=== PATIENT | female | born 1960 | race Hispanic/Latino ===

== ENCOUNTER 2016-08-27 10:33 | Emergency (ER) | payer MEDICAID ==
[2016-08-27 10:38] VITALS: TEMP 97.8
--- NOTE | 2016-08-27 10:49 | ED PDOC ---
HPI: Psych/Substance Abuse Time Seen by Provider: 08/27/16 10:40 History Per: EMS (Brought by EMS after found to be lethargic while playing Bingo this AM. Pt admits to taking diabetic meds together with sleeping meds this AM. Denies SI/HI. No intentional ingestion.) Onset/Duration Of Symptoms: Hrs (1) Current Symptoms Are (Timing): Still Present Suicide/Self Injury Attempted (Context): None Modifying Factor(s): None Severity: Mild Pain Scale Rating Of: 0 Past Medical History Vital Signs: Last Vital Signs Temp 97.8 F 08/27/16 10:37 Pulse 108 H 08/27/16 10:37 Resp BP 83/50 L 08/27/16 10:37 Pulse Ox 98 08/27/16 10:37 - Medical History PMH: Asthma, Bronchitis, COPD, Diabetes, HTN, Hypercholesterolemia Denies: Alzheimer's Disease, Chronic Kidney Disease - Surgical History Surgical History: Hernia Repair - Family History Family History: States: Unknown Family Hx - Immunization History Hx Tetanus Toxoid Vaccination: Yes Hx Influenza Vaccination: Yes Hx Pneumococcal Vaccination: No - Home Medications Home Medications: Ambulatory Orders Medication Instructions Recorded Aspirin [Aspirin EC] 81 mg PO DAILY 12/13/15 Atorvastatin Calcium 10 mg PO DAILY 12/13/15 Montelukast Sodium 10 mg PO DAILY 12/13/15 Albuterol HFA [Ventolin HFA 90 2 puff IH Q4 PRN 12/18/15 mcg/actuation (8 g)] metFORMIN [glucOPHAGE] 500 mg PO BID 12/18/15 Nitroglycerin 0.4 mg SL Q5M PRN 01/10/16 Quetiapine Fumarate 100 mg PO DAILY 01/10/16 Zolpidem [Ambien] 10 mg PO HS 01/10/16 Methylprednisolone [Medrol Dose 4 mg PO DAILY #21 mg 04/16/16 Pack (21 tabs)] Ergocalciferol (Vitamin D2) 5,000 unit PO QWK 05/10/16 [Vitamin D] Fenofibrate,Micronized 134 mg PO DAILY 05/10/16 [Fenofibrate] Prednisone [Deltasone] 20 mg PO DAILY #5 tablet 05/10/16 Quetiapine Fumarate [Seroquel] 100 mg PO DAILY 05/10/16 Methylprednisolone [Medrol Dosepak] 4 mg PO ASDIR #1 pkg 06/15/16 Naproxen [Naprosyn] 500 mg PO Q12 PRN #20 tablet 07/17/16 - Allergies Allergies/Adverse Reactions: Allergies Allergy/AdvReac Type Severity Reaction Status Date / Time Penicillins Allergy URTICARIA Verified 08/27/16 11:10 Review of Systems ROS Statement: Except As Marked, All Systems Reviewed And Found Negative Physical Exam - Reviewed Nursing Documentation Reviewed: Yes Vital Signs Reviewed: Yes - Physical Exam Appears: Positive for: Non-toxic, No Acute Distress Head Exam: Positive for: ATRAUMATIC, NORMAL INSPECTION, NORMOCEPHALIC Skin: Positive for: Normal Color, Warm, DRY Eye Exam: Positive for: EOMI, Normal appearance, PERRL ENT: Positive for: Normal ENT Inspection Neck: Positive for: Normal, Painless ROM Cardiovascular/Chest: Positive for: Regular Rate, Rhythm Respiratory: Positive for: CNT, Normal Breath Sounds Gastrointestinal/Abdominal: Positive for: Normal Exam, Bowel Sounds, Soft Back: Positive for: Normal Inspection Extremity: Positive for: Normal ROM Neurologic/Psych: Negative for: Alert (Sleepy lethargic, arousable), Motor/ Sensory Deficits - ECG O2 Sat by Pulse Oximetry: 98 - Progress Re-evaluation Time: 11:41 Condition: Improved (Awake alert oreinted x 3 No focal neuro deficits.) Disposition - Clinical Impression Clinical Impression: Drug ingestion - Patient ED Disposition Is Patient to be Admitted: No Counseled Patient/Family Regarding: Diagnosis, Need For Followup - Disposition Disposition: Routine/Home Disposition Time: 11:42 Condition: FAIR Instructions: Zolpidem (By mouth)
[2016-08-27 11:40] LABS: BASO % 0.4 % (0.0-2.0); EOS # 0.1 K/uL (0.0-0.7); EOS % 1.2 % (0.0-4.0); HEMATOCRIT 43.1 % (34.0-47.0); LYMPH # 2.2 K/uL (1.0-4.3); LYMPH % 26.4 % (20.0-40.0); MEAN CELL VOLUME 85.9 fl (81.0-99.0); MEAN CORPUSCULAR HGB CONC 33.8 g/dL (33.0-37.0); MEAN PLATELET VOLUME 7.5 fl (7.2-11.7); MONO # 0.4 K/uL (0.0-0.8); MONO % 4.8 % (0.0-10.0); NEUT # 5.7 K/uL (1.8-7.0); NEUT % 67.2 % (50.0-75.0); NRBC % 0.1 % (0.0-0.0); RED CELL DISTRIBUTION WIDTH 13.3 % (11.5-14.5); WHITE BLOOD COUNT 8.5 K/uL (4.8-10.8)
[2016-08-27 11:57] LABS: ALB/GLOB RATIO 1.1 (1.0-2.1); ALCOHOL SERUM < 10 mg/dl (0-10); ALKALINE PHOSPHATASE 68 U/L (38-126); ALT/SGPT 54 U/L (9-52); AST/SGOT 44 U/L (14-36); BILIRUBIN,TOTAL 0.8 mg/dl (0.2-1.3); BLOOD UREA NITROGEN 16 mg/dl (7-17); CALCIUM 9.7 mg/dL (8.4-10.2); CARBON DIOXIDE 21 mmol/L (22-30); CHLORIDE 105 mmol/L (98-107); GFR AFRICAN-AMERICAN > 60; GLUCOSE,RANDOM 141 mg/dL (65-105); SODIUM 142 mmol/l (132-148); TOTAL PROTEIN 8.2 G/DL (6.3-8.2)
[2016-08-27 12:07] LABS: POTASSIUM 4.9 MMOL/L (3.6-5.0)
[2016-08-27 12:18] VITALS: BP 100/60; PULSE 90; RESP 18; O2SAT 99
--- NOTE | 2016-08-27 14:06 | CARD ---
APPROVED REPORT EKG Measurement Heart [id number] <Conclusion> Normal sinus rhythm Possible Left atrial enlargement Borderline ECG
== END 2016-08-27 11:50 | disposition home or self-care (01) ==
LOC: H.ER 10:33
DX: T50.905A Adverse effect of unspecified drugs, medicaments and biological substances, initial encounter (principal); Y92.9 Unspecified place or not applicable; E11.9 Type 2 diabetes mellitus without complications; I10 Essential (primary) hypertension; J45.909 Unspecified asthma, uncomplicated; Z88.0 Allergy status to penicillin

== ENCOUNTER 2016-10-10 21:17 | Inpatient (IN) | payer MEDICAID ==
[2016-10-10 22:42] LABS: BASO # 0.1 K/uL (0.0-0.2); BASO % 0.7 % (0.0-2.0); EOS # 0.3 K/uL (0.0-0.7); EOS % 1.9 % (0.0-4.0); HEMATOCRIT 41.5 % (34.0-47.0); LYMPH # 4.4 K/uL (1.0-4.3); LYMPH % 33.7 % (20.0-40.0); MEAN CELL VOLUME 85.5 fl (81.0-99.0); MEAN CORPUSCULAR HEMOGLOBIN 28.8 pg (27.0-31.0); MEAN CORPUSCULAR HGB CONC 33.7 g/dL (33.0-37.0); MEAN PLATELET VOLUME 7.3 fl (7.2-11.7); MONO % 7.3 % (0.0-10.0); NEUT # 7.4 K/uL (1.8-7.0); NEUT % 56.4 % (50.0-75.0); RED CELL DISTRIBUTION WIDTH 13.5 % (11.5-14.5); WHITE BLOOD COUNT 13.1 K/uL (4.8-10.8)
[2016-10-10 22:47] LABS: VENOUS BLOOD GAS BASE EXCESS 2.6 mmol/L (0.0-2.0); VENOUS BLOOD GAS PCO2 41 mmHg (40-60); VENOUS BLOOD PH 7.43 (7.32-7.43)
[2016-10-10 22:53] LABS: ALB/GLOB RATIO 1.3 (1.0-2.1); ALKALINE PHOSPHATASE 103 U/L (38-126); ALT/SGPT 57 U/L (9-52); AST/SGOT 31 U/L (14-36); BILIRUBIN,TOTAL 0.5 mg/dl (0.2-1.3); BLOOD UREA NITROGEN 15 mg/dl (7-17); CALCIUM 9.1 mg/dL (8.4-10.2); CARBON DIOXIDE 24 mmol/L (22-30); CHLORIDE 105 mmol/L (98-107); GFR AFRICAN-AMERICAN > 60; GLUCOSE,RANDOM 109 mg/dL (65-105); MAGNESIUM 2.2 MG/DL (1.6-2.3); PHOSPHOROUS 4.5 mg/dl (2.5-4.5); POTASSIUM 4.1 MMOL/L (3.6-5.0); SODIUM 139 mmol/l (132-148); TOTAL PROTEIN 7.8 G/DL (6.3-8.2)
[2016-10-10] MEDS ORDERED: Albuterol-Ipratrop 3 mg / 0.5 (3 ml) UD ONE (23:08)
[2016-10-10] MEDS ORDERED: Albuterol-Ipratrop 3 mg / 0.5 (3 ml) UD INH STA (23:09)
[2016-10-10 23:39] LABS: PARTIAL THROMBOPLASTIN TIME 26.3 SECONDS (23.3-32.5)
--- NOTE | 2016-10-11 | ED PDOC ---
HPI: SOB/CHF/COPD Time Seen by Provider: 10/10/16 21:25 Chief Complaint (Nursing): Chest Pain Chief Complaint (Provider): chest tightness History Per: Patient History/Exam Limitations: no limitations Onset/Duration Of Symptoms: Days (2), Persistent Current Symptoms Are (Timing): Still Present Quality: Tightness Exacerbating Factor(s): Coughing Associated Symptoms: Fever, Chills, Chest Pain, Heart Racing, Light-headedness. denies: Productive Cough, Leg/Calf Pain Past Medical History Reviewed: Historical Data, Nursing Documentation, Vital Signs Vital Signs: Last Vital Signs Temp 99.3 F 10/10/16 21:24 Pulse 96 H 10/10/16 21:24 Resp 16 10/10/16 21:24 BP 135/89 10/10/16 21:24 Pulse Ox 98 10/10/16 21:24 - Medical History PMH: Asthma, Bronchitis, COPD, Diabetes, HTN, Hypercholesterolemia Denies: Alzheimer's Disease, Chronic Kidney Disease - Surgical History Surgical History: Hernia Repair - Family History Family History: States: CAD, Diabetes - Social History Current smoker - smoking cessation education provided: No Ex-Smoker (has not smoked in the last 12 months): Yes Drugs: Denies - Immunization History Hx Tetanus Toxoid Vaccination: Yes Hx Influenza Vaccination: Yes Hx Pneumococcal Vaccination: No - Home Medications Home Medications: Ambulatory Orders Medication Instructions Recorded Aspirin [Aspirin EC] 81 mg PO DAILY 12/13/15 Atorvastatin Calcium 10 mg PO DAILY 12/13/15 Montelukast Sodium 10 mg PO DAILY 12/13/15 Albuterol HFA [Ventolin HFA 90 2 puff IH Q4 PRN 12/18/15 mcg/actuation (8 g)] metFORMIN [glucOPHAGE] 500 mg PO BID 12/18/15 Nitroglycerin 0.4 mg SL Q5M PRN 01/10/16 Quetiapine Fumarate 100 mg PO DAILY 01/10/16 Zolpidem [Ambien] 10 mg PO HS 01/10/16 Methylprednisolone [Medrol Dose 4 mg PO DAILY #21 mg 04/16/16 Pack (21 tabs)] Ergocalciferol (Vitamin D2) 5,000 unit PO QWK 05/10/16 [Vitamin D] Fenofibrate,Micronized 134 mg PO DAILY 05/10/16 [Fenofibrate] Prednisone [Deltasone] 20 mg PO DAILY #5 tablet 05/10/16 Quetiapine Fumarate [Seroquel] 100 mg PO DAILY 05/10/16 Methylprednisolone [Medrol Dosepak] 4 mg PO ASDIR #1 pkg 06/15/16 Naproxen [Naprosyn] 500 mg PO Q12 PRN #20 tablet 07/17/16 - Allergies Allergies/Adverse Reactions: Allergies Allergy/AdvReac Type Severity Reaction Status Date / Time Penicillins Allergy URTICARIA Verified 10/10/16 21:24 Review of Systems ROS Statement: Except As Marked, All Systems Reviewed And Found Negative Constitutional: Positive for: Fever, Weakness, Malaise Cardiovascular: Positive for: Chest Pain, Light Headedness. Negative for: Edema Respiratory: Positive for: Cough, Shortness of Breath, SOB with Exertion, Pleuritic Pain, Wheezing Physical Exam - Reviewed Nursing Documentation Reviewed: Yes Vital Signs Reviewed: Yes - Physical Exam Appears: Positive for: Non-toxic, Uncomfortable (painful), In Acute Distress ( mild resp) Head Exam: Positive for: ATRAUMATIC, NORMOCEPHALIC Skin: Positive for: Warm, Dry Eye Exam: Positive for: EOMI, PERRL ENT: Positive for: Other (dry muc memb). Negative for: Pharyngeal Erythema, Tonsillar Exudate Neck: Positive for: Painless ROM, Supple Cardiovascular/Chest: Positive for: Regular Rate, Rhythm, Chest Non Tender. Negative for: Edema, Murmur Respiratory: Positive for: Wheezing (scattered). Negative for: Rales, Rhonchi, Stridor Gastrointestinal/Abdominal: Positive for: Soft. Negative for: Tenderness Back: Positive for: Normal Inspection. Negative for: Vertebral Tenderness Extremity: Positive for: Normal ROM. Negative for: Pedal Edema Lymphatic: Negative for: Adenopathy Neurologic/Psych: Positive for: Alert, Mood/Affect (mildly anxious). Negative for: Motor/Sensory Deficits - Laboratory Results Result Diagrams: 10/10/16 22:30 10/10/16 22:30 - ECG ECG: Positive for: Interpreted By Me ECG Rhythm: Positive for: Normal QRS, Normal ST Segment, Sinus Rhythm O2 Sat by Pulse Oximetry: 98 Pulse Ox Interpretation: Normal - Radiology X-Ray: Interpreted by Me X-Ray Interpretation: Other (Increased interstitial markings) - Progress ED Course And Treament: Pt given IV steroid and nebulizers while getting ER workup. Re-evaluation Time: 23:45 Condition: Unchanged - Critical Care Total Time (In Min): 30 Documented Critical Care: Time excludes all time spent performint seperately billable procedures Disposition - Clinical Impression Clinical Impression: COPD exacerbation Discussed With DrMadison: Ross Cao Doctor Will See Patient In The: Hospital Counseled Patient/Family Regarding: Studies Performed, Diagnosis - Disposition Disposition Time: 23:45 Condition: SERIOUS - Pt Status Changed To: Hospital Disposition Of: Observation - POA Present On Arrival: None
--- NOTE | 2016-10-11 09:07 | RAD ---
HISTORY: Chest pain. COMPARISON: 06/15/2016. TECHNIQUE: Chest PA and lateral FINDINGS: LUNGS: No discrete infiltrates. Stable interstitial lung disease. PLEURA: No significant pleural effusion identified. No pneumothorax apparent. CARDIOVASCULAR: No radiographic findings to suggest acute or significant cardiovascular disease. OSSEOUS STRUCTURES: No significant abnormalities. VISUALIZED UPPER ABDOMEN: Normal. OTHER FINDINGS: None. IMPRESSION: No active disease. No significant interval change compared to the prior examination(s).
[2016-10-11] MEDS ORDERED: MethylPREDNISolone 40 mg Vial ONE (09:27)
[2016-10-11] MEDS ORDERED: Dextrose 5%/0.45% NS 1,000 ML IV SCH (09:30)
[2016-10-11] MEDS: methylPREDNISolone 80 MG in Sodium Chloride 0.9% 50 ML IV SCH ×2 (09:52→16:54)
--- NOTE | 2016-10-11 12:23 | CARD ---
APPROVED REPORT EKG Measurement Heart [id number] <Conclusion> Normal sinus rhythm Possible Left atrial enlargement Borderline ECG
[2016-10-11] MEDS ORDERED: Naproxen 500 MG TAB PO PRN (12:26)
--- NOTE | 2016-10-11 12:40 | HP ---
HISTORY OF PRESENT ILLNESS: The patient is a 56-year-old female who was admitted via the Emergency R oom because of progressively worsening shortness of breath, exercise intolerance and chest tightness associated with cough productive of thick tenacious sputum for the past several days prior to present ation. She was seen in the Emergency Room and admitted for acute exacerbation of chronic persistent asthma. PAST MEDICAL HISTORY: Asthma, diabetes mellitus, hypertension, hyperlipidemia. FAMILY HISTORY: Nonrevealing. SOCIAL HISTORY: She does not drink or smoke. REVIEW OF SYSTEMS: Essentially remarkable for occasional asthma symptoms. MEDICATIONS: As per med rec. PHYSICAL EXAMINATION: GENERAL: The patient is alert, oriented. Appears to be in moderate distress because of shortness of breath and exercise intolerance. Her O2 sat 92% on nasal cannula oxygen. VITAL SIGNS: Blood pressure 125/78, pulse of 96, respiratory rate 20. She is afebrile. O2 sat 92% on nasal cannula oxygen. SKIN: Shows fair turgor. HEENT: Pupils equal and react to light and accommodation. Mouth shows fair hygiene with mucus engor gement of pharynx. NECK: JVP flat. LUNGS: Poor aeration with wheezing and rales diffusely. HEART: S1, S2. BREASTS: Normal. ABDOMEN: Soft, nontender, no organomegaly. EXTREMITIES: Shows no edema or cyanosis. CENTRAL NERVOUS SYSTEM: Grossly intact. LABORATORY DATA: WBC 13.1, hemoglobin 14.0, platelet count of 298,000. Sodium 139, potassium 4.1, B UN of 15, creatinine 0.7. Serum glucose 109. VBGs: A pH of 7.43, pCO2 of 41, pO2 of 49. Chest x-r ay: No acute cardiopulmonary pathology. EKG: Normal sinus rhythm, possible left atrial enlargement . IMPRESSION: Acute exacerbation of chronic persistent asthma, upper respiratory tract infection, diab etes mellitus type 2 with hyperglycemia, hypertension, stable. PLAN: Intravenous steroids, aerosolized bronchodilators, oxygen therapy. Would give empiric IV anti biotic therapy and IV steroids. Will continue therapy as ordered. Will discharge home once clinical ly stable. Ross Cao MD cc: [id number] TT: 10/11/2016 12:40:07 sn
[2016-10-11] MEDS ORDERED: Albuterol-Ipratrop 3 mg / 0.5 (3 ml) UD ONE (13:00)
[2016-10-11] MEDS: Albuterol-Ipratrop 3 mg / 0.5 (3 ml) UD INH SCH (13:10)
[2016-10-12] MEDS: methylPREDNISolone 80 MG in Sodium Chloride 0.9% 50 ML IV SCH ×2 (00:27→09:45)
[2016-10-12] MEDS: Albuterol-Ipratrop 3 mg / 0.5 (3 ml) UD INH SCH ×2 (00:59→08:39)
[2016-10-12] MEDS ORDERED: guaiFENesin DM 100 mg-10 mg/5 ml UD PO ONE (01:32)
[2016-10-12 07:41] LABS: BASO % 0.1 % (0.0-2.0); HEMATOCRIT 39.1 % (34.0-47.0); LYMPH # 2.3 K/uL (1.0-4.3); LYMPH % 10.4 % (20.0-40.0); MEAN CELL VOLUME 85.6 fl (81.0-99.0); MEAN CORPUSCULAR HEMOGLOBIN 28.6 pg (27.0-31.0); MEAN CORPUSCULAR HGB CONC 33.4 g/dL (33.0-37.0); MEAN PLATELET VOLUME 7.5 fl (7.2-11.7); MONO # 0.7 K/uL (0.0-0.8); MONO % 2.9 % (0.0-10.0); NEUT # 19.6 K/uL (1.8-7.0); NEUT % 86.6 % (50.0-75.0); RED CELL DISTRIBUTION WIDTH 14.2 % (11.5-14.5); WHITE BLOOD COUNT 22.6 K/uL (4.8-10.8)
[2016-10-12] MEDS: Enoxaparin 40 mg Syringe SC SCH (09:51)
--- NOTE | 2016-10-12 11:09 | CP.PCM.PN ---
Subjective - Date & Time of Evaluation Date of Evaluation: 10/12/16 Time of Evaluation: 11:09 - Subjective Subjective: STILL DYSPNEIC ON MILD EXERTION TACHYCARDIC NO CHEST PAINS COUGH PERSISTS Objective - Vital Signs/Intake and Output Vital Signs (last 24 hours): Temp Pulse Resp BP Pulse Ox 97.8 F 101 H 18 134/87 93 L 10/12/16 07:51 10/12/16 07:51 10/12/16 07:51 10/12/16 07:51 10/12/16 07:51 - Medications Medications: Current Medications Albuterol/Ipratropium (Duoneb 3 Mg/0.5 Mg (3 Ml) Ud) 3 ml INH RQ6 [facility] Last Admin: 10/12/16 08:39 Dose: 3 ml Aspirin (Ecotrin) 81 mg PO DAILY [facility] Last Admin: 10/12/16 09:46 Dose: 81 mg Atorvastatin Calcium (Lipitor) 10 mg PO DAILY [facility] Last Admin: 10/12/16 09:46 Dose: 10 mg Enoxaparin Sodium (Lovenox) 40 mg SC DAILY [facility] PRN Reason: Protocol Last Admin: 10/12/16 09:51 Dose: 40 mg Fenofibrate (Tricor) 145 mg PO DAILY [facility] Last Admin: 10/12/16 09:46 Dose: 145 mg Methylprednisolone 80 mg/ (Sodium Chloride) 50 mls @ 100 mls/hr IV Q8 [facility] Last Admin: 10/12/16 09:45 Dose: 100 mls/hr Metformin HCl (Glucophage) 500 mg PO BID [facility] Last Admin: 10/12/16 09:46 Dose: 500 mg Montelukast Sodium (Singulair) 10 mg PO DAILY [facility] Last Admin: 10/12/16 09:51 Dose: 10 mg Naproxen (Naproxen) 500 mg PO Q12 PRN PRN Reason: Pain, moderate (4-7) - Labs Labs: 10/12/16 06:00 PT 10.1 SECONDS (9.6-11.2) 10/10/16 22:30 INR 0.97 (0.92-1.08) 10/10/16 22:30 APTT 26.3 SECONDS (23.3-32.5) 10/10/16 22:30 - Constitutional Appears: No Acute Distress - Head Exam Head Exam: ATRAUMATIC, NORMAL INSPECTION, NORMOCEPHALIC - Eye Exam Eye Exam: EOMI, Normal appearance, PERRL Pupil Exam: NORMAL ACCOMODATION, PERRL - ENT Exam ENT Exam: Mucous Membranes Moist, Normal Exam - Neck Exam Neck Exam: Full ROM, Normal Inspection. absent: Lymphadenopathy - Respiratory Exam Respiratory Exam: Decreased Breath Sounds, Prolonged Expiratory Phase, Wheezes, NORMAL BREATHING PATTERN - Cardiovascular Exam Cardiovascular Exam: Tachycardia, REGULAR RHYTHM, +S1, +S2. absent: Murmur - GI/Abdominal Exam GI & Abdominal Exam: Soft, Normal Bowel Sounds. absent: Tenderness - Rectal Exam Rectal Exam: NORMAL INSPECTION - Extremities Exam Extremities Exam: Full ROM, Normal Capillary Refill, Normal Inspection. absent : Joint Swelling, Pedal Edema - Back Exam Back Exam: NORMAL INSPECTION - Neurological Exam Neurological Exam: Alert, Awake, CN II-XII Intact, Normal Gait, Oriented x3 - Psychiatric Exam Psychiatric exam: Normal Affect, Normal Mood - Skin Skin Exam: Dry, Intact, Normal Color, Warm Assessment and Plan - Assessment and Plan (Free Text) Assessment: ACUTE EXAC OF CHRONIC PERSISTENT ASTHMA URI LEUKOCYTOSIS TACHYCARDIA DUE TO MEDS Plan: TAPER STEROIDS D/C ALBUTEROL BEGIN XOPONEX
[2016-10-12] MEDS: Levalbuterol 1.25 MG/3 ML Inhal Soln UD INH SCH (16:06)
[2016-10-12] MEDS: methylPREDNISolone 40 MG in Sodium Chloride 0.9% 50 ML IV SCH (20:51)
[2016-10-13] MEDS: Levalbuterol 1.25 MG/3 ML Inhal Soln UD INH SCH ×3 (00:15→15:49)
[2016-10-13 08:30] LABS: BASO % 0.1 % (0.0-2.0); HEMATOCRIT 39.5 % (34.0-47.0); LYMPH # 2.6 K/uL (1.0-4.3); LYMPH % 12.1 % (20.0-40.0); MEAN CELL VOLUME 86.1 fl (81.0-99.0); MEAN CORPUSCULAR HEMOGLOBIN 28.8 pg (27.0-31.0); MEAN CORPUSCULAR HGB CONC 33.5 g/dL (33.0-37.0); MEAN PLATELET VOLUME 7.5 fl (7.2-11.7); MONO # 1.2 K/uL (0.0-0.8); MONO % 5.6 % (0.0-10.0); NEUT # 17.7 K/uL (1.8-7.0); NEUT % 82.2 % (50.0-75.0); RED CELL DISTRIBUTION WIDTH 13.9 % (11.5-14.5); WHITE BLOOD COUNT 21.5 K/uL (4.8-10.8)
[2016-10-13 08:44] LABS: BLOOD UREA NITROGEN 14 mg/dl (7-17); CALCIUM 9.8 mg/dL (8.4-10.2); CARBON DIOXIDE 28 mmol/L (22-30); CHLORIDE 103 mmol/L (98-107); GFR AFRICAN-AMERICAN > 60; GLUCOSE,RANDOM 168 mg/dL (65-105); POTASSIUM 4.8 MMOL/L (3.6-5.0); SODIUM 141 mmol/l (132-148)
[2016-10-13] MEDS: Enoxaparin 40 mg Syringe SC SCH (09:22)
[2016-10-13] MEDS: methylPREDNISolone 40 MG in Sodium Chloride 0.9% 50 ML IV SCH ×2 (09:23→21:22)
[2016-10-13] MEDS ORDERED: Sodium Chloride 3% for Inhalation 4 ML VIAL.NEB IH PRN (09:41)
--- NOTE | 2016-10-13 09:55 | CP.PCM.PN ---
Subjective - Date & Time of Evaluation Date of Evaluation: 10/13/16 Time of Evaluation: 09:58 - Subjective Subjective: C/O NOSE BLEEDS WITH GREEN MUCUS SECRETIONS RESTLESS AND CONTINUES TO WANDER ABOUT CORRIDORS WITH RESULTANT TACHYCARDIA ON MONITOR CRIES WHEN ADVISED TO REMAIN IN BED Objective - Vital Signs/Intake and Output Vital Signs (last 24 hours): Temp Pulse Resp BP Pulse Ox 97.3 F L 61 20 122/69 97 10/13/16 09:00 10/13/16 09:00 10/13/16 09:00 10/13/16 09:00 10/13/16 09:00 - Medications Medications: Current Medications Aspirin (Ecotrin) 81 mg PO DAILY [facility] Last Admin: 10/13/16 09:21 Dose: 81 mg Atorvastatin Calcium (Lipitor) 10 mg PO DAILY [facility] Last Admin: 10/13/16 09:22 Dose: 10 mg Enoxaparin Sodium (Lovenox) 40 mg SC DAILY [facility] PRN Reason: Protocol Last Admin: 10/13/16 09:22 Dose: 40 mg Fenofibrate (Tricor) 145 mg PO DAILY [facility] Last Admin: 10/13/16 09:24 Dose: 145 mg Methylprednisolone 40 mg/ (Sodium Chloride) 50 mls @ 100 mls/hr IV Q12 [facility] Last Admin: 10/13/16 09:23 Dose: 100 mls/hr Levalbuterol HCl (Xopenex) 1.25 mg INH RQ8 [facility] Last Admin: 10/13/16 08:00 Dose: 1.25 mg Levofloxacin/Dextrose (Levaquin 500mg) 500 mg IVPB DAILY [facility] Metformin HCl (Glucophage) 500 mg PO BID [facility] Last Admin: 10/13/16 09:22 Dose: 500 mg Montelukast Sodium (Singulair) 10 mg PO DAILY [facility] Last Admin: 10/13/16 09:23 Dose: 10 mg Naproxen (Naproxen) 500 mg PO Q12 PRN PRN Reason: Pain, moderate (4-7) - Labs Labs: 10/13/16 06:00 10/13/16 06:00 PT 10.1 SECONDS (9.6-11.2) 10/10/16 22:30 INR 0.97 (0.92-1.08) 10/10/16 22:30 APTT 26.3 SECONDS (23.3-32.5) 10/10/16 22:30 - Constitutional Appears: No Acute Distress - Head Exam Head Exam: ATRAUMATIC, NORMAL INSPECTION, NORMOCEPHALIC - Eye Exam Eye Exam: EOMI, Normal appearance, PERRL Pupil Exam: NORMAL ACCOMODATION, PERRL - ENT Exam ENT Exam: Mucous Membranes Moist, Normal Exam Additional comments: NASAL MUCUS - Neck Exam Neck Exam: Full ROM, Normal Inspection. absent: Lymphadenopathy - Respiratory Exam Respiratory Exam: Rales, Wheezes, NORMAL BREATHING PATTERN - Cardiovascular Exam Cardiovascular Exam: REGULAR RHYTHM, +S1, +S2. absent: Murmur - GI/Abdominal Exam GI & Abdominal Exam: Soft, Normal Bowel Sounds. absent: Tenderness - Rectal Exam Rectal Exam: NORMAL INSPECTION - Extremities Exam Extremities Exam: Full ROM, Normal Capillary Refill, Normal Inspection. absent : Joint Swelling, Pedal Edema - Back Exam Back Exam: NORMAL INSPECTION - Neurological Exam Neurological Exam: Alert, Awake, CN II-XII Intact, Normal Gait, Oriented x3 - Psychiatric Exam Psychiatric exam: Normal Affect, Normal Mood - Skin Skin Exam: Dry, Intact, Normal Color, Warm Assessment and Plan - Assessment and Plan (Free Text) Assessment: ACUTE EXAC OF ASTHMA URI INTERSTITIAL LUNG DZ ON CXR LEUKOCYTOSIS PROBABLY DUE TO URI SINUS TACHYCARDIA DUE TO ASTHMA AND URI/ANXIETY Plan: TRANSFER TO REGULAR FLOOR HUMIDIFY O2 TO PREVENT NOSEBLEEDS ADD IV ANTIBIOTICS TO RX ADVISED BEDREST
[2016-10-13] MEDS: levoFLOXacin 500 mg in D5W 500 MG/100 ML BAG IVPB SCH (13:08)
[2016-10-13] MEDS: Promethazine DM 12.5 mg-30 mg/10 ml Syrup PO PRN (21:21)
[2016-10-14] MEDS: Levalbuterol 1.25 MG/3 ML Inhal Soln UD INH SCH ×4 (00:11→23:31)
[2016-10-14 06:21] LABS: BASO % 0.2 % (0.0-2.0); HEMATOCRIT 41.3 % (34.0-47.0); LYMPH # 2.9 K/uL (1.0-4.3); LYMPH % 16.3 % (20.0-40.0); MEAN CELL VOLUME 86.2 fl (81.0-99.0); MEAN CORPUSCULAR HEMOGLOBIN 28.4 pg (27.0-31.0); MEAN CORPUSCULAR HGB CONC 32.9 g/dL (33.0-37.0); MEAN PLATELET VOLUME 7.2 fl (7.2-11.7); MONO # 0.8 K/uL (0.0-0.8); MONO % 4.3 % (0.0-10.0); NEUT # 14.4 K/uL (1.8-7.0); NEUT % 79.2 % (50.0-75.0); WHITE BLOOD COUNT 18.1 K/uL (4.8-10.8)
[2016-10-14 06:29] LABS: CHLORIDE 99 mmol/L (98-107); POTASSIUM 4.3 MMOL/L (3.6-5.0); SODIUM 139 mmol/l (132-148)
[2016-10-14 06:31] LABS: GFR AFRICAN-AMERICAN > 60
[2016-10-14 06:32] LABS: BLOOD UREA NITROGEN 18 mg/dl (7-17); CALCIUM 9.5 mg/dL (8.4-10.2); CARBON DIOXIDE 28 mmol/L (22-30); GLUCOSE,RANDOM 171 mg/dL (65-105)
--- NOTE | 2016-10-14 08:34 | CP.PCM.PN ---
Subjective - Date & Time of Evaluation Date of Evaluation: 10/14/16 Time of Evaluation: 08:34 - Subjective Subjective: FEELS BETTER SOB IMPROVED Objective - Vital Signs/Intake and Output Vital Signs (last 24 hours): Temp Pulse Resp BP Pulse Ox 97.5 F L 71 20 137/79 94 L 10/14/16 08:05 10/14/16 08:05 10/14/16 08:05 10/14/16 08:05 10/14/16 08:05 - Medications Medications: Current Medications Aspirin (Ecotrin) 81 mg PO DAILY [facility] Last Admin: 10/13/16 09:21 Dose: 81 mg Atorvastatin Calcium (Lipitor) 10 mg PO DAILY [facility] Last Admin: 10/13/16 09:22 Dose: 10 mg Enoxaparin Sodium (Lovenox) 40 mg SC DAILY [facility] PRN Reason: Protocol Last Admin: 10/13/16 09:22 Dose: 40 mg Fenofibrate (Tricor) 145 mg PO DAILY [facility] Last Admin: 10/13/16 09:24 Dose: 145 mg Methylprednisolone 40 mg/ (Sodium Chloride) 50 mls @ 100 mls/hr IV Q12 [facility] Last Admin: 10/13/16 21:22 Dose: 100 mls/hr Levofloxacin/Dextrose (Levaquin 500mg) 500 mg in 100 mls @ 100 mls/hr IVPB DAILY [facility] Last Admin: 10/13/16 13:08 Dose: 100 mls/hr Levalbuterol HCl (Xopenex) 1.25 mg INH RQ8 [facility] Last Admin: 10/14/16 08:14 Dose: 1.25 mg Metformin HCl (Glucophage) 500 mg PO BID [facility] Last Admin: 10/13/16 16:44 Dose: 500 mg Montelukast Sodium (Singulair) 10 mg PO DAILY [facility] Last Admin: 10/13/16 09:23 Dose: 10 mg Naproxen (Naproxen) 500 mg PO Q12 PRN PRN Reason: Pain, moderate (4-7) Promethazine HCl/Dextromethorphan (Phenergan Dm Syrup) 10 ml PO Q6 PRN PRN Reason: Cough Last Admin: 10/13/16 21:21 Dose: 10 ml - Labs Labs: 10/14/16 05:25 10/14/16 05:25 PT 10.1 SECONDS (9.6-11.2) 10/10/16 22:30 INR 0.97 (0.92-1.08) 10/10/16 22:30 APTT 26.3 SECONDS (23.3-32.5) 10/10/16 22:30 - Constitutional Appears: No Acute Distress - Head Exam Head Exam: ATRAUMATIC, NORMAL INSPECTION, NORMOCEPHALIC - Eye Exam Eye Exam: EOMI, Normal appearance, PERRL Pupil Exam: NORMAL ACCOMODATION, PERRL - ENT Exam ENT Exam: Mucous Membranes Moist, Normal Exam - Neck Exam Neck Exam: Full ROM, Normal Inspection. absent: Lymphadenopathy - Respiratory Exam Respiratory Exam: Prolonged Expiratory Phase, Wheezes, NORMAL BREATHING PATTERN - Cardiovascular Exam Cardiovascular Exam: REGULAR RHYTHM, +S1, +S2. absent: Murmur - GI/Abdominal Exam GI & Abdominal Exam: Soft, Normal Bowel Sounds. absent: Tenderness - Rectal Exam Rectal Exam: NORMAL INSPECTION - Extremities Exam Extremities Exam: Full ROM, Normal Capillary Refill, Normal Inspection. absent : Joint Swelling, Pedal Edema - Back Exam Back Exam: NORMAL INSPECTION - Neurological Exam Neurological Exam: Alert, Awake, CN II-XII Intact, Normal Gait, Oriented x3 - Psychiatric Exam Psychiatric exam: Normal Affect, Normal Mood - Skin Skin Exam: Dry, Intact, Normal Color, Warm Assessment and Plan - Assessment and Plan (Free Text) Assessment: ACUTE EXAC OF ASTHMA-IMPROVING URI LEUKOCYTOSIS IMPROVING DM HTN Plan: TAPER STEROIDS CONTINUE PRESENT RX D/C IN AM IF STABLE
[2016-10-14] MEDS: methylPREDNISolone 40 MG in Sodium Chloride 0.9% 50 ML IV SCH (09:00)
[2016-10-14] MEDS: Enoxaparin 40 mg Syringe SC SCH (10:07)
[2016-10-14] MEDS: levoFLOXacin 500 mg in D5W 500 MG/100 ML BAG IVPB SCH (10:08)
--- NOTE | 2016-10-14 12:57 | PQF GENQUE ---
This form is a permanent part of the medical record 10/14/16 Dr. Cao, Please further clarify the type of persistent asthma if known. Admitted with an exacerbation of chronic persistent asthma. Treated with Solumedrol, nebulizer treatments, singulair, levaquin. Clarification of your documentation is requested to better reflect the severity of illness and intensity of treatment of your patient. PHYSICIAN'S RESPONSE [ ] Mild persistent asthma [ x] Moderate persistent asthma [ ] Severe persistent asthma [ ] Unable to determine [ ] Unknown Based on your medical judgment of the clinical indicators outlined above please clarify the following: [] Practitioner response [] If unable to determine, please check the box, sign and date. Present On Admission (POA) Indicator: [x] Present at the time of admission [] Not present at the time of admission [] Clinically Undetermined In responding to this query, please exercise your independent professional judgment. The fact that a question is asked does not imply that any particular answer is desired or expected. Thank you for your clarification on this documentation. If you have any questions please call:[phone] Medical Records Dept. * Thank you, Ivis Espinosa RN CD MTDD
[2016-10-14] MEDS: Promethazine DM 12.5 mg-30 mg/10 ml Syrup PO PRN (23:10)
--- NOTE | 2016-10-15 02:13 | CARD ---
APPROVED REPORT EKG Measurement Heart [id number] [id number] <Conclusion> Normal sinus rhythm Normal ECG
[2016-10-15 07:09] LABS: BASO % 0.2 % (0.0-2.0); HEMATOCRIT 41.6 % (34.0-47.0); LYMPH # 4.7 K/uL (1.0-4.3); LYMPH % 25.2 % (20.0-40.0); MEAN CELL VOLUME 86.6 fl (81.0-99.0); MEAN CORPUSCULAR HEMOGLOBIN 28.6 pg (27.0-31.0); MEAN PLATELET VOLUME 7.1 fl (7.2-11.7); MONO # 1.2 K/uL (0.0-0.8); MONO % 6.7 % (0.0-10.0); NEUT # 12.6 K/uL (1.8-7.0); NEUT % 67.9 % (50.0-75.0); NRBC % 0.1 % (0.0-0.0); RED CELL DISTRIBUTION WIDTH 13.8 % (11.5-14.5); WHITE BLOOD COUNT 18.6 K/uL (4.8-10.8)
[2016-10-15] MEDS: Levalbuterol 1.25 MG/3 ML Inhal Soln UD INH SCH ×3 (07:12→23:02)
[2016-10-15] MEDS: Enoxaparin 40 mg Syringe SC SCH (08:58)
[2016-10-15] MEDS: levoFLOXacin 500 mg in D5W 500 MG/100 ML BAG IVPB SCH (09:00)
[2016-10-15] MEDS: methylPREDNISolone 40 MG in Sodium Chloride 0.9% 50 ML IV SCH (09:00)
--- NOTE | 2016-10-15 09:24 | CP.PCM.PN ---
Subjective - Date & Time of Evaluation Date of Evaluation: 10/15/16 Time of Evaluation: 09:24 - Subjective Subjective: SOB IMPROVED NO CHEST PAIN MILD COUGH PERSISTS Objective - Vital Signs/Intake and Output Vital Signs (last 24 hours): Temp Pulse Resp BP Pulse Ox 97.9 F 87 19 119/77 98 10/15/16 08:36 10/15/16 08:36 10/15/16 08:36 10/15/16 08:36 10/15/16 08:36 - Medications Medications: Current Medications Aspirin (Ecotrin) 81 mg PO DAILY [facility] Last Admin: 10/15/16 08:59 Dose: 81 mg Atorvastatin Calcium (Lipitor) 10 mg PO DAILY [facility] Last Admin: 10/15/16 08:59 Dose: 10 mg Enoxaparin Sodium (Lovenox) 40 mg SC DAILY [facility] PRN Reason: Protocol Last Admin: 10/15/16 08:58 Dose: 40 mg Fenofibrate (Tricor) 145 mg PO DAILY [facility] Last Admin: 10/15/16 09:01 Dose: 145 mg Levofloxacin/Dextrose (Levaquin 500mg) 500 mg in 100 mls @ 100 mls/hr IVPB DAILY [facility] Last Admin: 10/15/16 09:00 Dose: 100 mls/hr Methylprednisolone 40 mg/ (Sodium Chloride) 50 mls @ 100 mls/hr IV DAILY [facility] Last Admin: 10/15/16 09:00 Dose: 100 mls/hr Levalbuterol HCl (Xopenex) 1.25 mg INH RQ8 [facility] Last Admin: 10/15/16 07:12 Dose: 1.25 mg Metformin HCl (Glucophage) 500 mg PO BIDWM [facility] Last Admin: 10/15/16 08:59 Dose: 500 mg Montelukast Sodium (Singulair) 10 mg PO DAILY [facility] Last Admin: 10/15/16 09:00 Dose: 10 mg Naproxen (Naproxen) 500 mg PO Q12 PRN PRN Reason: Pain, moderate (4-7) Promethazine HCl/Dextromethorphan (Phenergan Dm Syrup) 10 ml PO Q6 PRN PRN Reason: Cough Last Admin: 10/14/16 23:10 Dose: 10 ml - Labs Labs: 10/15/16 05:25 10/14/16 05:25 PT 10.1 SECONDS (9.6-11.2) 10/10/16 22:30 INR 0.97 (0.92-1.08) 10/10/16 22:30 APTT 26.3 SECONDS (23.3-32.5) 10/10/16 22:30 - Constitutional Appears: No Acute Distress - Head Exam Head Exam: ATRAUMATIC, NORMAL INSPECTION, NORMOCEPHALIC - Eye Exam Eye Exam: EOMI, Normal appearance, PERRL Pupil Exam: NORMAL ACCOMODATION, PERRL - ENT Exam ENT Exam: Mucous Membranes Moist, Normal Exam - Neck Exam Neck Exam: Full ROM, Normal Inspection. absent: Lymphadenopathy - Respiratory Exam Respiratory Exam: Prolonged Expiratory Phase, Wheezes, NORMAL BREATHING PATTERN - Cardiovascular Exam Cardiovascular Exam: REGULAR RHYTHM, +S1, +S2. absent: Murmur - GI/Abdominal Exam GI & Abdominal Exam: Soft, Normal Bowel Sounds. absent: Tenderness - Rectal Exam Rectal Exam: NORMAL INSPECTION - Extremities Exam Extremities Exam: Full ROM, Normal Capillary Refill, Normal Inspection. absent : Joint Swelling, Pedal Edema - Back Exam Back Exam: NORMAL INSPECTION - Neurological Exam Neurological Exam: Alert, Awake, CN II-XII Intact, Normal Gait, Oriented x3 - Psychiatric Exam Psychiatric exam: Normal Affect, Normal Mood - Skin Skin Exam: Dry, Intact, Normal Color, Warm Assessment and Plan - Assessment and Plan (Free Text) Assessment: ACUTE ASTHMA--IMPROVED INTERSTITIAL LUNG DZ HTN DM LEUKOCYTOSIS--?STEROID INDUCED Plan: D/C IV STEROIDS REPEAT CBC IN AM IF WBC IMPROVES,WILL D/C HOME
[2016-10-15] MEDS: Promethazine DM 12.5 mg-30 mg/10 ml Syrup PO PRN (22:51)
[2016-10-16 07:15] LABS: BASO % 0.2 % (0.0-2.0); EOS % 0.2 % (0.0-4.0); LYMPH # 5.7 K/uL (1.0-4.3); LYMPH % 28.3 % (20.0-40.0); MEAN CELL VOLUME 86.3 fl (81.0-99.0); MEAN CORPUSCULAR HEMOGLOBIN 28.4 pg (27.0-31.0); MEAN PLATELET VOLUME 6.9 fl (7.2-11.7); MONO # 1.2 K/uL (0.0-0.8); MONO % 5.8 % (0.0-10.0); NEUT # 13.2 K/uL (1.8-7.0); NEUT % 65.5 % (50.0-75.0); RED CELL DISTRIBUTION WIDTH 13.7 % (11.5-14.5); WHITE BLOOD COUNT 20.2 K/uL (4.8-10.8)
[2016-10-16] MEDS: Levalbuterol 1.25 MG/3 ML Inhal Soln UD INH SCH ×3 (07:51→23:43)
[2016-10-16] MEDS: Enoxaparin 40 mg Syringe SC SCH (08:23)
[2016-10-16] MEDS: levoFLOXacin 500 mg in D5W 500 MG/100 ML BAG IVPB SCH ×2 (08:26→13:01)
--- NOTE | 2016-10-16 09:02 | CP.PCM.PN ---
Subjective - Date & Time of Evaluation Date of Evaluation: 10/16/16 Time of Evaluation: 09:05 - Subjective Subjective: SOB IMPROVED COUGH LESS NO CHEST PAINS IMPROVED EXERCISE TOLERANCE Objective - Vital Signs/Intake and Output Vital Signs (last 24 hours): Temp Pulse Resp BP Pulse Ox 98.1 F 63 16 112/68 98 10/16/16 07:45 10/16/16 07:45 10/16/16 07:45 10/16/16 07:45 10/16/16 07:45 - Medications Medications: Current Medications Aspirin (Ecotrin) 81 mg PO DAILY [facility] Last Admin: 10/16/16 08:24 Dose: 81 mg Atorvastatin Calcium (Lipitor) 10 mg PO DAILY [facility] Last Admin: 10/16/16 08:24 Dose: 10 mg Enoxaparin Sodium (Lovenox) 40 mg SC DAILY [facility] PRN Reason: Protocol Last Admin: 10/16/16 08:23 Dose: 40 mg Fenofibrate (Tricor) 145 mg PO DAILY [facility] Last Admin: 10/16/16 08:25 Dose: 145 mg Levofloxacin/Dextrose (Levaquin 500mg) 500 mg in 100 mls @ 100 mls/hr IVPB DAILY [facility] Last Admin: 10/16/16 08:26 Dose: Not Given Levalbuterol HCl (Xopenex) 1.25 mg INH RQ8 [facility] Last Admin: 10/16/16 07:51 Dose: 1.25 mg Metformin HCl (Glucophage) 500 mg PO BIDWM [facility] Last Admin: 10/16/16 08:24 Dose: 500 mg Montelukast Sodium (Singulair) 10 mg PO DAILY [facility] Last Admin: 10/16/16 08:25 Dose: 10 mg Naproxen (Naproxen) 500 mg PO Q12 PRN PRN Reason: Pain, moderate (4-7) Promethazine HCl/Dextromethorphan (Phenergan Dm Syrup) 10 ml PO Q6 PRN PRN Reason: Cough Last Admin: 10/15/16 22:51 Dose: 10 ml - Labs Labs: 10/16/16 05:30 10/14/16 05:25 PT 10.1 SECONDS (9.6-11.2) 10/10/16 22:30 INR 0.97 (0.92-1.08) 10/10/16 22:30 APTT 26.3 SECONDS (23.3-32.5) 10/10/16 22:30 - Constitutional Appears: No Acute Distress - Head Exam Head Exam: ATRAUMATIC, NORMAL INSPECTION, NORMOCEPHALIC - Eye Exam Eye Exam: EOMI, Normal appearance, PERRL Pupil Exam: NORMAL ACCOMODATION, PERRL - ENT Exam ENT Exam: Mucous Membranes Moist, Normal Exam - Neck Exam Neck Exam: Full ROM, Normal Inspection. absent: Lymphadenopathy - Respiratory Exam Respiratory Exam: Decreased Breath Sounds, Prolonged Expiratory Phase, Wheezes, NORMAL BREATHING PATTERN - Cardiovascular Exam Cardiovascular Exam: REGULAR RHYTHM, +S1, +S2. absent: Murmur - GI/Abdominal Exam GI & Abdominal Exam: Soft, Normal Bowel Sounds. absent: Tenderness - Rectal Exam Rectal Exam: NORMAL INSPECTION - Extremities Exam Extremities Exam: Full ROM, Normal Capillary Refill, Normal Inspection. 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
--- NOTE | 2016-10-16 12:22 | RAD ---
HISTORY: PNEUMONIA COMPARISON: 10/10/2016 TECHNIQUE: Chest PA and lateral FINDINGS: LUNGS: Progressive consolidative changes at the lung bases PLEURA: No significant interval change compared to the prior examination(s). CARDIOVASCULAR: Normal. OSSEOUS STRUCTURES: No significant abnormalities. VISUALIZED UPPER ABDOMEN: Normal. OTHER FINDINGS: None. IMPRESSION: Worsening bilateral lower lobe infiltrates.
--- NOTE | 2016-10-16 14:16 | CP.PCM.CON ---
History of Present Illness - History of Present Illness History of Present Illness: 56 yo female admitted to [facility] with worsning infiltrates on cxr admitted here last week for pneumonia requiring IV antibiotics CXR shows worsening infiltrates and CT chest pending allergy to PCN + Hives cultures neg thus far all serologies neg last adm- HIV neg admitted with Fever, Chills, Chest Pain, Heart Racing, Light-headedness. denies: Productive Cough, Leg/Calf Pain - Medical History PMH: Asthma, Bronchitis, COPD, Diabetes, HTN, Hypercholesterolemia Review of Systems - Constitutional Constitutional: As Per HPI, Fever, Malaise - EENT Eyes: absent: As Per HPI, Blind Spots, Blurred Vision, Change in Vision, Decreased Night Vision, Diplopia, Discharge, Dry Eye, Exophthalmos, Floaters, Irritation, Itchy Eyes, Loss of Peripheral Vision, Pain, Photophobia, Requires Corrective Lenses, Sees Flashes, Spots in Vision, Tunnel Vision, Other Visual Disturbances, Loss of Vision, Other Ears: absent: As Per HPI, Decreased Hearing, Ear Discharge, Ear Pain, Tinnitus, Abnormal Hearing, Disequilibrium, Dizziness, Other Nose/Mouth/Throat: absent: As Per HPI, Epistaxis, Nasal Congestion, Nasal Discharge, Nasal Obstruction, Nasal Trauma, Nose Pain, Post Nasal Drip, Sinus Pain, Sinus Pressure, Bleeding Gums, Change in Voice, Dental Pain, Dry Mouth, Dysphagia, Halitosis, Hoarsness, Lip Swelling, Mouth Lesions, Mouth Pain, Odynophagia, Sore Throat, Throat Swelling, Tongue Swelling, Facial Pain, Neck Pain, Neck Mass, Other - Breasts Breasts: absent: As Per HPI, Change in Shape, Mass, Pain, Nipple Discharge, Nipple Inversion, Skin Changes, Swelling, Other - Cardiovascular Cardiovascular: As Per HPI - Respiratory Respiratory: As Per HPI, Cough, Dyspnea. absent: Hemoptysis - Gastrointestinal Gastrointestinal: absent: As Per HPI, Abdominal Pain, Belching, Bloating, Change in Bowel Habits, Change in Stool Character, Coffee Ground Emesis, Constipation, Cramping, Diarrhea, Dyspepsia, Dysphagia, Early Satiety, Excessive Flatus, Fecal Incontinence, Heartburn, Hematemesis, Hematochezia, Loose Stools, Melena, Nausea, Odynophagia, Temesmus, Vomiting, Other - Genitourinary Genitourinary: absent: As Per HPI, Change in Urinary Stream, Difficulty Urinating, Dysuria, Flank Pain, Hematuria, Pyuria, Nocturia, Urinary Incontinence, Urinary Frequency, Urinary Hesitance, Urinary Urgency, Voiding Freq/Small Amts, Freq UTI, Hx Renal/Bladder Calculi, Hx /Renal Surgery, Bladder Distension, Other - Reproductive: Female Reproductive:Female: absent: As Per HPI, Amenorrhea, Amenorrhea/ Control, Currently Menstual, Cycle <21 Days, Cycle >35 Days, Cycle Variable, Menses 1-7 Days, Menses >/= 8 Days, Menses Variable, Cycle > 4 Weeks Between, No Menses for 6 Months, Heavy Menses, Light Menses, Normal Menses, Spotting Between Cycles , S/P Hysterectomy, Menopausal, Post Menopausal, Premenarche, Abnormal Vaginal Bleeding, Dysmenorrhea, Dyspareunia, Genital Lesions, Genital Pruritis, Pelvic Pain, Prolapse Symptoms, Sexual Dysfunction, Vaginal Discharge, Vaginal Dryness , Vaginal Odor, Vaginal Pruritis, Other - Menstruation Menstruation: absent: As Per HPI, Amenorrhea, Amenorrhea/ Control, Currently Menstual, Cycle <21 Days, Cycle >35 Days, Cycle Variable, Menses 1-7 Days, Menses >/= 8 Days, Menses Variable, Cycle > 4 Weeks Between, No Menses for 6 Months, Heavy Menses, Light Menses, Normal Menses, Spotting Between Cycles , S/P Hysterectomy, Menopausal, Post Menopausal, Premenarche, Abnormal Vaginal Bleeding, Dysmenorrhea, Other - Musculoskeletal Musculoskeletal: absent: As Per HPI, Abnormal Gait, Arthralgias, Atrophy, Back Pain, Deformity, Joint Swelling, Limited Range of Motion, Loss of Height, Muscle Cramps, Muscle Weakness, Myalgias, Neck Pain, Numbness, Radiating Pain into Limb, Stiffness, Tingling, Other - Integumentary Integumentary: absent: As Per HPI, Acne, Alopecia, Bleeding Lesions, Change in Hair, Change in Nails, Change in Pigmentation, Changing Lesions, Dry Skin, Erythema, Furuncle, Hirsutism, Lesions, New Lesions, Non-Healing Lesions, Photosensitivity, Pruritus, Rash, Skin Pain, Skin Ulcer, Sores, Striae, Swelling , Unusual Bruising, Wounds, Jaundice, Other - Neurological Neurological: absent: As Per HPI, Abnormal Gait, Abnormal Hearing, Abnormal Movements, Abnormal Speech, Behavioral Changes, Burning Sensations, Confusion, Convulsions, Disequilibrium, Dizziness, Numbness, Focal Weakness, Frequent Falls , Headaches, Lack of Coordination, Loss of Vision, Memory Loss, Paresthesias, Radicular Pain, Restless Legs, Sensory Deficit, Syncope, Tingling, Tremor, Vertigo, Weakness, Other Visual Disturbances, Other - Psychiatric Psychiatric: absent: As Per HPI, Abnormal Sleep Pattern, Anhedonia, Anxiety, Auditory Hallucinations, Behavioral Changes, Change in Appetite, Change in Libido, Confusion, Depression, Difficulty Concentrating, Hallucinations, Homicidal Ideation, Hopelessness, Irritability, Memory Loss, Mood Swings, Panic Attacks, Paranoia, Suicidal Ideation, Visual Hallucinations, Tactile Hallucinations, Other - Endocrine Endocrine: absent: As Per HPI, Change in Body Appearance, Change in Libido, Cold Intolorance, Deepening of Voice, Excessive Sweating, Fatigue, Flushing, Heat Intolorance, Increase in Ring/Shoe/Hat Size, Palpitations, Polydipsia, Polyphagia, Polyuria, Other - Hematologic/Lymphatic Hematologic: absent: As Per HPI, Easy Bleeding, Easy Bruising, Lymphadenopathy, Other Past Patient History - Infectious Disease Hx of Infectious Diseases: None - Tetanus Immunizations Tetanus Immunization: Unknown - Past Medical History & Family History Past Medical History?: Yes - Past Social History Smoking Status: Never Smoked - CARDIAC Hx Hypercholesterolemia: Yes Hx Hypertension: Yes - PULMONARY Hx Asthma: Yes Hx Bronchitis: Yes Hx Chronic Obstructive Pulmonary Disease (COPD): Yes - NEUROLOGICAL Hx Alzheimer's Disease: No - HEENT Hx HEENT Problems: Yes Other/Comment: RT EYE DEVIATION CORRECTION. PT WEARS GLASSES - RENAL Hx Chronic Kidney Disease: No - ENDOCRINE/METABOLIC Hx Endocrine Disorders: Yes Hx Diabetes Mellitus Type 2: Yes - HEMATOLOGICAL/ONCOLOGICAL Hx Blood Disorders: No Hx AIDS: No Hx Blood Transfusions: No Hx Human Immunodeficiency Virus (HIV): No - INTEGUMENTARY Hx Dermatological Problems: No - MUSCULOSKELETAL/RHEUMATOLOGICAL Hx Musculoskeletal Disorders: Yes Hx Falls: No (DENIES) Other/Comment: HAMMER TOES - GASTROINTESTINAL Hx Gastrointestinal Disorders: Yes Hx Hemorrhoids: Yes Other/Comment: Colonoscopy - GENITOURINARY/GYNECOLOGICAL Hx Genitourinary Disorders: No - PSYCHIATRIC Hx Psychophysiologic Disorder: No Hx Substance Use: No - SURGICAL HISTORY Hx Surgeries: Yes Hx Herniorrhaphy: Yes (right) Other/Comment: R inguinal hernia,R ovarian cyst removed,Surgery thru belly button for adhesions - ANESTHESIA Hx Anesthesia: Yes Hx Anesthesia Reactions: No Hx Malignant Hyperthermia: No Meds Allergies/Adverse Reactions: Allergies Allergy/AdvReac Type Severity Reaction Status Date / Time Penicillins Allergy URTICARIA Verified 10/10/16 21:24 - Medications Medications: Current Medications Aspirin (Ecotrin) 81 mg PO DAILY [facility] Last Admin: 10/16/16 08:24 Dose: 81 mg Atorvastatin Calcium (Lipitor) 10 mg PO DAILY [facility] Last Admin: 10/16/16 08:24 Dose: 10 mg Enoxaparin Sodium (Lovenox) 40 mg SC DAILY [facility] PRN Reason: Protocol Last Admin: 10/16/16 08:23 Dose: 40 mg Fenofibrate (Tricor) 145 mg PO DAILY [facility] Last Admin: 10/16/16 08:25 Dose: 145 mg Levofloxacin/Dextrose (Levaquin 500mg) 500 mg in 100 mls @ 100 mls/hr IVPB DAILY [facility] Last Admin: 10/16/16 13:01 Dose: 100 mls/hr Levalbuterol HCl (Xopenex) 1.25 mg INH RQ8 [facility] Last Admin: 10/16/16 07:51 Dose: 1.25 mg Metformin HCl (Glucophage) 500 mg PO BIDWM [facility] Last Admin: 10/16/16 08:24 Dose: 500 mg Montelukast Sodium (Singulair) 10 mg PO DAILY [facility] Last Admin: 10/16/16 08:25 Dose: 10 mg Naproxen (Naproxen) 500 mg PO Q12 PRN PRN Reason: Pain, moderate (4-7) Promethazine HCl/Dextromethorphan (Phenergan Dm Syrup) 10 ml PO Q6 PRN PRN Reason: Cough Last Admin: 10/15/16 22:51 Dose: 10 ml Physical Exam - Constitutional Appears: Non-toxic, Chronically Ill - Head Exam Head Exam: ATRAUMATIC, NORMAL INSPECTION, NORMOCEPHALIC - Eye Exam Eye Exam: PERRL. absent: Scleral icterus - ENT Exam ENT Exam: Mucous Membranes Dry, Normal External Ear Exam, Normal Oropharynx - Neck Exam Neck exam: Negative for: Lymphadenopathy, Thyromegaly - Respiratory Exam Respiratory Exam: Decreased Breath Sounds, Rhonchi - Cardiovascular Exam Cardiovascular Exam: REGULAR RHYTHM, +S1, +S2 - GI/Abdominal Exam GI & Abdominal Exam: Diminished Bowel Sounds, Soft. absent: Tenderness - Rectal Exam Rectal Exam: Deferred - Exam Exam: NORMAL INSPECTION - Extremities Exam Extremities exam: Positive for: pedal pulses present. Negative for: calf tenderness, pedal edema, tenderness - Back Exam Back exam: absent: CVA tenderness (L), CVA tenderness (R), paraspinal tenderness - Neurological Exam Neurological exam: Alert, CN II-XII Intact, Oriented x3, Reflexes Normal - Psychiatric Exam Psychiatric exam: Normal Mood - Skin Skin Exam: Dry, Intact Results - Vital Signs Recent Vital Signs: Last Vital Signs Temp 98.1 F 10/16/16 07:45 Pulse 63 10/16/16 07:45 Resp 16 10/16/16 07:45 BP 112/68 10/16/16 07:45 Pulse Ox 98 10/16/16 07:45 - Labs Result Diagrams: 10/16/16 05:30 10/14/16 05:25 Labs: Laboratory Results - last 24 hr 10/15/16 10/15/16 10/15/16 10:51 15:57 21:25 WBC RBC Hgb Hct MCV MCH MCHC RDW Plt Count MPV Neut % (Auto) Lymph % (Auto) Frederick % (Auto) Eos % (Auto) Baso % (Auto) Neut # Lymph # Frederick # Eos # Baso # POC Glucose (mg/dL) 124 H 186 H 188 H 10/16/16 10/16/16 10/16/16 05:30 05:41 10:41 WBC 20.2 H RBC 4.86 Hgb 13.8 Hct 42.0 MCV 86.3 MCH 28.4 MCHC 33.0 RDW 13.7 Plt Count 360 MPV 6.9 L Neut % (Auto) 65.5 Lymph % (Auto) 28.3 Frederick % (Auto) 5.8 Eos % (Auto) 0.2 Baso % (Auto) 0.2 Neut # 13.2 H Lymph # 5.7 H Frederick # 1.2 H Eos # 0.0 Baso # 0.0 POC Glucose (mg/dL) 118 H 96 Assessment & Plan (1) COPD exacerbation Status: Acute (2) Anxiety Status: Acute (3) Asthma Status: Acute (4) Asthma exacerbation Status: Acute (5) COPD (chronic obstructive pulmonary disease) Status: Acute (6) Diabetes mellitus Status: Acute (7) HTN (hypertension) Status: Acute (8) Hyperlipidemia Status: Acute - Assessment and Plan (Free Text) Assessment: acute exac of COPD with pneumonia and worsening infiltrates on CXR cultures to date have been negative CT chest pending steroids on hold likely responsible for leukocytosis? cont iv antibiotics for min 7 days
--- NOTE | 2016-10-16 14:45 | CT ---
PROCEDURE: CT Chest without contrast HISTORY: PNEUMONIA COMPARISON: October 16, 2016. Two-view chest. TECHNIQUE: Contiguous axial images were obtained through the chest without intravenous contrast enhancement. Sagittal and coronal reconstructions were performed. Radiation dose (DLP): 684.56 mGy-cm. This CT exam was performed using one or more of the following dose reduction techniques: Automated exposure control, adjustment of the mA and/or kV according to patient size, and/or use of iterative reconstruction technique. FINDINGS: LUNGS: Lower lobe infiltrates/atelectasis. Additional all consolidative changes with air bronchograms noted in the right middle lobe. No additional suspicious findings. No suspicious pulmonary nodules or masses. MEDIASTINUM: Unremarkable thoracic aorta. No aneurysm. Normal sized heart. Main pulmonary artery unremarkable. No vascular congestion. No lymphadenopathy. PLEURA: No pleural fluid. No pneumothorax. BONES: No fracture. No destructive lesion. UPPER ABDOMEN: Hepatic steatosis. No focal masses. No intrahepatic bile duct dilatation or perihepatic ascites. Status post cholecystectomy. No abnormality is seen in the gallbladder fossa. OTHER FINDINGS: None. IMPRESSION: Dependent infiltrates/atelectasis basilar distribution, approximately symmetrical. Similar findings in the lateral segment of the right middle lobe.
[2016-10-16 16:26] VITALS: BP 115/76; PULSE 109; RESP 20; TEMP 98.3; O2SAT 90
[2016-10-17] MEDS: Promethazine DM 12.5 mg-30 mg/10 ml Syrup PO PRN (00:21)
--- NOTE | 2016-10-17 09:53 | PN ---
DATE: 10/17/2016 The patient is a 56-year-old female admitted with acute exacerbation of asthma and interstitial lung disease who has had a persistent leukocytosis. She indicates that shortness of breath has dramatical ly improved. Cough is less. No chest pains. VITAL SIGNS: Stable. LUNGS: Show fair aeration with mild wheezing. HEART: S1, S2. ABDOMEN: Soft, nontender. No organomegaly. EXTREMITIES: Show no edema or cyanosis. CENTRAL NERVOUS SYSTEM: Grossly intact. LABORATORY DATA: Continues to show persistent leukocytosis with WBC of 20,000. CAT scan of the chest done, results pending. IMPRESSION: Acute exacerbation of chronic persistent asthma, leukocytosis probably secondary to infe ction. One has to rule out pneumonia. Interstitial lung disease on chest x-ray, rule out superimpos ed pneumonia, hypertension, diabetes. PLAN: Is to admit the patient to transitional care for IV antibiotic therapy for 5-7 more days. Inf ectious disease evaluation already requested. We will continue therapy as ordered. Ross Cao MD cc: [id number] TT: 10/17/2016 09:52:47 Confirmation # [id number] Dictation # [id number]
[2016-10-17 19:48] LABS: BASO % 0.1 % (0.0-2.0); EOS # 0.3 K/uL (0.0-0.7); EOS % 1.9 % (0.0-4.0); LYMPH # 6.2 K/uL (1.0-4.3); MEAN CELL VOLUME 86.4 fl (81.0-99.0); MEAN CORPUSCULAR HEMOGLOBIN 28.2 pg (27.0-31.0); MEAN CORPUSCULAR HGB CONC 32.7 g/dL (33.0-37.0); MEAN PLATELET VOLUME 6.7 fl (7.2-11.7); MONO % 6.5 % (0.0-10.0); NEUT % 51.5 % (50.0-75.0); RED CELL DISTRIBUTION WIDTH 13.7 % (11.5-14.5); WHITE BLOOD COUNT 15.6 K/uL (4.8-10.8)
--- NOTE | 2016-10-18 12:45 | CP.PCM.DIS ---
Provider - Provider Date of Admission: 10/11/16 12:25 Attending physician: Ross Cao MD Primary care physician: Abdirahman Tan Time Spent in preparation of Discharge (in minutes): 35 Diagnosis - Discharge Diagnosis (1) Anxiety Status: Acute (2) Asthma Status: Acute (3) Asthma exacerbation Status: Acute (4) Diabetes mellitus Status: Acute (5) HTN (hypertension) Status: Acute (6) Hyperlipidemia Status: Acute (7) Leukocytosis Status: Acute (8) Pulmonary infiltrate Status: Acute Hospital Course - Lab Results Lab Results: Most Recent Lab Values WBC 15.6 K/uL (4.8-10.8) H 10/17/16 04:00 RBC 4.86 Mil/uL (3.80-5.20) 10/17/16 04:00 Hgb 13.7 g/dL (12.0-16.0) 10/17/16 04:00 Hct 42.0 % (34.0-47.0) 10/17/16 04:00 MCV 86.4 fl (81.0-99.0) 10/17/16 04:00 MCH 28.2 pg (27.0-31.0) 10/17/16 04:00 MCHC 32.7 g/dL (33.0-37.0) L 10/17/16 04:00 RDW 13.7 % (11.5-14.5) 10/17/16 04:00 Plt Count 295 K/uL (130-400) 10/17/16 04:00 MPV 6.7 fl (7.2-11.7) L 10/17/16 04:00 Neut % (Auto) 51.5 % (50.0-75.0) 10/17/16 04:00 Lymph % (Auto) 40.0 % (20.0-40.0) 10/17/16 04:00 [place] % (Auto) 6.5 % (0.0-10.0) 10/17/16 04:00 Eos % (Auto) 1.9 % (0.0-4.0) 10/17/16 04:00 Baso % (Auto) 0.1 % (0.0-2.0) 10/17/16 04:00 Neut # 8.0 K/uL (1.8-7.0) H 10/17/16 04:00 Lymph # 6.2 K/uL (1.0-4.3) H 10/17/16 04:00 [place] # 1.0 K/uL (0.0-0.8) H 10/17/16 04:00 Eos # 0.3 K/uL (0.0-0.7) 10/17/16 04:00 Baso # 0.0 K/uL (0.0-0.2) 10/17/16 04:00 PT 10.1 SECONDS (9.6-11.2) 10/10/16 22:30 INR 0.97 (0.92-1.08) 10/10/16 22:30 APTT 26.3 SECONDS (23.3-32.5) 10/10/16 22:30 D-Dimer, Quantitative 0.39 mg/L FEU (0-0.50) 10/10/16 22:30 pO2 49 mm/Hg (30-55) 10/10/16 22:40 VBG pH 7.43 (7.32-7.43) 10/10/16 22:40 VBG pCO2 41 mmHg (40-60) 10/10/16 22:40 VBG HCO3 26.6 mmol/L 10/10/16 22:40 VBG Total CO2 28.5 mmol/L (22-28) H 10/10/16 22:40 VBG O2 Sat (Calc) 88.6 % (40-65) H 10/10/16 22:40 VBG Base Excess 2.6 mmol/L (0.0-2.0) H 10/10/16 22:40 VBG Potassium 4.0 mmol/L (3.6-5.2) 10/10/16 22:40 A-a O2 Difference 49.0 mm/Hg 10/10/16 22:40 Sodium 141.0 mmol/L (132-148) 10/10/16 22:40 Chloride 108.0 mmol/L (98-107) H 10/10/16 22:40 Glucose 112 mg/dL (65-105) H 10/10/16 22:40 Lactate 1.6 mmol/L (0.7-2.1) 10/10/16 22:40 FiO2 21.0 % 10/10/16 22:40 Sodium 139 mmol/l (132-148) 10/14/16 05:25 Potassium 4.3 MMOL/L (3.6-5.0) 10/14/16 05:25 Chloride 99 mmol/L (98-107) 10/14/16 05:25 Carbon Dioxide 28 mmol/L (22-30) 10/14/16 05:25 Anion Gap 16 (10-20) 10/14/16 05:25 BUN 18 mg/dl (7-17) H 10/14/16 05:25 Creatinine 0.7 mg/dL (0.7-1.2) 10/14/16 05:25 Est GFR ( Amer) > 60 10/14/16 05:25 Est GFR (Non-Af Amer) > 60 10/14/16 05:25 POC Glucose (mg/dL) 115 mg/dL (65-110) H 10/17/16 15:41 Random Glucose 171 mg/dL (65-105) H 10/14/16 05:25 Calcium 9.5 mg/dL (8.4-10.2) 10/14/16 05:25 Phosphorus 4.5 mg/dl (2.5-4.5) 10/10/16 22:30 Magnesium 2.2 MG/DL (1.6-2.3) 10/10/16 22:30 Total Bilirubin 0.5 mg/dl (0.2-1.3) 10/10/16 22:30 AST 31 U/L (14-36) 10/10/16 22:30 ALT 57 U/L (9-52) H 10/10/16 22:30 Alkaline Phosphatase 103 U/L (38-126) 10/10/16 22:30 Troponin I < 0.0120 ng/mL (0.00-0.120) 10/10/16 22:30 NT-Pro-B Natriuret Pep 63.3 pg/ml (0-900) 10/10/16 22:30 Total Protein 7.8 G/DL (6.3-8.2) 10/10/16 22:30 Albumin 4.4 g/dL (3.5-5.0) 10/10/16 22:30 Globulin 3.4 gm/dL (2.2-3.9) 10/10/16 22:30 Albumin/Globulin Ratio 1.3 (1.0-2.1) 10/10/16 22:30 Venous Blood Potassium 4.0 mmol/L (3.6-5.2) 10/10/16 22:40 Influenza Typ A,B (EIA) Negative for flu a/b (NEGATIVE) 10/10/16 22:30 - Hospital Course Hospital Course: sob and cough improved Discharge Exam - Head Exam Head Exam: ATRAUMATIC, NORMAL INSPECTION, NORMOCEPHALIC - Eye Exam Eye Exam: EOMI, Normal appearance, PERRL Pupil Exam: NORMAL ACCOMODATION, PERRL - GI/Abdominal Exam GI & Abdominal Exam: Normal Bowel Sounds - Rectal Exam Rectal Exam: NORMAL INSPECTION - Neurological Exam Neurological exam: Alert, CN II-XII Intact, Normal Gait, Oriented x3, Reflexes Normal - Psychiatric Exam Psychiatric exam: Normal Affect, Normal Mood - Skin Skin Exam: Dry, Intact, Normal Color, Warm Discharge Plan - Follow Up Plan Condition: SERIOUS Disposition: TRANSITIONAL CARE UNIT Patient education suggested?: Yes Additional Instructions: transfer to subacute care for iv antibiotic therapy Referrals: Abdirahman Tan MD [Primary Care Provider] -
--- NOTE | 2016-10-20 07:12 | PQF GENQUE ---
Dr. Cao progress note dated 10/17 documented "leukocytosis probably secondary to infection." After study if known was pt admitted and treated for an infection? This form is a permanent part of the medical record Clarification of your documentation is requested to better reflect the severity of illness and intensity of treatment of your patient. Indicators present [] Specify: [] [] Specify: [] [] Specify: [] [] Specify: [] Location in the medical record that reflects the above clinical findings: [] Treatment Provided: [] PHYSICIAN'S RESPONSE Based on your medical judgment of the clinical indicators outlined above please clarify the following: [x] Practitioner response ---upper respiratory tract infection [] If unable to determine, please check the box, sign and date. Present On Admission (POA) Indicator: [x] Present at the time of admission [] Not present at the time of admission [] Clinically Undetermined In responding to this query, please exercise your independent professional judgment. The fact that a question is asked does not imply that any particular answer is desired or expected. Thank you for your clarification on this documentation. If you have any questions please call:[ ] * Thank you, [ ]Rashida Fu assistant unit forester LAURA
== END 2016-10-17 19:36 | DRG 96 ==
LOC: H.ER 21:17 → H.ERHOLD 23:57 → OBSVTOIN 10-11 12:25 → H.TEL 10-11 18:54 → H.MEDSURG1 10-13 22:02
PROVIDERS: ADMIT Internal Medicine Pulmonary Disease; ATTEND Internal Medicine Pulmonary Disease
DX: J45.41 Moderate persistent asthma with (acute) exacerbation (principal); J84.9 Interstitial pulmonary disease, unspecified; E11.65 Type 2 diabetes mellitus with hyperglycemia; I10 Essential (primary) hypertension; E78.5 Hyperlipidemia, unspecified; E78.00 Pure hypercholesterolemia, unspecified; F41.9 Anxiety disorder, unspecified; R04.0 Epistaxis; Z88.0 Allergy status to penicillin; T38.0X5A Adverse effect of glucocorticoids and synthetic analogues, initial encounter; D72.829 Elevated white blood cell count, unspecified; J06.9 Acute upper respiratory infection, unspecified

== ENCOUNTER 2016-10-17 18:15 | Inpatient (IN) | payer MEDICAID ==
[2016-10-17 20:42] VITALS: RESP 20
[2016-10-17] MEDS ORDERED: Naproxen 500 MG TAB PO PRN (21:14)
[2016-10-18] MEDS: Levalbuterol 1.25 MG/3 ML Inhal Soln UD INH SCH ×4 (00:02→23:39)
[2016-10-18] MEDS: Promethazine DM 12.5 mg-30 mg/10 ml Syrup PO PRN ×2 (00:23→22:40)
[2016-10-18 07:48] LABS: HEMATOCRIT 40.5 % (34.0-47.0); MEAN CELL VOLUME 86.2 fl (81.0-99.0); MEAN CORPUSCULAR HEMOGLOBIN 28.5 pg (27.0-31.0); RED CELL DISTRIBUTION WIDTH 13.9 % (11.5-14.5); WHITE BLOOD COUNT 13.2 K/uL (4.8-10.8)
[2016-10-18 08:03] LABS: BLOOD UREA NITROGEN 27 mg/dl (7-17); CALCIUM 8.8 mg/dL (8.4-10.2); CARBON DIOXIDE 25 mmol/L (22-30); CHLORIDE 103 mmol/L (98-107); GFR AFRICAN-AMERICAN > 60; GLUCOSE,RANDOM 115 mg/dL (65-105); POTASSIUM 4.3 MMOL/L (3.6-5.0); SODIUM 137 mmol/l (132-148)
[2016-10-18] MEDS: Enoxaparin 40 mg Syringe SC SCH (10:06)
--- NOTE | 2016-10-18 13:03 | HP ---
The patient is a 56-year-old female who was discharged from the medical floor and admitted to the [facility] [place] unit because of a need for IV antibiotic therapy for bilateral pulmonary infiltrates a nd acute exacerbation of asthma. PAST MEDICAL HISTORY: Bronchial asthma, diabetes mellitus, occasional chest pains and hyperlipidemia . FAMILY HISTORY: Nonrevealing. SOCIAL HISTORY: She denies smoking or alcohol use. REVIEW OF SYSTEMS: Essentially remarkable for occasional asthma episodes. PHYSICAL EXAMINATION: GENERAL: The patient is alert, oriented, appears much more comfortable today. VITAL SIGNS: Blood pressure of 125/70, pulse of 99, respirations 20. She is afebrile. O2 sat 98% o n room air. SKIN: Shows fair turgor. HEENT: Pupils equal, reactive to light and accommodation. Mouth shows fair hygiene. NECK: JVP flat. LUNGS: Fair aeration with mild wheezing. HEART: Regular. No murmurs or gallop. BREASTS: Normal. ABDOMEN: Soft, nontender, no organomegaly. EXTREMITIES: Shows no edema or cyanosis. CENTRAL NERVOUS SYSTEM: Grossly intact. LABORATORY DATA: WBC down to 13.2 from 20,000, hemoglobin 13.4, platelet count of 314,000. Sodium 1 37, potassium 4.3, BUN of 27, creatinine 0.9, serum glucose 115. IMPRESSION: Acute exacerbation of chronic persistent asthma, bilateral pulmonary infiltrates, probab ly secondary to pulmonary infection, diabetes mellitus with hyperglycemia, better controlled, hyperli pidemia. PLAN: Continue intravenous antibiotics, aerosolized bronchodilators and oxygen. Further therapy shadi l depend on findings. If patient is clinically stable, will discharge home once antibiotic therapy i s completed. Ross Cao MD cc: [id number] TT: 10/18/2016 13:02:46 en
--- NOTE | 2016-10-18 13:03 | CP.PCM.CON ---
History of Present Illness - History of Present Illness History of Present Illness: 56 YO FEMALE WITH HX OF DM HTN OBESITY AND ASTHMA ADMITTTED TO TCU FOR CONT OF ANTIBIOTIC RX DX WITH PNEUMONIA - FAILED OUT PT RX ALLERGIC TO PCN Review of Systems - Constitutional Constitutional: As Per HPI - EENT Eyes: absent: As Per HPI, Blind Spots, Blurred Vision, Change in Vision, Decreased Night Vision, Diplopia, Discharge, Dry Eye, Exophthalmos, Floaters, Irritation, Itchy Eyes, Loss of Peripheral Vision, Pain, Photophobia, Requires Corrective Lenses, Sees Flashes, Spots in Vision, Tunnel Vision, Other Visual Disturbances, Loss of Vision, Other Ears: absent: As Per HPI, Decreased Hearing, Ear Discharge, Ear Pain, Tinnitus, Abnormal Hearing, Disequilibrium, Dizziness, Other Nose/Mouth/Throat: absent: As Per HPI, Epistaxis, Nasal Congestion, Nasal Discharge, Nasal Obstruction, Nasal Trauma, Nose Pain, Post Nasal Drip, Sinus Pain, Sinus Pressure, Bleeding Gums, Change in Voice, Dental Pain, Dry Mouth, Dysphagia, Halitosis, Hoarsness, Lip Swelling, Mouth Lesions, Mouth Pain, Odynophagia, Sore Throat, Throat Swelling, Tongue Swelling, Facial Pain, Neck Pain, Neck Mass, Other - Breasts Breasts: absent: As Per HPI, Change in Shape, Mass, Pain, Nipple Discharge, Nipple Inversion, Skin Changes, Swelling, Other - Cardiovascular Cardiovascular: absent: As Per HPI, Acrocyanosis, Chest Pain, Chest Pain at Rest , Chest Pain with Activity, Claudication, Diaphoresis, Dyspnea, Dyspnea on Exertion, Edema, Irregular Heart Rhythm, Pain Radiating to Arm/Neck/Jaw, Leg Edema, Leg Ulcers, Lightheadedness, Orthopnea, Palpitations, Paroxysmal Nocturnal Dyspnea, Pedal Edema, Radiating Pain, Rapid Heart Rate, Slow Heart Rate, Syncope, Other - Respiratory Respiratory: As Per HPI, Cough, Dyspnea. absent: Hemoptysis - Gastrointestinal Gastrointestinal: absent: As Per HPI, Abdominal Pain, Belching, Bloating, Change in Bowel Habits, Change in Stool Character, Coffee Ground Emesis, Constipation, Cramping, Diarrhea, Dyspepsia, Dysphagia, Early Satiety, Excessive Flatus, Fecal Incontinence, Heartburn, Hematemesis, Hematochezia, Loose Stools, Melena, Nausea, Odynophagia, Temesmus, Vomiting, Other - Genitourinary Genitourinary: absent: As Per HPI, Change in Urinary Stream, Difficulty Urinating, Dysuria, Flank Pain, Hematuria, Pyuria, Nocturia, Urinary Incontinence, Urinary Frequency, Urinary Hesitance, Urinary Urgency, Voiding Freq/Small Amts, Freq UTI, Hx Renal/Bladder Calculi, Hx /Renal Surgery, Bladder Distension, Other - Reproductive: Female Reproductive:Female: absent: As Per HPI, Amenorrhea, Amenorrhea/ Control, Currently Menstual, Cycle <21 Days, Cycle >35 Days, Cycle Variable, Menses 1-7 Days, Menses >/= 8 Days, Menses Variable, Cycle > 4 Weeks Between, No Menses for 6 Months, Heavy Menses, Light Menses, Normal Menses, Spotting Between Cycles , S/P Hysterectomy, Menopausal, Post Menopausal, Premenarche, Abnormal Vaginal Bleeding, Dysmenorrhea, Dyspareunia, Genital Lesions, Genital Pruritis, Pelvic Pain, Prolapse Symptoms, Sexual Dysfunction, Vaginal Discharge, Vaginal Dryness , Vaginal Odor, Vaginal Pruritis, Other - Menstruation Menstruation: absent: As Per HPI, Amenorrhea, Amenorrhea/ Control, Currently Menstual, Cycle <21 Days, Cycle >35 Days, Cycle Variable, Menses 1-7 Days, Menses >/= 8 Days, Menses Variable, Cycle > 4 Weeks Between, No Menses for 6 Months, Heavy Menses, Light Menses, Normal Menses, Spotting Between Cycles , S/P Hysterectomy, Menopausal, Post Menopausal, Premenarche, Abnormal Vaginal Bleeding, Dysmenorrhea, Other - Musculoskeletal Musculoskeletal: absent: As Per HPI, Abnormal Gait, Arthralgias, Atrophy, Back Pain, Deformity, Joint Swelling, Limited Range of Motion, Loss of Height, Muscle Cramps, Muscle Weakness, Myalgias, Neck Pain, Numbness, Radiating Pain into Limb, Stiffness, Tingling, Other - Integumentary Integumentary: absent: As Per HPI, Acne, Alopecia, Bleeding Lesions, Change in Hair, Change in Nails, Change in Pigmentation, Changing Lesions, Dry Skin, Erythema, Furuncle, Hirsutism, Lesions, New Lesions, Non-Healing Lesions, Photosensitivity, Pruritus, Rash, Skin Pain, Skin Ulcer, Sores, Striae, Swelling , Unusual Bruising, Wounds, Jaundice, Other - Neurological Neurological: absent: As Per HPI, Abnormal Gait, Abnormal Hearing, Abnormal Movements, Abnormal Speech, Behavioral Changes, Burning Sensations, Confusion, Convulsions, Disequilibrium, Dizziness, Numbness, Focal Weakness, Frequent Falls , Headaches, Lack of Coordination, Loss of Vision, Memory Loss, Paresthesias, Radicular Pain, Restless Legs, Sensory Deficit, Syncope, Tingling, Tremor, Vertigo, Weakness, Other Visual Disturbances, Other - Psychiatric Psychiatric: absent: As Per HPI, Abnormal Sleep Pattern, Anhedonia, Anxiety, Auditory Hallucinations, Behavioral Changes, Change in Appetite, Change in Libido, Confusion, Depression, Difficulty Concentrating, Hallucinations, Homicidal Ideation, Hopelessness, Irritability, Memory Loss, Mood Swings, Panic Attacks, Paranoia, Suicidal Ideation, Visual Hallucinations, Tactile Hallucinations, Other - Endocrine Endocrine: absent: As Per HPI, Change in Body Appearance, Change in Libido, Cold Intolorance, Deepening of Voice, Excessive Sweating, Fatigue, Flushing, Heat Intolorance, Increase in Ring/Shoe/Hat Size, Palpitations, Polydipsia, Polyphagia, Polyuria, Other - Hematologic/Lymphatic Hematologic: absent: As Per HPI, Easy Bleeding, Easy Bruising, Lymphadenopathy, Other Past Patient History - Infectious Disease Hx of Infectious Diseases: None - Tetanus Immunizations Tetanus Immunization: Unknown - Past Medical History & Family History Past Medical History?: Yes - Past Social History Smoking Status: Never Smoked - CARDIAC Hx Hypertension: Yes - PULMONARY Hx Chronic Obstructive Pulmonary Disease (COPD): Yes - NEUROLOGICAL Hx Neurological Disorder: No - HEENT Hx HEENT Problems: Yes Other/Comment: RT EYE DEVIATION CORRECTION. PT WEARS GLASSES - RENAL Hx Renal Failure: No - ENDOCRINE/METABOLIC Hx Diabetes Mellitus Type 2: Yes - HEMATOLOGICAL/ONCOLOGICAL Hx Blood Disorders: No Hx AIDS: No Hx Blood Transfusions: No Hx Human Immunodeficiency Virus (HIV): No - INTEGUMENTARY Hx Dermatological Problems: No - MUSCULOSKELETAL/RHEUMATOLOGICAL Hx Musculoskeletal Disorders: Yes Hx Falls: No Other/Comment: HAMMER TOES - GASTROINTESTINAL Hx Gastrointestinal Disorders: Yes Hx Hemorrhoids: Yes Other/Comment: Colonoscopy - GENITOURINARY/GYNECOLOGICAL Hx Genitourinary Disorders: No - PSYCHIATRIC Hx Psychophysiologic Disorder: No Hx Substance Use: No - SURGICAL HISTORY Hx Surgeries: Yes Hx Herniorrhaphy: Yes (right) Other/Comment: R inguinal hernia,R ovarian cyst removed,Surgery thru belly button for adhesions - ANESTHESIA Hx Anesthesia: Yes Hx Anesthesia Reactions: No Hx Malignant Hyperthermia: No Meds Allergies/Adverse Reactions: Allergies Allergy/AdvReac Type Severity Reaction Status Date / Time Penicillins Allergy URTICARIA Verified 10/10/16 21:24 - Medications Medications: Current Medications Aspirin (Ecotrin) 81 mg PO DAILY [facility] Last Admin: 10/18/16 10:06 Dose: 81 mg Atorvastatin Calcium (Lipitor) 10 mg PO DAILY@2100 [facility] Enoxaparin Sodium (Lovenox) 40 mg SC DAILY [facility] PRN Reason: Protocol Last Admin: 10/18/16 10:06 Dose: 40 mg Fenofibrate (Tricor) 145 mg PO DAILY [facility] Last Admin: 10/18/16 10:06 Dose: 145 mg Levofloxacin/Dextrose (Levaquin 500mg) 500 mg in 100 mls @ 100 mls/hr IVPB DAILY@1700 [facility] Levalbuterol HCl (Xopenex) 1.25 mg INH RQ8 [facility] Last Admin: 10/18/16 07:37 Dose: 1.25 mg Metformin HCl (Glucophage) 500 mg PO BID@0800,1700 [facility] Last Admin: 10/18/16 10:06 Dose: 500 mg Montelukast Sodium (Singulair) 10 mg PO DAILY@1800 [facility] Naproxen (Naproxen) 500 mg PO Q12 PRN PRN Reason: Pain, moderate (4-7) Promethazine HCl/Dextromethorphan (Phenergan Dm Syrup) 10 ml PO Q6 PRN PRN Reason: Cough Last Admin: 10/18/16 00:23 Dose: 10 ml Physical Exam - Constitutional Appears: Non-toxic, Chronically Ill - Head Exam Head Exam: ATRAUMATIC, NORMAL INSPECTION, NORMOCEPHALIC - Eye Exam Eye Exam: PERRL. absent: Scleral icterus - ENT Exam ENT Exam: Mucous Membranes Dry, Normal External Ear Exam - Neck Exam Neck exam: Negative for: Lymphadenopathy, Thyromegaly - Respiratory Exam Respiratory Exam: Decreased Breath Sounds, Rhonchi - Cardiovascular Exam Cardiovascular Exam: REGULAR RHYTHM, +S1, +S2 - GI/Abdominal Exam GI & Abdominal Exam: Diminished Bowel Sounds, Soft. absent: Tenderness - Rectal Exam Rectal Exam: Deferred - Exam Exam: NORMAL INSPECTION - Extremities Exam Extremities exam: Positive for: pedal pulses present. Negative for: calf tenderness, pedal edema, tenderness - Back Exam Back exam: absent: CVA tenderness (L), CVA tenderness (R) - Neurological Exam Neurological exam: Alert, CN II-XII Intact, Oriented x3, Reflexes Normal - Psychiatric Exam Psychiatric exam: Normal Mood - Skin Skin Exam: Dry, Intact Results - Vital Signs Recent Vital Signs: Last Vital Signs Temp 97.9 F 10/18/16 08:08 Pulse 99 H 10/18/16 09:53 Resp 20 10/18/16 08:08 BP 102/52 L 10/18/16 08:08 Pulse Ox 98 10/18/16 09:53 - Labs Result Diagrams: 10/18/16 07:36 10/18/16 07:36 Labs: Laboratory Results - last 24 hr 10/17/16 10/18/16 10/18/16 23:35 07:36 07:36 WBC 13.2 H RBC 4.70 Hgb 13.4 Hct 40.5 MCV 86.2 MCH 28.5 MCHC 33.0 RDW 13.9 Plt Count 314 Sodium 137 Potassium 4.3 Chloride 103 Carbon Dioxide 25 Anion Gap 14 BUN 27 H Creatinine 0.9 Est GFR ( Amer) > 60 Est GFR (Non-Af Amer) > 60 POC Glucose (mg/dL) 145 H Random Glucose 115 H Calcium 8.8 10/18/16 10:51 WBC RBC Hgb Hct MCV MCH MCHC RDW Plt Count Sodium Potassium Chloride Carbon Dioxide Anion Gap BUN Creatinine Est GFR ( Amer) Est GFR (Non-Af Amer) POC Glucose (mg/dL) 83 Random Glucose Calcium Assessment & Plan (1) Asthma exacerbation Status: Acute (2) COPD (chronic obstructive pulmonary disease) Status: Acute (3) Diabetes mellitus Status: Acute (4) HTN (hypertension) Status: Acute (5) Hyperlipidemia Status: Acute (6) Leukocytosis Status: Acute - Assessment and Plan (Free Text) Assessment: ACUTE EXAC COPD IMPROVING CONT RX
[2016-10-18] MEDS: levoFLOXacin 500 mg in D5W 500 MG/100 ML BAG IVPB SCH (17:20)
[2016-10-19] MEDS: Levalbuterol 1.25 MG/3 ML Inhal Soln UD INH SCH ×3 (07:45→23:21)
[2016-10-19] MEDS: Enoxaparin 40 mg Syringe SC SCH (08:59)
--- NOTE | 2016-10-19 10:25 | CP.PCM.PN ---
Subjective - Date & Time of Evaluation Date of Evaluation: 10/19/16 Time of Evaluation: 10:25 - Subjective Subjective: NO CHEST PAINS/SOB COUGH IMPROVED Objective - Vital Signs/Intake and Output Vital Signs (last 24 hours): Temp Pulse Resp BP Pulse Ox 98.4 F 114 H 20 114/95 H 93 L 10/18/16 20:07 10/18/16 20:07 10/18/16 20:07 10/18/16 20:07 10/18/16 20:07 - Medications Medications: Current Medications Aspirin (Ecotrin) 81 mg PO DAILY [facility] Last Admin: 10/19/16 09:00 Dose: 81 mg Atorvastatin Calcium (Lipitor) 10 mg PO DAILY@2100 [facility] Last Admin: 10/18/16 21:22 Dose: 10 mg Enoxaparin Sodium (Lovenox) 40 mg SC DAILY [facility] PRN Reason: Protocol Last Admin: 10/19/16 08:59 Dose: 40 mg Fenofibrate (Tricor) 145 mg PO DAILY [facility] Last Admin: 10/19/16 09:00 Dose: 145 mg Levofloxacin/Dextrose (Levaquin 500mg) 500 mg in 100 mls @ 100 mls/hr IVPB DAILY@1700 [facility] Last Admin: 10/18/16 17:20 Dose: 100 mls/hr Levalbuterol HCl (Xopenex) 1.25 mg INH RQ8 [facility] Last Admin: 10/19/16 07:45 Dose: Not Given Metformin HCl (Glucophage) 500 mg PO BID@0800,1700 [facility] Last Admin: 10/19/16 08:59 Dose: 500 mg Montelukast Sodium (Singulair) 10 mg PO DAILY@1800 [facility] Last Admin: 10/18/16 17:21 Dose: 10 mg Naproxen (Naproxen) 500 mg PO Q12 PRN PRN Reason: Pain, moderate (4-7) Promethazine HCl/Dextromethorphan (Phenergan Dm Syrup) 10 ml PO Q6 PRN PRN Reason: Cough Last Admin: 10/18/16 22:40 Dose: 10 ml - Labs Labs: 10/18/16 07:36 10/18/16 07:36 - Constitutional Appears: No Acute Distress - Head Exam Head Exam: ATRAUMATIC, NORMAL INSPECTION, NORMOCEPHALIC - Eye Exam Eye Exam: EOMI, Normal appearance, PERRL Pupil Exam: NORMAL ACCOMODATION, PERRL - ENT Exam ENT Exam: Mucous Membranes Moist, Normal Exam - Neck Exam Neck Exam: Full ROM, Normal Inspection. absent: Lymphadenopathy - Respiratory Exam Respiratory Exam: Prolonged Expiratory Phase, Rales, NORMAL BREATHING PATTERN - Cardiovascular Exam Cardiovascular Exam: REGULAR RHYTHM, +S1, +S2. absent: Murmur - GI/Abdominal Exam GI & Abdominal Exam: Soft, Normal Bowel Sounds. absent: Tenderness - Rectal Exam Rectal Exam: NORMAL INSPECTION - Extremities Exam Extremities Exam: Full ROM, Normal Capillary Refill, Normal Inspection. absent : Joint Swelling, Pedal Edema - Back Exam Back Exam: NORMAL INSPECTION - Neurological Exam Neurological Exam: Alert, Awake, CN II-XII Intact, Normal Gait, Oriented x3 - Psychiatric Exam Psychiatric exam: Normal Affect, Normal Mood - Skin Skin Exam: Dry, Intact, Normal Color, Warm Assessment and Plan - Assessment and Plan (Free Text) Assessment: ACUTE EXAC OF ASTHMA PNEUMONIA HTN TACHYCARDIA DM Plan: ADD LOPRESSOR OD TO RX MONITOR WBC IV ANTIBIOTICS
[2016-10-19] MEDS: levoFLOXacin 500 mg in D5W 500 MG/100 ML BAG IVPB SCH (16:40)
[2016-10-19] MEDS: Promethazine DM 12.5 mg-30 mg/10 ml Syrup PO PRN (22:17)
[2016-10-20] MEDS: Levalbuterol 1.25 MG/3 ML Inhal Soln UD INH SCH ×3 (07:18→23:20)
[2016-10-20] MEDS: Enoxaparin 40 mg Syringe SC SCH (09:09)
--- NOTE | 2016-10-20 10:27 | CP.PCM.PN ---
Subjective - Date & Time of Evaluation Date of Evaluation: 10/20/16 Time of Evaluation: 10:27 - Subjective Subjective: sob improved Objective - Vital Signs/Intake and Output Vital Signs (last 24 hours): Temp Pulse Resp BP Pulse Ox 97.7 F 85 20 121/76 99 10/20/16 08:05 10/20/16 09:06 10/20/16 08:05 10/20/16 09:06 10/20/16 08:05 - Medications Medications: Current Medications Aspirin (Ecotrin) 81 mg PO DAILY [facility] Last Admin: 10/20/16 09:05 Dose: 81 mg Atorvastatin Calcium (Lipitor) 10 mg PO DAILY@2100 [facility] Last Admin: 10/19/16 22:14 Dose: 10 mg Enoxaparin Sodium (Lovenox) 40 mg SC DAILY [facility] PRN Reason: Protocol Last Admin: 10/20/16 09:09 Dose: 40 mg Fenofibrate (Tricor) 145 mg PO DAILY [facility] Last Admin: 10/20/16 09:10 Dose: 145 mg Levofloxacin/Dextrose (Levaquin 500mg) 500 mg in 100 mls @ 100 mls/hr IVPB DAILY@1700 [facility] Last Admin: 10/19/16 16:40 Dose: 100 mls/hr Levalbuterol HCl (Xopenex) 1.25 mg INH RQ8 [facility] Last Admin: 10/20/16 07:18 Dose: 1.25 mg Metformin HCl (Glucophage) 500 mg PO BID@0800,1700 [facility] Last Admin: 10/20/16 09:05 Dose: 500 mg Metoprolol Tartrate (Lopressor) 12.5 mg PO DAILY [facility] Last Admin: 10/20/16 09:06 Dose: 12.5 mg Montelukast Sodium (Singulair) 10 mg PO DAILY@1800 [facility] Last Admin: 10/19/16 17:17 Dose: 10 mg Naproxen (Naproxen) 500 mg PO Q12 PRN PRN Reason: Pain, moderate (4-7) Promethazine HCl/Dextromethorphan (Phenergan Dm Syrup) 10 ml PO Q6 PRN PRN Reason: Cough Last Admin: 10/19/16 22:17 Dose: 10 ml - Labs Labs: 10/18/16 07:36 10/18/16 07:36 - Constitutional Appears: No Acute Distress - Head Exam Head Exam: ATRAUMATIC, NORMAL INSPECTION, NORMOCEPHALIC - Eye Exam Eye Exam: EOMI, Normal appearance, PERRL Pupil Exam: NORMAL ACCOMODATION, PERRL - ENT Exam ENT Exam: Mucous Membranes Moist, Normal Exam - Neck Exam Neck Exam: Full ROM, Normal Inspection. absent: Lymphadenopathy - Respiratory Exam Respiratory Exam: Prolonged Expiratory Phase, NORMAL BREATHING PATTERN - Cardiovascular Exam Cardiovascular Exam: REGULAR RHYTHM, +S1, +S2. absent: Murmur - GI/Abdominal Exam GI & Abdominal Exam: Soft, Normal Bowel Sounds. absent: Tenderness - Rectal Exam Rectal Exam: NORMAL INSPECTION - Extremities Exam Extremities Exam: Full ROM, Normal Capillary Refill, Normal Inspection. absent : Joint Swelling, Pedal Edema - Back Exam Back Exam: NORMAL INSPECTION - Neurological Exam Neurological Exam: Alert, Awake, CN II-XII Intact, Normal Gait, Oriented x3 - Psychiatric Exam Psychiatric exam: Normal Affect, Normal Mood - Skin Skin Exam: Dry, Intact, Normal Color, Warm Assessment and Plan - Assessment and Plan (Free Text) Assessment: acute asthma pneumonia leukocytosis Plan: continue antibiotic rx repeat labs and cxr in am
--- NOTE | 2016-10-20 13:09 | CP.PCM.PN ---
Subjective - Date & Time of Evaluation Date of Evaluation: 10/20/16 Time of Evaluation: 06:00 - Subjective Subjective: 56 YO FEMALE WITH HX OF DM HTN OBESITY AND ASTHMA ADMITTTED TO TCU FOR CONT OF ANTIBIOTIC RX DX WITH PNEUMONIA - FAILED OUT PT RX ALLERGIC TO PCN improving no chest pain Objective - Vital Signs/Intake and Output Vital Signs (last 24 hours): Temp Pulse Resp BP Pulse Ox 97.7 F 85 20 121/76 99 10/20/16 08:05 10/20/16 09:06 10/20/16 08:05 10/20/16 09:06 10/20/16 08:05 - Medications Medications: Current Medications Aspirin (Ecotrin) 81 mg PO DAILY [facility] Last Admin: 10/20/16 09:05 Dose: 81 mg Atorvastatin Calcium (Lipitor) 10 mg PO DAILY@2100 [facility] Last Admin: 10/19/16 22:14 Dose: 10 mg Enoxaparin Sodium (Lovenox) 40 mg SC DAILY [facility] PRN Reason: Protocol Last Admin: 10/20/16 09:09 Dose: 40 mg Fenofibrate (Tricor) 145 mg PO DAILY [facility] Last Admin: 10/20/16 09:10 Dose: 145 mg Levofloxacin/Dextrose (Levaquin 500mg) 500 mg in 100 mls @ 100 mls/hr IVPB DAILY@1700 [facility] Last Admin: 10/19/16 16:40 Dose: 100 mls/hr Levalbuterol HCl (Xopenex) 1.25 mg INH RQ8 [facility] Last Admin: 10/20/16 07:18 Dose: 1.25 mg Metformin HCl (Glucophage) 500 mg PO BID@0800,1700 [facility] Last Admin: 10/20/16 09:05 Dose: 500 mg Metoprolol Tartrate (Lopressor) 12.5 mg PO DAILY [facility] Last Admin: 10/20/16 09:06 Dose: 12.5 mg Montelukast Sodium (Singulair) 10 mg PO DAILY@1800 [facility] Last Admin: 10/19/16 17:17 Dose: 10 mg Naproxen (Naproxen) 500 mg PO Q12 PRN PRN Reason: Pain, moderate (4-7) Promethazine HCl/Dextromethorphan (Phenergan Dm Syrup) 10 ml PO Q6 PRN PRN Reason: Cough Last Admin: 10/19/16 22:17 Dose: 10 ml - Labs Labs: 10/18/16 07:36 10/18/16 07:36 - Constitutional Appears: Non-toxic, Chronically Ill - Head Exam Head Exam: NORMOCEPHALIC - Eye Exam Eye Exam: PERRL. absent: Scleral icterus - ENT Exam ENT Exam: Mucous Membranes Dry - Neck Exam Neck Exam: absent: Lymphadenopathy - Respiratory Exam Respiratory Exam: Decreased Breath Sounds - Cardiovascular Exam Cardiovascular Exam: REGULAR RHYTHM, +S1, +S2 - GI/Abdominal Exam GI & Abdominal Exam: Distended, Soft. absent: Tenderness - Rectal Exam Rectal Exam: Deferred - Exam Exam: NORMAL INSPECTION - Extremities Exam Extremities Exam: absent: Pedal Edema - Back Exam Back Exam: absent: CVA tenderness (L), CVA tenderness (R) - Neurological Exam Neurological Exam: Alert, Awake, Oriented x3 - Psychiatric Exam Psychiatric exam: Normal Mood - Skin Skin Exam: Dry, Intact Assessment and Plan (1) Asthma exacerbation Status: Acute (2) COPD (chronic obstructive pulmonary disease) Status: Acute (3) Diabetes mellitus Status: Acute (4) HTN (hypertension) Status: Acute (5) Hyperlipidemia Status: Acute (6) Leukocytosis Status: Acute
[2016-10-20] MEDS: levoFLOXacin 500 mg in D5W 500 MG/100 ML BAG IVPB SCH (16:39)
[2016-10-20] MEDS: Promethazine DM 12.5 mg-30 mg/10 ml Syrup PO PRN (22:22)
[2016-10-21 07:08] LABS: BASO % 0.3 % (0.0-2.0); EOS # 0.3 K/uL (0.0-0.7); EOS % 2.4 % (0.0-4.0); HEMATOCRIT 40.3 % (34.0-47.0); LYMPH # 3.8 K/uL (1.0-4.3); LYMPH % 35.7 % (20.0-40.0); MEAN CELL VOLUME 86.3 fl (81.0-99.0); MEAN CORPUSCULAR HEMOGLOBIN 28.4 pg (27.0-31.0); MEAN CORPUSCULAR HGB CONC 32.9 g/dL (33.0-37.0); MEAN PLATELET VOLUME 6.8 fl (7.2-11.7); MONO # 0.9 K/uL (0.0-0.8); MONO % 8.2 % (0.0-10.0); NEUT # 5.6 K/uL (1.8-7.0); NEUT % 53.4 % (50.0-75.0); NRBC % 0.1 % (0.0-0.0); RED CELL DISTRIBUTION WIDTH 13.8 % (11.5-14.5); WHITE BLOOD COUNT 10.6 K/uL (4.8-10.8)
[2016-10-21 07:16] LABS: BLOOD UREA NITROGEN 21 mg/dl (7-17); CALCIUM 8.9 mg/dL (8.4-10.2); CARBON DIOXIDE 25 mmol/L (22-30); CHLORIDE 104 mmol/L (98-107); GFR AFRICAN-AMERICAN > 60; GLUCOSE,RANDOM 141 mg/dL (65-105); POTASSIUM 3.9 MMOL/L (3.6-5.0); SODIUM 138 mmol/l (132-148)
[2016-10-21] MEDS: Levalbuterol 1.25 MG/3 ML Inhal Soln UD INH SCH ×2 (07:29→14:59)
--- NOTE | 2016-10-21 08:28 | CP.PCM.PN ---
Subjective - Date & Time of Evaluation Date of Evaluation: 10/21/16 Time of Evaluation: 08:28 - Subjective Subjective: CONTINUES TO SHOW CLINICAL IMPROVEMENT COUGH AND SOB LESS Objective - Vital Signs/Intake and Output Vital Signs (last 24 hours): Temp Pulse Resp BP Pulse Ox 97.6 F 84 20 102/52 L 100 10/21/16 08:22 10/21/16 08:22 10/21/16 08:22 10/21/16 08:22 10/21/16 08:22 - Medications Medications: Current Medications Aspirin (Ecotrin) 81 mg PO DAILY [facility] Last Admin: 10/20/16 09:05 Dose: 81 mg Atorvastatin Calcium (Lipitor) 10 mg PO DAILY@2100 [facility] Last Admin: 10/20/16 20:42 Dose: 10 mg Enoxaparin Sodium (Lovenox) 40 mg SC DAILY [facility] PRN Reason: Protocol Last Admin: 10/20/16 09:09 Dose: 40 mg Fenofibrate (Tricor) 145 mg PO DAILY [facility] Last Admin: 10/20/16 09:10 Dose: 145 mg Levofloxacin/Dextrose (Levaquin 500mg) 500 mg in 100 mls @ 100 mls/hr IVPB DAILY@1700 [facility] Last Admin: 10/20/16 16:39 Dose: 100 mls/hr Levalbuterol HCl (Xopenex) 1.25 mg INH RQ8 [facility] Last Admin: 10/21/16 07:29 Dose: 1.25 mg Metformin HCl (Glucophage) 500 mg PO BID@0800,1700 [facility] Last Admin: 10/20/16 16:38 Dose: 500 mg Metoprolol Tartrate (Lopressor) 12.5 mg PO DAILY [facility] Last Admin: 10/20/16 09:06 Dose: 12.5 mg Montelukast Sodium (Singulair) 10 mg PO DAILY@1800 [facility] Last Admin: 10/20/16 18:17 Dose: 10 mg Naproxen (Naproxen) 500 mg PO Q12 PRN PRN Reason: Pain, moderate (4-7) Promethazine HCl/Dextromethorphan (Phenergan Dm Syrup) 10 ml PO Q6 PRN PRN Reason: Cough Last Admin: 10/20/16 22:22 Dose: 10 ml - Labs Labs: 10/21/16 06:53 05/22/17 06:53 - Constitutional Appears: No Acute Distress - Head Exam Head Exam: ATRAUMATIC, NORMAL INSPECTION, NORMOCEPHALIC - Eye Exam Eye Exam: EOMI, Normal appearance, PERRL Pupil Exam: NORMAL ACCOMODATION, PERRL - ENT Exam ENT Exam: Mucous Membranes Moist, Normal Exam - Neck Exam Neck Exam: Full ROM, Normal Inspection. absent: Lymphadenopathy - Respiratory Exam Respiratory Exam: Clear to Ausculation Bilateral, NORMAL BREATHING PATTERN - Cardiovascular Exam Cardiovascular Exam: REGULAR RHYTHM, +S1, +S2. absent: Murmur - GI/Abdominal Exam GI & Abdominal Exam: Soft, Normal Bowel Sounds. absent: Tenderness - Rectal Exam Rectal Exam: NORMAL INSPECTION - Extremities Exam Extremities Exam: Full ROM, Normal Capillary Refill, Normal Inspection. absent : Joint Swelling, Pedal Edema - Back Exam Back Exam: NORMAL INSPECTION - Neurological Exam Neurological Exam: Alert, Awake, CN II-XII Intact, Normal Gait, Oriented x3 - Psychiatric Exam Psychiatric exam: Normal Affect, Normal Mood - Skin Skin Exam: Dry, Intact, Normal Color, Warm Assessment and Plan - Assessment and Plan (Free Text) Assessment: ACUTE ASTHMA-IMPROVED PNEUMONIA-IMPROVED Plan: CONTINUE SDAME RX
[2016-10-21] MEDS: Enoxaparin 40 mg Syringe SC SCH (08:57)
--- NOTE | 2016-10-21 12:27 | RAD ---
HISTORY: PNEUMONIA COMPARISON: Chest x-ray performed 10/16/16 TECHNIQUE: Chest PA and lateral FINDINGS: LUNGS: Bibasilar atelectasis or pneumonia. Please note that chest x-ray has limited sensitivity for the detection of pulmonary masses. PLEURA: No significant pleural effusion identified. No definite pneumothorax . CARDIOVASCULAR: Heart size appears top normal. OSSEOUS STRUCTURES: Degenerative changes. VISUALIZED UPPER ABDOMEN: Right upper quadrant surgical clips. OTHER FINDINGS: None. IMPRESSION: Bibasilar atelectasis or pneumonia.
[2016-10-21] MEDS: levoFLOXacin 500 mg in D5W 500 MG/100 ML BAG IVPB SCH (17:15)
[2016-10-21] MEDS: Promethazine DM 12.5 mg-30 mg/10 ml Syrup PO PRN (22:08)
[2016-10-22] MEDS: Levalbuterol 1.25 MG/3 ML Inhal Soln UD INH SCH ×3 (00:08→16:56)
--- NOTE | 2016-10-22 08:06 | CP.PCM.PN ---
Subjective - Date & Time of Evaluation Date of Evaluation: 10/22/16 Time of Evaluation: 08:06 - Subjective Subjective: DENIES CHEST PAINS/SOB COUGH IMPROVED Objective - Vital Signs/Intake and Output Vital Signs (last 24 hours): Temp Pulse Resp BP Pulse Ox 98.2 F 93 H 20 121/77 97 10/21/16 20:38 10/21/16 20:38 10/21/16 20:38 10/21/16 20:38 10/21/16 20:38 - Medications Medications: Current Medications Aspirin (Ecotrin) 81 mg PO DAILY [facility] Last Admin: 10/21/16 08:57 Dose: 81 mg Atorvastatin Calcium (Lipitor) 10 mg PO DAILY@2100 [facility] Last Admin: 10/21/16 21:07 Dose: 10 mg Fenofibrate (Tricor) 145 mg PO DAILY [facility] Last Admin: 10/21/16 08:58 Dose: 145 mg Levofloxacin/Dextrose (Levaquin 500mg) 500 mg in 100 mls @ 100 mls/hr IVPB DAILY@1700 [facility] Last Admin: 10/21/16 17:15 Dose: 100 mls/hr Levalbuterol HCl (Xopenex) 1.25 mg INH RQ8 [facility] Last Admin: 10/22/16 07:24 Dose: 1.25 mg Metformin HCl (Glucophage) 500 mg PO BID@0800,1700 [facility] Last Admin: 10/21/16 17:15 Dose: 500 mg Metoprolol Tartrate (Lopressor) 12.5 mg PO DAILY [facility] Last Admin: 10/21/16 08:57 Dose: 12.5 mg Montelukast Sodium (Singulair) 10 mg PO DAILY@1800 [facility] Last Admin: 10/21/16 17:15 Dose: 10 mg Naproxen (Naproxen) 500 mg PO Q12 PRN PRN Reason: Pain, moderate (4-7) Promethazine HCl/Dextromethorphan (Phenergan Dm Syrup) 10 ml PO Q6 PRN PRN Reason: Cough Last Admin: 10/21/16 22:08 Dose: 10 ml - Labs Labs: 10/21/16 06:53 10/21/16 06:53 - Constitutional Appears: No Acute Distress - Head Exam Head Exam: ATRAUMATIC, NORMAL INSPECTION, NORMOCEPHALIC - Eye Exam Eye Exam: EOMI, Normal appearance, PERRL Pupil Exam: NORMAL ACCOMODATION, PERRL - ENT Exam ENT Exam: Mucous Membranes Moist, Normal Exam - Neck Exam Neck Exam: Full ROM, Normal Inspection. absent: Lymphadenopathy - Respiratory Exam Respiratory Exam: Clear to Ausculation Bilateral, NORMAL BREATHING PATTERN - Cardiovascular Exam Cardiovascular Exam: REGULAR RHYTHM, +S1, +S2. absent: Murmur - GI/Abdominal Exam GI & Abdominal Exam: Soft, Normal Bowel Sounds. absent: Tenderness - Rectal Exam Rectal Exam: NORMAL INSPECTION - Extremities Exam Extremities Exam: Full ROM, Normal Capillary Refill, Normal Inspection. absent : Joint Swelling, Pedal Edema - Back Exam Back Exam: NORMAL INSPECTION - Neurological Exam Neurological Exam: Alert, Awake, CN II-XII Intact, Normal Gait, Oriented x3 - Psychiatric Exam Psychiatric exam: Normal Affect, Normal Mood - Skin Skin Exam: Dry, Intact, Normal Color, Warm Assessment and Plan - Assessment and Plan (Free Text) Assessment: ASTHMA IMPROVED INTERSTITIAL LUNG DZ/PNEUMONIA-IMPROVED LEUKOCYTOSIS RESOLVED DM-STABLE Plan: CONTINUE IV ANTIBIOTIC RX D/C IN AM IF STABLE
[2016-10-22] MEDS: levoFLOXacin 500 mg in D5W 500 MG/100 ML BAG IVPB SCH (16:24)
[2016-10-22] MEDS: Promethazine DM 12.5 mg-30 mg/10 ml Syrup PO PRN (21:23)
[2016-10-23] MEDS: Levalbuterol 1.25 MG/3 ML Inhal Soln UD INH SCH ×2 (00:13→07:30)
[2016-10-23 07:59] VITALS: BP 120/69; PULSE 91; TEMP 98.6; O2SAT 99
--- NOTE | 2016-10-23 08:50 | CP.PCM.DIS ---
Provider - Provider Date of Admission: 10/17/16 18:15 Attending physician: Ross Cao MD Primary care physician: Abdirahman Tan Time Spent in preparation of Discharge (in minutes): 35 Diagnosis - Discharge Diagnosis (1) Asthma exacerbation Status: Acute (2) Diabetes mellitus Status: Acute (3) HTN (hypertension) Status: Acute (4) Hyperlipidemia Status: Acute (5) Leukocytosis Status: Acute (6) Pulmonary infiltrate Status: Acute Hospital Course - Lab Results Lab Results: Most Recent Lab Values WBC 10.6 K/uL (4.8-10.8) 10/21/16 06:53 RBC 4.68 Mil/uL (3.80-5.20) 10/21/16 06:53 Hgb 13.3 g/dL (12.0-16.0) 10/21/16 06:53 Hct 40.3 % (34.0-47.0) 10/21/16 06:53 MCV 86.3 fl (81.0-99.0) 10/21/16 06:53 MCH 28.4 pg (27.0-31.0) 10/21/16 06:53 MCHC 32.9 g/dL (33.0-37.0) L 10/21/16 06:53 RDW 13.8 % (11.5-14.5) 10/21/16 06:53 Plt Count 280 K/uL (130-400) 10/21/16 06:53 MPV 6.8 fl (7.2-11.7) L 10/21/16 06:53 Neut % (Auto) 53.4 % (50.0-75.0) 10/21/16 06:53 Lymph % (Auto) 35.7 % (20.0-40.0) 10/21/16 06:53 [place] % (Auto) 8.2 % (0.0-10.0) 10/21/16 06:53 Eos % (Auto) 2.4 % (0.0-4.0) 10/21/16 06:53 Baso % (Auto) 0.3 % (0.0-2.0) 10/21/16 06:53 Neut # 5.6 K/uL (1.8-7.0) 10/21/16 06:53 Lymph # 3.8 K/uL (1.0-4.3) 10/21/16 06:53 [place] # 0.9 K/uL (0.0-0.8) H 10/21/16 06:53 Eos # 0.3 K/uL (0.0-0.7) 10/21/16 06:53 Baso # 0.0 K/uL (0.0-0.2) 10/21/16 06:53 Sodium 138 mmol/l (132-148) 10/21/16 06:53 Potassium 3.9 MMOL/L (3.6-5.0) 10/21/16 06:53 Chloride 104 mmol/L (98-107) 10/21/16 06:53 Carbon Dioxide 25 mmol/L (22-30) 10/21/16 06:53 Anion Gap 13 (10-20) 10/21/16 06:53 BUN 21 mg/dl (7-17) H 10/21/16 06:53 Creatinine 1.1 mg/dL (0.7-1.2) 10/21/16 06:53 Est GFR ( Amer) > 60 10/21/16 06:53 Est GFR (Non-Af Amer) 51 10/21/16 06:53 POC Glucose (mg/dL) 149 mg/dL (65-110) H 10/23/16 05:36 Random Glucose 141 mg/dL (65-105) H 10/21/16 06:53 Calcium 8.9 mg/dL (8.4-10.2) 10/21/16 06:53 - Hospital Course Hospital Course: SHORTNESS OF BREATH AND COUGH RESOLVED Discharge Exam - Head Exam Head Exam: ATRAUMATIC, NORMAL INSPECTION, NORMOCEPHALIC - Eye Exam Eye Exam: EOMI, Normal appearance, PERRL Pupil Exam: NORMAL ACCOMODATION, PERRL - GI/Abdominal Exam GI & Abdominal Exam: Normal Bowel Sounds - Rectal Exam Rectal Exam: NORMAL INSPECTION - Neurological Exam Neurological exam: Alert, CN II-XII Intact, Normal Gait, Oriented x3, Reflexes Normal - Psychiatric Exam Psychiatric exam: Normal Affect, Normal Mood - Skin Skin Exam: Dry, Intact, Normal Color, Warm Discharge Plan - Follow Up Plan Condition: GOOD Disposition: HOME/ ROUTINE Patient education suggested?: Yes Additional Instructions: DISCHARGE TODAY Referrals: Abdirahman Tan MD [Primary Care Provider] -
[2016-10-23] MEDS: levoFLOXacin 500 mg in D5W 500 MG/100 ML BAG IVPB SCH (09:32)
== END 2016-10-23 11:15 | disposition home or self-care (01) | DRG 96 ==
LOC: H.TCU 18:15
PROVIDERS: ADMIT Internal Medicine Pulmonary Disease; ATTEND Internal Medicine Pulmonary Disease
PROC: F07 Physical Rehabilitation and Diagnostic Audiology, Rehabilitation, Motor Treatment (ICD-10-PCS; principal; 2016-10-17)
PROC: 5A0955Z Assistance with Respiratory Ventilation, Greater than 96 Consecutive Hours (ICD-10-PCS; 2016-10-17)
DX: J45.901 Unspecified asthma with (acute) exacerbation (principal); J44.9 Chronic obstructive pulmonary disease, unspecified; E11.65 Type 2 diabetes mellitus with hyperglycemia; I10 Essential (primary) hypertension; E78.5 Hyperlipidemia, unspecified; Z88.0 Allergy status to penicillin; R91.8 Other nonspecific abnormal finding of lung field; E66.9 Obesity, unspecified; Z68.36 Body mass index [BMI] 36.0-36.9, adult; R00.0 Tachycardia, unspecified

== ENCOUNTER 2016-12-01 14:09 | Emergency (ER) | payer MEDICAID ==
[2016-12-01] MEDS ORDERED: Albuterol-Ipratrop 3 mg / 0.5 (3 ml) UD INH STA (14:24)
[2016-12-01] MEDS ORDERED: Albuterol-Ipratrop 3 mg / 0.5 (3 ml) UD ONE (14:30)
[2016-12-01] MEDS ORDERED: methylPREDNISolone 125 MG in Sodium Chloride 0.9% 50 ML IV ONE (14:30)
--- NOTE | 2016-12-01 14:32 | ED PDOC ---
HPI: CCC, URI, Sore Throat Time Seen by Provider: 12/01/16 14:10 Chief Complaint (Nursing): Cough, Cold, Congestion Chief Complaint (Provider): Cough and shortness of breath History Per: Patient History/Exam Limitations: no limitations Onset/Duration Of Symptoms: Days (4x) Current Symptoms Are (Timing): Still Present Location Of Pain: Other (lung) Associated Symptoms: Cough, Other (shortness of breath) Severity: Moderate Additional Complaint(s): 56 year old female with a pertinent medical history of COPD, asthma, hypertension, and borderline diabetes (compliant with medications) presents to the ED with complaints of a cough and shortness of breath that started 4x days ago. She reports seeing the nurse at adult day care who diagnosed her with walking pneumonia 4x days ago. She reports that her symptoms feel similar to when she had walking pneumonia in the past. She spoke with her PMD yesterday who told her to go to the ED if her symptoms worsened. She reports that she cannot sleep at night because of the pain. She reports taking 2 liters of O2 at home at night, ventolin, and dulera with no relief. She denies having fevers and chills. PMD: Abdirahman Tan MD Speech Pathology Supervisor: patient does not recall. Past Medical History Reviewed: Historical Data, Nursing Documentation, Vital Signs Vital Signs: Last Vital Signs Temp 98 F 12/01/16 14:13 Pulse 104 H 12/01/16 14:13 Resp 20 12/01/16 14:13 BP 129/75 12/01/16 14:13 Pulse Ox 98 12/01/16 14:58 - Medical History PMH: Asthma, Bronchitis, COPD, Diabetes, HTN, Hypercholesterolemia Denies: Alzheimer's Disease, HIV, Chronic Kidney Disease Other PMH: walking pneumonia - Surgical History Surgical History: Hernia Repair - Family History Family History: States: Unknown Family Hx, CAD, Diabetes - Living Arrangements Living Arrangements: With Family - Social History Current smoker - smoking cessation education provided: No Alcohol: None Drugs: Denies - Immunization History Hx Tetanus Toxoid Vaccination: Yes Hx Influenza Vaccination: Yes Hx Pneumococcal Vaccination: No - Home Medications Home Medications: Ambulatory Orders Medication Instructions Recorded Aspirin [Aspirin EC] 81 mg PO DAILY 12/13/15 Atorvastatin Calcium 10 mg PO DAILY 12/13/15 Montelukast Sodium 10 mg PO DAILY 12/13/15 Albuterol HFA [Ventolin HFA 90 2 puff IH Q4 PRN 12/18/15 mcg/actuation (8 g)] metFORMIN [glucOPHAGE] 500 mg PO BID 12/18/15 Nitroglycerin 0.4 mg SL Q5M PRN 01/10/16 Fenofibrate,Micronized 145 mg PO DAILY 05/10/16 [Fenofibrate] Naproxen [Naprosyn] 500 mg PO Q12 PRN #20 tablet 07/17/16 Mometasone/Formoterol [Dulera 200 2 puff PO BID 10/11/16 Mcg/5 Mcg Inhaler] Mupirocin 2% Ointment [Bactroban 1 applic TOP BID 10/11/16 Ointment] Metoprolol Tartrate [Lopressor] 12.5 mg PO DAILY tab 10/23/16 levoFLOXacin [Levaquin] 500 mg PO DAILY #5 tab 10/23/16 Azithromycin [Zithromax] 1 tab PO DAILY #6 tab 12/01/16 Prednisone [Deltasone] 3 tab PO DAILY #12 tablet 12/01/16 - Allergies Allergies/Adverse Reactions: Allergies Allergy/AdvReac Type Severity Reaction Status Date / Time Penicillins Allergy URTICARIA Verified 10/10/16 21:24 Review of Systems ROS Statement: Except As Marked, All Systems Reviewed And Found Negative Constitutional: Negative for: Fever, Chills Respiratory: Positive for: Cough, Shortness of Breath Physical Exam - Reviewed Nursing Documentation Reviewed: Yes Vital Signs Reviewed: Yes - Physical Exam Appears: Positive for: Well, Non-toxic, No Acute Distress Head Exam: Positive for: ATRAUMATIC, NORMOCEPHALIC Skin: Positive for: Normal Color, Warm, Dry Neck: Positive for: Normal Cardiovascular/Chest: Positive for: Regular Rate, Rhythm Respiratory: Negative for: Normal Breath Sounds (diminished breath sounds) Neurologic/Psych: Positive for: Alert, Oriented (3x) - Laboratory Results Result Diagrams: 12/01/16 14:47 12/01/16 14:47 - ECG O2 Sat by Pulse Oximetry: 97 (RA) Pulse Ox Interpretation: Normal - Progress ED Course And Treament: EKG: NSR 98bpm; no ectopy no acute changes Duoneb x 1 dose Solumedrol 125 mg iv x 1 dose Patient walking in ED/talking comfortably on phone with friend. CXR reviewed with Dr. Guerra. No obvious pneumonia noted. Prior pneumonia on 10/16/2016 cxr not noted. Will d/c with Zithromax for bronchitis and f/u with pulmonary for further evaluation of asthma/copd. Nebulizer Treatments/Peak Flow - Duonebs Number of Bronchodilator Doses given?: 1 - Pre/Post Peak Flow Pre Treatment Peak Flow: 1 Post treatment Peak Flow: 1 - Steroid Treatment Steroid: IV Medical Decision Making Medical Decision Makin:10 Initial impression: 56 year old female with cough and shortness of breath. Initial plan: * XRay chest 2 views * EKG * b-type natriuretic peptide * BMP * troponin I * CBC * albuterol 3ml INH * solumedrol 125mg sodium chloride .9% 50ml IV * peak flow pre post treatment * reevaluation Scribe Attestation: Documented by Monika Aranda, acting as a scribe for Donavan Almeida PA-C. Provider Scribe Attestation: All medical record entries made by the Scribe were at my direction and personally dictated by me. I have reviewed the chart and agree that the record accurately reflects my personal performance of the history, physical exam, medical decision making, and the department course for this patient. I have also personally directed, reviewed, and agree with the discharge instructions and disposition. Disposition - Clinical Impression Clinical Impression: Bronchitis - Patient ED Disposition Is Patient to be Admitted: No - Disposition Referrals: Ross Cao MD [Staff Provider] - Disposition: Routine/Home Disposition Time: 16:05 Condition: FAIR Prescriptions: Azithromycin [Zithromax] 1 tab PO DAILY #6 tab Prednisone [Deltasone] 3 tab PO DAILY #12 tablet Instructions: Acute Bronchitis (ED)
[2016-12-01 15:06] LABS: BASO # 0.1 K/uL (0.0-0.2); BASO % 0.8 % (0.0-2.0); EOS # 0.3 K/uL (0.0-0.7); EOS % 3.8 % (0.0-4.0); HEMOGLOBIN 13.6 g/dL (12.0-16.0); LYMPH # 3.9 K/uL (1.0-4.3); LYMPH % 43.1 % (20.0-40.0); MEAN CELL VOLUME 85.7 fl (81.0-99.0); MEAN CORPUSCULAR HEMOGLOBIN 28.7 pg (27.0-31.0); MEAN CORPUSCULAR HGB CONC 33.5 g/dL (33.0-37.0); MEAN PLATELET VOLUME 7.5 fl (7.2-11.7); MONO # 0.7 K/uL (0.0-0.8); MONO % 7.8 % (0.0-10.0); NEUT % 44.5 % (50.0-75.0); NRBC % 0.1 % (0.0-0.0); RBC 4.75 Mil/uL (3.80-5.20)
[2016-12-01 15:12] LABS: BLOOD UREA NITROGEN 18 mg/dl (7-17); CALCIUM 9.5 mg/dL (8.4-10.2); GFR AFRICAN-AMERICAN > 60; GFR NON-AFRICAN AMERICAN 57
[2016-12-01 15:23] LABS: B-TYPE NATRIURETIC PEPTIDE 50.7 pg/ml (0-900)
--- NOTE | 2016-12-01 16:09 | RAD ---
HISTORY: cough COMPARISON: Comparison chest 10/21/2016 TECHNIQUE: Chest PA and lateral FINDINGS: LUNGS: Poor inspiration with low lung volumes, mild crowded bronchovascular markings and mild bibasilar atelectasis. Developing lower lobe infiltrates could be excluded with followup radiographs PLEURA: No significant pleural effusion identified. No pneumothorax apparent. CARDIOVASCULAR: Normal. OSSEOUS STRUCTURES: No significant abnormalities. VISUALIZED UPPER ABDOMEN: Normal. OTHER FINDINGS: None. IMPRESSION: Poor inspiration with low lung volumes, mild crowded bronchovascular markings and mild bibasilar atelectasis. Developing lower lobe infiltrates could be excluded with followup radiographs.
[2016-12-01 16:14] VITALS: BP 127/69; PULSE 86; RESP 16; TEMP 98.6; O2SAT 98
--- NOTE | 2016-12-02 09:48 | CARD ---
APPROVED REPORT EKG Measurement Heart [id number] <Conclusion> Normal sinus rhythm Normal ECG
== END 2016-12-01 16:15 | disposition home or self-care (01) ==
LOC: H.ER 14:09
DX: J40 Bronchitis, not specified as acute or chronic (principal)

== ENCOUNTER 2017-03-07 21:12 | Inpatient (IN) | payer MEDICAID ==
[2017-03-07 21:59] LABS: BASO # 0.1 K/uL (0.0-0.2); BASO % 0.7 % (0.0-2.0); EOS # 0.2 K/uL (0.0-0.7); HEMATOCRIT 40.4 % (34.0-47.0); LYMPH # 4.4 K/uL (1.0-4.3); LYMPH % 47.8 % (20.0-40.0); MEAN CELL VOLUME 85.6 fl (81.0-99.0); MEAN CORPUSCULAR HEMOGLOBIN 28.7 pg (27.0-31.0); MEAN CORPUSCULAR HGB CONC 33.5 g/dL (33.0-37.0); MEAN PLATELET VOLUME 7.4 fl (7.2-11.7); MONO # 0.7 K/uL (0.0-0.8); MONO % 7.8 % (0.0-10.0); NEUT # 3.8 K/uL (1.8-7.0); NEUT % 41.7 % (50.0-75.0); NRBC % 0.2 % (0.0-0.0); RED CELL DISTRIBUTION WIDTH 13.6 % (11.5-14.5); WHITE BLOOD COUNT 9.2 K/uL (4.8-10.8)
--- NOTE | 2017-03-07 22:04 | ED PDOC ---
HPI: SOB/CHF/COPD Time Seen by Provider: 03/07/17 21:32 Chief Complaint (Nursing): Chest Pain Chief Complaint (Provider): Chest Pain and Shortness of Breath History Per: Patient History/Exam Limitations: no limitations Onset/Duration Of Symptoms: Days Current Symptoms Are (Timing): Still Present Additional Complaint(s): pt arrived w/ cp and sob, using nebs without relief. states she has had similar presentations before, perseverating over "Being admitted for a night". denies long plane/car ride, long immobilization or recent surgery. denies fevers/chills, no cough. states sob is more bothersome than cp. - Risk Factors PE Risk Factors: Neg: Extremity Immobilization/Fx, Recent Major Surgery Past Medical History Vital Signs: Last Vital Signs Temp 97.6 F 03/08/17 05:00 Pulse 81 03/08/17 05:00 Resp 20 03/08/17 05:00 BP 116/62 03/08/17 05:00 Pulse Ox 96 03/08/17 05:00 - Medical History PMH: Asthma, Bronchitis, COPD, Diabetes, HTN, Hypercholesterolemia Denies: Alzheimer's Disease, HIV, Chronic Kidney Disease - Surgical History Surgical History: Hernia Repair - Family History Family History: States: Unknown Family Hx, CAD, Diabetes - Immunization History Hx Tetanus Toxoid Vaccination: Yes Hx Influenza Vaccination: Yes Hx Pneumococcal Vaccination: No - Home Medications Home Medications: Ambulatory Orders Medication Instructions Recorded Aspirin [Aspirin EC] 81 mg PO DAILY 12/13/15 Atorvastatin Calcium 10 mg PO HS 12/13/15 Montelukast Sodium 10 mg PO DAILY 12/13/15 Mometasone/Formoterol [Dulera 200 2 puff PO BID 10/11/16 Mcg/5 Mcg Inhaler] Albuterol HFA [Ventolin HFA 90 1 puff INH BID PRN 03/08/17 mcg/actuation (8 g)] Metoprolol Tartrate [Lopressor] 25 mg PO DAILY 03/08/17 metFORMIN [glucOPHAGE] 500 mg PO BID 03/08/17 - Allergies Allergies/Adverse Reactions: Allergies Allergy/AdvReac Type Severity Reaction Status Date / Time Penicillins Allergy URTICARIA Verified 10/10/16 21:24 Review of Systems ROS Statement: Except As Marked, All Systems Reviewed And Found Negative Cardiovascular: Negative for: Chest Pain (chest tightness) Respiratory: Positive for: Shortness of Breath Physical Exam - Reviewed Nursing Documentation Reviewed: Yes Vital Signs Reviewed: Yes - Physical Exam Appears: Positive for: Non-toxic, No Acute Distress Head Exam: Positive for: ATRAUMATIC, NORMAL INSPECTION, NORMOCEPHALIC Skin: Positive for: Normal Color, Warm, Dry. Negative for: Rash Eye Exam: Positive for: Normal appearance, EOMI, PERRL. Negative for: Nystagmus Neck: Positive for: Normal, Painless ROM, Supple Cardiovascular/Chest: Positive for: Regular Rate, Rhythm, Chest Non Tender. Negative for: Tachycardia Respiratory: Positive for: Normal Breath Sounds. Negative for: Rales, Rhonchi, Wheezing, Respiratory Distress Gastrointestinal/Abdominal: Positive for: Normal Exam, Bowel Sounds, Soft. Negative for: Tenderness, Guarding, Rebound Back: Positive for: Normal Inspection. Negative for: L CVA Tenderness, R CVA Tenderness Extremity: Positive for: Normal ROM. Negative for: Tenderness, Deformity, Swelling Neurologic/Psych: Positive for: Alert, Oriented, Gait - Laboratory Results Result Diagrams: 03/07/17 21:55 03/07/17 21:55 - ECG O2 Sat by Pulse Oximetry: 100 (RA) Pulse Ox Interpretation: Normal Medical Decision Making Medical Decision Makin Initial Impression rule out ACS vs PE Initial Plan: * EKG * BMP * Troponin * CBC * D-dimer * Partial Thromboplastin * Prothrombiin Time * Chest x-ray * Reevaluation Time: 119 --CTA chest FINDINGS: Pulmonary arteries: Unremarkable. No pulmonary embolism. Aorta: No acute findings. No thoracic aortic aneurysm. Lungs: Unremarkable. No mass. No consolidation. Pleural space: Unremarkable. No significant effusion. No pneumothorax. Heart: Unremarkable. No cardiomegaly. No significant pericardial effusion. No evidence of RV dysfunction. Bones/joints: No acute fracture. No dislocation. Soft tissues: Unremarkable. Lymph nodes: Unremarkable. No enlarged lymph nodes. Liver: There is hepatomegaly and fatty infiltration of the liver. Gallbladder and bile ducts: There has been a cholecystectomy. IMPRESSION: No acute findings. 130 Will admit pt. for r/o ACS. Dr. Vizcaino aware. Scribe Attestation Documented by Mandy Rose acting as a scribe for Provider Attestation: All medical record entries made by the Scribe were at my direction and personally dictated by me. I have reviewed the chart and agree that the record accurately reflects my personal performance of the history, physical exam, medical decision making, and the department course for this patient. I have also personally directed, reviewed, and agree with the discharge instructions and disposition. Disposition - Clinical Impression Clinical Impression: Chest pain - Patient ED Disposition Is Patient to be Admitted: Yes - Disposition Disposition Time: 01:30 Condition: STABLE
[2017-03-07 22:10] LABS: BLOOD UREA NITROGEN 12 mg/dl (7-17); CALCIUM 9.2 mg/dL (8.4-10.2); CARBON DIOXIDE 26 mmol/L (22-30); CHLORIDE 108 mmol/L (98-107); GFR AFRICAN-AMERICAN > 60; GLUCOSE,RANDOM 118 mg/dL (65-105); SODIUM 145 mmol/l (132-148)
[2017-03-08] MEDS ORDERED: Sodium Chloride 0.9% 50 ML IV ONE (00:20)
[2017-03-08] MEDS ORDERED: Iodixanol 320 MG/ML 100 ML BOTTLE IV ONE (00:20)
[2017-03-08] MEDS ORDERED: Albuterol HFA 90 mcg/actuation (8 g) INH PRN (03:15)
[2017-03-08 07:44] LABS: HEMATOCRIT 39.7 % (34.0-47.0); MEAN CELL VOLUME 85.4 fl (81.0-99.0); MEAN CORPUSCULAR HEMOGLOBIN 28.7 pg (27.0-31.0); MEAN CORPUSCULAR HGB CONC 33.6 g/dL (33.0-37.0); RED CELL DISTRIBUTION WIDTH 13.5 % (11.5-14.5); WHITE BLOOD COUNT 8.1 K/uL (4.8-10.8)
[2017-03-08 08:07] LABS: ALB/GLOB RATIO 1.3 (1.0-2.1); ALKALINE PHOSPHATASE 105 U/L (38-126); ALT/SGPT 48 U/L (9-52); AST/SGOT 25 U/L (14-36); BILIRUBIN,TOTAL < 0.1 mg/dl (0.2-1.3); BLOOD UREA NITROGEN 9 mg/dl (7-17); CARBON DIOXIDE 24 mmol/L (22-30); CHLORIDE 107 mmol/L (98-107); CHOLESTEROL 198 mg/dL (0-199); GFR AFRICAN-AMERICAN > 60; GLUCOSE,RANDOM 116 mg/dL (65-105); POTASSIUM 3.7 MMOL/L (3.6-5.0); SODIUM 145 mmol/l (132-148); TOTAL PROTEIN 6.9 G/DL (6.3-8.2)
[2017-03-08 08:33] LABS: PARTIAL THROMBOPLASTIN TIME 30.6 Seconds (25.6-37.1)
[2017-03-08 08:36] LABS: T4 5.93 ug/dl (5.5-11.0)
[2017-03-08 08:50] LABS: THYROID STIMULATING HORMONE 6.19 mIU/ML (0.46-4.68)
[2017-03-08] MEDS ORDERED: Patient's Own Med (Mometasone/Formoterol [Dulera 200 Mcg/5 Mcg Inhaler] 2 PUFF) PO SCH (09:00)
[2017-03-08] MEDS ORDERED: Fluticasone-Salmeterol 500-50mcg Diskus IH SCH (09:00)
--- NOTE | 2017-03-08 09:52 | CP.PCM.CON ---
History of Present Illness - History of Present Illness History of Present Illness: 56 y/o w/f admitted with SOB and chest pain The chest pain is described as dull aching located at left upper chest / shoulder region with no radiation tender to touch lasted ~10 minutes EKG: normal Troponin: neg PMH: Asthma, Bronchitis, COPD, Diabetes, HTN, Hypercholesterolemia Past Patient History - Infectious Disease Hx of Infectious Diseases: None - Tetanus Immunizations Tetanus Immunization: Unknown - Past Medical History & Family History Past Medical History?: Yes - Past Social History Smoking Status: Never Smoked - CARDIAC Hx Hypercholesterolemia: Yes Hx Hypertension: Yes - PULMONARY Hx Asthma: Yes Hx Bronchitis: Yes Hx Chronic Obstructive Pulmonary Disease (COPD): Yes - NEUROLOGICAL Hx Alzheimer's Disease: No - HEENT Hx HEENT Problems: Yes Other/Comment: RT EYE DEVIATION CORRECTION. PT WEARS GLASSES - RENAL Hx Chronic Kidney Disease: No - ENDOCRINE/METABOLIC Hx Diabetes Mellitus Type 2: Yes - HEMATOLOGICAL/ONCOLOGICAL Hx Human Immunodeficiency Virus (HIV): No - INTEGUMENTARY Hx Dermatological Problems: No - MUSCULOSKELETAL/RHEUMATOLOGICAL Hx Falls: No (DENIES) - GASTROINTESTINAL Hx Gastrointestinal Disorders: Yes Hx Hemorrhoids: Yes Other/Comment: Colonoscopy - GENITOURINARY/GYNECOLOGICAL Hx Genitourinary Disorders: No - SURGICAL HISTORY Hx Surgeries: Yes Hx Appendectomy: Yes Hx Cholecystectomy: Yes Hx Herniorrhaphy: Yes (right) Other/Comment: R inguinal hernia,R ovarian cyst removed,Surgery thru belly button for adhesions - ANESTHESIA Hx Anesthesia: Yes Hx Anesthesia Reactions: No Hx Malignant Hyperthermia: No Meds Allergies/Adverse Reactions: Allergies Allergy/AdvReac Type Severity Reaction Status Date / Time Penicillins Allergy URTICARIA Verified 10/10/16 21:24 - Medications Medications: Current Medications Albuterol (Ventolin Hfa 90 Mcg/Actuation (8 G)) 1 puff INH BID PRN PRN Reason: Shortness of Breath Last Admin: 03/08/17 04:37 Dose: 1 puff Aspirin (Ecotrin) 81 mg PO DAILY [facility] Atorvastatin Calcium (Lipitor) 10 mg PO HS [facility] Enoxaparin Sodium (Lovenox) 40 mg SC DAILY SARAH PRN Reason: Protocol Metformin HCl (Glucophage) 500 mg PO BID [facility] Metoprolol Tartrate (Lopressor) 25 mg PO DAILY [facility] Montelukast Sodium (Singulair) 10 mg PO DAILY [facility] Fluticasone/Salmeterol (Advair Diskus 500/50) 1 puff IH Q12 SARAH Physical Exam - Constitutional Appears: Well - Head Exam Head Exam: NORMAL INSPECTION - Eye Exam Eye Exam: Normal appearance - ENT Exam ENT Exam: Normal Exam - Neck Exam Neck exam: Positive for: Normal Inspection - Respiratory Exam Respiratory Exam: NORMAL BREATHING PATTERN - Cardiovascular Exam Cardiovascular Exam: REGULAR RHYTHM Additional comments: Chest wall is tender to touch reproduces the pt's pain Results - Vital Signs Recent Vital Signs: Last Vital Signs Temp 97.6 F 03/08/17 08:00 Pulse 75 03/08/17 08:00 Resp 18 03/08/17 08:00 BP 115/76 03/08/17 08:00 Pulse Ox 97 03/08/17 08:00 - Labs Result Diagrams: 03/08/17 07:00 03/08/17 05:30 Labs: Laboratory Results - last 24 hr 03/07/17 03/07/17 03/07/17 21:55 21:55 21:55 WBC 9.2 RBC 4.72 Hgb 13.6 Hct 40.4 MCV 85.6 MCH 28.7 MCHC 33.5 RDW 13.6 Plt Count 271 MPV 7.4 Neut % (Auto) 41.7 L Lymph % (Auto) 47.8 H [place] % (Auto) 7.8 Eos % (Auto) 2.0 Baso % (Auto) 0.7 Neut # 3.8 Lymph # 4.4 H [place] # 0.7 Eos # 0.2 Baso # 0.1 PT Cancelled INR Cancelled APTT Cancelled D-Dimer, Quantitative Cancelled Sodium 145 Potassium 4.0 Chloride 108 H Carbon Dioxide 26 Anion Gap 15 BUN 12 Creatinine 0.7 Est GFR ( Amer) > 60 Est GFR (Non-Af Amer) > 60 POC Glucose (mg/dL) Random Glucose 118 H Calcium 9.2 Total Bilirubin AST ALT Alkaline Phosphatase Troponin I < 0.0120 Total Protein Albumin Globulin Albumin/Globulin Ratio Triglycerides Cholesterol LDL Cholesterol Direct HDL Cholesterol Thyroxine (T4) TSH 3rd Generation 03/08/17 03/08/17 03/08/17 05:30 05:42 07:00 WBC 8.1 RBC 4.65 Hgb 13.3 Hct 39.7 MCV 85.4 MCH 28.7 MCHC 33.6 RDW 13.5 Plt Count 271 MPV Neut % (Auto) Lymph % (Auto) [place] % (Auto) Eos % (Auto) Baso % (Auto) Neut # Lymph # [place] # Eos # Baso # PT INR APTT D-Dimer, Quantitative Sodium 145 Potassium 3.7 Chloride 107 Carbon Dioxide 24 Anion Gap 18 BUN 9 Creatinine 0.7 Est GFR ( Amer) > 60 Est GFR (Non-Af Amer) > 60 POC Glucose (mg/dL) 119 H Random Glucose 116 H Calcium 9.0 Total Bilirubin < 0.1 L AST 25 ALT 48 Alkaline Phosphatase 105 Troponin I < 0.0120 Total Protein 6.9 Albumin 4.0 Globulin 2.9 Albumin/Globulin Ratio 1.3 Triglycerides 551 H Cholesterol 198 LDL Cholesterol Direct 80 HDL Cholesterol 31 Thyroxine (T4) 5.93 TSH 3rd Generation 6.19 H 03/08/17 07:45 WBC RBC Hgb Hct MCV MCH MCHC RDW Plt Count MPV Neut % (Auto) Lymph % (Auto) [place] % (Auto) Eos % (Auto) Baso % (Auto) Neut # Lymph # [place] # Eos # Baso # PT 10.6 INR 0.9 APTT 30.6 D-Dimer, Quantitative Sodium Potassium Chloride Carbon Dioxide Anion Gap BUN Creatinine Est GFR ( Amer) Est GFR (Non-Af Amer) POC Glucose (mg/dL) Random Glucose Calcium Total Bilirubin AST ALT Alkaline Phosphatase Troponin I Total Protein Albumin Globulin Albumin/Globulin Ratio Triglycerides Cholesterol LDL Cholesterol Direct HDL Cholesterol Thyroxine (T4) TSH 3rd Generation Assessment & Plan (1) Chest pain Assessment and Plan: The pain the pt has appears to be musculoskeletal Cardiac barnes the pt is stable for discharge Status: Acute (2) Anxiety Status: Acute (3) Asthma Status: Acute (4) Asthma exacerbation Status: Acute (5) Diabetes mellitus Status: Acute (6) HTN (hypertension) Status: Acute
--- NOTE | 2017-03-08 10:15 | CT ---
CTA chest PE protocol Indication: Rule out PE Technique: Contiguous axial images were obtained through the chest with intravenous contrast enhancement. Sagittal and coronal reconstructions were generated and reviewed. This CT exam was performed using 1 or more of the falling dose reduction techniques: Automated exposure control, adjustment of the MAA and/or kV according to patient size, and/or use of iterative reconstruction technique. IV Contrast: 90 cc Visipaque Radiation dose (DLP): 376.62 MGy-cm. Comparison: Chest x-ray performed 03/07/17 Findings: Visualized portions of the inferior thyroid gland appear unremarkable. The mediastinal and hilar vascular structures appear within normal limits. The heart appears within normal limits of size. No large central or segmental pulmonary embolus evident. No focal consolidation. No pleural effusion. No pneumothorax. No suspicious pulmonary nodules measuring greater than 5 mm. Limited visualized portions of the upper abdomen demonstrates cholecystectomy. Hepatomegaly. Echogenic liver may be seen in setting of hepatic parenchymal disease or fatty infiltration. No acute osseous abnormality is detected. Impression: No large central or segmental pulmonary embolus identified.
--- NOTE | 2017-03-08 10:46 | RAD ---
HISTORY: hx of asthma/copd/htn p/w cp and sob COMPARISON: 12/01/2016 single-view chest March 08, 2017. CT pulmonary angiogram TECHNIQUE: Chest PA and lateral FINDINGS: LUNGS: No active pulmonary disease. PLEURA: No significant pleural effusion identified. No pneumothorax apparent. CARDIOVASCULAR: No radiographic findings to suggest acute or significant cardiovascular disease. OSSEOUS STRUCTURES: No significant abnormalities. VISUALIZED UPPER ABDOMEN: Normal. OTHER FINDINGS: None. IMPRESSION: No active disease. No significant interval change compared to the prior examination(s).
[2017-03-08] MEDS: Enoxaparin 40 mg Syringe SC SCH (11:42)
--- NOTE | 2017-03-08 12:05 | US ---
Carotid ultrasound Indication: Chest pain Technique: Grayscale, color, and duplex Doppler imaging of the bilateral carotid and vertebral arteries. Findings: Peak systolic velocities are as follows (cm/sec) Right: CCA - proximal 60.3 CCA - mid 69.1 CCA- distal 55.9 ECA 86.5 ICA - proximal 60.3 ICA - mid 92.5 ICA - distal 55.6 Vertebral- antegrade 51.6 ICA/CCA- 1.7 Left: CCA - proximal 80.2 CCA - mid 65.8 CCA- distal 61.4 ECA 79.5 ICA - proximal 79.8 ICA - mid 58.1 ICA - distal 60.2 Vertebral- antegrade 51.5 ICA/CCA- 1.3 Impression: No evidence of hemodynamically significant stenosis. Measurement of carotid stenosis is based on velocity parameters that correlate measurement of carotid stenosis is based on velocity parameters that correlate the residual internal carotid diameter with that of the more distal vessel in accordance with the [place] symptomatic carotid endarterectomy Trial (NASCET).
[2017-03-08 13:28] LABS: URINE BILIRUBIN NEGATIVE (NEGATIVE); URINE BLOOD NEGATIVE (NEGATIVE); URINE COLOR STRAW (YELLOW); URINE GLUCOSE (UA) NEG (Normal); URINE KETONE NEGATIVE (NEGATIVE); URINE LEUKOCYTE ESTERASE NEG Leu/uL (Negative); URINE PROTEIN NEGATIVE (NEGATIVE); URINE UROBILINOGEN 0.2-1.0 mg/dL (0.2-1.0); WBC URINE < 1 /hpf (0-5)
[2017-03-08] MEDS ORDERED: Albuterol-Ipratrop 3 mg / 0.5 (3 ml) UD INH STA (13:47)
[2017-03-08] MEDS ORDERED: methylPREDNISolone 75 MG in Sodium Chloride 0.9% 50 ML IV ONE (14:15)
--- NOTE | 2017-03-08 14:41 | CP.PCM.HP ---
History of Present Illness - History of Present Illness History of Present Illness: CC: Chest Pain. 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 Pt appear c/o of L upper chest pain, described as moderate to severe intensity 8 :10, continue, tightness, dull and aching type radiated to shoulder, associated to moderate SOB, no cough, Pt using Nebulizer at home, Dulera with no relief , Patient was seen in ER [facility] and AD Worsening symptoms: Asthma since childhood and COPD with multiple admissions for exacerbations, denied any intubation, Hx of PNA 3 month ago, Hx Bronchitis , HTN. Aggravated factor: Increased chest pain with exercise. Pt denied: Syncope, dizziness, numbness, fever, chills, n/v/d, abdominal pain, urinary symptoms, cough, palpitations, sick contact, recent travel. Present on Admission - Present on Admission Any Indicators Present on Admission: No Review of Systems - Constitutional Constitutional: Other (negative) - EENT Eyes: Requires Corrective Lenses Ears: Other (negative) Nose/Mouth/Throat: Other (negative) - Cardiovascular Cardiovascular: Chest Pain, Chest Pain with Activity - Respiratory Respiratory: Dyspnea - Gastrointestinal Gastrointestinal: Other (negative) - Genitourinary Genitourinary: Other (negative) - Musculoskeletal Musculoskeletal: Other (pain L shoulder) - Integumentary Integumentary: Other (egative) - Neurological Neurological: Other (negative) - Psychiatric Psychiatric: Other (negative) - Endocrine Endocrine: Other (negative) - Hematologic/Lymphatic Hematologic: Other (negative) Past Patient History - Infectious Disease Hx of Infectious Diseases: None - Tetanus Immunizations Tetanus Immunization: Unknown - Past Medical History & Family History Past Medical History?: Yes Pertinent Family History: Hx of DM, CAD - Past Social History Smoking Status: Never Smoked Alcohol: None Drugs: Denies Home Situation {Lives}: Other - CARDIAC Hx Cardiac Disorders: Yes Hx Hypercholesterolemia: Yes Hx Hypertension: Yes - PULMONARY Hx Respiratory Disorders: Yes Hx Asthma: Yes Hx Bronchitis: Yes Hx Chronic Obstructive Pulmonary Disease (COPD): Yes - NEUROLOGICAL Hx Neurological Disorder: No Hx Alzheimer's Disease: No - HEENT Hx HEENT Problems: Yes Other/Comment: RT EYE DEVIATION CORRECTION. PT WEARS GLASSES - RENAL Hx Chronic Kidney Disease: No - ENDOCRINE/METABOLIC Hx Endocrine Disorders: Yes Hx Diabetes Mellitus Type 2: Yes - HEMATOLOGICAL/ONCOLOGICAL Hx Blood Disorders: No Hx Human Immunodeficiency Virus (HIV): No - INTEGUMENTARY Hx Dermatological Problems: No - MUSCULOSKELETAL/RHEUMATOLOGICAL Hx Musculoskeletal Disorders: No Hx Falls: No (DENIES) - GASTROINTESTINAL Hx Gastrointestinal Disorders: Yes Hx Hemorrhoids: Yes Other/Comment: Colonoscopy - GENITOURINARY/GYNECOLOGICAL Hx Genitourinary Disorders: No - PSYCHIATRIC Hx Psychophysiologic Disorder: No - SURGICAL HISTORY Hx Surgeries: Yes Hx Appendectomy: Yes Hx Cholecystectomy: Yes Hx Herniorrhaphy: Yes (right) Other/Comment: R inguinal hernia,R ovarian cyst removed,Surgery thru belly button for adhesions - ANESTHESIA Hx Anesthesia: Yes Hx Anesthesia Reactions: No Hx Malignant Hyperthermia: No Meds Allergies/Adverse Reactions: Allergies Allergy/AdvReac Type Severity Reaction Status Date / Time Penicillins Allergy URTICARIA Verified 10/10/16 21:24 Physical Exam - Constitutional Appears: No Acute Distress - Head Exam Head Exam: NORMAL INSPECTION - Eye Exam Eye Exam: PERRL - ENT Exam ENT Exam: Normal Oropharynx - Neck Exam Neck exam: Positive for: Normal Inspection - Respiratory Exam Respiratory Exam: Decreased Breath Sounds (at bases), Wheezes - Cardiovascular Exam Cardiovascular Exam: REGULAR RHYTHM. absent: Tachycardia, Gallop Additional comments: Tenderness L upper chest and shouulder on palpation. - GI/Abdominal Exam GI & Abdominal Exam: Normal Bowel Sounds, Soft - Extremities Exam Additional comments: Tenderness L shoulder on palpation. - Back Exam Back exam: NORMAL INSPECTION - Neurological Exam Neurological exam: Alert, Oriented x3 Additional comments: No motor sensory deficit - Psychiatric Exam Psychiatric exam: Normal Mood - Skin Skin Exam: Normal Color, Warm Results - Vital Signs Recent Vital Signs: Last Vital Signs Temp 97.8 F 03/08/17 12:15 Pulse 71 03/08/17 12:15 Resp 18 03/08/17 12:15 BP 118/78 03/08/17 12:15 Pulse Ox 98 03/08/17 12:15 reviewed Brien - Labs Result Diagrams: 03/08/17 07:00 03/08/17 05:30 Labs: Laboratory Results - last 24 hr 03/07/17 03/07/17 03/07/17 21:55 21:55 21:55 WBC 9.2 RBC 4.72 Hgb 13.6 Hct 40.4 MCV 85.6 MCH 28.7 MCHC 33.5 RDW 13.6 Plt Count 271 MPV 7.4 Neut % (Auto) 41.7 L Lymph % (Auto) 47.8 H [place] % (Auto) 7.8 Eos % (Auto) 2.0 Baso % (Auto) 0.7 Neut # 3.8 Lymph # 4.4 H [place] # 0.7 Eos # 0.2 Baso # 0.1 PT Cancelled INR Cancelled APTT Cancelled D-Dimer, Quantitative Cancelled Sodium 145 Potassium 4.0 Chloride 108 H Carbon Dioxide 26 Anion Gap 15 BUN 12 Creatinine 0.7 Est GFR ( Amer) > 60 Est GFR (Non-Af Amer) > 60 POC Glucose (mg/dL) Random Glucose 118 H Calcium 9.2 Total Bilirubin AST ALT Alkaline Phosphatase Troponin I < 0.0120 Total Protein Albumin Globulin Albumin/Globulin Ratio Triglycerides Cholesterol LDL Cholesterol Direct HDL Cholesterol Thyroxine (T4) TSH 3rd Generation Urine Color Urine Clarity Urine pH Ur Specific [place] Urine Protein Urine Glucose (UA) Urine Ketones Urine Blood Urine Nitrate Urine Bilirubin Urine Urobilinogen Ur Leukocyte Esterase Urine Microscopic WBC 03/08/17 03/08/17 03/08/17 05:30 05:42 07:00 WBC 8.1 RBC 4.65 Hgb 13.3 Hct 39.7 MCV 85.4 MCH 28.7 MCHC 33.6 RDW 13.5 Plt Count 271 MPV Neut % (Auto) Lymph % (Auto) [place] % (Auto) Eos % (Auto) Baso % (Auto) Neut # Lymph # [place] # Eos # Baso # PT INR APTT D-Dimer, Quantitative Sodium 145 Potassium 3.7 Chloride 107 Carbon Dioxide 24 Anion Gap 18 BUN 9 Creatinine 0.7 Est GFR ( Amer) > 60 Est GFR (Non-Af Amer) > 60 POC Glucose (mg/dL) 119 H Random Glucose 116 H Calcium 9.0 Total Bilirubin < 0.1 L AST 25 ALT 48 Alkaline Phosphatase 105 Troponin I < 0.0120 Total Protein 6.9 Albumin 4.0 Globulin 2.9 Albumin/Globulin Ratio 1.3 Triglycerides 551 H Cholesterol 198 LDL Cholesterol Direct 80 HDL Cholesterol 31 Thyroxine (T4) 5.93 TSH 3rd Generation 6.19 H Urine Color Urine Clarity Urine pH Ur Specific [place] Urine Protein Urine Glucose (UA) Urine Ketones Urine Blood Urine Nitrate Urine Bilirubin Urine Urobilinogen Ur Leukocyte Esterase Urine Microscopic WBC 03/08/17 03/08/17 03/08/17 07:45 11:20 12:30 WBC RBC Hgb Hct MCV MCH MCHC RDW Plt Count MPV Neut % (Auto) Lymph % (Auto) [place] % (Auto) Eos % (Auto) Baso % (Auto) Neut # Lymph # [place] # Eos # Baso # PT 10.6 INR 0.9 APTT 30.6 D-Dimer, Quantitative Sodium Potassium Chloride Carbon Dioxide Anion Gap BUN Creatinine Est GFR ( Amer) Est GFR (Non-Af Amer) POC Glucose (mg/dL) 115 H Random Glucose Calcium Total Bilirubin AST ALT Alkaline Phosphatase Troponin I Total Protein Albumin Globulin Albumin/Globulin Ratio Triglycerides Cholesterol LDL Cholesterol Direct HDL Cholesterol Thyroxine (T4) TSH 3rd Generation Urine Color Straw Urine Clarity Clear Urine pH 6.0 Ur Specific [place] 1.017 Urine Protein Negative Urine Glucose (UA) Neg Urine Ketones Negative Urine Blood Negative Urine Nitrate Negative Urine Bilirubin Negative Urine Urobilinogen 0.2-1.0 Ur Leukocyte Esterase Neg Urine Microscopic WBC < 1 reviewed J.P. - Imaging and Cardiology CT scan - chest Status: Report reviewed by me (Brien) Chest x-ray Status: Report reviewed by me (Brien) Assessment & Plan (1) Chest pain, musculoskeletal Status: Acute Priority: High (2) Asthmatic bronchitis with exacerbation Status: Acute (3) Diabetes mellitus Status: Acute (4) Hyperlipidemia Status: Acute (5) HTN (hypertension) Status: Acute - Assessment and Plan (Free Text) Plan: Continue NC 2 L/M, Pt cleared by retirement consultant with impression of CP non cardiac, Begins Solumedrol, Duoneb, Proventyl and rest of Tx. - Date & Time Date: 03/08/17 Time: 13:00
[2017-03-08] MEDS: Albuterol-Ipratrop 3 mg / 0.5 (3 ml) UD INH SCH ×3 (15:10→23:46)
[2017-03-08] MEDS: Patient's Own Med (Fluticasone/Salmeterol [Fluticasone-Salmeterol 113-14] 1 EACH) IH SCH (17:59)
--- NOTE | 2017-03-08 22:31 | CARD ---
APPROVED REPORT EXAM: Two-dimensional and M-mode echocardiogram with Doppler and color Doppler. Other Information Quality : GoodRhythm : NSR INDICATION Chest Pain 2D DIMENSIONS Left Atrium (2D)3.12 (1.6-4.0cm)IVSd1.17 (0.7-1.1cm) LVDd3.95 (3.9-5.9cm)LVOT Diameter1.96 (1.8-2.4cm) PWd1.05 (0.7-1.1cm)IVSs1.32 (0.8-1.2cm) LVDs3.61 (2.5-4.0cm)FS (%) 8.6 % PWs0.72 (0.8-1.2cm)LVEF (%)55.0 (>50%) M-Mode DIMENSIONS Left Atrium (MM)3.12 (2.5-4.0cm)IVSd0.93 (0.7-1.1cm) Aortic Root3.29 (2.2-3.7cm)LVDd4.79 (4.0-5.6cm) Aortic Cusp Exc.1.91 (1.5-2.0cm)PWd0.93 (0.7-1.1cm) IVSs1.38 cmFS (%) 35 % LVDs3.13 (2.0-3.8cm)PWs1.35 cm Mitral Valve MV E Wzxtsudv32.0cm/sMV DECEL [id number] A Flwsjadg07.0cm/s MV QMD97clM/A ratio1.0MVA (PHT)3.77cm2 TDI Lateral E' Peak V10.84cm/sMedial E' Peak V11.49cm/sE/Lateral E'7.0 E/Medial E'6.6 Pulmonary Valve PV Peak Yferspjx439.2cm/s LEFT VENTRICLE The left ventricle is normal size. There is normal left ventricular wall thickness. The left ventricular function is normal. The left ventricular ejection fraction is within the normal range. There is normal LV segmental wall motion. Transmitral Doppler flow pattern is Grade I-abnormal relaxation pattern. RIGHT VENTRICLE The right ventricle is normal size. There is normal right ventricular wall thickness. The right ventricular systolic function is normal. ATRIA The left atrium size is normal. The right atrium size is normal. AORTIC VALVE The aortic valve is thickened but opens well. No aortic regurgitation is present. There is no aortic valvular stenosis. MITRAL VALVE The mitral valve is normal in structure and function. There is no evidence of mitral valve prolapse. There is no mitral valve stenosis. There is no mitral valve regurgitation noted. TRICUSPID VALVE The tricuspid valve is normal in structure and function. There is no tricuspid valve regurgitation noted. PULMONIC VALVE The pulmonary valve is normal in structure and function. There is no pulmonic valvular regurgitation. GREAT VESSELS The aortic root is normal in size. The IVC is normal in size and collapses >50% with inspiration. PERICARDIAL EFFUSION There is a trace loculated anterior pericardial effusion. <Conclusion> The left ventricle is normal size. There is normal left ventricular wall thickness. The left ventricular function is normal. The left ventricular ejection fraction is within the normal range. There is normal LV segmental wall motion. Transmitral Doppler flow pattern is Grade I-abnormal relaxation pattern.
--- NOTE | 2017-03-08 23:05 | CARD ---
APPROVED REPORT EKG Measurement Heart [id number] <Conclusion> Sinus tachycardia Possible Left atrial enlargement Borderline ECG
[2017-03-09] MEDS: Albuterol-Ipratrop 3 mg / 0.5 (3 ml) UD INH SCH ×6 (04:04→23:23)
[2017-03-09] MEDS: Insulin Regular 100 units/ml SC SCH ×4 (08:27→22:02)
[2017-03-09] MEDS: Enoxaparin 40 mg Syringe SC SCH (08:33)
[2017-03-09] MEDS: Patient's Own Med (Fluticasone/Salmeterol [Fluticasone-Salmeterol 113-14] 1 EACH) IH SCH ×2 (08:33→16:02)
[2017-03-09] MEDS: Pantoprazole 40 mg EC Tab PO SCH (08:34)
[2017-03-09] MEDS ORDERED: methylPREDNISolone 40 MG in Sodium Chloride 0.9% 50 ML IV SCH (09:00)
--- NOTE | 2017-03-09 12:55 | CP.PCM.PN ---
Subjective - Date & Time of Evaluation Date of Evaluation: 03/09/17 Time of Evaluation: 12:30 - Subjective Subjective: F/U CP Cough with green thick sputum, chest congestion improved, at times with CP when coughing. Objective - Vital Signs/Intake and Output Vital Signs (last 24 hours): Temp Pulse Resp BP Pulse Ox 98.6 F 98 H 20 127/71 97 03/09/17 09:00 03/09/17 09:00 03/09/17 09:00 03/09/17 09:00 03/09/17 09:00 - Medications Medications: Current Medications Acetaminophen (Tylenol 325mg Tab) 650 mg PO Q4 PRN PRN Reason: Pain, Mild (1-3) Albuterol (Ventolin Hfa 90 Mcg/Actuation (8 G)) 1 puff INH BID PRN PRN Reason: Shortness of Breath Last Admin: 03/08/17 04:37 Dose: 1 puff Albuterol/Ipratropium (Duoneb 3 Mg/0.5 Mg (3 Ml) Ud) 3 ml INH RQ4 [facility] Last Admin: 03/09/17 11:29 Dose: 3 ml Aspirin (Ecotrin) 81 mg PO DAILY [facility] Last Admin: 03/09/17 08:32 Dose: 81 mg Atorvastatin Calcium (Lipitor) 10 mg PO HS [facility] Last Admin: 03/08/17 21:54 Dose: 10 mg Enoxaparin Sodium (Lovenox) 40 mg SC DAILY SARAH PRN Reason: Protocol Last Admin: 03/09/17 08:33 Dose: 40 mg Home Med (Fluticasone/Salmeterol [Fluticasone-Salmeterol 113-14]) 1 each IH BID [facility] Last Admin: 03/09/17 08:33 Dose: 1 each Methylprednisolone 30 mg/ (Sodium Chloride) 50 mls @ 100 mls/hr IVPB Q8 [facility] Insulin Human Regular (Humulin R) 0 units SC ACCU-CHECK SARAH PRN Reason: Protocol Last Admin: 03/09/17 12:41 Dose: 2 units Metformin HCl (Glucophage) 500 mg PO BID [facility] Last Admin: 03/09/17 08:33 Dose: 500 mg Metoprolol Tartrate (Lopressor) 25 mg PO DAILY [facility] Last Admin: 03/09/17 08:33 Dose: 25 mg Montelukast Sodium (Singulair) 10 mg PO DAILY [facility] Last Admin: 03/09/17 08:34 Dose: 10 mg Pantoprazole Sodium (Protonix Ec Tab) 40 mg PO DAILY [facility] Last Admin: 03/09/17 08:34 Dose: 40 mg - Labs Labs: 03/08/17 07:00 03/08/17 05:30 PT 10.6 Seconds (9.8-13.1) 03/08/17 07:45 INR 0.9 (0.9-1.2) 03/08/17 07:45 APTT 30.6 Seconds (25.6-37.1) 03/08/17 07:45 - Constitutional Appears: No Acute Distress - Head Exam Head Exam: NORMAL INSPECTION - Eye Exam Eye Exam: PERRL - ENT Exam ENT Exam: Normal Exam - Neck Exam Neck Exam: Normal Inspection - Respiratory Exam Respiratory Exam: Decreased Breath Sounds (at bases), Wheezes - Cardiovascular Exam Cardiovascular Exam: REGULAR RHYTHM Additional comments: Tenderness L external border and L costal margin on palpation - GI/Abdominal Exam GI & Abdominal Exam: Soft, Normal Bowel Sounds - Extremities Exam Extremities Exam: Tenderness (L shoulder on palpation) - Back Exam Back Exam: NORMAL INSPECTION - Neurological Exam Neurological Exam: Alert, Oriented x3. absent: Motor Sensory Deficit - Psychiatric Exam Psychiatric exam: Normal Mood - Skin Skin Exam: Normal Color, Warm Assessment and Plan (1) Chest pain, musculoskeletal Status: Acute (2) Asthmatic bronchitis with exacerbation Status: Acute (3) Diabetes mellitus Status: Acute (4) Hyperlipidemia Status: Acute (5) HTN (hypertension) Status: Acute - Assessment and Plan (Free Text) Plan: Continue Solumedrol, Duoneb, f/u Sputum C-S.
[2017-03-09] MEDS: methylPREDNISolone 30 MG in Sodium Chloride 0.9% 50 ML IVPB SCH (16:01)
[2017-03-10] MEDS: methylPREDNISolone 30 MG in Sodium Chloride 0.9% 50 ML IVPB SCH ×3 (00:02→16:25)
[2017-03-10] MEDS: Albuterol-Ipratrop 3 mg / 0.5 (3 ml) UD INH SCH ×5 (04:05→21:06)
[2017-03-10] MEDS ORDERED: Sodium Chloride 3% for Inhalation 4 ML VIAL.NEB IH PRN (06:28)
[2017-03-10] MEDS: Insulin Regular 100 units/ml SC SCH ×4 (06:41→22:04)
[2017-03-10 07:10] LABS: HEMATOCRIT 40.2 % (34.0-47.0); MEAN CELL VOLUME 86.8 fl (81.0-99.0); MEAN CORPUSCULAR HEMOGLOBIN 28.1 pg (27.0-31.0); MEAN CORPUSCULAR HGB CONC 32.3 g/dL (33.0-37.0); RED CELL DISTRIBUTION WIDTH 14.1 % (11.5-14.5)
[2017-03-10 07:15] LABS: WHITE BLOOD COUNT 28.3 K/uL (4.8-10.8)
[2017-03-10 07:25] LABS: ALB/GLOB RATIO 1.4 (1.0-2.1); ALKALINE PHOSPHATASE 89 U/L (38-126); ALT/SGPT 52 U/L (9-52); AST/SGOT 32 U/L (14-36); BILIRUBIN,TOTAL 0.2 mg/dl (0.2-1.3); BLOOD UREA NITROGEN 15 mg/dl (7-17); CALCIUM 10.1 mg/dL (8.4-10.2); CARBON DIOXIDE 18 mmol/L (22-30); CHLORIDE 109 mmol/L (98-107); GFR AFRICAN-AMERICAN > 60; GLUCOSE,RANDOM 204 mg/dL (65-105); POTASSIUM 4.4 MMOL/L (3.6-5.0); SODIUM 144 mmol/l (132-148); TOTAL PROTEIN 7.4 G/DL (6.3-8.2)
[2017-03-10] MEDS: Enoxaparin 40 mg Syringe SC SCH (08:36)
[2017-03-10] MEDS: Pantoprazole 40 mg EC Tab PO SCH (08:37)
[2017-03-10] MEDS: Patient's Own Med (Fluticasone/Salmeterol [Fluticasone-Salmeterol 113-14] 1 EACH) IH SCH ×2 (08:37→16:25)
--- NOTE | 2017-03-10 12:09 | CP.PCM.PN ---
Subjective - Date & Time of Evaluation Date of Evaluation: 03/10/17 Time of Evaluation: 09:30 - Subjective Subjective: Pt c/o of dry cough, at times with pain in center of chest with cough, Pt stated that at 3 AM she had cough with blood in small amount with no phlegms Objective - Vital Signs/Intake and Output Vital Signs (last 24 hours): Temp Pulse Resp BP Pulse Ox 97.9 F 81 20 175/84 H 97 03/10/17 08:15 03/10/17 08:36 03/10/17 08:15 03/10/17 08:15 03/10/17 08:15 - Medications Medications: Current Medications Acetaminophen (Tylenol 325mg Tab) 650 mg PO Q4 PRN PRN Reason: Pain, Mild (1-3) Last Admin: 03/10/17 08:55 Dose: 650 mg Albuterol (Ventolin Hfa 90 Mcg/Actuation (8 G)) 1 puff INH BID PRN PRN Reason: Shortness of Breath Last Admin: 03/08/17 04:37 Dose: 1 puff Albuterol/Ipratropium (Duoneb 3 Mg/0.5 Mg (3 Ml) Ud) 3 ml INH RQ4 [facility] Last Admin: 03/10/17 10:59 Dose: 3 ml Aspirin (Ecotrin) 81 mg PO DAILY [facility] Last Admin: 03/10/17 08:37 Dose: 81 mg Atorvastatin Calcium (Lipitor) 10 mg PO HS [facility] Last Admin: 03/09/17 22:03 Dose: 10 mg Enoxaparin Sodium (Lovenox) 40 mg SC DAILY [facility] PRN Reason: Protocol Last Admin: 03/10/17 08:36 Dose: 40 mg Home Med (Fluticasone/Salmeterol [Fluticasone-Salmeterol 113-14]) 1 each IH BID [facility] Last Admin: 03/10/17 08:37 Dose: 1 each Methylprednisolone 30 mg/ (Sodium Chloride) 50 mls @ 100 mls/hr IVPB Q8 [facility] Last Admin: 03/10/17 11:58 Dose: 100 mls/hr Insulin Human Regular (Humulin R) 0 units SC ACCU-CHECK SARAH PRN Reason: Protocol Last Admin: 03/10/17 11:37 Dose: Not Given Metformin HCl (Glucophage) 500 mg PO BID [facility] Last Admin: 03/10/17 08:36 Dose: 500 mg Metoprolol Tartrate (Lopressor) 25 mg PO DAILY [facility] Last Admin: 03/10/17 08:36 Dose: 25 mg Montelukast Sodium (Singulair) 10 mg PO DAILY [facility] Last Admin: 03/10/17 08:37 Dose: 10 mg Pantoprazole Sodium (Protonix Ec Tab) 40 mg PO DAILY [facility] Last Admin: 03/10/17 08:37 Dose: 40 mg - Labs Labs: 03/10/17 06:40 03/10/17 06:40 PT 10.3 Seconds (9.8-13.1) 03/10/17 07:00 INR 0.9 (0.9-1.2) 03/10/17 07:00 APTT 27.0 Seconds (25.6-37.1) 03/10/17 07:00 - Constitutional Appears: No Acute Distress - Head Exam Head Exam: NORMAL INSPECTION - Eye Exam Eye Exam: PERRL - ENT Exam ENT Exam: Normal Exam - Respiratory Exam Respiratory Exam: Decreased Breath Sounds (at bases), Rhonchi (scattered at bases) - Cardiovascular Exam Cardiovascular Exam: REGULAR RHYTHM Additional comments: Tenderness L external border and L costal margin on palpation. - Extremities Exam Extremities Exam: Tenderness (L shoulder on palpation.) - Back Exam Back Exam: NORMAL INSPECTION - Neurological Exam Neurological Exam: Alert, Oriented x3. absent: Motor Sensory Deficit - Psychiatric Exam Psychiatric exam: Normal Mood - Skin Skin Exam: Warm Assessment and Plan (1) Chest pain, musculoskeletal Status: Acute (2) Asthmatic bronchitis with exacerbation Status: Acute (3) Diabetes mellitus Status: Acute (4) Hyperlipidemia Status: Acute (5) HTN (hypertension) Status: Acute - Assessment and Plan (Free Text) Plan: CT of the chest, Sputum C-S, continue Levaquin, Duoneb, Solumedrol, Singulair.
--- NOTE | 2017-03-10 13:04 | CT ---
PROCEDURE: CT Chest without contrast HISTORY: spit up blood with green sputum COMPARISON: 03/08/2017 CT angiogram TECHNIQUE: Contiguous axial images were obtained through the chest without intravenous contrast enhancement. Sagittal and coronal reconstructions were performed. Radiation dose (DLP): 696.20 mGy-cm. This CT exam was performed using one or more of the following dose reduction techniques: Automated exposure control, adjustment of the mA and/or kV according to patient size, and/or use of iterative reconstruction technique. FINDINGS: LUNGS: Right middle lobe atelectasis/ infiltrate unchanged compared to the prior study. Similar less pronounced changes right lower lobe. Basilar atelectasis/ infiltrate left lower lobe, findings more pronounced compared to the prior study. MEDIASTINUM: Unremarkable thoracic aorta. No aneurysm. Normal sized heart. Main pulmonary artery unremarkable. No vascular congestion. No lymphadenopathy. PLEURA: No pleural fluid. No pneumothorax. BONES: No fracture. No destructive lesion. UPPER ABDOMEN: Hepatic steatosis. No focal masses. No intrahepatic bile duct dilatation or perihepatic ascites. OTHER FINDINGS: None. IMPRESSION: Basilar atelectasis, infiltrates and right middle lobe atelectatic change. Findings the right lung are approximately stable common the findings in the left lower lobe are new/ acute.
--- NOTE | 2017-03-10 13:43 | PQF GENQUE ---
Dr. Vizcaino, Please clarify type of asthma: if known Childhood Cough variant Exercise induced Late onset Mild intermittent Mild persistent Moderate persistent Severe persistent With bronchitis(please clarify acuity of bronchitis) With chronic lung disease (please document specific chronic lung disease) Other (please specify) OR:Clinically unable to determine OR: Unknown H and P: history of COPD: and current diagnoses include: Asthmatic Bronchitis This form is a permanent part of the medical record Clarification of your documentation is requested to better reflect the severity of illness and intensity of treatment of your patient. Indicators present [] Specify: [] [] Specify: [] [] Specify: [] [] Specify: [] Location in the medical record that reflects the above clinical findings: [] Treatment Provided: [] PHYSICIAN'S RESPONSE Based on your medical judgment of the clinical indicators outlined above please clarify the following: [] Practitioner response [] If unable to determine, please check the box, sign and date. Present On Admission (POA) Indicator: [] Present at the time of admission [] Not present at the time of admission [] Clinically Undetermined In responding to this query, please exercise your independent professional judgment. The fact that a question is asked does not imply that any particular answer is desired or expected. Thank you for your clarification on this documentation. If you have any questions please call. * Thank you, Rosalina Bowman RN ext. #[phone]: Ivis Espinosa RN MTDD
[2017-03-10] MEDS: levoFLOXacin 500 mg in D5W 500 MG/100 ML BAG IVPB SCH (16:37)
[2017-03-11] MEDS: Albuterol-Ipratrop 3 mg / 0.5 (3 ml) UD INH SCH ×7 (00:03→23:57)
[2017-03-11] MEDS: methylPREDNISolone 30 MG in Sodium Chloride 0.9% 50 ML IVPB SCH ×3 (00:55→16:17)
[2017-03-11 06:32] LABS: HEMATOCRIT 40.6 % (34.0-47.0); MEAN CORPUSCULAR HEMOGLOBIN 28.3 pg (27.0-31.0); RED CELL DISTRIBUTION WIDTH 14.1 % (11.5-14.5); WHITE BLOOD COUNT 23.2 K/uL (4.8-10.8)
[2017-03-11 06:39] LABS: BLOOD UREA NITROGEN 20 mg/dl (7-17); CALCIUM 9.6 mg/dL (8.4-10.2); CARBON DIOXIDE 24 mmol/L (22-30); CHLORIDE 105 mmol/L (98-107); GFR AFRICAN-AMERICAN > 60; GLUCOSE,RANDOM 188 mg/dL (65-105); POTASSIUM 4.3 MMOL/L (3.6-5.0); SODIUM 141 mmol/l (132-148)
[2017-03-11] MEDS: Enoxaparin 40 mg Syringe SC SCH (08:36)
[2017-03-11] MEDS: Pantoprazole 40 mg EC Tab PO SCH (08:36)
[2017-03-11] MEDS: Insulin Regular 100 units/ml SC SCH ×4 (08:37→23:24)
[2017-03-11] MEDS: Patient's Own Med (Fluticasone/Salmeterol [Fluticasone-Salmeterol 113-14] 1 EACH) IH SCH ×2 (08:37→16:17)
[2017-03-11] MEDS: levoFLOXacin 500 mg in D5W 500 MG/100 ML BAG IVPB SCH (08:38)
--- NOTE | 2017-03-11 09:17 | CP.PCM.PCO ---
Physician Communication Note - Physician Communication Note Physician Communication Note: Discussed w/, pt needs 5 days of IV antibiotics to treat pneumonia.
--- NOTE | 2017-03-11 12:58 | CP.PCM.PN ---
Subjective - Date & Time of Evaluation Date of Evaluation: 03/11/17 Time of Evaluation: 11:00 - Subjective Subjective: F/U Bronchial Asthma exacerbation. Dry cough , no hemoptysis , L lower lateral ribs pain with breathing Objective - Vital Signs/Intake and Output Vital Signs (last 24 hours): Temp Pulse Resp BP Pulse Ox 98.2 F 114 H 18 135/80 95 03/11/17 07:30 03/11/17 07:30 03/11/17 07:30 03/11/17 07:30 03/11/17 07:30 - Medications Medications: Current Medications Acetaminophen (Tylenol 325mg Tab) 650 mg PO Q4 PRN PRN Reason: Pain, Mild (1-3) Last Admin: 03/10/17 20:28 Dose: 650 mg Albuterol (Ventolin Hfa 90 Mcg/Actuation (8 G)) 1 puff INH BID PRN PRN Reason: Shortness of Breath Last Admin: 03/08/17 04:37 Dose: 1 puff Albuterol/Ipratropium (Duoneb 3 Mg/0.5 Mg (3 Ml) Ud) 3 ml INH RQ4 [facility] Last Admin: 03/11/17 11:01 Dose: Not Given Aspirin (Ecotrin) 81 mg PO DAILY [facility] Last Admin: 03/11/17 08:37 Dose: 81 mg Atorvastatin Calcium (Lipitor) 10 mg PO HS [facility] Last Admin: 03/10/17 22:00 Dose: 10 mg Home Med (Fluticasone/Salmeterol [Fluticasone-Salmeterol 113-14]) 1 each IH BID [facility] Last Admin: 03/11/17 08:37 Dose: 1 each Methylprednisolone 30 mg/ (Sodium Chloride) 50 mls @ 100 mls/hr IVPB Q8 [facility] Last Admin: 03/11/17 08:38 Dose: 100 mls/hr Levofloxacin/Dextrose (Levaquin 500mg) 500 mg in 100 mls @ 100 mls/hr IVPB DAILY [facility] Last Admin: 03/11/17 08:38 Dose: 100 mls/hr Insulin Human Regular (Humulin R) 0 units SC ACCU-CHECK SAR[facility] PRN Reason: Protocol Last Admin: 03/11/17 11:47 Dose: 4 units Metformin HCl (Glucophage) 500 mg PO BID [facility] Last Admin: 03/11/17 08:37 Dose: 500 mg Metoprolol Tartrate (Lopressor) 25 mg PO DAILY [facility] Last Admin: 03/11/17 08:36 Dose: 25 mg Montelukast Sodium (Singulair) 10 mg PO DAILY [facility] Last Admin: 03/11/17 08:36 Dose: 10 mg Pantoprazole Sodium (Protonix Ec Tab) 40 mg PO DAILY [facility] Last Admin: 03/11/17 08:36 Dose: 40 mg - Labs Labs: 03/11/17 06:00 03/11/17 06:00 PT 10.3 Seconds (9.8-13.1) 03/10/17 07:00 INR 0.9 (0.9-1.2) 03/10/17 07:00 APTT 27.0 Seconds (25.6-37.1) 03/10/17 07:00 - Constitutional Appears: No Acute Distress - Head Exam Head Exam: NORMAL INSPECTION - Eye Exam Eye Exam: PERRL - ENT Exam ENT Exam: Normal Exam - Neck Exam Neck Exam: Normal Inspection - Respiratory Exam Respiratory Exam: Chest Wall Tenderness (lower lateral left lateral ribs with palpation and breathing), Decreased Breath Sounds (at bases), Rhonchi ( scattered at bases) - Cardiovascular Exam Cardiovascular Exam: REGULAR RHYTHM Additional comments: Tenderness L external border and L costal margin on palpation. - GI/Abdominal Exam GI & Abdominal Exam: Soft, Normal Bowel Sounds - Extremities Exam Extremities Exam: Tenderness (L shoulder on palpation) - Back Exam Back Exam: NORMAL INSPECTION - Neurological Exam Neurological Exam: Alert, Oriented x3. absent: Motor Sensory Deficit - Psychiatric Exam Psychiatric exam: Normal Mood - Skin Skin Exam: Warm Assessment and Plan (1) Chest pain, musculoskeletal Status: Acute (2) Asthmatic bronchitis with exacerbation Assessment & Plan: L pleuritic Status: Acute (3) Diabetes mellitus Status: Acute (4) Hyperlipidemia Status: Acute (5) HTN (hypertension) Status: Acute - Assessment and Plan (Free Text) Plan: Continue Levaquin , Solu Medrol , Duo Neb and rest of treatment
[2017-03-12] MEDS: methylPREDNISolone 30 MG in Sodium Chloride 0.9% 50 ML IVPB SCH ×2 (00:59→08:36)
[2017-03-12] MEDS: Albuterol-Ipratrop 3 mg / 0.5 (3 ml) UD INH SCH ×6 (04:32→23:24)
[2017-03-12] MEDS: Insulin Regular 100 units/ml SC SCH ×4 (08:27→22:51)
[2017-03-12] MEDS: Patient's Own Med (Fluticasone/Salmeterol [Fluticasone-Salmeterol 113-14] 1 EACH) IH SCH ×2 (08:28→16:58)
[2017-03-12] MEDS: Pantoprazole 40 mg EC Tab PO SCH (08:29)
[2017-03-12] MEDS: levoFLOXacin 500 mg in D5W 500 MG/100 ML BAG IVPB SCH (09:15)
--- NOTE | 2017-03-12 11:57 | CP.PCM.PN ---
Subjective - Date & Time of Evaluation Date of Evaluation: 03/12/17 Time of Evaluation: 10:00 - Subjective Subjective: F/U CP/BA. no AD , NC , no SOB , no cough Objective - Vital Signs/Intake and Output Vital Signs (last 24 hours): Temp Pulse Resp BP Pulse Ox 98.0 F 92 H 18 116/75 97 03/12/17 09:00 03/12/17 09:00 03/12/17 09:00 03/12/17 09:00 03/12/17 09:00 - Medications Medications: Current Medications Acetaminophen (Tylenol 325mg Tab) 650 mg PO Q4 PRN PRN Reason: Pain, Mild (1-3) Last Admin: 03/10/17 20:28 Dose: 650 mg Albuterol (Ventolin Hfa 90 Mcg/Actuation (8 G)) 1 puff INH BID PRN PRN Reason: Shortness of Breath Last Admin: 03/08/17 04:37 Dose: 1 puff Albuterol/Ipratropium (Duoneb 3 Mg/0.5 Mg (3 Ml) Ud) 3 ml INH RQ4 [facility] Last Admin: 03/12/17 11:32 Dose: Not Given Aspirin (Ecotrin) 81 mg PO DAILY [facility] Last Admin: 03/12/17 08:28 Dose: 81 mg Atorvastatin Calcium (Lipitor) 10 mg PO HS [facility] Last Admin: 03/11/17 21:22 Dose: 10 mg Home Med (Fluticasone/Salmeterol [Fluticasone-Salmeterol 113-14]) 1 each IH BID [facility] Last Admin: 03/12/17 08:28 Dose: 1 each Methylprednisolone 30 mg/ (Sodium Chloride) 50 mls @ 100 mls/hr IVPB Q8 [facility] Last Admin: 03/12/17 08:36 Dose: 100 mls/hr Levofloxacin/Dextrose (Levaquin 500mg) 500 mg in 100 mls @ 100 mls/hr IVPB DAILY [facility] Last Admin: 03/12/17 09:15 Dose: 100 mls/hr Insulin Human Regular (Humulin R) 0 units SC ACCU-CHECK SARAH PRN Reason: Protocol Last Admin: 03/12/17 08:27 Dose: 2 units Metformin HCl (Glucophage) 500 mg PO BID [facility] Last Admin: 03/12/17 08:28 Dose: 500 mg Metoprolol Tartrate (Lopressor) 25 mg PO DAILY [facility] Last Admin: 03/12/17 08:28 Dose: 25 mg Montelukast Sodium (Singulair) 10 mg PO DAILY [facility] Last Admin: 03/12/17 08:29 Dose: 10 mg Pantoprazole Sodium (Protonix Ec Tab) 40 mg PO DAILY [facility] Last Admin: 03/12/17 08:29 Dose: 40 mg - Labs Labs: 03/11/17 06:00 03/11/17 06:00 PT 10.3 Seconds (9.8-13.1) 03/10/17 07:00 INR 0.9 (0.9-1.2) 03/10/17 07:00 APTT 27.0 Seconds (25.6-37.1) 03/10/17 07:00 - Constitutional Appears: No Acute Distress - Head Exam Head Exam: NORMAL INSPECTION - Eye Exam Eye Exam: PERRL - ENT Exam ENT Exam: Normal Exam - Neck Exam Neck Exam: Normal Inspection - Respiratory Exam Respiratory Exam: Chest Wall Tenderness (minimal LSB tenderness , L lower chest wall no tenderness), Clear to Ausculation Bilateral - Cardiovascular Exam Cardiovascular Exam: REGULAR RHYTHM - GI/Abdominal Exam GI & Abdominal Exam: Soft, Normal Bowel Sounds - Extremities Exam Extremities Exam: Normal Inspection - Back Exam Back Exam: NORMAL INSPECTION - Neurological Exam Neurological Exam: Alert, Oriented x3. absent: Motor Sensory Deficit - Psychiatric Exam Psychiatric exam: Normal Mood - Skin Skin Exam: Warm Assessment and Plan (1) Chest pain, musculoskeletal Status: Resolved (2) Asthmatic bronchitis with exacerbation Status: Resolved (3) Diabetes mellitus Status: Acute (4) Hyperlipidemia Status: Acute (5) HTN (hypertension) Status: Acute - Assessment and Plan (Free Text) Plan: CXR resolved PNA , no active disease, Patient is improved and stable to be discharged , see inst/med sheet , f/u appt next week.
[2017-03-13] MEDS: Albuterol-Ipratrop 3 mg / 0.5 (3 ml) UD INH SCH ×3 (04:44→11:34)
[2017-03-13] MEDS: Insulin Regular 100 units/ml SC SCH ×2 (06:39→11:20)
[2017-03-13 07:23] VITALS: BP 118/78; PULSE 74; RESP 18; TEMP 97.7; O2SAT 95
[2017-03-13] MEDS: Pantoprazole 40 mg EC Tab PO SCH (08:14)
[2017-03-13] MEDS: levoFLOXacin 500 mg in D5W 500 MG/100 ML BAG IVPB SCH (08:15)
[2017-03-13] MEDS: Patient's Own Med (Fluticasone/Salmeterol [Fluticasone-Salmeterol 113-14] 1 EACH) IH SCH (08:15)
[2017-03-13] MEDS ORDERED: methylPREDNISolone 30 MG in Sodium Chloride 0.9% 50 ML IVPB SCH (09:00)
--- NOTE | 2017-03-13 11:38 | RAD ---
HISTORY: F/u pneumonia COMPARISON: 03/07/2017 TECHNIQUE: Chest PA and lateral FINDINGS: LUNGS: No active pulmonary disease. PLEURA: No significant pleural effusion identified. No pneumothorax apparent. CARDIOVASCULAR: Normal. OSSEOUS STRUCTURES: No significant abnormalities. VISUALIZED UPPER ABDOMEN: Normal. OTHER FINDINGS: None. IMPRESSION: No active disease.
--- NOTE | 2017-03-13 19:43 | CP.PCM.PN ---
Subjective - Date & Time of Evaluation Date of Evaluation: 03/13/17 Time of Evaluation: 10:30 - Subjective Subjective: F/U CP Musculoskeletal. Objective - Vital Signs/Intake and Output Vital Signs (last 24 hours): Temp Pulse Resp BP Pulse Ox 97.7 F 74 18 118/78 95 03/13/17 07:22 03/13/17 07:22 03/13/17 07:22 03/13/17 07:22 03/13/17 07:22 - Labs Labs: 03/11/17 06:00 03/11/17 06:00 PT 10.3 Seconds (9.8-13.1) 03/10/17 07:00 INR 0.9 (0.9-1.2) 03/10/17 07:00 APTT 27.0 Seconds (25.6-37.1) 03/10/17 07:00 - Constitutional Appears: No Acute Distress - Head Exam Head Exam: NORMAL INSPECTION - Eye Exam Eye Exam: PERRL - ENT Exam ENT Exam: Normal Exam - Neck Exam Neck Exam: Normal Inspection - Respiratory Exam Respiratory Exam: Chest Wall Tenderness (minimal ), Clear to Ausculation Bilateral - Cardiovascular Exam Cardiovascular Exam: REGULAR RHYTHM Additional comments: Minimal tenderness L external border and L costal marginal on palpation. - GI/Abdominal Exam GI & Abdominal Exam: Soft, Normal Bowel Sounds - Extremities Exam Extremities Exam: Normal Inspection - Back Exam Back Exam: NORMAL INSPECTION - Neurological Exam Neurological Exam: Alert, Oriented x3. absent: Motor Sensory Deficit - Psychiatric Exam Psychiatric exam: Normal Mood - Skin Skin Exam: Warm Assessment and Plan (1) Chest pain, musculoskeletal Status: Acute (2) Asthmatic bronchitis with exacerbation Status: Acute (3) Diabetes mellitus Status: Acute (4) Hyperlipidemia Status: Acute (5) HTN (hypertension) Status: Acute
== END 2017-03-13 13:57 | disposition home or self-care (01) | DRG 588 ==
LOC: H.ER 21:12 → OBSVTOIN 03-08 01:34 → INTOOBSV 03-08 01:34 → UNDOADMOB 03-08 01:34 → H.ERHOLD 03-08 01:34 → H.TEL 03-08 02:42 → H.ERHOLD 03-08 02:42 → OBSVTOIN 03-08 14:49 → H.TEL 03-08 14:49 → H.MEDSURG1 03-08 14:49 → H.TEL 03-08 16:11 → H.MEDSURG1 03-08 18:31
PROVIDERS: ADMIT Internal Medicine Pulmonary Disease; ATTEND Internal Medicine Pulmonary Disease
DX: J45.901 Unspecified asthma with (acute) exacerbation (principal); J18.9 Pneumonia, unspecified organism; E11.9 Type 2 diabetes mellitus without complications; J44.0 Chronic obstructive pulmonary disease with (acute) lower respiratory infection; I10 Essential (primary) hypertension; E78.00 Pure hypercholesterolemia, unspecified; E78.5 Hyperlipidemia, unspecified; F41.9 Anxiety disorder, unspecified; Z88.0 Allergy status to penicillin

== ENCOUNTER 2017-03-23 11:49 | Emergency (ER) | payer MEDICAID ==
[2017-03-23 11:54] VITALS: BMI 33.7
--- NOTE | 2017-03-23 12:42 | ED PDOC ---
HPI: SOB/CHF/COPD Time Seen by Provider: 03/23/17 12:15 Chief Complaint (Nursing): Shortness Of Breath History Per: Patient Additional Complaint(s): Pt. states last night she developed cough and chest tightness unrelieved with her albuterol. Symptoms continued today prompting ED visit. States she was admitted earlier this month for similar symptoms and had CTA of chest done which was negative. Pt. feels as if this is her asthma exacerbating. Denies fever, palpitations, leg pain, hemoptysis, hx of DVT or PE, malignancy, recent prolonged limb immobilization. Past Medical History Vital Signs: Last Vital Signs Temp 98.3 F 03/23/17 15:49 Pulse 98 H 03/23/17 15:49 Resp 18 03/23/17 15:49 BP 120/72 03/23/17 15:49 Pulse Ox 100 03/23/17 15:49 - Medical History PMH: Anxiety, Asthma, Bronchitis, COPD, Diabetes, HTN, Hypercholesterolemia Denies: Alzheimer's Disease, HIV, Chronic Kidney Disease - Surgical History Surgical History: Appendectomy, Cholecystectomy, Hernia Repair - Family History Family History: States: CAD, Diabetes - Immunization History Hx Tetanus Toxoid Vaccination: Yes Hx Influenza Vaccination: Yes Hx Pneumococcal Vaccination: No - Home Medications Home Medications: Ambulatory Orders Medication Instructions Recorded Aspirin [Aspirin EC] 81 mg PO DAILY 12/13/15 Atorvastatin Calcium 10 mg PO HS 12/13/15 Montelukast Sodium 10 mg PO DAILY 12/13/15 Mometasone/Formoterol [Dulera 200 2 puff PO BID 10/11/16 Mcg/5 Mcg Inhaler] Albuterol HFA [Ventolin HFA 90 1 puff INH BID PRN 03/08/17 mcg/actuation (8 g)] Fluticasone/Salmeterol 1 each IH BID 03/08/17 [Fluticasone-Salmeterol 113-14] Metoprolol Tartrate [Lopressor] 25 mg PO DAILY 03/08/17 metFORMIN [glucOPHAGE] 500 mg PO BID 03/08/17 Levofloxacin [Levaquin] 500 mg PO DAILY #4 tablet 03/13/17 Azithromycin [Zithromax] 250 mg PO DAILY #6 tab 03/23/17 Methylprednisolone [Medrol Dose 4 mg PO DAILY #21 mg 03/23/17 Pack (21 tabs)] - Allergies Allergies/Adverse Reactions: Allergies Allergy/AdvReac Type Severity Reaction Status Date / Time Penicillins Allergy URTICARIA Verified 10/10/16 21:24 Wells Criteria for PE - Wells Criteria for Pulmonary Embolism Clinical Signs and Symptoms of DVT: No P.E is #1 Diagnosis, or Equally Likely: No Heart Rate >100: Yes Immobilization at least 3 days;Surgery previous 4 weeks: No Previous, objectively diagnosed PE or DVT: No Hemoptysis: No Malignancy w/treatment within 6 months, or palliative: No Total Score: 1.5 Review of Systems ROS Statement: Except As Marked, All Systems Reviewed And Found Negative Cardiovascular: Positive for: Chest Pain Respiratory: Positive for: Cough, Wheezing Physical Exam - Reviewed Nursing Documentation Reviewed: Yes Vital Signs Reviewed: Yes - Physical Exam Appears: Positive for: Well, Non-toxic, No Acute Distress Head Exam: Positive for: ATRAUMATIC, NORMAL INSPECTION, NORMOCEPHALIC Skin: Positive for: Normal Color, Warm. Negative for: Rash Eye Exam: Positive for: EOMI, Normal appearance, PERRL ENT: Positive for: Normal ENT Inspection Neck: Positive for: Normal, Painless ROM Cardiovascular/Chest: Positive for: Regular Rate, Rhythm Respiratory: Positive for: CNT, Normal Breath Sounds Gastrointestinal/Abdominal: Positive for: Normal Exam, Bowel Sounds, Soft. Negative for: Tenderness Back: Positive for: Normal Inspection Extremity: Positive for: Normal ROM Neurologic/Psych: Positive for: Alert, Oriented. Negative for: Aphasia, Facial Droop - Laboratory Results Result Diagrams: 03/23/17 13:40 03/23/17 14:20 - ECG ECG: Positive for: Interpreted By Me ECG Rhythm: Positive for: Sinus Rhythm. Negative for: ST/T Changes O2 Sat by Pulse Oximetry: 96 - Radiology X-Ray: Interpreted by Me (CXR) X-Ray Interpretation: No Acute Disease - Progress ED Course And Treament: Labs ordered. DuoNeb x 2, solu-medrol 60mg IV ordered. On re-evaluation, pt. reports feeling much better. Initial peak flow: 200 Post Peak flow: 300 Case d/w Dr. Vizcaino and states pt. can be dc'd and can f/u in his office tomorrow. Pt. informed of plan and agrees. Disposition - Clinical Impression Clinical Impression: Bronchospasm, acute - Patient ED Disposition Is Patient to be Admitted: No - Disposition Referrals: Deon Vizcaino MD [Family Provider] - Disposition: Routine/Home Disposition Time: 15:34 Condition: IMPROVED Prescriptions: Azithromycin [Zithromax] 250 mg PO DAILY #6 tab Methylprednisolone [Medrol Dose Pack (21 tabs)] 4 mg PO DAILY #21 mg Instructions: Bronchospasm (ED) Forms: [employer] ([place]) Print Language: UZBEK
[2017-03-23] MEDS ORDERED: MethylPREDNISolone 40 mg Vial IVP ONE (12:54)
[2017-03-23] MEDS ORDERED: Albuterol-Ipratrop 3 mg / 0.5 (3 ml) UD INH STA (12:54)
[2017-03-23] MEDS ORDERED: Albuterol-Ipratrop 3 mg / 0.5 (3 ml) UD ONE (13:02)
[2017-03-23] MEDS ORDERED: MethylPREDNISolone 40 mg Vial ONE (13:38)
[2017-03-23 13:39] LABS: URINE BILIRUBIN NEGATIVE (NEGATIVE); URINE BLOOD SMALL (NEGATIVE); URINE COLOR YELLOW (YELLOW); URINE GLUCOSE (UA) NEG (Normal); URINE KETONE NEGATIVE (NEGATIVE); URINE LEUKOCYTE ESTERASE NEG Leu/uL (Negative); URINE PROTEIN NEGATIVE (NEGATIVE); URINE UROBILINOGEN 0.2-1.0 mg/dL (0.2-1.0); WBC URINE 1 /hpf (0-5)
[2017-03-23 13:44] LABS: RBC URINE 10 /hpf (0-3)
[2017-03-23 13:49] LABS: BASO # 0.1 K/uL (0.0-0.2); EOS # 0.2 K/uL (0.0-0.7); EOS % 1.9 % (0.0-4.0); HEMATOCRIT 38.8 % (34.0-47.0); LYMPH # 2.9 K/uL (1.0-4.3); LYMPH % 36.5 % (20.0-40.0); MEAN CELL VOLUME 84.7 fl (81.0-99.0); MEAN CORPUSCULAR HEMOGLOBIN 28.9 pg (27.0-31.0); MEAN CORPUSCULAR HGB CONC 34.1 g/dL (33.0-37.0); MEAN PLATELET VOLUME 7.5 fl (7.2-11.7); MONO # 0.6 K/uL (0.0-0.8); MONO % 7.7 % (0.0-10.0); NEUT # 4.2 K/uL (1.8-7.0); NEUT % 52.9 % (50.0-75.0); NRBC % 0.1 % (0.0-0.0); RED CELL DISTRIBUTION WIDTH 13.9 % (11.5-14.5)
[2017-03-23 13:50] VITALS: RESP 18
[2017-03-23 14:35] LABS: ALB/GLOB RATIO 1.3 (1.0-2.1); ALKALINE PHOSPHATASE 95 U/L (38-126); ALT/SGPT 83 U/L (9-52); AST/SGOT 46 U/L (14-36); BILIRUBIN,TOTAL 0.5 mg/dl (0.2-1.3); BLOOD UREA NITROGEN 14 mg/dl (7-17); CALCIUM 9.2 mg/dL (8.4-10.2); CARBON DIOXIDE 25 mmol/L (22-30); CHLORIDE 108 mmol/L (98-107); GFR AFRICAN-AMERICAN > 60; GLUCOSE,RANDOM 98 mg/dL (65-105); SODIUM 143 mmol/l (132-148); TOTAL PROTEIN 7.6 G/DL (6.3-8.2)
[2017-03-23 14:36] LABS: POTASSIUM 4.2 MMOL/L (3.6-5.0)
[2017-03-23 15:50] VITALS: BP 120/72; PULSE 98; TEMP 98.3
--- NOTE | 2017-03-23 15:57 | RAD ---
HISTORY: cough COMPARISON: No prior. TECHNIQUE: Chest PA and lateral FINDINGS: LUNGS: Peripheral interstitial changes with possible nodule in the right midlung zone for which correlation with chest CT scan is recommended. PLEURA: No significant pleural effusion identified. No pneumothorax apparent. CARDIOVASCULAR: Normal. OSSEOUS STRUCTURES: No significant abnormalities. VISUALIZED UPPER ABDOMEN: Normal. OTHER FINDINGS: None. IMPRESSION: Peripheral interstitial changes with possible nodule in the right midlung zone for which correlation with chest CT scan is recommended.
[2017-03-23 19:46] VITALS: O2SAT 96
--- NOTE | 2017-03-24 08:41 | CARD ---
APPROVED REPORT EKG Measurement Heart [id number] <Conclusion> Normal sinus rhythm Normal ECG
== END 2017-03-23 15:50 | disposition home or self-care (01) ==
LOC: H.ER 11:49
DX: R07.89 Other chest pain (principal); J98.01 Acute bronchospasm; I10 Essential (primary) hypertension; E11.9 Type 2 diabetes mellitus without complications; J45.909 Unspecified asthma, uncomplicated
CPT/HCPCS: 71020; 80053; 81003; 82948; 83880; 84484; 85025; 85378; 87804; 93005; 96374; 99284; J2920

== ENCOUNTER 2017-03-26 22:52 | Emergency (ER) | payer MEDICAID ==
[2017-03-26 22:53] VITALS: BMI 33.7
[2017-03-26 23:05] VITALS: BP 113/79; PULSE 119; RESP 16; TEMP 99; O2SAT 100
[2017-03-26] MEDS ORDERED: Albuterol-Ipratrop 3 mg / 0.5 (3 ml) UD INH STA (23:24)
[2017-03-26] MEDS ORDERED: Albuterol-Ipratrop 3 mg / 0.5 (3 ml) UD ONE (23:42)
--- NOTE | 2017-03-27 | ED PDOC ---
HPI: CCC, URI, Sore Throat Time Seen by Provider: 03/26/17 23:24 Chief Complaint (Nursing): Flu-like Symptoms Chief Complaint (Provider): cough History Per: Patient History/Exam Limitations: no limitations Additional Complaint(s): 56yo F in ED for eval of cough and difficulty with breathing. pt state that she has used her albuterol and medrol dose pack without much relief. pt admits to cough without sputum productive denies fever chills, but state she is not feeling well. pt able speak in full sentences. Past Medical History Reviewed: Historical Data, Nursing Documentation, Vital Signs Vital Signs: Last Vital Signs Temp 99 F 03/26/17 23:02 Pulse 119 H 03/26/17 23:02 Resp 16 03/26/17 23:02 BP 113/79 03/26/17 23:02 Pulse Ox 100 03/27/17 00:00 - Medical History PMH: Anxiety, Asthma, Bronchitis, COPD, Diabetes, HTN, Hypercholesterolemia Denies: Alzheimer's Disease, HIV, Chronic Kidney Disease - Surgical History Surgical History: Appendectomy, Cholecystectomy, Hernia Repair - Family History Family History: States: Unknown Family Hx, CAD, Diabetes - Immunization History Hx Tetanus Toxoid Vaccination: Yes Hx Influenza Vaccination: Yes Hx Pneumococcal Vaccination: No - Home Medications Home Medications: Ambulatory Orders Medication Instructions Recorded Aspirin [Aspirin EC] 81 mg PO DAILY 12/13/15 Atorvastatin Calcium 10 mg PO HS 12/13/15 Montelukast Sodium 10 mg PO DAILY 12/13/15 Mometasone/Formoterol [Dulera 200 2 puff PO BID 10/11/16 Mcg/5 Mcg Inhaler] Albuterol HFA [Ventolin HFA 90 1 puff INH BID PRN 03/08/17 mcg/actuation (8 g)] Fluticasone/Salmeterol 1 each IH BID 03/08/17 [Fluticasone-Salmeterol 113-14] Metoprolol Tartrate [Lopressor] 25 mg PO DAILY 03/08/17 metFORMIN [glucOPHAGE] 500 mg PO BID 03/08/17 Levofloxacin [Levaquin] 500 mg PO DAILY #4 tablet 03/13/17 Azithromycin [Zithromax] 250 mg PO DAILY #6 tab 03/23/17 Methylprednisolone [Medrol Dose 4 mg PO DAILY #21 mg 03/23/17 Pack (21 tabs)] Azithromycin [Zithromax] 250 mg PO DAILY #6 tab 03/26/17 Dextromethorphan Polistirex 30 mg PO BID #100 [email or web address] 03/26/17 [Delsym] - Allergies Allergies/Adverse Reactions: Allergies Allergy/AdvReac Type Severity Reaction Status Date / Time Penicillins Allergy URTICARIA Verified 10/10/16 21:24 Curb-65 Severity Score - CURB-65 Severity Score Confusion: No Bun >19mg/dl (>7mmol/L): No Respiratory Rate greater than/equal to 30: No Systolic BP <90 or Diastolic BP less than/equal 60mmHg: No Age >64: No Curb-65 Score: 0 Percentage 30-day mortality: 0.6% Review of Systems ROS Statement: Except As Marked, All Systems Reviewed And Found Negative Respiratory: Positive for: Shortness of Breath Physical Exam - Reviewed Nursing Documentation Reviewed: Yes Vital Signs Reviewed: Yes - Physical Exam Appears: Positive for: Well (pt looks well, sitting comfortably without labored breathing, tripoding or difficulty speaking in full sentences. ), Non-toxic, No Acute Distress Head Exam: Positive for: ATRAUMATIC, NORMAL INSPECTION, NORMOCEPHALIC Skin: Positive for: Normal Color, Warm, DRY Eye Exam: Positive for: EOMI, Normal appearance, PERRL ENT: Positive for: Normal ENT Inspection Neck: Positive for: Normal, Painless ROM Cardiovascular/Chest: Positive for: Regular Rate, Rhythm Respiratory: Positive for: CNT, Normal Breath Sounds Neurologic/Psych: Positive for: Alert, Oriented - ECG O2 Sat by Pulse Oximetry: 100 - Radiology X-Ray: Interpreted by Me X-Ray Interpretation: No Acute Disease Nebulizer Treatments/Peak Flow - Duonebs Number of Bronchodilator Doses given?: 1 - Steroid Treatment Steroid: Not Clinically Indicated - Clinical Response Clinical Response: Improved Medical Decision Making Medical Decision Making: pt with improved HR: improved to 108 after one treatment of albuterol, and pt states she feels better. Pt given Rx ofr azithromax, delysm advised to contact her pmd for appt for f.u and to return if with significantly worse. pt demonstrated understanding and was in agreement. Disposition - Clinical Impression Clinical Impression: COPD (chronic obstructive pulmonary disease), Upper respiratory infection - Patient ED Disposition Is Patient to be Admitted: No - Disposition Referrals: Deon Vizcaino MD [Primary Care Provider] - Disposition: Routine/Home Disposition Time: 19:54 Condition: STABLE Prescriptions: Azithromycin [Zithromax] 250 mg PO DAILY #6 tab Dextromethorphan Polistirex [Delsym] 30 mg PO BID #100 [email or web address] Instructions: Upper Respiratory Infection (ED) Forms: [facility] ([place])
--- NOTE | 2017-03-27 07:44 | RAD ---
HISTORY: Cough, flu-like symptoms COMPARISON: 03/23/2017 TECHNIQUE: Chest PA and lateral FINDINGS: LUNGS: No active pulmonary disease. PLEURA: No significant pleural effusion identified. No pneumothorax apparent. CARDIOVASCULAR: Normal. OSSEOUS STRUCTURES: No significant abnormalities. VISUALIZED UPPER ABDOMEN: Normal. OTHER FINDINGS: None. IMPRESSION: No active disease. No significant interval change compared to the prior examination(s). Please note: No preliminary interpretation of this examination rendered by emergency department personnel (Physician and/or PA declined to provide preliminary report of their findings/ observations).
== END 2017-03-26 23:59 | disposition home or self-care (01) ==
LOC: H.ER 22:52
DX: J44.9 Chronic obstructive pulmonary disease, unspecified (principal); J06.9 Acute upper respiratory infection, unspecified; E11.9 Type 2 diabetes mellitus without complications; E78.00 Pure hypercholesterolemia, unspecified; F41.9 Anxiety disorder, unspecified; I10 Essential (primary) hypertension; Z79.82 Long term (current) use of aspirin; Z79.84 Long term (current) use of oral hypoglycemic drugs; Z88.0 Allergy status to penicillin

== ENCOUNTER 2017-03-27 17:10 | Observation (INO) | payer MEDICAID ==
[2017-03-27 17:10] VITALS: BMI 33.7
--- NOTE | 2017-03-27 17:49 | ED PDOC ---
HPI: SOB/CHF/COPD Time Seen by Provider: 03/27/17 17:25 Chief Complaint (Nursing): Shortness Of Breath Chief Complaint (Provider): Shortness Of Breath History Per: Patient History/Exam Limitations: no limitations Onset/Duration Of Symptoms: Days (x3) Current Symptoms Are (Timing): Still Present Additional Complaint(s): Jeane Mann is a 56 year old female with a history of asthma and COPD that presents to the ED with a chief complaint of cough with associated shortness of breath, chest tightness, and nasal congestion with thick, green rhinorrhea that she has been experiencing for the past three days. Patient reports that she was already seen twice in the ED, and was given Prednisone and cough suppressant, which along with the use of her Albuterol inhaler has been giving her minimal relief. She denies any leg swelling or fever, and states that these symptoms are similar to when she had to stay in the hospital for asthma. Of Note: Patient completed a course of antibiotics last week. PMD: Patient recently switched PMD, will now go to Dr. Talavera, but has yet to have her first appointment with him yet. Past Medical History Reviewed: Historical Data, Nursing Documentation, Vital Signs Vital Signs: Last Vital Signs Temp 98.3 F 03/27/17 21:00 Pulse 114 H 03/27/17 21:00 Resp 19 03/27/17 21:00 BP 120/78 03/27/17 21:00 Pulse Ox 97 03/27/17 23:47 - Medical History PMH: Anxiety, Asthma, Bronchitis, COPD, Diabetes, HTN, Hypercholesterolemia Denies: Alzheimer's Disease, HIV, Chronic Kidney Disease - Surgical History Surgical History: Appendectomy, Cholecystectomy, Hernia Repair - Family History Family History: States: CAD, Diabetes - Immunization History Hx Tetanus Toxoid Vaccination: Yes Hx Influenza Vaccination: Yes Hx Pneumococcal Vaccination: No - Home Medications Home Medications: Ambulatory Orders Medication Instructions Recorded Aspirin [Aspirin EC] 81 mg PO DAILY 12/13/15 Atorvastatin Calcium 10 mg PO HS 12/13/15 Montelukast Sodium 10 mg PO DAILY 12/13/15 Albuterol HFA [Ventolin HFA 90 1 puff INH BID PRN 03/08/17 mcg/actuation (8 g)] Fluticasone/Salmeterol 1 each IH BID 03/08/17 [Fluticasone-Salmeterol 113-14] Metoprolol Tartrate [Lopressor] 25 mg PO DAILY 03/08/17 metFORMIN [glucOPHAGE] 500 mg PO BID 03/08/17 Dextromethorphan Polistirex 30 mg PO BID #100 [email or web address] 03/26/17 [Delsym] Valsartan/Hydrochlorothiazide 1 tab PO DAILY 03/27/17 [Valsartan and Hydrochlorothiazide 25 mg-160 M] - Allergies Allergies/Adverse Reactions: Allergies Allergy/AdvReac Type Severity Reaction Status Date / Time Penicillins Allergy URTICARIA Verified 10/10/16 21:24 Review of Systems ROS Statement: Except As Marked, All Systems Reviewed And Found Negative Constitutional: Negative for: Fever ENT: Positive for: Nose Congestion (with thick green rhinorrhea) Cardiovascular: Positive for: Other (Chest tightness). Negative for: Edema ( denies leg swelling) Respiratory: Positive for: Cough, Shortness of Breath Physical Exam - Reviewed Nursing Documentation Reviewed: Yes Vital Signs Reviewed: Yes - Physical Exam Appears: Positive for: In Acute Distress (mild respiratory distress) Head Exam: Positive for: ATRAUMATIC, NORMOCEPHALIC Skin: Positive for: Warm, Dry Eye Exam: Positive for: EOMI, PERRL ENT: Negative for: Pharyngeal Erythema, Tonsillar Exudate Neck: Positive for: Painless ROM, Supple Cardiovascular/Chest: Positive for: Chest Non Tender, Tachycardia Respiratory: Positive for: Respiratory Distress. Negative for: Rales, Rhonchi, Wheezing Gastrointestinal/Abdominal: Positive for: Soft. Negative for: Tenderness Back: Positive for: Normal Inspection. Negative for: Decreased ROM Extremity: Positive for: Normal ROM. Negative for: Pedal Edema, Deformity Lymphatic: Negative for: Adenopathy Neurologic/Psych: Positive for: Alert. Negative for: Motor/Sensory Deficits - Laboratory Results Result Diagrams: 03/27/17 17:55 03/27/17 17:55 - ECG O2 Sat by Pulse Oximetry: 97 (RA) Pulse Ox Interpretation: Normal Medical Decision Making Medical Decision Making: Impression: Intractable Cough and Shortness of Breath, ddx include Pneumonia vs. Status Asthmaticus vs. Bronchitis vs. Bronchospasm Plan: * EKG * ABG * CMP * CBC * Magnesium * Phosphorous * Blood Culture * Flu Swab * Rapid Strep * Reevaluation Patient had a Chest X-Ray done yesterday, was negative. DW Dr Vizcaino. Pt has recurrent asthma symptoms despite outpatient treatment. Needs hospitalization for further management. Scribe Attestation: Documented by Dali Samuel, acting as a scribe for Maria Guadalupe Montes MD. Provider Scribe Attestation: All medical record entries made by the Scribe were at my direction and personally dictated by me. I have reviewed the chart and agree that the record accurately reflects my personal performance of the history, physical exam, medical decision making, and the department course for this patient. I have also personally directed, reviewed, and agree with the discharge instructions and disposition. Disposition - Clinical Impression Clinical Impression: Asthma, Bronchospasm, acute - Disposition Disposition Time: 21:00 Condition: SERIOUS - Pt Status Changed To: Hospital Disposition Of: Observation - POA Present On Arrival: None
[2017-03-27 18:04] LABS: BASO % 0.4 % (0.0-2.0); EOS % 0.5 % (0.0-4.0); HEMATOCRIT 43.3 % (34.0-47.0); LYMPH # 1.8 K/uL (1.0-4.3); LYMPH % 18.4 % (20.0-40.0); MEAN CELL VOLUME 85.6 fl (81.0-99.0); MEAN CORPUSCULAR HEMOGLOBIN 28.3 pg (27.0-31.0); MEAN PLATELET VOLUME 7.1 fl (7.2-11.7); MONO # 0.2 K/uL (0.0-0.8); MONO % 2.3 % (0.0-10.0); NEUT # 7.5 K/uL (1.8-7.0); NEUT % 78.4 % (50.0-75.0); NRBC % 0.1 % (0.0-0.0); RED CELL DISTRIBUTION WIDTH 13.9 % (11.5-14.5); WHITE BLOOD COUNT 9.6 K/uL (4.8-10.8)
[2017-03-27 18:16] LABS: ALB/GLOB RATIO 1.3 (1.0-2.1); ALKALINE PHOSPHATASE 94 U/L (38-126); ALT/SGPT 82 U/L (9-52); AST/SGOT 36 U/L (14-36); BILIRUBIN,TOTAL 0.5 mg/dl (0.2-1.3); BLOOD UREA NITROGEN 9 mg/dl (7-17); CALCIUM 9.1 mg/dL (8.4-10.2); CARBON DIOXIDE 21 mmol/L (22-30); CHLORIDE 108 mmol/L (98-107); GFR AFRICAN-AMERICAN > 60; GLUCOSE,RANDOM 160 mg/dL (65-105); MAGNESIUM 2.2 MG/DL (1.6-2.3); PHOSPHOROUS 2.2 mg/dl (2.5-4.5); SODIUM 143 mmol/l (132-148)
[2017-03-27 18:41] LABS: ABG ALLEN TEST YES; ARTERIAL BLOOD GAS PO2 72 mm/Hg (80-100)
[2017-03-27] MEDS ORDERED: Albuterol HFA 90 mcg/actuation (8 g) INH PRN (21:08)
[2017-03-27] MEDS ORDERED: Albuterol-Ipratrop 3 mg / 0.5 (3 ml) UD INH PRN (21:16)
[2017-03-27] MEDS ORDERED: guaiFENesin DM 200 mg-20 mg/10 ml UD PO PRN (22:02)
[2017-03-27] MEDS: SALMETEROL IH SCH (23:13)
[2017-03-27] MEDS: FLUTICASONE IH SCH (23:13)
[2017-03-27] MEDS: MethylPREDNISolone 40 mg Vial IVP SCH (23:28)
[2017-03-28] MEDS: Albuterol-Ipratrop 3 mg / 0.5 (3 ml) UD INH SCH ×4 (01:01→19:12)
[2017-03-28] MEDS: MethylPREDNISolone 40 mg Vial IVP SCH ×3 (01:28→17:16)
[2017-03-28 06:58] LABS: HEMATOCRIT 41.1 % (34.0-47.0); MEAN CELL VOLUME 85.2 fl (81.0-99.0); MEAN CORPUSCULAR HEMOGLOBIN 28.8 pg (27.0-31.0); MEAN CORPUSCULAR HGB CONC 33.8 g/dL (33.0-37.0); WHITE BLOOD COUNT 10.5 K/uL (4.8-10.8)
[2017-03-28 07:47] LABS: T4 7.38 ug/dl (5.5-11.0)
[2017-03-28 08:01] LABS: THYROID STIMULATING HORMONE 0.64 mIU/ML (0.46-4.68)
[2017-03-28 08:24] LABS: ALB/GLOB RATIO 1.3 (1.0-2.1); ALKALINE PHOSPHATASE 86 U/L (38-126); ALT/SGPT 87 U/L (9-52); AST/SGOT 36 U/L (14-36); BILIRUBIN,TOTAL 0.4 mg/dl (0.2-1.3); BLOOD UREA NITROGEN 9 mg/dl (7-17); CALCIUM 9.7 mg/dL (8.4-10.2); CARBON DIOXIDE 20 mmol/L (22-30); CHLORIDE 106 mmol/L (98-107); CHOLESTEROL 227 mg/dL (0-199); GFR AFRICAN-AMERICAN > 60; GLUCOSE,RANDOM 257 mg/dL (65-105); POTASSIUM 4.5 MMOL/L (3.6-5.0); SODIUM 144 mmol/l (132-148); TOTAL PROTEIN 7.9 G/DL (6.3-8.2)
[2017-03-28 08:43] LABS: RBC URINE 2 /hpf (0-3); URINE BACTERIA RARE (<OCC); URINE BILIRUBIN NEGATIVE (NEGATIVE); URINE BLOOD NEGATIVE (NEGATIVE); URINE COLOR YELLOW (YELLOW); URINE GLUCOSE (UA) >=500 mg/dL (Normal); URINE KETONE NEGATIVE (NEGATIVE); URINE LEUKOCYTE ESTERASE NEG Leu/uL (Negative); URINE PROTEIN 30 mg/dL (NEGATIVE); URINE UROBILINOGEN 0.2-1.0 mg/dL (0.2-1.0); WBC URINE 1 /hpf (0-5)
--- NOTE | 2017-03-28 08:52 | CARD ---
APPROVED REPORT EKG Measurement Heart [id number] <Conclusion> Sinus tachycardia Abnormal QRS-T angle, consider primary T wave abnormality Abnormal ECG
[2017-03-28] MEDS ORDERED: VALSARTAN PO SCH (09:00)
[2017-03-28] MEDS ORDERED: DEXTROMETHORPHAN POLISTIREX 30 MG PO SCH (09:00)
[2017-03-28] MEDS ORDERED: HYDROCHLOROTHIAZIDE PO SCH (09:00)
[2017-03-28] MEDS: SALMETEROL IH SCH ×2 (09:17→17:16)
[2017-03-28] MEDS: FLUTICASONE IH SCH ×2 (09:17→17:16)
--- NOTE | 2017-03-28 15:05 | RAD ---
HISTORY: Asthma exacerbation COMPARISON: 03/26/2017 TECHNIQUE: Chest PA and lateral FINDINGS: LUNGS: Examination limited due to patient body habitus. PLEURA: No significant pleural effusion identified. No pneumothorax apparent. CARDIOVASCULAR: Normal. OSSEOUS STRUCTURES: No significant abnormalities. VISUALIZED UPPER ABDOMEN: Normal. OTHER FINDINGS: None. IMPRESSION: No active disease.
--- NOTE | 2017-03-28 16:36 | CP.PCM.HP ---
History of Present Illness - History of Present Illness History of Present Illness: CC ; SOB , Chest congestion , Cough , nasal congestion SOB , Cough , Chest congestion , nasal congestion with green color nasal secretion for 5 days [employer] Patient was not improving with use of B Agonist / steroid inhalers , cough medication Patient was seen in ER [facility] 03-23-17 with Dx URI and discharge Patient was recently AD [facility] 03-08-17 , DD 06-13-16 Dx PNA , Bronchial Asthma Exacerbation Present on Admission - Present on Admission Any Indicators Present on Admission: No Review of Systems - Constitutional Constitutional: Other - EENT Eyes: Other Nose/Mouth/Throat: Nasal Congestion, Nasal Discharge - Cardiovascular Cardiovascular: Other - Respiratory Respiratory: Cough, Dyspnea, Dyspnea on Exertion, Chest Congestion - Gastrointestinal Gastrointestinal: Other - Genitourinary Genitourinary: Other - Musculoskeletal Musculoskeletal: Other - Integumentary Integumentary: Other - Neurological Neurological: Other - Psychiatric Psychiatric: Other - Endocrine Endocrine: Other - Hematologic/Lymphatic Hematologic: Other Past Patient History - Infectious Disease Hx of Infectious Diseases: None - Tetanus Immunizations Tetanus Immunization: Unknown - Past Medical History & Family History Past Medical History?: Yes - Past Social History Smoking Status: Never Smoked - CARDIAC Hx Hypercholesterolemia: Yes Hx Hypertension: Yes - PULMONARY Hx Asthma: Yes Hx Bronchitis: Yes Hx Chronic Obstructive Pulmonary Disease (COPD): Yes - NEUROLOGICAL Hx Alzheimer's Disease: No - HEENT Hx HEENT Problems: No - RENAL Hx Chronic Kidney Disease: No - ENDOCRINE/METABOLIC Hx Endocrine Disorders: Yes Hx Diabetes Mellitus Type 2: Yes - HEMATOLOGICAL/ONCOLOGICAL Hx Human Immunodeficiency Virus (HIV): No - INTEGUMENTARY Hx Dermatological Problems: No - MUSCULOSKELETAL/RHEUMATOLOGICAL Hx Falls: No - GASTROINTESTINAL Hx Gastrointestinal Disorders: Yes Hx Hemorrhoids: Yes Other/Comment: Colonoscopy - GENITOURINARY/GYNECOLOGICAL Hx Genitourinary Disorders: No - PSYCHIATRIC Hx Anxiety: Yes - SURGICAL HISTORY Hx Appendectomy: Yes Hx Cholecystectomy: Yes - ANESTHESIA Hx Anesthesia: Yes Hx Anesthesia Reactions: No Hx Malignant Hyperthermia: No Meds Allergies/Adverse Reactions: Allergies Allergy/AdvReac Type Severity Reaction Status Date / Time Penicillins Allergy URTICARIA Verified 10/10/16 21:24 Physical Exam - Constitutional Appears: No Acute Distress - Head Exam Head Exam: NORMAL INSPECTION - Eye Exam Eye Exam: PERRL - ENT Exam Additional comments: nose congested - Neck Exam Neck exam: Positive for: Normal Inspection - Respiratory Exam Respiratory Exam: Decreased Breath Sounds (at bases), Wheezes (scattered at bases) Additional comments: cough paroxismal during examinatiion - Cardiovascular Exam Cardiovascular Exam: REGULAR RHYTHM - GI/Abdominal Exam GI & Abdominal Exam: Normal Bowel Sounds, Soft - Extremities Exam Extremities exam: Positive for: normal inspection - Back Exam Back exam: NORMAL INSPECTION - Neurological Exam Neurological exam: Alert, CN II-XII Intact, Oriented x3 Additional comments: no motor sensory deficit - Psychiatric Exam Psychiatric exam: Anxious - Skin Skin Exam: Warm Results - Vital Signs Recent Vital Signs: Last Vital Signs Temp 98.4 F 03/28/17 16:14 Pulse 126 H 03/28/17 16:14 Resp 20 03/28/17 16:14 BP 115/68 03/28/17 16:14 Pulse Ox 90 L 03/28/17 16:14 - Labs Result Diagrams: 03/29/17 05:30 03/29/17 05:30 Labs: Laboratory Results - last 24 hr 03/27/17 03/27/17 03/27/17 17:43 17:55 17:55 WBC 9.6 RBC 5.06 Hgb 14.3 Hct 43.3 MCV 85.6 MCH 28.3 MCHC 33.0 RDW 13.9 Plt Count 259 MPV 7.1 L Neut % (Auto) 78.4 H Lymph % (Auto) 18.4 L [place] % (Auto) 2.3 Eos % (Auto) 0.5 Baso % (Auto) 0.4 Neut # 7.5 H Lymph # 1.8 [place] # 0.2 Eos # 0.0 Baso # 0.0 pCO2 pO2 HCO3 ABG pH ABG Total CO2 ABG O2 Saturation ABG Base Excess Dillon Test ABG Potassium A-a O2 Difference Glucose Lactate FiO2 Blood Gas Comments Crit Value Called To Crit Value Called By Crit Value Read Back Blood Gas Notified Time Sodium 143 Potassium 4.0 Chloride 108 H Carbon Dioxide 21 L Anion Gap 18 BUN 9 Creatinine 0.8 Est GFR ( Amer) > 60 Est GFR (Non-Af Amer) > 60 POC Glucose (mg/dL) 144 H Random Glucose 160 H Hemoglobin A1c Calcium 9.1 Phosphorus 2.2 L Magnesium 2.2 Total Bilirubin 0.5 AST 36 D ALT 82 H Alkaline Phosphatase 94 Total Protein 8.0 Albumin 4.5 Globulin 3.4 Albumin/Globulin Ratio 1.3 Triglycerides Cholesterol LDL Cholesterol Direct HDL Cholesterol Thyroxine (T4) TSH 3rd Generation Arterial Blood Potassium Urine Color Urine Clarity Urine pH Ur Specific [place] Urine Protein Urine Glucose (UA) Urine Ketones Urine Blood Urine Nitrate Urine Bilirubin Urine Urobilinogen Ur Leukocyte Esterase Urine RBC (Auto) Urine Microscopic WBC Ur Squamous Epith Cells Urine Bacteria Influenza Typ A,B (EIA) Grp A Beta Strep Ag 03/27/17 03/27/17 03/27/17 17:55 17:55 18:27 WBC RBC Hgb Hct MCV MCH MCHC RDW Plt Count MPV Neut % (Auto) Lymph % (Auto) [place] % (Auto) Eos % (Auto) Baso % (Auto) Neut # Lymph # [place] # Eos # Baso # pCO2 38 pO2 72 L HCO3 24.0 ABG pH 7.40 ABG Total CO2 24.7 ABG O2 Saturation 97.5 ABG Base Excess -1.1 Dillon Test Yes ABG Potassium 3.6 A-a O2 Difference 30.0 Glucose 187 H Lactate 2.9 H FiO2 21.0 Blood Gas Comments Lac 2.9 Crit Value Called To william Iyer Crit Value Called By 203 Crit Value Read Back Y Blood Gas Notified Time 1840 Sodium 139.0 Potassium Chloride 108.0 H Carbon Dioxide Anion Gap BUN Creatinine Est GFR ( Amer) Est GFR (Non-Af Amer) POC Glucose (mg/dL) Random Glucose Hemoglobin A1c Calcium Phosphorus Magnesium Total Bilirubin AST ALT Alkaline Phosphatase Total Protein Albumin Globulin Albumin/Globulin Ratio Triglycerides Cholesterol LDL Cholesterol Direct HDL Cholesterol Thyroxine (T4) TSH 3rd Generation Arterial Blood Potassium 3.6 Urine Color Urine Clarity Urine pH Ur Specific [place] Urine Protein Urine Glucose (UA) Urine Ketones Urine Blood Urine Nitrate Urine Bilirubin Urine Urobilinogen Ur Leukocyte Esterase Urine RBC (Auto) Urine Microscopic WBC Ur Squamous Epith Cells Urine Bacteria Influenza Typ A,B (EIA) Negative for flu a/b Grp A Beta Strep Ag Negative 03/27/17 03/28/17 03/28/17 21:48 05:45 05:45 WBC 10.5 RBC 4.83 Hgb 13.9 Hct 41.1 MCV 85.2 MCH 28.8 MCHC 33.8 RDW 14.0 Plt Count 258 MPV Neut % (Auto) Lymph % (Auto) [place] % (Auto) Eos % (Auto) Baso % (Auto) Neut # Lymph # [place] # Eos # Baso # pCO2 pO2 HCO3 ABG pH ABG Total CO2 ABG O2 Saturation ABG Base Excess Dillon Test ABG Potassium A-a O2 Difference Glucose Lactate FiO2 Blood Gas Comments Crit Value Called To Crit Value Called By Crit Value Read Back Blood Gas Notified Time Sodium 144 Potassium 4.5 Chloride 106 Carbon Dioxide 20 L Anion Gap 23 H BUN 9 Creatinine 0.7 Est GFR ( Amer) > 60 Est GFR (Non-Af Amer) > 60 POC Glucose (mg/dL) 177 H Random Glucose 257 H Hemoglobin A1c Calcium 9.7 Phosphorus Magnesium Total Bilirubin 0.4 AST 36 ALT 87 H Alkaline Phosphatase 86 Total Protein 7.9 Albumin 4.5 Globulin 3.4 Albumin/Globulin Ratio 1.3 Triglycerides 121 D Cholesterol 227 H LDL Cholesterol Direct 159 H HDL Cholesterol 47 Thyroxine (T4) 7.38 TSH 3rd Generation 0.64 Arterial Blood Potassium Urine Color Urine Clarity Urine pH Ur Specific [place] Urine Protein Urine Glucose (UA) Urine Ketones Urine Blood Urine Nitrate Urine Bilirubin Urine Urobilinogen Ur Leukocyte Esterase Urine RBC (Auto) Urine Microscopic WBC Ur Squamous Epith Cells Urine Bacteria Influenza Typ A,B (EIA) Grp A Beta Strep Ag 03/28/17 03/28/17 03/28/17 05:45 05:46 08:45 WBC RBC Hgb Hct MCV MCH MCHC RDW Plt Count MPV Neut % (Auto) Lymph % (Auto) [place] % (Auto) Eos % (Auto) Baso % (Auto) Neut # Lymph # [place] # Eos # Baso # pCO2 pO2 HCO3 ABG pH ABG Total CO2 ABG O2 Saturation ABG Base Excess Dillon Test ABG Potassium A-a O2 Difference Glucose Lactate FiO2 Blood Gas Comments Crit Value Called To Crit Value Called By Crit Value Read Back Blood Gas Notified Time Sodium Potassium Chloride Carbon Dioxide Anion Gap BUN Creatinine Est GFR ( Amer) Est GFR (Non-Af Amer) POC Glucose (mg/dL) 196 H Random Glucose Hemoglobin A1c 6.9 H Calcium Phosphorus Magnesium Total Bilirubin AST ALT Alkaline Phosphatase Total Protein Albumin Globulin Albumin/Globulin Ratio Triglycerides Cholesterol LDL Cholesterol Direct HDL Cholesterol Thyroxine (T4) TSH 3rd Generation Arterial Blood Potassium Urine Color Yellow Urine Clarity Slighty-cloudy Urine pH 6.0 Ur Specific [place] 1.029 Urine Protein 30 Urine Glucose (UA) >=500 Urine Ketones Negative Urine Blood Negative Urine Nitrate Negative Urine Bilirubin Negative Urine Urobilinogen 0.2-1.0 Ur Leukocyte Esterase Neg Urine RBC (Auto) 2 Urine Microscopic WBC 1 Ur Squamous Epith Cells 4 Urine Bacteria Rare Influenza Typ A,B (EIA) Grp A Beta Strep Ag 03/28/17 03/28/17 11:08 15:34 WBC RBC Hgb Hct MCV MCH MCHC RDW Plt Count MPV Neut % (Auto) Lymph % (Auto) [place] % (Auto) Eos % (Auto) Baso % (Auto) Neut # Lymph # [place] # Eos # Baso # pCO2 pO2 HCO3 ABG pH ABG Total CO2 ABG O2 Saturation ABG Base Excess [place] Test ABG Potassium A-a O2 Difference Glucose Lactate FiO2 Blood Gas Comments Crit Value Called To Crit Value Called By Crit Value Read Back Blood Gas Notified Time Sodium Potassium Chloride Carbon Dioxide Anion Gap BUN Creatinine Est GFR ( Amer) Est GFR (Non-Af Amer) POC Glucose (mg/dL) 191 H 224 H Random Glucose Hemoglobin A1c Calcium Phosphorus Magnesium Total Bilirubin AST ALT Alkaline Phosphatase Total Protein Albumin Globulin Albumin/Globulin Ratio Triglycerides Cholesterol LDL Cholesterol Direct HDL Cholesterol Thyroxine (T4) TSH 3rd Generation Arterial Blood Potassium Urine Color Urine Clarity Urine pH Ur Specific [place] Urine Protein Urine Glucose (UA) Urine Ketones Urine Blood Urine Nitrate Urine Bilirubin Urine Urobilinogen Ur Leukocyte Esterase Urine RBC (Auto) Urine Microscopic WBC Ur Squamous Epith Cells Urine Bacteria Influenza Typ A,B (EIA) Grp A Beta Strep Ag Assessment & Plan (1) Asthma Status: Acute (2) Bronchospasm, acute Status: Acute (3) Diabetes mellitus Status: Chronic (4) Hyperglycemia Status: Acute (5) High cholesterol Status: Acute (6) HTN (hypertension) Status: Acute - Assessment and Plan (Free Text) Plan: SoluMedrol , DuoNeb,Singulair , BS control , and rest of treatment - Date & Time Date: 03/28/17 Time: 12:50
[2017-03-29 01:07] VITALS: TEMP 97.6; O2SAT 93
[2017-03-29] MEDS: Albuterol-Ipratrop 3 mg / 0.5 (3 ml) UD INH SCH ×4 (01:13→13:11)
[2017-03-29] MEDS: MethylPREDNISolone 40 mg Vial IVP SCH ×2 (01:21→09:34)
[2017-03-29 06:34] LABS: HEMATOCRIT 40.2 % (34.0-47.0); MEAN CELL VOLUME 85.6 fl (81.0-99.0); MEAN CORPUSCULAR HEMOGLOBIN 28.1 pg (27.0-31.0); MEAN CORPUSCULAR HGB CONC 32.8 g/dL (33.0-37.0); RED CELL DISTRIBUTION WIDTH 14.1 % (11.5-14.5); WHITE BLOOD COUNT 20.1 K/uL (4.8-10.8)
[2017-03-29 06:37] LABS: ALB/GLOB RATIO 1.4 (1.0-2.1); ALKALINE PHOSPHATASE 100 U/L (38-126); ALT/SGPT 70 U/L (9-52); AST/SGOT 27 U/L (14-36); BILIRUBIN,TOTAL 0.2 mg/dl (0.2-1.3); BLOOD UREA NITROGEN 19 mg/dl (7-17); CALCIUM 9.6 mg/dL (8.4-10.2); CARBON DIOXIDE 23 mmol/L (22-30); CHLORIDE 104 mmol/L (98-107); CHOLESTEROL 210 mg/dL (0-199); GFR AFRICAN-AMERICAN > 60; GLUCOSE,RANDOM 311 mg/dL (65-105); POTASSIUM 4.5 MMOL/L (3.6-5.0); SODIUM 141 mmol/l (132-148); TOTAL PROTEIN 7.3 G/DL (6.3-8.2)
[2017-03-29 06:52] LABS: T4 6.36 ug/dl (5.5-11.0)
[2017-03-29 07:06] LABS: THYROID STIMULATING HORMONE 0.31 mIU/ML (0.46-4.68)
[2017-03-29 07:20] VITALS: BP 114/59; PULSE 101; RESP 18
[2017-03-29] MEDS: SALMETEROL IH SCH (09:32)
[2017-03-29] MEDS: FLUTICASONE IH SCH (09:32)
[2017-03-29] MEDS: Insulin Regular 100 units/ml SC SCH ×2 (09:34→12:38)
--- NOTE | 2017-03-29 11:21 | RAD ---
PROCEDURE: Left Thumb radiographs. HISTORY: pain and tingling to left thumb radiating to arm COMPARISON: 03/05/2008. TECHNIQUE: AP radiograph of the left hand, as well as spot oblique and lateral images of thumb were obtained. FINDINGS: LEFT THUMB: Bone alignment and mineralization are normal. There is no acute displaced fracture or bone destruction. Remainder of the left hand (as seen on the AP view) grossly unremarkable. JOINTS: Normal. SOFT TISSUES: Normal. OTHER FINDINGS: None. IMPRESSION: No acute fracture or dislocation.
--- NOTE | 2017-03-29 12:49 | CP.PCM.PN ---
Subjective - Date & Time of Evaluation Date of Evaluation: 03/29/17 Time of Evaluation: 11:10 - Subjective Subjective: F/U Asthma. No SOB, no chest congestion, occasional dry cough. Objective - Vital Signs/Intake and Output Vital Signs (last 24 hours): Temp Pulse Resp BP Pulse Ox 97.6 F 101 H 18 114/59 L 93 L 03/29/17 07:20 03/29/17 09:33 03/29/17 07:20 03/29/17 09:33 03/29/17 07:20 - Medications Medications: Current Medications Acetaminophen (Tylenol 325mg Tab) 650 mg PO Q4 PRN PRN Reason: Pain, Mild (1-3) Albuterol (Ventolin Hfa 90 Mcg/Actuation (8 G)) 1 puff INH BID PRN PRN Reason: Shortness of Breath Albuterol/Ipratropium (Duoneb 3 Mg/0.5 Mg (3 Ml) Ud) 3 ml INH RQ6 [facility] Last Admin: 03/29/17 07:53 Dose: 3 ml Aspirin (Ecotrin) 81 mg PO DAILY [facility] Last Admin: 03/29/17 09:32 Dose: 81 mg Atorvastatin Calcium (Lipitor) 10 mg PO HS [facility] Last Admin: 03/28/17 22:03 Dose: 10 mg Guaifenesin/Dextromethorphan (Robitussin Dm) 10 ml PO Q4 PRN PRN Reason: Cough Last Admin: 03/27/17 23:17 Dose: 10 ml Home Med (Fluticasone/Salmeterol [Fluticasone-Salmeterol 113-14]) 1 each IH BID [facility] Last Admin: 03/29/17 09:32 Dose: 1 each Hydrochlorothiazide (Hydrodiuril) 25 mg PO DAILY [facility] Last Admin: 03/29/17 09:39 Dose: 25 mg Insulin Human Regular (Humulin R) 0 units SC ACHS [facility] PRN Reason: Protocol Last Admin: 03/29/17 12:38 Dose: Not Given Metformin HCl (Glucophage) 500 mg PO BID [facility] Last Admin: 03/29/17 09:32 Dose: 500 mg Methylprednisolone (Solu-Medrol) 30 mg IVP Q8 [facility] Last Admin: 03/29/17 09:34 Dose: 30 mg Metoprolol Tartrate (Lopressor) 25 mg PO DAILY [facility] Last Admin: 03/29/17 09:33 Dose: 25 mg Montelukast Sodium (Singulair) 10 mg PO DAILY [facility] Last Admin: 03/29/17 09:32 Dose: 10 mg Valsartan (Diovan) 160 mg PO DAILY [facility] Last Admin: 03/29/17 09:32 Dose: 160 mg Zolpidem Tartrate (Ambien) 5 mg PO HS [facility] Last Admin: 03/28/17 22:03 Dose: 5 mg - Labs Labs: 03/29/17 05:30 03/29/17 05:30 - Constitutional Appears: No Acute Distress - Head Exam Head Exam: NORMAL INSPECTION - Eye Exam Eye Exam: PERRL - ENT Exam Additional comments: Nose congested - Neck Exam Neck Exam: Normal Inspection - Respiratory Exam Respiratory Exam: Clear to Ausculation Bilateral - Cardiovascular Exam Cardiovascular Exam: REGULAR RHYTHM - GI/Abdominal Exam GI & Abdominal Exam: Soft, Normal Bowel Sounds - Extremities Exam Extremities Exam: Normal Inspection - Back Exam Back Exam: NORMAL INSPECTION - Neurological Exam Neurological Exam: Alert, CN II-XII Intact, Oriented x3. absent: Motor Sensory Deficit - Psychiatric Exam Psychiatric exam: Anxious - Skin Skin Exam: Warm Assessment and Plan (1) Asthma Status: Acute (2) Bronchospasm, acute Status: Acute (3) Diabetes mellitus Status: Chronic (4) Hyperglycemia Status: Acute (5) High cholesterol Status: Acute (6) HTN (hypertension) Status: Acute - Assessment and Plan (Free Text) Plan: Leukocytosis up to 20,000 2nd to Steroids, CXR =Negative, U/A=Negative. Pt improved and stable to be discharged, rapid tapering Steroids, see instruction medication sheet, call my office for f/u appt.
== END 2017-03-29 13:00 | disposition home or self-care (01) ==
LOC: H.ER 17:10 → H.ERHOLD 19:00 → H.MEDSURG1 20:48
PROVIDERS: ADMIT Internal Medicine Pulmonary Disease; ATTEND Internal Medicine Pulmonary Disease
DX: J45.909 Unspecified asthma, uncomplicated (principal); J44.9 Chronic obstructive pulmonary disease, unspecified; E11.65 Type 2 diabetes mellitus with hyperglycemia; E78.00 Pure hypercholesterolemia, unspecified; I10 Essential (primary) hypertension; I25.10 Atherosclerotic heart disease of native coronary artery without angina pectoris; Z79.82 Long term (current) use of aspirin; Z79.899 Other long term (current) drug therapy; Z90.49 Acquired absence of other specified parts of digestive tract; F41.9 Anxiety disorder, unspecified; J40 Bronchitis, not specified as acute or chronic; K64.9 Unspecified hemorrhoids; Z79.84 Long term (current) use of oral hypoglycemic drugs; R09.89 Other specified symptoms and signs involving the circulatory and respiratory systems
CPT/HCPCS: 36415; 36600; 71020; 73140; 80053; 80061; 81003; 82803; 82948; 83036; 83735; 84100; 84436; 84443; 85025; 85027; 87040; 87070; 87430; 87804; 93005; 94640; 99283; G0378; J2920

== ENCOUNTER 2017-05-13 15:03 | Emergency (ER) | payer MEDICAID ==
[2017-05-13 15:03] VITALS: BMI 33.7
[2017-05-13 15:10] VITALS: RESP 18; TEMP 98.8
[2017-05-13] MEDS ORDERED: Sodium Chloride 0.9% 1,000 ML IV STA (15:48)
[2017-05-13] MEDS ORDERED: Iohexol 240 (50 ml) PO ONE (15:52)
--- NOTE | 2017-05-13 16:00 | ED PDOC ---
HPI: Abdomen Time Seen by Provider: 05/13/17 15:47 Chief Complaint (Nursing): GI Problem Chief Complaint (Provider): abdominal pain, vomiting/diarrhea History Per: Patient History/Exam Limitations: no limitations Onset/Duration Of Symptoms: Days (1), Sudden Onset Current Symptoms Are (Timing): Still Present Context: Food Location Of Pain/Discomfort: Diffuse, RLQ Quality Of Discomfort: Sharp, Cramping Associated Symptoms: Chills, Nausea, Diarrhea, Loss Of Appetite. denies: Fever Exacerbating Factors: None Alleviating Factors: None Last Bowel Movement: Today Additional Complaint(s): 56yo female c/o diffuse abdominal pain associated with watery diarrhea, several episodes vomiting and malaise. Denies fever, syncope, BRBPR, melena or hematemeis. States symptoms similar to prior episode of the same where she was admitted to [facility] for "my intestines rupturing"- but denies surgery was necessary and she's unaware of specifics of diagnosis. Denies cough, SOB, fever , chest pain or syncope. Past Medical History Reviewed: Historical Data, Nursing Documentation, Vital Signs Vital Signs: Last Vital Signs Temp 98.8 F 05/13/17 15:06 Pulse 133 H 05/13/17 15:06 Resp 18 05/13/17 15:06 BP 118/84 05/13/17 15:06 Pulse Ox 96 05/13/17 16:02 - Medical History PMH: Anxiety, Asthma, Bronchitis, COPD, Diabetes, HTN, Hypercholesterolemia Denies: Alzheimer's Disease, HIV, Chronic Kidney Disease - Surgical History Surgical History: Appendectomy, Cholecystectomy, Hernia Repair - Family History Family History: States: Unknown Family Hx, CAD, Diabetes - Living Arrangements Living Arrangements: With Family - Social History Current smoker - smoking cessation education provided: No - Immunization History Hx Tetanus Toxoid Vaccination: Yes Hx Influenza Vaccination: Yes Hx Pneumococcal Vaccination: No - Home Medications Home Medications: Ambulatory Orders Medication Instructions Recorded Aspirin [Aspirin EC] 81 mg PO DAILY 12/13/15 Atorvastatin Calcium 10 mg PO HS 12/13/15 Montelukast Sodium 10 mg PO DAILY 12/13/15 Albuterol HFA [Ventolin HFA 90 1 puff INH BID PRN 03/08/17 mcg/actuation (8 g)] Fluticasone/Salmeterol 1 each IH BID 03/08/17 [Fluticasone-Salmeterol 113-14] Metoprolol Tartrate [Lopressor] 25 mg PO DAILY 03/08/17 metFORMIN [glucOPHAGE] 500 mg PO BID 03/08/17 Dextromethorphan Polistirex 30 mg PO BID #100 [email or web address] 03/26/17 [Delsym] Valsartan/Hydrochlorothiazide 1 tab PO DAILY 03/27/17 [Valsartan and Hydrochlorothiazide 25 mg-160 M] Ciprofloxacin [Cipro] 500 mg PO BID #14 tab 05/13/17 metroNIDAZOLE [Flagyl] 500 mg PO TID #21 tab 05/13/17 traMADol [Ultram] 50 mg PO TID PRN #12 tab 05/13/17 - Allergies Allergies/Adverse Reactions: Allergies Allergy/AdvReac Type Severity Reaction Status Date / Time Penicillins Allergy URTICARIA Verified 10/10/16 21:24 Review of Systems ROS Statement: Except As Marked, All Systems Reviewed And Found Negative Constitutional: Positive for: Malaise. Negative for: Fever, Chills ENT: Negative for: Nose Discharge, Throat Pain Cardiovascular: Negative for: Chest Pain Respiratory: Negative for: Cough Gastrointestinal: Positive for: Nausea, Vomiting, Abdominal Pain, Diarrhea. Negative for: Constipation, Melena, Hematochezia, Hematemesis, Rectal Pain Genitourinary Female: Negative for: Dysuria, Hematuria Musculoskeletal: Negative for: Neck Pain, Back Pain, Leg Pain Skin: Negative for: Rash, Lesions, Jaundice Neurological: Negative for: Weakness, Change in Speech, Headache Psych: Negative for: Suicidal ideation Physical Exam - Reviewed Nursing Documentation Reviewed: Yes Vital Signs Reviewed: Yes - Physical Exam Appears: Positive for: Well, Non-toxic, No Acute Distress Head Exam: Positive for: ATRAUMATIC, NORMAL INSPECTION, NORMOCEPHALIC Skin: Positive for: Normal Color, Warm, DRY Eye Exam: Positive for: EOMI, Normal appearance, PERRL ENT: Positive for: Normal ENT Inspection Neck: Positive for: Normal, Painless ROM Cardiovascular/Chest: Positive for: Regular Rate, Rhythm Respiratory: Positive for: CNT, Normal Breath Sounds Gastrointestinal/Abdominal: Positive for: Bowel Sounds, Soft, Tenderness (+RLQ and mid abd tenderness) Back: Positive for: Normal Inspection Extremity: Positive for: Normal ROM Neurologic/Psych: Positive for: Alert, Oriented - Laboratory Results Result Diagrams: 05/13/17 16:42 05/13/17 16:42 - ECG O2 Sat by Pulse Oximetry: 96 Medical Decision Making Medical Decision Making: workup initiated for abd pain with labs, CT abd/pelv r/o appendicitis, diverticulitis, colitis or other acute pathology. IVF pain medicine and antiemetic ordered labs reviewed, WBC and lipase normal CT obtained: Accession No. : [id number] Patient Name / ID : MEAGAN MCELROY / [id number] Exam Date : 05/13/2017 19:00:09 ( Approved ) Study Comment : Sex / Age : F / 56Y Creator : ERIC CHIANG Dictator : Assistant Track And Field Coach : Application Integration Architect : ERIC CHIANG Approver2 : Report Date : 05/13/2017 19:54:00 My Comment : [facility] Division of Radiology [address] [place] [address] Tel. no. Patient Name: NAVI RHODES Pt. Address: [address] [place] [address]. Rec #: [id number] [place] [address]: Rajeev Denis DO, III Pt HOME Order Location: [facility] : 1960 Female Age: 56 Order #: [id number] Reason for exam: mid abd pain, RLQ tenderness, vomit/diarrhea CT Scan ABD PELVIS PO IV CONTRAST Exam Date: 05/13/17 This imaging exam was performed at [facility] EXAM: CT Abdomen and Pelvis With Intravenous Contrast EXAM DATE/TIME: 05/13/2017 3:52 PM CLINICAL HISTORY: 56 years old, female; Pain; Abdominal pain; Tenderness; Right lower quadrant (rlq); Prior surgery; Surgery date: 6+ months; Surgery type: Laproscopic cystectomy. Hernia repair; Additional info: Mid abd pain, rlq tenderness, vomit/diarrhea TECHNIQUE: Axial computed tomography images of the abdomen and pelvis with intravenous contrast. All CT scans at this facility use one or more dose reduction techniques, viz.: automated exposure control; ma/kV adjustment per patient size (including targeted exams where dose is matched to indication; i.e. head); or iterative reconstruction technique. Coronal and sagittal reformatted images were created and reviewed. CONTRAST: 95 mL of Omnipaque 300 administered intravenously. COMPARISON: There are no prior studies for comparison. FINDINGS: Lower thorax: Heart size is normal. There is dependent atelectasis at the lung bases. ABDOMEN: Liver: There is fatty infiltration of the liver. The liver is enlarged. Gallbladder and bile ducts: Gallbladder is absent.There is prominence of the common duct. Pancreas: unremarkable Spleen: unremarkable Adrenals: unremarkable Kidneys and ureters: unremarkable Stomach and bowel: Stomach is partially distended. Rotation is normal. There is no small bowel obstruction. Ileocecal region is unremarkable. Appendix and terminal ileum are unremarkable. There is oral contrast in the cecum.Colon is incompletely distended which limits evaluation. There is mild transverse colon wall thickening. There is mild distal sigmoid and rectal wall thickening Appendix: See stomach and bowel PELVIS: Bladder: unremarkable Reproductive: Uterus and adnexal structures are unremarkable. ABDOMEN and PELVIS: Intraperitoneal space: There is no free air or free fluid. Bones/joints: There are no acute osseous abnormalities. There is early degenerative change. Soft tissues: There are postsurgical changes of hernia repair in the right lower abdominal wall. Vasculature: There are calcified phleboliths.Vascular structures are unremarkable. Lymph nodes: There is no pathologic adenopathy. IMPRESSION: Enlarged fatty liver, no acute solid visceral abnormality; prior cholecystectomy IMPRESSION: Enlarged fatty liver; cholecystectomy; possible colitis Additional findings as described above. Dictated By: Eric Chiang MD, MD Dictated Date/Time: 05/13/171953 Signed By: Eric Chiang MD Date Signed: 1954 Transcribed By: ANGIE Transcribe Date/Time : 05/13/171953 DENISE/FRANKIE Patient required additional dose pain medicine but feels better on re-eval and wants to go home for oral outpatient therapy and followup w GI/ PMD. Given lack of abnormal labs, CT findings, stable for trial outpt therapy. Explained important need for colonoscopy. Disposition - Clinical Impression Clinical Impression: Colitis - Patient ED Disposition Is Patient to be Admitted: No Counseled Patient/Family Regarding: Studies Performed, Diagnosis, Need For Followup, Rx Given - Disposition Referrals: Ling SINGH,MD Suzy [Medical Doctor] - Disposition: Routine/Home Disposition Time: 22:00 Condition: STABLE Additional Instructions: Take medications as directed. See GI doctor for further testing. Return to ER for any worse or new symptoms. Prescriptions: Ciprofloxacin [Cipro] 500 mg PO BID #14 tab metroNIDAZOLE [Flagyl] 500 mg PO TID #21 tab traMADol [Ultram] 50 mg PO TID PRN #12 tab PRN Reason: Pain, Moderate (4-7) Instructions: Abdominal Pain (ED), Colitis (ED) Forms: [employer] (Russian)
[2017-05-13] MEDS ORDERED: Iohexol 240 (50 ml) ONE (16:22)
[2017-05-13 16:51] LABS: BASO % 0.5 % (0.0-2.0); EOS % 0.3 % (0.0-4.0); HEMATOCRIT 45.1 % (34.0-47.0); LYMPH # 1.2 K/uL (1.0-4.3); LYMPH % 11.9 % (20.0-40.0); MEAN CELL VOLUME 85.9 fl (81.0-99.0); MEAN CORPUSCULAR HEMOGLOBIN 28.3 pg (27.0-31.0); MEAN PLATELET VOLUME 7.5 fl (7.2-11.7); MONO # 0.3 K/uL (0.0-0.8); MONO % 3.3 % (0.0-10.0); NEUT # 8.3 K/uL (1.8-7.0); NRBC % 0.1 % (0.0-0.0); RED CELL DISTRIBUTION WIDTH 14.3 % (11.5-14.5); WHITE BLOOD COUNT 9.8 K/uL (4.8-10.8)
[2017-05-13 17:00] LABS: ALKALINE PHOSPHATASE 91 U/L (38-126); ALT/SGPT 61 U/L (9-52); AST/SGOT 35 U/L (14-36); BILIRUBIN,TOTAL 0.6 mg/dl (0.2-1.3); BLOOD UREA NITROGEN 16 mg/dl (7-17); CALCIUM 9.5 mg/dL (8.4-10.2); CARBON DIOXIDE 23 mmol/L (22-30); CHLORIDE 107 mmol/L (98-107); GFR AFRICAN-AMERICAN > 60; GLUCOSE,RANDOM 111 mg/dL (65-105); LIPASE 38 U/L (23-300); POTASSIUM 4.2 MMOL/L (3.6-5.0); SODIUM 142 mmol/l (132-148); TOTAL PROTEIN 8.4 G/DL (6.3-8.2)
[2017-05-13 17:05] LABS: ALB/GLOB RATIO 1.3 (1.0-2.1)
[2017-05-13] MEDS ORDERED: Iohexol 300 100 ML IJ ONE (18:53)
--- NOTE | 2017-05-13 19:54 | CT ---
EXAM: CT Abdomen and Pelvis With Intravenous Contrast EXAM DATE/TIME: 05/13/2017 3:52 PM CLINICAL HISTORY: 56 years old, female; Pain; Abdominal pain; Tenderness; Right lower quadrant (rlq); Prior surgery; Surgery date: 6+ months; Surgery type: Laproscopic cystectomy. Hernia repair; Additional info: Mid abd pain, rlq tenderness, vomit/diarrhea TECHNIQUE: Axial computed tomography images of the abdomen and pelvis with intravenous contrast. All CT scans at this facility use one or more dose reduction techniques, viz.: automated exposure control; ma/kV adjustment per patient size (including targeted exams where dose is matched to indication; i.e. head); or iterative reconstruction technique. Coronal and sagittal reformatted images were created and reviewed. CONTRAST: 95 mL of Omnipaque 300 administered intravenously. COMPARISON: There are no prior studies for comparison. FINDINGS: Lower thorax: Heart size is normal. There is dependent atelectasis at the lung bases. ABDOMEN: Liver: There is fatty infiltration of the liver. The liver is enlarged. Gallbladder and bile ducts: Gallbladder is absent.There is prominence of the common duct. Pancreas: unremarkable Spleen: unremarkable Adrenals: unremarkable Kidneys and ureters: unremarkable Stomach and bowel: Stomach is partially distended. Rotation is normal. There is no small bowel obstruction. Ileocecal region is unremarkable. Appendix and terminal ileum are unremarkable. There is oral contrast in the cecum.Colon is incompletely distended which limits evaluation. There is mild transverse colon wall thickening. There is mild distal sigmoid and rectal wall thickening Appendix: See stomach and bowel PELVIS: Bladder: unremarkable Reproductive: Uterus and adnexal structures are unremarkable. ABDOMEN and PELVIS: Intraperitoneal space: There is no free air or free fluid. Bones/joints: There are no acute osseous abnormalities. There is early degenerative change. Soft tissues: There are postsurgical changes of hernia repair in the right lower abdominal wall. Vasculature: There are calcified phleboliths.Vascular structures are unremarkable. Lymph nodes: There is no pathologic adenopathy. IMPRESSION: Enlarged fatty liver, no acute solid visceral abnormality; prior cholecystectomy IMPRESSION: Enlarged fatty liver; cholecystectomy; possible colitis Additional findings as described above.
[2017-05-13] MEDS ORDERED: Oxycodone/Acetaminophen 5/325 mg Tab PO ONE (20:27)
[2017-05-13 22:43] VITALS: BP 119/92; PULSE 102; O2SAT 99
[2017-05-13 22:44] LABS: RBC URINE 1 /hpf (0-3); URINE BACTERIA RARE (<OCC); URINE BILIRUBIN NEGATIVE (NEGATIVE); URINE BLOOD SMALL (NEGATIVE); URINE COLOR YELLOW (YELLOW); URINE GLUCOSE (UA) NEG (Normal); URINE KETONE NEGATIVE (NEGATIVE); URINE LEUKOCYTE ESTERASE NEG Leu/uL (Negative); URINE PROTEIN NEGATIVE (NEGATIVE); URINE UROBILINOGEN 0.2-1.0 mg/dL (0.2-1.0); WBC URINE 1 /hpf (0-5)
== END 2017-05-13 22:43 | disposition home or self-care (01) ==
LOC: H.ER 15:03
DX: K52.9 Noninfective gastroenteritis and colitis, unspecified (principal); E11.9 Type 2 diabetes mellitus without complications; I10 Essential (primary) hypertension; Z88.0 Allergy status to penicillin
CPT/HCPCS: 74177; 80053; 81003; 83690; 85025; 96374; 99284; J1885; J2270; J2405; J7040; Q9966; Q9967

== ENCOUNTER 2017-05-14 15:28 | Observation (INO) | payer MEDICAID ==
[2017-05-14 15:28] VITALS: BMI 33.7
[2017-05-14] MEDS ORDERED: Sodium Chloride 0.9% 1,000 ML IV STA (16:50)
--- NOTE | 2017-05-14 16:53 | ED PDOC ---
HPI: Abdomen Time Seen by Provider: 05/14/17 16:41 Chief Complaint (Nursing): GI Problem Chief Complaint (Provider): VOMITING/DIARRHEA History Per: Patient (56 Y/O FEMALE HERE WITH VOMITING/DIARRHEA X 3 DAYS ASSOCIATED WITH LOWER ABDOMINAL PAIN. DENIES ANY DYSURIA/URINARY FREQUENCY/ HEMATURIA. HAS BEEN SEEN IN ED YESTERDAY WITH CT SCAN DEMONSTRATING COLITIS. WAS D/C ON FLAGYL/CIPRO/TRAMADOL WITHOUT CONTROL OF PAIN/VOMITING/DIARRHEA. SPOKE WITH DR. POWER AND ADVISED TO RETURN TO ED FOR ADMISSION.) Past Medical History Reviewed: Historical Data, Nursing Documentation, Vital Signs Vital Signs: Last Vital Signs Temp 98.5 F 05/14/17 15:44 Pulse 98 H 05/14/17 15:44 Resp 16 05/14/17 15:44 BP 145/94 H 05/14/17 15:44 Pulse Ox 99 05/14/17 16:53 - Medical History PMH: Anxiety, Asthma, Bronchitis, COPD, Diabetes, HTN, Hypercholesterolemia Denies: Alzheimer's Disease, HIV, Chronic Kidney Disease - Surgical History Surgical History: Appendectomy, Cholecystectomy, Hernia Repair - Family History Family History: States: Unknown Family Hx, CAD, Diabetes - Immunization History Hx Tetanus Toxoid Vaccination: Yes Hx Influenza Vaccination: Yes Hx Pneumococcal Vaccination: No - Home Medications Home Medications: Ambulatory Orders Medication Instructions Recorded Aspirin [Aspirin EC] 81 mg PO DAILY 12/13/15 Atorvastatin Calcium 10 mg PO HS 12/13/15 Montelukast Sodium 10 mg PO DAILY 12/13/15 Albuterol HFA [Ventolin HFA 90 1 puff INH BID PRN 03/08/17 mcg/actuation (8 g)] Fluticasone/Salmeterol 1 puff IH BID 03/08/17 [Fluticasone-Salmeterol 113-14] Metoprolol Tartrate [Lopressor] 25 mg PO DAILY 03/08/17 metFORMIN [glucOPHAGE] 500 mg PO BID 03/08/17 Valsartan/Hydrochlorothiazide 1 tab PO DAILY 03/27/17 [Valsartan and Hydrochlorothiazide 25 mg-160 M] Ciprofloxacin [Cipro] 500 mg PO BID #14 tab 05/13/17 metroNIDAZOLE [Flagyl] 500 mg PO TID #21 tab 05/13/17 traMADol [Ultram] 50 mg PO TID PRN #12 tab 05/13/17 Albuterol/Ipratropium [Duoneb 3 3 ml IH Q4H PRN 05/14/17 mg/0.5 mg (3 ml) UD] - Allergies Allergies/Adverse Reactions: Allergies Allergy/AdvReac Type Severity Reaction Status Date / Time Penicillins Allergy URTICARIA Verified 10/10/16 21:24 Review of Systems ROS Statement: Except As Marked, All Systems Reviewed And Found Negative Gastrointestinal: Positive for: Vomiting, Diarrhea Physical Exam - Reviewed Nursing Documentation Reviewed: Yes Vital Signs Reviewed: Yes - Physical Exam Appears: Positive for: Well, Non-toxic, No Acute Distress Head Exam: Positive for: ATRAUMATIC, NORMAL INSPECTION, NORMOCEPHALIC Skin: Positive for: Normal Color, Warm, DRY Eye Exam: Positive for: EOMI, Normal appearance, PERRL ENT: Positive for: Normal ENT Inspection Neck: Positive for: Normal, Painless ROM Cardiovascular/Chest: Positive for: Regular Rate, Rhythm Respiratory: Positive for: CNT, Normal Breath Sounds Gastrointestinal/Abdominal: Positive for: Normal Exam, Bowel Sounds, Soft Back: Positive for: Normal Inspection Extremity: Positive for: Normal ROM Neurologic/Psych: Positive for: Alert, Oriented - Laboratory Results Result Diagrams: 05/14/17 17:15 05/14/17 17:15 - ECG O2 Sat by Pulse Oximetry: 99 - Progress ED Course And Treament: NS 1 LITER 500ML PER HOUR ZOFRAN 4 MG IV X 1 DOSE BENTYL 20 MG X 1 DOSE PEPCID 20 MG IV X 1 DOSE EKG: NSR 84BPM; NO ECTOPY NO ACUTE CHANGES D/W DR. POWER. PATIENT HAS INTRACTABLE VOMITING WILL ADMIT FOR OBSERVATION/ REHYDRATION/IV ANTIBIOTICS. GI CONSULT FOR DR. LION PLACED. Disposition - Clinical Impression Clinical Impression: Colitis - Patient ED Disposition Is Patient to be Admitted: Yes - Disposition Disposition Time: 18:39 Condition: FAIR Forms: [facility] (Amharic) - Pt Status Changed To: Hospital Disposition Of: Observation
[2017-05-14 17:44] LABS: BASO % 0.7 % (0.0-2.0); EOS # 0.1 K/uL (0.0-0.7); HEMATOCRIT 39.3 % (34.0-47.0); LYMPH # 2.3 K/uL (1.0-4.3); LYMPH % 36.5 % (20.0-40.0); MEAN CELL VOLUME 86.1 fl (81.0-99.0); MEAN CORPUSCULAR HEMOGLOBIN 28.7 pg (27.0-31.0); MEAN CORPUSCULAR HGB CONC 33.4 g/dL (33.0-37.0); MEAN PLATELET VOLUME 7.6 fl (7.2-11.7); MONO # 0.6 K/uL (0.0-0.8); MONO % 8.8 % (0.0-10.0); NEUT # 3.3 K/uL (1.8-7.0); NRBC % 0.7 % (0.0-0.0); RED CELL DISTRIBUTION WIDTH 14.2 % (11.5-14.5); WHITE BLOOD COUNT 6.4 K/uL (4.8-10.8)
--- NOTE | 2017-05-14 17:59 | RAD ---
HISTORY: CHEST PAIN COMPARISON: 03/28/2017 1st TECHNIQUE: Chest PA and lateral FINDINGS: LUNGS: Atelectatic changes identified primarily right lower lobe. PLEURA: No significant pleural effusion identified. No pneumothorax apparent. CARDIOVASCULAR: No radiographic findings to suggest acute or significant cardiovascular disease. OSSEOUS STRUCTURES: No significant abnormalities. VISUALIZED UPPER ABDOMEN: Normal. OTHER FINDINGS: None. IMPRESSION: No active disease. No significant interval change compared to the prior examination(s).
[2017-05-14 18:29] LABS: ALB/GLOB RATIO 1.3 (1.0-2.1); ALKALINE PHOSPHATASE 66 U/L (38-126); ALT/SGPT 67 U/L (9-52); AST/SGOT 40 U/L (14-36); BILIRUBIN,TOTAL 0.5 mg/dl (0.2-1.3); BLOOD UREA NITROGEN 14 mg/dl (7-17); CALCIUM 8.6 mg/dL (8.4-10.2); CARBON DIOXIDE 24 mmol/L (22-30); CHLORIDE 110 mmol/L (98-107); GFR AFRICAN-AMERICAN > 60; GLUCOSE,RANDOM 107 mg/dL (65-105); POTASSIUM 3.9 MMOL/L (3.6-5.0); SODIUM 141 mmol/l (132-148); TOTAL PROTEIN 7.5 G/DL (6.3-8.2)
[2017-05-14] MEDS: Dextrose 5%/0.45% NS 1,000 ML IV SCH (21:55)
[2017-05-14] MEDS: Ciprofloxacin 400mg/200ml D5W 400 MG/200 ML BAG IVPB SCH (21:57)
[2017-05-14 23:51] LABS: RBC URINE 1 /hpf (0-3); URINE BACTERIA RARE (<OCC); URINE BILIRUBIN NEGATIVE (NEGATIVE); URINE BLOOD SMALL (NEGATIVE); URINE COLOR YELLOW (YELLOW); URINE GLUCOSE (UA) NEG (Normal); URINE KETONE NEGATIVE (NEGATIVE); URINE LEUKOCYTE ESTERASE NEG Leu/uL (Negative); URINE PROTEIN NEGATIVE (NEGATIVE); URINE UROBILINOGEN 0.2-1.0 mg/dL (0.2-1.0); WBC URINE 2 /hpf (0-5)
[2017-05-15 01:37] VITALS: RESP 18
[2017-05-15] MEDS: metroNIDAZOLE 500mg/100ml NS 100 ML IVPB SCH ×2 (01:50→09:39)
[2017-05-15 06:24] LABS: BASO % 0.5 % (0.0-2.0); EOS # 0.2 K/uL (0.0-0.7); EOS % 3.1 % (0.0-4.0); HEMATOCRIT 37.1 % (34.0-47.0); LYMPH # 2.3 K/uL (1.0-4.3); LYMPH % 42.8 % (20.0-40.0); MEAN CELL VOLUME 85.4 fl (81.0-99.0); MEAN PLATELET VOLUME 7.2 fl (7.2-11.7); MONO # 0.5 K/uL (0.0-0.8); MONO % 8.8 % (0.0-10.0); NEUT # 2.4 K/uL (1.8-7.0); NEUT % 44.8 % (50.0-75.0); NRBC % 0.1 % (0.0-0.0); RED CELL DISTRIBUTION WIDTH 14.5 % (11.5-14.5); WHITE BLOOD COUNT 5.5 K/uL (4.8-10.8)
[2017-05-15 06:39] LABS: ALB/GLOB RATIO 1.3 (1.0-2.1); ALKALINE PHOSPHATASE 61 U/L (38-126); ALT/SGPT 68 U/L (9-52); AST/SGOT 30 U/L (14-36); BILIRUBIN,TOTAL 0.4 mg/dl (0.2-1.3); BLOOD UREA NITROGEN 9 mg/dl (7-17); CALCIUM 8.5 mg/dL (8.4-10.2); CARBON DIOXIDE 24 mmol/L (22-30); CHLORIDE 110 mmol/L (98-107); CHOLESTEROL 174 mg/dL (0-199); GFR AFRICAN-AMERICAN > 60; GLUCOSE,RANDOM 133 mg/dL (65-105); POTASSIUM 3.7 MMOL/L (3.6-5.0); SODIUM 142 mmol/l (132-148); TOTAL PROTEIN 6.6 G/DL (6.3-8.2)
[2017-05-15 06:50] LABS: T4 7.54 ug/dl (5.5-11.0)
[2017-05-15 07:02] LABS: IRON 56 ug/dL (37-170)
[2017-05-15] MEDS: Albuterol-Ipratrop 3 mg / 0.5 (3 ml) UD IH SCH ×2 (07:12→13:09)
[2017-05-15 07:17] VITALS: BP 107/63; PULSE 72; TEMP 98; O2SAT 96
[2017-05-15 07:46] LABS: THYROID STIMULATING HORMONE 5.26 mIU/ML (0.46-4.68)
--- NOTE | 2017-05-15 08:23 | CP.PCM.CON ---
<Ann Ryan - Last Filed: 05/15/17 12:20> History of Present Illness - History of Present Illness History of Present Illness: Gastroenterology Fellow/PGY5 Consult Note 56 year old female with history of Diabetes, Hypertension, Hyperlipidemia, and asthma presenting with abdominal pain, vomiting, and diarrhea. Patient describes bilious vomiting and 2-3 episodes of watery diarrhea daily since Friday. Associated mid and left lower abdomen pain. Denies fever, chills, sweats, hematemesis, constipation, melena, hematochezia, sick contacts, recent travel, or recent antibiotics. No prior colonoscopy. Family- denies stomach cancer, colon cancer, IBD Social- denies tobacco, alcohol, illicit drug use Surgery- hernia repair, appendectomy, cholecystectomy, ovarian cyst removal Review of Systems - Review of Systems Review of Systems: 12-point review of systems negative except for as above Past Patient History - Infectious Disease Hx of Infectious Diseases: None - Tetanus Immunizations Tetanus Immunization: Unknown - Past Medical History & Family History Past Medical History?: Yes - Past Social History Smoking Status: Never Smoked - CARDIAC Hx Cardiac Disorders: Yes Hx Hypercholesterolemia: Yes Hx Hypertension: Yes - PULMONARY Hx Respiratory Disorders: Yes Hx Asthma: Yes Hx Bronchitis: Yes Hx Chronic Obstructive Pulmonary Disease (COPD): Yes - NEUROLOGICAL Hx Neurological Disorder: No Hx Alzheimer's Disease: No - HEENT Hx HEENT Problems: No - RENAL Hx Chronic Kidney Disease: No - ENDOCRINE/METABOLIC Hx Endocrine Disorders: Yes Hx Diabetes Mellitus Type 2: Yes - HEMATOLOGICAL/ONCOLOGICAL Hx Blood Disorders: No Hx Human Immunodeficiency Virus (HIV): No - INTEGUMENTARY Hx Dermatological Problems: No - MUSCULOSKELETAL/RHEUMATOLOGICAL Hx Musculoskeletal Disorders: No Hx Falls: No - GASTROINTESTINAL Hx Gastrointestinal Disorders: Yes Hx Hemorrhoids: Yes Other/Comment: Colonoscopy - GENITOURINARY/GYNECOLOGICAL Hx Genitourinary Disorders: No - PSYCHIATRIC Hx Psychophysiologic Disorder: Yes Hx Anxiety: Yes - SURGICAL HISTORY Hx Surgeries: Yes Hx Appendectomy: Yes Hx Cholecystectomy: Yes - ANESTHESIA Hx Anesthesia: Yes Hx Anesthesia Reactions: No Hx Malignant Hyperthermia: No Meds Allergies/Adverse Reactions: Allergies Allergy/AdvReac Type Severity Reaction Status Date / Time Penicillins Allergy URTICARIA Verified 10/10/16 21:24 - Medications Medications: Current Medications Albuterol/Ipratropium (Duoneb 3 Mg/0.5 Mg (3 Ml) Ud) 3 ml IH TID SARAH Last Admin: 05/15/17 07:12 Dose: 3 ml Aspirin (Ecotrin) 81 mg PO DAILY [facility] Home Med (Fluticasone/Salmeterol [Fluticasone-Salmeterol 113-14]) 1 puff IH RBID [facility] Ciprofloxacin (Cipro 400mg/200ml Dsw) 400 mg in 200 mls @ 200 mls/hr IVPB Q12 SARAH PRN Reason: Protocol Last Admin: 05/14/17 21:57 Dose: 200 mls/hr Dextrose/Sodium Chloride (Dextrose 5%/0.45% Ns 1000 Ml) 1,000 mls @ 80 mls/hr IV .[id number] [facility] Stop: 05/15/17 21:24 Last Admin: 05/14/17 21:55 Dose: 80 mls/hr Metronidazole (Flagyl 500mg/100ml Ns) 100 mls @ 100 mls/hr IVPB Q8 SARAH PRN Reason: Protocol Last Admin: 05/15/17 01:50 Dose: 100 mls/hr Metoprolol Tartrate (Lopressor) 25 mg PO DAILY [facility] Montelukast Sodium (Singulair) 10 mg PO DAILY [facility] Morphine Sulfate (Morphine) 2 mg IVP Q4 PRN PRN Reason: Pain, severe (8-10) Ondansetron HCl (Zofran Inj) 4 mg IVP Q4 PRN PRN Reason: Nausea/Vomiting Tramadol HCl (Ultram) 50 mg PO Q6 PRN PRN Reason: Pain, moderate (4-7) Physical Exam - Constitutional Appears: Non-toxic, No Acute Distress - Head Exam Head Exam: ATRAUMATIC, NORMOCEPHALIC - Eye Exam Eye Exam: EOMI, PERRL Pupil Exam: PERRL. absent: Miosis, Mydriatic - ENT Exam ENT Exam: Mucous Membranes Moist, Normal Oropharynx - Neck Exam Neck exam: Positive for: Full Rom, Normal Inspection - Respiratory Exam Respiratory Exam: Clear to Auscultation Bilateral. absent: Rales, Rhonchi, Wheezes - Cardiovascular Exam Cardiovascular Exam: RRR, +S1, +S2. absent: Gallop, Rubs - GI/Abdominal Exam GI & Abdominal Exam: Normal Bowel Sounds, Organomegaly, Soft, Tenderness. absent: Distended, Firm, Guarding, Rebound, Rigid Additional comments: mid and LLQ tenderness to palpation - Extremities Exam Extremities exam: Positive for: full ROM. Negative for: pedal edema - Neurological Exam Neurological exam: Alert - Psychiatric Exam Psychiatric exam: Normal Affect, Normal Mood - Skin Skin Exam: Dry, Intact, Normal Color, Warm Results - Vital Signs Recent Vital Signs: Last Vital Signs Temp 98.0 F 05/15/17 07:17 Pulse 72 05/15/17 07:17 Resp 18 05/15/17 07:17 BP 107/63 05/15/17 07:17 Pulse Ox 96 05/15/17 07:17 - Labs Result Diagrams: 05/15/17 06:00 05/15/17 06:00 Labs: Laboratory Results - last 24 hr 05/14/17 05/14/17 05/14/17 17:15 17:15 21:56 WBC 6.4 RBC 4.56 Hgb 13.1 Hct 39.3 MCV 86.1 MCH 28.7 MCHC 33.4 RDW 14.2 Plt Count 289 MPV 7.6 Neut % (Auto) 52.0 Lymph % (Auto) 36.5 [place] % (Auto) 8.8 Eos % (Auto) 2.0 Baso % (Auto) 0.7 Neut # 3.3 Lymph # 2.3 [place] # 0.6 Eos # 0.1 Baso # 0.0 Sodium 141 Potassium 3.9 Chloride 110 H Carbon Dioxide 24 Anion Gap 11 BUN 14 Creatinine 0.8 Est GFR ( Amer) > 60 Est GFR (Non-Af Amer) > 60 POC Glucose (mg/dL) 98 Random Glucose 107 H Calcium 8.6 Iron TIBC % Saturation Total Bilirubin 0.5 AST 40 H ALT 67 H Alkaline Phosphatase 66 Total Protein 7.5 Albumin 4.2 Globulin 3.2 Albumin/Globulin Ratio 1.3 Triglycerides Cholesterol LDL Cholesterol Direct HDL Cholesterol Thyroxine (T4) TSH 3rd Generation Urine Color Urine Clarity Urine pH Ur Specific [place] Urine Protein Urine Glucose (UA) Urine Ketones Urine Blood Urine Nitrate Urine Bilirubin Urine Urobilinogen Ur Leukocyte Esterase Urine RBC (Auto) Urine Microscopic WBC Ur Squamous Epith Cells Urine Bacteria 05/14/17 05/15/17 05/15/17 23:30 05:51 06:00 WBC 5.5 RBC 4.34 Hgb 12.6 Hct 37.1 MCV 85.4 MCH 29.0 MCHC 34.0 RDW 14.5 Plt Count 262 MPV 7.2 Neut % (Auto) 44.8 L Lymph % (Auto) 42.8 H [place] % (Auto) 8.8 Eos % (Auto) 3.1 Baso % (Auto) 0.5 Neut # 2.4 Lymph # 2.3 [place] # 0.5 Eos # 0.2 Baso # 0.0 Sodium Potassium Chloride Carbon Dioxide Anion Gap BUN Creatinine Est GFR ( Amer) Est GFR (Non-Af Amer) POC Glucose (mg/dL) 111 H Random Glucose Calcium Iron TIBC % Saturation Total Bilirubin AST ALT Alkaline Phosphatase Total Protein Albumin Globulin Albumin/Globulin Ratio Triglycerides Cholesterol LDL Cholesterol Direct HDL Cholesterol Thyroxine (T4) TSH 3rd Generation Urine Color Yellow Urine Clarity Slighty-cloudy Urine pH 6.0 Ur Specific [place] 1.020 Urine Protein Negative Urine Glucose (UA) Neg Urine Ketones Negative Urine Blood Small Urine Nitrate Negative Urine Bilirubin Negative Urine Urobilinogen 0.2-1.0 Ur Leukocyte Esterase Neg Urine RBC (Auto) 1 Urine Microscopic WBC 2 Ur Squamous Epith Cells 1 Urine Bacteria Rare 05/15/17 05/15/17 06:00 06:19 WBC RBC Hgb Hct MCV MCH MCHC RDW Plt Count MPV Neut % (Auto) Lymph % (Auto) [place] % (Auto) Eos % (Auto) Baso % (Auto) Neut # Lymph # [place] # Eos # Baso # Sodium 142 Potassium 3.7 Chloride 110 H Carbon Dioxide 24 Anion Gap 12 BUN 9 Creatinine 0.8 Est GFR ( Amer) > 60 Est GFR (Non-Af Amer) > 60 POC Glucose (mg/dL) Random Glucose 133 H Calcium 8.5 Iron 56 TIBC 279 % Saturation 20 Total Bilirubin 0.4 AST 30 ALT 68 H Alkaline Phosphatase 61 Total Protein 6.6 Albumin 3.8 Globulin 2.8 Albumin/Globulin Ratio 1.3 Triglycerides 153 H Cholesterol 174 LDL Cholesterol Direct 112 HDL Cholesterol 30 Thyroxine (T4) 7.54 TSH 3rd Generation 5.26 H Urine Color Urine Clarity Urine pH Ur Specific [place] Urine Protein Urine Glucose (UA) Urine Ketones Urine Blood Urine Nitrate Urine Bilirubin Urine Urobilinogen Ur Leukocyte Esterase Urine RBC (Auto) Urine Microscopic WBC Ur Squamous Epith Cells Urine Bacteria Assessment & Plan - Assessment and Plan (Free Text) Assessment: 56 year old female with history of Diabetes, Hypertension, Hyperlipidemia, and asthma presenting with abdominal pain, vomiting, and diarrhea. Active treatment of diarrhea with CT A/P PO/IV contrast 05/13/17 showing mild thickening of transverse/distal sigmoid colon, and rectum. No prior EGD or colonoscopy. Plan: >possible viral gastroenteritis >pending stool workup >continue cipro/flagyl >continue IVFs >advance to full liquid diet >will benefit from outpatient colonoscopy in 6-8 weeks to rule out underlying pathology >noted chronic elevated LFTs since 2015- AST/ALT >Hepatitis panel negative 01/2016 >pending Hepatitis panel and autoimmune workup >ordered abdominal ultrasound >will follow clinical course <Suzy Dubon MD - Last Filed: 05/15/17 13:24> Meds - Medications Medications: Current Medications Albuterol/Ipratropium (Duoneb 3 Mg/0.5 Mg (3 Ml) Ud) 3 ml IH TID [facility] Last Admin: 05/15/17 13:09 Dose: Not Given Aspirin (Ecotrin) 81 mg PO DAILY [facility] Last Admin: 05/15/17 09:38 Dose: 81 mg Home Med (Fluticasone/Salmeterol [Fluticasone-Salmeterol 113-14]) 1 puff IH RBID [facility] Last Admin: 05/15/17 09:39 Dose: 1 puff Ciprofloxacin (Cipro 400mg/200ml Dsw) 400 mg in 200 mls @ 200 mls/hr IVPB Q12 SARAH PRN Reason: Protocol Last Admin: 05/15/17 09:39 Dose: 200 mls/hr Dextrose/Sodium Chloride (Dextrose 5%/0.45% Ns 1000 Ml) 1,000 mls @ 80 mls/hr IV .[id number] [facility] Stop: 05/15/17 21:24 Last Admin: 05/15/17 12:31 Dose: Not Given Metronidazole (Flagyl 500mg/100ml Ns) 100 mls @ 100 mls/hr IVPB Q8 SARAH PRN Reason: Protocol Last Admin: 05/15/17 09:39 Dose: 100 mls/hr Metoprolol Tartrate (Lopressor) 25 mg PO DAILY [facility] Last Admin: 05/15/17 09:39 Dose: 25 mg Montelukast Sodium (Singulair) 10 mg PO DAILY [facility] Last Admin: 05/15/17 09:39 Dose: 10 mg Morphine Sulfate (Morphine) 2 mg IVP Q4 PRN PRN Reason: Pain, severe (8-10) Ondansetron HCl (Zofran Inj) 4 mg IVP Q4 PRN PRN Reason: Nausea/Vomiting Tramadol HCl (Ultram) 50 mg PO Q6 PRN PRN Reason: Pain, moderate (4-7) Results - Vital Signs Recent Vital Signs: Last Vital Signs Temp 98.0 F 05/15/17 07:17 Pulse 72 05/15/17 07:17 Resp 18 05/15/17 07:17 BP 107/63 05/15/17 07:17 Pulse Ox 96 05/15/17 07:17 - Labs Result Diagrams: 05/15/17 06:00 05/15/17 06:00 Labs: Laboratory Results - last 24 hr 05/14/17 05/14/17 05/14/17 17:15 17:15 21:56 WBC 6.4 RBC 4.56 Hgb 13.1 Hct 39.3 MCV 86.1 MCH 28.7 MCHC 33.4 RDW 14.2 Plt Count 289 MPV 7.6 Neut % (Auto) 52.0 Lymph % (Auto) 36.5 [place] % (Auto) 8.8 Eos % (Auto) 2.0 Baso % (Auto) 0.7 Neut # 3.3 Lymph # 2.3 [place] # 0.6 Eos # 0.1 Baso # 0.0 Sodium 141 Potassium 3.9 Chloride 110 H Carbon Dioxide 24 Anion Gap 11 BUN 14 Creatinine 0.8 Est GFR ( Amer) > 60 Est GFR (Non-Af Amer) > 60 POC Glucose (mg/dL) 98 Random Glucose 107 H Calcium 8.6 Iron TIBC % Saturation Total Bilirubin 0.5 AST 40 H ALT 67 H Alkaline Phosphatase 66 Total Protein 7.5 Albumin 4.2 Globulin 3.2 Albumin/Globulin Ratio 1.3 Triglycerides Cholesterol LDL Cholesterol Direct HDL Cholesterol Thyroxine (T4) TSH 3rd Generation Urine Color Urine Clarity Urine pH Ur Specific [place] Urine Protein Urine Glucose (UA) Urine Ketones Urine Blood Urine Nitrate Urine Bilirubin Urine Urobilinogen Ur Leukocyte Esterase Urine RBC (Auto) Urine Microscopic WBC Ur Squamous Epith Cells Urine Bacteria 05/14/17 05/15/17 05/15/17 23:30 05:51 06:00 WBC 5.5 RBC 4.34 Hgb 12.6 Hct 37.1 MCV 85.4 MCH 29.0 MCHC 34.0 RDW 14.5 Plt Count 262 MPV 7.2 Neut % (Auto) 44.8 L Lymph % (Auto) 42.8 H [place] % (Auto) 8.8 Eos % (Auto) 3.1 Baso % (Auto) 0.5 Neut # 2.4 Lymph # 2.3 [place] # 0.5 Eos # 0.2 Baso # 0.0 Sodium Potassium Chloride Carbon Dioxide Anion Gap BUN Creatinine Est GFR ( Amer) Est GFR (Non-Af Amer) POC Glucose (mg/dL) 111 H Random Glucose Calcium Iron TIBC % Saturation Total Bilirubin AST ALT Alkaline Phosphatase Total Protein Albumin Globulin Albumin/Globulin Ratio Triglycerides Cholesterol LDL Cholesterol Direct HDL Cholesterol Thyroxine (T4) TSH 3rd Generation Urine Color Yellow Urine Clarity Slighty-cloudy Urine pH 6.0 Ur Specific [place] 1.020 Urine Protein Negative Urine Glucose (UA) Neg Urine Ketones Negative Urine Blood Small Urine Nitrate Negative Urine Bilirubin Negative Urine Urobilinogen 0.2-1.0 Ur Leukocyte Esterase Neg Urine RBC (Auto) 1 Urine Microscopic WBC 2 Ur Squamous Epith Cells 1 Urine Bacteria Rare 05/15/17 05/15/17 05/15/17 06:00 06:19 10:37 WBC RBC Hgb Hct MCV MCH MCHC RDW Plt Count MPV Neut % (Auto) Lymph % (Auto) [place] % (Auto) Eos % (Auto) Baso % (Auto) Neut # Lymph # [place] # Eos # Baso # Sodium 142 Potassium 3.7 Chloride 110 H Carbon Dioxide 24 Anion Gap 12 BUN 9 Creatinine 0.8 Est GFR ( Amer) > 60 Est GFR (Non-Af Amer) > 60 POC Glucose (mg/dL) 135 H Random Glucose 133 H Calcium 8.5 Iron 56 TIBC 279 % Saturation 20 Total Bilirubin 0.4 AST 30 ALT 68 H Alkaline Phosphatase 61 Total Protein 6.6 Albumin 3.8 Globulin 2.8 Albumin/Globulin Ratio 1.3 Triglycerides 153 H Cholesterol 174 LDL Cholesterol Direct 112 HDL Cholesterol 30 Thyroxine (T4) 7.54 TSH 3rd Generation 5.26 H Urine Color Urine Clarity Urine pH Ur Specific [place] Urine Protein Urine Glucose (UA) Urine Ketones Urine Blood Urine Nitrate Urine Bilirubin Urine Urobilinogen Ur Leukocyte Esterase Urine RBC (Auto) Urine Microscopic WBC Ur Squamous Epith Cells Urine Bacteria Attending/Attestation - Attestation I have personally seen and examined this patient.: Yes I have fully participated in the care of the patient.: Yes I have reviewed all pertinent clinical information: Yes Notes (Text): 05/15/17 13:21 Patient seen at bedside on rounds with GI fellow. This is a 56 year old female with history of Diabetes, Hypertension, Hyperlipidemia, and asthma presenting with abdominal pain, vomiting, and diarrhea likely due to viral gastroenteritis. Her symptoms have completely resolved now and there is no biochemical evidence of sepsis. Her last bowel movement was 24 hours ago. CTAP shows mild thickening of right colon due to GE. Advance diet as tolerated. Is not able to give stool sample for infectious work up. Supportive care. No indication for antibiotics. Discussed with team. Needs outpatient colonoscopy once symptoms resolved. Thank you for letting us participate in the care of your patient
[2017-05-15] MEDS ORDERED: SALMETEROL IH SCH (09:00)
[2017-05-15] MEDS ORDERED: FLUTICASONE IH SCH (09:00)
[2017-05-15] MEDS: Ciprofloxacin 400mg/200ml D5W 400 MG/200 ML BAG IVPB SCH (09:39)
[2017-05-15] MEDS: Dextrose 5%/0.45% NS 1,000 ML IV SCH (12:31)
--- NOTE | 2017-05-15 13:08 | CP.PCM.HP ---
History of Present Illness - History of Present Illness History of Present Illness: 56 y/o F came to ER [facility] to be evaluated for abdominal pain/vomiting/ diarrhea since 3 days [employer] with no relief. Pt appear yesterday c/o of abdominal pain in upper and lower quadrants, pain was aching, moderate - severe intensity 6-8:10, associated to nausea, vomiting and watery brown stool. Worsening symptom: CT showing possible Colitis on 05/13/17. Aggravated factor: Food. Pt came to ED day [employer] for evaluation of continue abdominal pain/diarrhea/ vomiting since Friday05/12/17, was DC on Flagyl, Cipro, Toradol, there after, Pt continue with same worsening symptoms that prompting her ER visit again. Pt denied: Fever, chills, sweats, melena, hematochezia, dysuria, hematuria, CP, SOB, sick contact, recent travel out of [facility]. PMHx; COPD, DM. HTN, Hyperlipidemia. CXR and EKG were normal. Present on Admission - Present on Admission Any Indicators Present on Admission: No Review of Systems - Constitutional Constitutional: Other (negative) - EENT Eyes: Requires Corrective Lenses Ears: Other (negative) Nose/Mouth/Throat: Other (negative) - Cardiovascular Cardiovascular: Other (negative) - Respiratory Respiratory: Other (negative) - Gastrointestinal Gastrointestinal: Abdominal Pain, Diarrhea, Nausea, Vomiting - Genitourinary Genitourinary: Other (negative) - Musculoskeletal Musculoskeletal: Other (negative) - Integumentary Integumentary: Other (negative) - Neurological Neurological: Other (negative) - Psychiatric Psychiatric: Other (negative) - Endocrine Endocrine: Other (negative) - Hematologic/Lymphatic Hematologic: Other (negative) Past Patient History - Infectious Disease Hx of Infectious Diseases: None - Tetanus Immunizations Tetanus Immunization: Unknown - Past Medical History & Family History Past Medical History?: Yes Pertinent Family History: Denied any Hx of Ca. - Past Social History Smoking Status: Never Smoked Alcohol: None Drugs: Denies Home Situation {Lives}: Other - CARDIAC Hx Cardiac Disorders: Yes Hx Hypercholesterolemia: Yes Hx Hypertension: Yes - PULMONARY Hx Respiratory Disorders: Yes Hx Asthma: Yes Hx Bronchitis: Yes Hx Chronic Obstructive Pulmonary Disease (COPD): Yes - NEUROLOGICAL Hx Neurological Disorder: No Hx Alzheimer's Disease: No - HEENT Hx HEENT Problems: No - RENAL Hx Chronic Kidney Disease: No - ENDOCRINE/METABOLIC Hx Endocrine Disorders: Yes Hx Diabetes Mellitus Type 2: Yes - HEMATOLOGICAL/ONCOLOGICAL Hx Blood Disorders: No Hx Human Immunodeficiency Virus (HIV): No - INTEGUMENTARY Hx Dermatological Problems: No - MUSCULOSKELETAL/RHEUMATOLOGICAL Hx Musculoskeletal Disorders: No Hx Falls: No - GASTROINTESTINAL Hx Gastrointestinal Disorders: Yes Hx Hemorrhoids: Yes Other/Comment: Colonoscopy - GENITOURINARY/GYNECOLOGICAL Hx Genitourinary Disorders: No - PSYCHIATRIC Hx Psychophysiologic Disorder: Yes Hx Anxiety: Yes - SURGICAL HISTORY Hx Surgeries: Yes Hx Appendectomy: Yes Hx Cholecystectomy: Yes - ANESTHESIA Hx Anesthesia: Yes Hx Anesthesia Reactions: No Hx Malignant Hyperthermia: No Meds Allergies/Adverse Reactions: Allergies Allergy/AdvReac Type Severity Reaction Status Date / Time Penicillins Allergy URTICARIA Verified 10/10/16 21:24 Physical Exam - Constitutional Appears: No Acute Distress - Head Exam Head Exam: NORMAL INSPECTION - Eye Exam Eye Exam: PERRL - ENT Exam ENT Exam: Normal Oropharynx - Neck Exam Neck exam: Positive for: Normal Inspection - Respiratory Exam Respiratory Exam: Clear to Auscultation Bilateral - Cardiovascular Exam Cardiovascular Exam: REGULAR RHYTHM, RRR, +S1, +S2 - GI/Abdominal Exam GI & Abdominal Exam: Hypoactive Bowel Sounds, Soft. absent: Guarding, Rebound - Extremities Exam Extremities exam: Positive for: normal inspection - Back Exam Back exam: NORMAL INSPECTION - Neurological Exam Neurological exam: Alert, Oriented x3 Additional comments: No motor sensory/deficit. - Psychiatric Exam Psychiatric exam: Normal Affect, Normal Mood - Skin Skin Exam: Normal Color, Warm Results - Vital Signs Recent Vital Signs: Last Vital Signs Temp 98.0 F 05/15/17 07:17 Pulse 72 05/15/17 07:17 Resp 18 05/15/17 07:17 BP 107/63 05/15/17 07:17 Pulse Ox 96 05/15/17 07:17 reviewed J.P. - Labs Result Diagrams: 05/15/17 06:00 05/15/17 06:00 Labs: Laboratory Results - last 24 hr 05/14/17 05/14/17 05/14/17 17:15 17:15 21:56 WBC 6.4 RBC 4.56 Hgb 13.1 Hct 39.3 MCV 86.1 MCH 28.7 MCHC 33.4 RDW 14.2 Plt Count 289 MPV 7.6 Neut % (Auto) 52.0 Lymph % (Auto) 36.5 [place] % (Auto) 8.8 Eos % (Auto) 2.0 Baso % (Auto) 0.7 Neut # 3.3 Lymph # 2.3 [place] # 0.6 Eos # 0.1 Baso # 0.0 Sodium 141 Potassium 3.9 Chloride 110 H Carbon Dioxide 24 Anion Gap 11 BUN 14 Creatinine 0.8 Est GFR ( Amer) > 60 Est GFR (Non-Af Amer) > 60 POC Glucose (mg/dL) 98 Random Glucose 107 H Calcium 8.6 Iron TIBC % Saturation Total Bilirubin 0.5 AST 40 H ALT 67 H Alkaline Phosphatase 66 Total Protein 7.5 Albumin 4.2 Globulin 3.2 Albumin/Globulin Ratio 1.3 Triglycerides Cholesterol LDL Cholesterol Direct HDL Cholesterol Thyroxine (T4) TSH 3rd Generation Urine Color Urine Clarity Urine pH Ur Specific [place] Urine Protein Urine Glucose (UA) Urine Ketones Urine Blood Urine Nitrate Urine Bilirubin Urine Urobilinogen Ur Leukocyte Esterase Urine RBC (Auto) Urine Microscopic WBC Ur Squamous Epith Cells Urine Bacteria 05/14/17 05/15/17 05/15/17 23:30 05:51 06:00 WBC 5.5 RBC 4.34 Hgb 12.6 Hct 37.1 MCV 85.4 MCH 29.0 MCHC 34.0 RDW 14.5 Plt Count 262 MPV 7.2 Neut % (Auto) 44.8 L Lymph % (Auto) 42.8 H [place] % (Auto) 8.8 Eos % (Auto) 3.1 Baso % (Auto) 0.5 Neut # 2.4 Lymph # 2.3 [place] # 0.5 Eos # 0.2 Baso # 0.0 Sodium Potassium Chloride Carbon Dioxide Anion Gap BUN Creatinine Est GFR ( Amer) Est GFR (Non-Af Amer) POC Glucose (mg/dL) 111 H Random Glucose Calcium Iron TIBC % Saturation Total Bilirubin AST ALT Alkaline Phosphatase Total Protein Albumin Globulin Albumin/Globulin Ratio Triglycerides Cholesterol LDL Cholesterol Direct HDL Cholesterol Thyroxine (T4) TSH 3rd Generation Urine Color Yellow Urine Clarity Slighty-cloudy Urine pH 6.0 Ur Specific [place] 1.020 Urine Protein Negative Urine Glucose (UA) Neg Urine Ketones Negative Urine Blood Small Urine Nitrate Negative Urine Bilirubin Negative Urine Urobilinogen 0.2-1.0 Ur Leukocyte Esterase Neg Urine RBC (Auto) 1 Urine Microscopic WBC 2 Ur Squamous Epith Cells 1 Urine Bacteria Rare 05/15/17 05/15/17 05/15/17 06:00 06:19 10:37 WBC RBC Hgb Hct MCV MCH MCHC RDW Plt Count MPV Neut % (Auto) Lymph % (Auto) [place] % (Auto) Eos % (Auto) Baso % (Auto) Neut # Lymph # [place] # Eos # Baso # Sodium 142 Potassium 3.7 Chloride 110 H Carbon Dioxide 24 Anion Gap 12 BUN 9 Creatinine 0.8 Est GFR ( Amer) > 60 Est GFR (Non-Af Amer) > 60 POC Glucose (mg/dL) 135 H Random Glucose 133 H Calcium 8.5 Iron 56 TIBC 279 % Saturation 20 Total Bilirubin 0.4 AST 30 ALT 68 H Alkaline Phosphatase 61 Total Protein 6.6 Albumin 3.8 Globulin 2.8 Albumin/Globulin Ratio 1.3 Triglycerides 153 H Cholesterol 174 LDL Cholesterol Direct 112 HDL Cholesterol 30 Thyroxine (T4) 7.54 TSH 3rd Generation 5.26 H Urine Color Urine Clarity Urine pH Ur Specific [place] Urine Protein Urine Glucose (UA) Urine Ketones Urine Blood Urine Nitrate Urine Bilirubin Urine Urobilinogen Ur Leukocyte Esterase Urine RBC (Auto) Urine Microscopic WBC Ur Squamous Epith Cells Urine Bacteria reviewed J.P. - EKG Data EKG comments: reviewed J.P. - Imaging and Cardiology Chest x-ray Status: Report reviewed by me (J.P.) Assessment & Plan (1) Gastroenteritis Status: Acute Priority: High (2) COPD (chronic obstructive pulmonary disease) Status: Chronic Priority: Medium (3) HTN (hypertension) Status: Chronic Priority: Medium - Assessment and Plan (Free Text) Plan: Pt feels better, tolerating regular diet, seen and cleared for Dc by Dr Paz with Dx GE, suggested no abx needed, to have Colonoscopy as out Pt. U-S and Labs to be followed as out Pt. Pt improved and stable to be discharged home, follows instruction medication list, f/u PMD in a week, f/u with GI for Colonoscopy. GI consult appreciated. - Date & Time Date: 05/15/17 Time: 12:30
--- NOTE | 2017-05-15 13:21 | CP.PCM.PCO ---
Assessment/Plan - Assessment/Plan Assessment (Free Text): Pt stable, states she feels better. Pt tolerating regular diet. Seen and cleared for d/c home by Dr. Dubon. Per Dr. Dubon, no antibiotics needed. Pt seen and cleared for d/c home by Dr. Vizcaino. Pending US and labs to be followed up as outpatient. Pt eager to go home. Patient and RN aware of plan. Pt to resume same home meds. - Problems Patient Problems: Problem List (Active/Current) Problem Status Onset Code Colitis Acute K52.9
--- NOTE | 2017-05-15 14:31 | US ---
HISTORY: r/o cirrhosis,eval prominent CBD, elevated LFTs COMPARISON: 05/13/2017 CT abdomen and pelvis. TECHNIQUE: Sonographic evaluation of the abdomen. FINDINGS: LIVER: Measures 19 cm. Nodular contour. Hepatopedal blood flow. Fatty infiltration manifest ultrasonographically as increased Echogenicity of the liver parenchyma. No mass. No intrahepatic bile duct dilatation. GALLBLADDER: Status post cholecystectomy. No abnormality is seen in the gallbladder fossa. COMMON BILE DUCT: Measures 8.3 mm. No stones. No dilatation. PANCREAS: Unremarkable as visualized. No mass. No ductal dilatation. RIGHT KIDNEY: Measures 5.4 x 11.2cm. Normal echogenicity. No calculus, mass, or hydronephrosis. LEFT KIDNEY: Measures 4.9 x 10.9cm. Normal echogenicity. No calculus, mass, or hydronephrosis. SPLEEN: Normal in size and contour. No mass. AORTA: No aneurysmal dilatation. IVC: Unremarkable. OTHER FINDINGS: None. IMPRESSION: Hepatomegaly, hepatic steatosis. No focal abnormalities. Nodular contour of the liver suggestive of cirrhosis.
[2017-05-15 16:38] LABS: IMMUNOGLOBULIN A 73.8 mg/dL (70.0-400.0); IMMUNOGLOBULIN G 979.3 mg/dL (700.0-1600.0)
--- NOTE | 2017-05-15 19:07 | CARD ---
APPROVED REPORT EKG Measurement Heart [id number] AL [id number] [id number] <Conclusion> Normal sinus rhythm Normal ECG
== END 2017-05-15 13:39 | disposition home or self-care (01) ==
LOC: H.ER 15:28 → H.ERHOLD 18:31 → H.MEDSURG1 20:35
PROVIDERS: ADMIT Internal Medicine Pulmonary Disease; ATTEND Internal Medicine Pulmonary Disease
DX: K52.9 Noninfective gastroenteritis and colitis, unspecified (principal); E11.9 Type 2 diabetes mellitus without complications; I10 Essential (primary) hypertension; E78.00 Pure hypercholesterolemia, unspecified; E78.5 Hyperlipidemia, unspecified; J44.9 Chronic obstructive pulmonary disease, unspecified; Z88.0 Allergy status to penicillin; F41.9 Anxiety disorder, unspecified; J45.909 Unspecified asthma, uncomplicated
CPT/HCPCS: 36415; 71020; 76700; 80053; 80061; 80074; 81003; 82784; 82948; 83540; 83550; 84436; 84443; 85025; 86039; 86255; 86376; 87045; 87086; 87177; 87209; 87230; 89055; 93005; 94640; 96360; 96374; 99284; G0328; G0378; J0744; J2405; J7040; J7042

== ENCOUNTER 2017-07-11 18:22 | Emergency (ER) | payer MEDICAID ==
[2017-07-11 18:22] VITALS: BMI 33.7
[2017-07-11 18:45] VITALS: RESP 16; TEMP 97.1; O2SAT 99
[2017-07-11] MEDS ORDERED: Sodium Chloride 0.9% 1,000 ML IV STA (20:45)
--- NOTE | 2017-07-11 20:58 | ED PDOC ---
"HPI: Chest Pain Time Seen by Provider: 07/11/17 20:36 Chief Complaint (Nursing): Chest Pain Chief Complaint (Provider): Chest Pain and SOB History Per: Patient History/Exam Limitations: no limitations Onset/Duration Of Symptoms: Days (2 days ago) Current Symptoms Are (Timing): Still Present Additional Complaint(s): 56 yo male with a history of COPD, hypertension, anxiety, diabetes, and hyperlipidemia, presents to the ED complaining of continuous, non-radiating chest pain w/o exertion, associated with shortness of breath, onset of 2 days ago. Patient also reports of LLQ abdominal pain and multiple episodes of watery diarrhea. She denies any urinary symptoms, nausea, vomiting, fevers, or chills. Of note, patient says that the abdominal pain she is currently experiencing is similar to when she was diagnosed with colitis in the past. Past Medical History Reviewed: Historical Data, Nursing Documentation, Vital Signs Vital Signs: Last Vital Signs Temp 97.1 F L 07/11/17 18:43 Pulse 89 07/11/17 22:18 Resp 16 07/11/17 18:43 BP 103/61 07/11/17 22:18 Pulse Ox 99 07/11/17 21:06 - Medical History PMH: Anxiety, Asthma, Bronchitis, COPD, Diabetes, HTN, Hypercholesterolemia Denies: Alzheimer's Disease, HIV, Chronic Kidney Disease - Surgical History Surgical History: Appendectomy, Cholecystectomy, Hernia Repair - Family History Family History: States: Unknown Family Hx, CAD, Diabetes - Social History Current smoker - smoking cessation education provided: No Ex-Smoker (has not smoked in the last 12 months): No Alcohol: None - Immunization History Hx Tetanus Toxoid Vaccination: Yes Hx Influenza Vaccination: Yes Hx Pneumococcal Vaccination: No - Home Medications Home Medications: Ambulatory Orders Medication Instructions Recorded Aspirin [Aspirin EC] 81 mg PO DAILY 12/13/15 Atorvastatin Calcium 10 mg PO HS 12/13/15 Montelukast Sodium 10 mg PO DAILY 12/13/15 Albuterol HFA [Ventolin HFA 90 1 puff INH BID PRN 03/08/17 mcg/actuation (8 g)] Fluticasone/Salmeterol 1 puff IH BID 03/08/17 [Fluticasone-Salmeterol 113-14] Metoprolol Tartrate [Lopressor] 25 mg PO DAILY 03/08/17 metFORMIN [glucOPHAGE] 500 mg PO BID 03/08/17 Valsartan/Hydrochlorothiazide 1 tab PO DAILY 03/27/17 [Valsartan-Hctz 160-25 mg Tab] traMADol [Ultram] 50 mg PO TID PRN #12 tab 05/13/17 Albuterol/Ipratropium [Duoneb 3 3 ml IH Q4H PRN 05/14/17 mg/0.5 mg (3 ml) UD] Saccharomyces Boulardi [Florastor] 250 mg PO BID 10 Days cap 07/12/17 - Allergies Allergies/Adverse Reactions: Allergies Allergy/AdvReac Type Severity Reaction Status Date / Time Penicillins Allergy URTICARIA Verified 07/11/17 18:43 Review of Systems ROS Statement: Except As Marked, All Systems Reviewed And Found Negative Constitutional: Negative for: Fever, Chills Cardiovascular: Positive for: Chest Pain Respiratory: Positive for: Shortness of Breath Gastrointestinal: Positive for: Abdominal Pain (llq), Diarrhea. Negative for: Nausea, Vomiting Genitourinary Female: Negative for: Dysuria, Frequency, Incontinence, Hematuria , Vaginal Discharge, Vaginal Bleeding Physical Exam - Reviewed Nursing Documentation Reviewed: Yes Vital Signs Reviewed: Yes - Physical Exam Appears: Positive for: Well, Non-toxic, No Acute Distress Head Exam: Positive for: ATRAUMATIC, NORMAL INSPECTION, NORMOCEPHALIC Skin: Positive for: Normal Color, Warm, DRY Eye Exam: Positive for: EOMI, Normal appearance, PERRL ENT: Positive for: Normal ENT Inspection Neck: Positive for: Normal, Painless ROM, Supple Cardiovascular/Chest: Positive for: Regular Rate, Rhythm. Negative for: Murmur Respiratory: Positive for: Normal Breath Sounds. Negative for: Respiratory Distress Gastrointestinal/Abdominal: Positive for: Soft, Tenderness (LLQ tenderness). Negative for: Mass, Distended, Guarding, Rebound Back: Positive for: Normal Inspection Extremity: Positive for: Normal ROM. Negative for: Pedal Edema, Deformity Neurologic/Psych: Positive for: Alert, Oriented. Negative for: Motor/Sensory Deficits - Laboratory Results Result Diagrams: 07/11/17 21:43 07/11/17 21:43 - ECG O2 Sat by Pulse Oximetry: 99 Medical Decision Making Medical Decision Making: Time: --20:45 Impression: --Colitis vs. Diverticulitis and non-cardiac chest pain Plan: --[facility] Panel --CT ABD &Pelvis --ECG --Labs --Lipase Troponin --PT --PTT --Chest X-ray --Toradol 15mg IVP --IV fluids --Urinalysis - Reassess 0000 COMPARISON: CT - ABD PELVIS PO IV CONTRAST 2017-05-13 19:00 FINDINGS: Lower thorax: Minimal atelectasis/scarring. 0.3 cm nodule vs volume averaging in left upper lobe. Small hiatal hernia. ABDOMEN: Liver: Fatty infiltration. Gallbladder and bile ducts: Cholecystectomy. No significant ductal dilation. Pancreas: No ductal dilation. No mass. Spleen: No splenomegaly. Adrenals: No mass. Kidneys and ureters: No mass. No hydronephrosis. Stomach and bowel: Segmental areas of mild mural thickening vs underdistention of large bowel. No associated inflammatory stranding. No obstruction. Appendix: Normal caliber. No inflammation. PELVIS: Bladder: Unremarkable. Reproductive: Apparent 2.0 x 2.4 x 1.5 cm septated hypodense lesion within RIGHT adnexal region. NAVI RHODES | Final Radiology Report CONFIDENTIALITY STATEMENT This report is intended only for use by the referring physician, and only in accordance with law. If you received this in error, call [phone]. Page 2 of 2 ABDOMEN and PELVIS: Intraperitoneal space: No significant fluid collection. No free air. Bones/joints: Early degenerative changes of spine. No acute fracture. Soft tissues: Postsurgical changes of each abdominal wall. Vasculature: Unremarkable. No aneurysm. Lymph nodes: No pathologically enlarged lymph nodes. IMPRESSION: 1. Adnexal lesion, indeterminate. Recommend ultrasound. 2. Mild colitis vs underdistention. Favor underdistention. Clinical correlation is needed. 3. Incidental/non-acute findings are described above. Thank you for allowing us to participate in the care of your patient. Dictated and Authenticated by: Vijay Varela MD 07/12/2017 12:02 AM Eastern Time ([place] & [place]) Patient was asked to produce stool multiple times and patient was not able to, likely because she was not having significant diarrhea. Patient has no fever, no white count, negative lactate, negative ketones in urine, no tachycardia- patient not dehydrated nor showing signs of bacterial infection. CT finding of mild colitis is likely over-read and patient likely under-distended. PAtient informed of results and told to f/u w/ TRACTOR EXPERT regarding ovarian lesion on R side ( her pain was L sided). Recommended pro-biotics and followup with Dr. Tan. Patient is stable, well appearing. Will discharge home. Told to return to the ER if she has worsening pain, fevers, chills, or other worsening symptoms/signs. Scribe Attestation: Documented by Nii Jacobs acting as a scribe for Jey Carson MD. Provider Attestation: All medical record entries made by the Scribe were at my direction and personally dictated by me. I have reviewed the chart and agree that the record accurately reflects my personal performance of the history, physical exam, medical decision making, and the department course for this patient. I have also personally directed, reviewed, and agree with the discharge instructions and disposition. Disposition - Clinical Impression Clinical Impression: Diarrhea - Patient ED Disposition Is Patient to be Admitted: No - Disposition Referrals: Abdirahman Tan MD [Family Provider] - Disposition: Routine/Home Disposition Time: 00:22 Condition: IMPROVED Additional Instructions: Please see your TRACTOR EXPERT and have a routine outpatient ultrasound to evaluate for ovarian cysts on the RIGHT side. Prescriptions: Saccharomyces Boulardi [Florastor] 250 mg PO BID 10 Days cap Instructions: Acute Diarrhea (ED) Forms: [employer] (Greek)"
[2017-07-11] MEDS ORDERED: Albuterol-Ipratrop 3 mg / 0.5 (3 ml) UD INH STA (21:18)
[2017-07-11] MEDS ORDERED: Albuterol-Ipratrop 3 mg / 0.5 (3 ml) UD ONE (21:45)
[2017-07-11 21:52] LABS: BASO # 0.1 K/uL (0.0-0.2); BASO % 1.2 % (0.0-2.0); EOS # 0.1 K/uL (0.0-0.7); EOS % 1.8 % (0.0-4.0); HEMOGLOBIN 13.7 g/dL (12.0-16.0); LYMPH # 3.5 K/uL (1.0-4.3); LYMPH % 43.9 % (20.0-40.0); MEAN CELL VOLUME 86.5 fl (81.0-99.0); MEAN CORPUSCULAR HEMOGLOBIN 28.8 pg (27.0-31.0); MEAN CORPUSCULAR HGB CONC 33.3 g/dL (33.0-37.0); MEAN PLATELET VOLUME 7.6 fl (7.2-11.7); MONO # 0.5 K/uL (0.0-0.8); MONO % 6.4 % (0.0-10.0); NEUT # 3.7 K/uL (1.8-7.0); NEUT % 46.7 % (50.0-75.0); NRBC % 0.1 % (0.0-0.0); RBC 4.76 Mil/uL (3.80-5.20); RED CELL DISTRIBUTION WIDTH 13.2 % (11.5-14.5)
[2017-07-11 21:57] LABS: VENOUS BLOOD GAS BASE EXCESS 2.8 mmol/L (0.0-2.0); VENOUS BLOOD GAS PCO2 47 mmHg (40-60); VENOUS BLOOD GAS PO2 36 mm/Hg (30-55); VENOUS BLOOD PH 7.39 (7.32-7.43)
[2017-07-11 22:02] LABS: PARTIAL THROMBOPLASTIN TIME 33.1 Seconds (25.6-37.1); PROTHROMBIN TIME 11.6 Seconds (9.8-13.1)
[2017-07-11 22:15] LABS: CALCIUM 8.9 mg/dL (8.4-10.2); GFR AFRICAN-AMERICAN > 60; GFR NON-AFRICAN AMERICAN > 60; LIPASE 52 U/L (23-300)
[2017-07-11 22:16] LABS: BLOOD UREA NITROGEN 13 mg/dl (7-17)
[2017-07-11 22:19] VITALS: BP 103/61; PULSE 89
[2017-07-11 22:28] LABS: SQUAMOUS EPITHIAL 9 /hpf (0-5); URINE BACTERIA RARE (<OCC); URINE BILIRUBIN NEGATIVE (NEGATIVE); URINE BLOOD NEGATIVE (NEGATIVE); URINE CLARITY SLIGHTY-CLOUDY (Clear); URINE COLOR YELLOW (YELLOW); URINE GLUCOSE (UA) NEG (Normal); URINE LEUKOCYTE ESTERASE NEG Leu/uL (Negative); URINE NITRATE NEGATIVE (NEGATIVE); URINE PROTEIN NEGATIVE (NEGATIVE); URINE UROBILINOGEN 0.2-1.0 mg/dL (0.2-1.0)
[2017-07-11] MEDS ORDERED: Sodium Chloride 0.9% 50 ML IV ONE (22:33)
[2017-07-11] MEDS ORDERED: Iohexol 300 100 ML IJ ONE (22:33)
--- NOTE | 2017-07-12 00:02 | CT ---
EXAM: CT Abdomen and Pelvis With Intravenous Contrast CLINICAL HISTORY: 56 years old, female; Pain; Abdominal pain; Localized; Left lower quadrant (llq); Prior surgery; Surgery date: 6+ months; Surgery type: Rt inguinal hernia; Additional info: HX of colitis, llq pain, diarrhea TECHNIQUE: Axial computed tomography images of the abdomen and pelvis with intravenous contrast. All CT scans at this facility use one or more dose reduction techniques, viz.: automated exposure control; ma/kV adjustment per patient size (including targeted exams where dose is matched to indication; i.e. head); or iterative reconstruction technique. Coronal and sagittal reformatted images were created and reviewed. CONTRAST: 95 mL of [id number] administered intravenously. COMPARISON: CT - ABD PELVIS PO IV CONTRAST 2017-05-13 19:00 FINDINGS: Lower thorax: Minimal atelectasis/scarring. 0.3 cm nodule vs volume averaging in left upper lobe. Small hiatal hernia. ABDOMEN: Liver: Fatty infiltration. Gallbladder and bile ducts: Cholecystectomy. No significant ductal dilation. Pancreas: No ductal dilation. No mass. Spleen: No splenomegaly. Adrenals: No mass. Kidneys and ureters: No mass. No hydronephrosis. Stomach and bowel: Segmental areas of mild mural thickening vs underdistention of large bowel. No associated inflammatory stranding. No obstruction. Appendix: Normal caliber. No inflammation. PELVIS: Bladder: Unremarkable. Reproductive: Apparent 2.0 x 2.4 x 1.5 cm septated hypodense lesion within RIGHT adnexal region. ABDOMEN and PELVIS: Intraperitoneal space: No significant fluid collection. No free air. Bones/joints: Early degenerative changes of spine. No acute fracture. Soft tissues: Postsurgical changes of each abdominal wall. Vasculature: Unremarkable. No aneurysm. Lymph nodes: No pathologically enlarged lymph nodes. IMPRESSION: 1. Adnexal lesion, indeterminate. Recommend ultrasound. 2. Mild colitis vs underdistention. Favor underdistention. Clinical correlation is needed. 3. Incidental/non-acute findings are described above.
--- NOTE | 2017-07-12 11:56 | RAD ---
HISTORY: cp COMPARISON: Comparison chest 05/14/2017 TECHNIQUE: Chest PA and lateral FINDINGS: LUNGS: Minor bibasilar atelectasis. . PLEURA: No significant pleural effusion identified. No pneumothorax apparent. CARDIOVASCULAR: Heart size is mildly enlarged. OSSEOUS STRUCTURES: Mild degenerative changes both acromioclavicular joints. Minor multilevel degenerative spondylosis of the thoracic spine 0 0 VISUALIZED UPPER ABDOMEN: Normal. OTHER FINDINGS: None. IMPRESSION: Minor bibasilar atelectasis. Cardiomegaly.
--- NOTE | 2017-07-13 10:20 | CARD ---
APPROVED REPORT EKG Measurement Heart [id number] [place] 160P62 [id number] <Conclusion> Normal sinus rhythm Normal ECG
== END 2017-07-12 00:32 | disposition home or self-care (01) ==
LOC: H.ER 18:22
DX: R10.32 Left lower quadrant pain (principal); R19.7 Diarrhea, unspecified; E11.9 Type 2 diabetes mellitus without complications; E78.00 Pure hypercholesterolemia, unspecified; F41.9 Anxiety disorder, unspecified; I10 Essential (primary) hypertension; J44.9 Chronic obstructive pulmonary disease, unspecified; K52.9 Noninfective gastroenteritis and colitis, unspecified; Z79.84 Long term (current) use of oral hypoglycemic drugs; Z88.0 Allergy status to penicillin
CPT/HCPCS: 71046; 74177; 80048; 81003; 82803; 83690; 84484; 85025; 85610; 85730; 93005; 94640; 96361; 96374; 99282; J1885; J7040; Q9967

== ENCOUNTER 2017-07-13 19:02 | Emergency (ER) | payer MEDICAID ==
[2017-07-13 19:02] VITALS: BMI 33.7
[2017-07-13 20:00] VITALS: BP 139/84; PULSE 115; RESP 20; TEMP 98.4; O2SAT 99
[2017-07-13] MEDS ORDERED: Sodium Chloride 0.9% 1,000 ML IV STA (21:38)
[2017-07-13] MEDS ORDERED: Morphine 4 MG/ML VIAL ONE (21:54)
[2017-07-13] MEDS ORDERED: Iohexol 240 (50 ml) PO ONE (22:31)
[2017-07-13 22:45] LABS: BASO # 0.1 K/uL (0.0-0.2); BASO % 0.6 % (0.0-2.0); EOS # 0.1 K/uL (0.0-0.7); EOS % 1.6 % (0.0-4.0); HEMOGLOBIN 13.7 g/dL (12.0-16.0); LYMPH # 3.5 K/uL (1.0-4.3); LYMPH % 39.1 % (20.0-40.0); MEAN CORPUSCULAR HEMOGLOBIN 28.5 pg (27.0-31.0); MEAN CORPUSCULAR HGB CONC 32.7 g/dL (33.0-37.0); MEAN PLATELET VOLUME 7.6 fl (7.2-11.7); MONO # 0.5 K/uL (0.0-0.8); NEUT # 4.8 K/uL (1.8-7.0); NEUT % 52.7 % (50.0-75.0); NRBC % 0.1 % (0.0-0.0); RBC 4.81 Mil/uL (3.80-5.20); RED CELL DISTRIBUTION WIDTH 13.6 % (11.5-14.5)
[2017-07-13 23:03] LABS: ALB/GLOB RATIO 1.2 (1.0-2.1); ALBUMIN 4.3 g/dL (3.5-5.0); ALT/SGPT 56 U/L (9-52); AST/SGOT 30 U/L (14-36); BLOOD UREA NITROGEN 18 mg/dl (7-17); CALCIUM 9.5 mg/dL (8.4-10.2); GFR AFRICAN-AMERICAN > 60; GFR NON-AFRICAN AMERICAN > 60
[2017-07-14] MEDS ORDERED: Sodium Chloride 0.9% 0 ML IV ONE (02:17)
[2017-07-14] MEDS ORDERED: Iohexol 300 100 ML IJ ONE (02:17)
--- NOTE | 2017-07-14 02:29 | ED PDOC ---
HPI: Abdomen Time Seen by Provider: 07/13/17 20:36 Chief Complaint (Nursing): Abdominal Pain Chief Complaint (Provider): Left sided abdominal pain, diarrhea History Per: Patient History/Exam Limitations: no limitations Onset/Duration Of Symptoms: Days Outside of [place] travel?: No Current Symptoms Are (Timing): Still Present Additional Complaint(s): Pt was seen in ER 2 days ago and diagnosed with colitis. Pt reports continued diarrhea and pain. Called PMD and was told to come to ER. Pt requests pain medications on my arrival to the room. No fever/chills. Past Medical History Reviewed: Historical Data, Nursing Documentation, Vital Signs Vital Signs: Last Vital Signs Temp 98.4 F 07/13/17 19:56 Pulse 115 H 07/13/17 19:56 Resp 20 07/13/17 19:56 BP 139/84 07/13/17 19:56 Pulse Ox 99 07/13/17 19:56 - Medical History PMH: Anxiety, Asthma, Bronchitis, COPD, Diabetes, HTN, Hypercholesterolemia Denies: Alzheimer's Disease, HIV, Chronic Kidney Disease - Surgical History Surgical History: Appendectomy, Cholecystectomy, Hernia Repair - Family History Family History: States: Unknown Family Hx, CAD, Diabetes - Living Arrangements Living Arrangements: With Family - Social History Current smoker - smoking cessation education provided: No - Immunization History Hx Tetanus Toxoid Vaccination: Yes Hx Influenza Vaccination: Yes Hx Pneumococcal Vaccination: No - Home Medications Home Medications: Ambulatory Orders Medication Instructions Recorded Aspirin [Aspirin EC] 81 mg PO DAILY 12/13/15 Atorvastatin Calcium 10 mg PO HS 12/13/15 Montelukast Sodium 10 mg PO DAILY 12/13/15 Albuterol HFA [Ventolin HFA 90 1 puff INH BID PRN 03/08/17 mcg/actuation (8 g)] Fluticasone/Salmeterol 1 puff IH BID 03/08/17 [Fluticasone-Salmeterol 113-14] Metoprolol Tartrate [Lopressor] 25 mg PO DAILY 03/08/17 metFORMIN [glucOPHAGE] 500 mg PO BID 03/08/17 Valsartan/Hydrochlorothiazide 1 tab PO DAILY 03/27/17 [Valsartan-Hctz 160-25 mg Tab] traMADol [Ultram] 50 mg PO TID PRN #12 tab 12/12/17 Albuterol/Ipratropium [Duoneb 3 3 ml IH Q4H PRN 05/14/ mg/0.5 mg (3 ml) UD] Saccharomyces Boulardi [Florastor] 250 mg PO BID 10 Days cap 07/12/17 - Allergies Allergies/Adverse Reactions: Allergies Allergy/AdvReac Type Severity Reaction Status Date / Time Penicillins Allergy URTICARIA Verified 07/11/17 18:43 Review of Systems ROS Statement: Except As Marked, All Systems Reviewed And Found Negative Constitutional: Negative for: Fever, Chills Gastrointestinal: Positive for: Nausea, Vomiting, Abdominal Pain Physical Exam - Reviewed Nursing Documentation Reviewed: Yes Vital Signs Reviewed: Yes - Physical Exam Appears: Positive for: Well, Non-toxic, No Acute Distress Head Exam: Positive for: ATRAUMATIC, NORMAL INSPECTION, NORMOCEPHALIC Skin: Positive for: Normal Color, Warm, DRY Eye Exam: Positive for: Normal appearance ENT: Positive for: Normal ENT Inspection Neck: Positive for: Normal, Painless ROM Cardiovascular/Chest: Positive for: Regular Rate, Rhythm Respiratory: Positive for: CNT, Normal Breath Sounds Gastrointestinal/Abdominal: Positive for: Bowel Sounds, Soft, Tenderness ((+) LLQ). Negative for: Normal Exam, Guarding, Rebound Back: Positive for: Normal Inspection Extremity: Positive for: Normal ROM Neurologic/Psych: Positive for: Alert, Oriented - Laboratory Results Result Diagrams: 07/13/17 22:37 07/13/17 22:37 - ECG O2 Sat by Pulse Oximetry: 99 Medical Decision Making Medical Decision Making: Discussed with Dr. Rodriguez. Repeat CT ordered. No diarrhea in ER. 0215 - Pt refusing CT. States she does not want to wait for results. Disposition - Clinical Impression Clinical Impression: Abdominal pain - Patient ED Disposition Is Patient to be Admitted: No - Disposition Disposition: Routine/Home Disposition Time: 02:28 Condition: STABLE Instructions: Abdominal Pain (ED)
== END 2017-07-14 02:40 | disposition home or self-care (01) ==
LOC: H.ER 19:02
DX: K52.9 Noninfective gastroenteritis and colitis, unspecified (principal); E11.9 Type 2 diabetes mellitus without complications; E78.00 Pure hypercholesterolemia, unspecified; F41.9 Anxiety disorder, unspecified; I10 Essential (primary) hypertension; Z79.84 Long term (current) use of oral hypoglycemic drugs; Z88.0 Allergy status to penicillin; Z79.82 Long term (current) use of aspirin; J44.9 Chronic obstructive pulmonary disease, unspecified
CPT/HCPCS: 80053; 81025; 85025; 96360; 99283; J2270; J7040; Q9966

== ENCOUNTER 2017-08-27 10:29 | Emergency (ER) | payer MEDICAID ==
[2017-08-27 10:29] VITALS: BMI 33.7
[2017-08-27 10:42] VITALS: BP 110/62; PULSE 82; RESP 16; TEMP 97.2; O2SAT 95
--- NOTE | 2017-08-27 11:05 | ED PDOC ---
Upper Extremity Pain/Injury Time Seen by Provider: 08/27/17 10:50 Chief Complaint (Nursing): Upper Extremity Problem/Injury Additional Complaint(s): 56yo F with PMHx HTN c/o right wrist pain. RHD, right radial aspect wrist pain x2 days, intermittent, worse with movement, triggered by texting on smart phone , better with ibuprofen, no trauma. Previous h/o similar issue on left wrist improved with brace. 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 Denies numbness/ tingling or change in sensation/motor. Past Medical History Reviewed: Historical Data, Nursing Documentation, Vital Signs Vital Signs: Last Vital Signs Temp 97.2 F L 08/27/17 10:41 Pulse 82 08/27/17 10:41 Resp 16 08/27/17 10:41 BP 110/62 08/27/17 10:41 Pulse Ox 95 08/27/17 10:41 - Medical History PMH: Anxiety, Asthma, Bronchitis, COPD, Diabetes, HTN, Hypercholesterolemia Denies: Alzheimer's Disease, HIV, Chronic Kidney Disease - Surgical History Surgical History: Appendectomy, Cholecystectomy, Hernia Repair - Family History Family History: States: Unknown Family Hx, CAD, Diabetes - Social History Current smoker - smoking cessation education provided: No Alcohol: None Drugs: Denies - Immunization History Hx Tetanus Toxoid Vaccination: Yes Hx Influenza Vaccination: Yes Hx Pneumococcal Vaccination: Yes - Home Medications Home Medications: Ambulatory Orders Medication Instructions Recorded Aspirin [Aspirin EC] 81 mg PO DAILY 12/13/15 Atorvastatin Calcium 10 mg PO HS 12/13/15 Montelukast Sodium 10 mg PO DAILY 12/13/15 Albuterol HFA [Ventolin HFA 90 1 puff INH BID PRN 03/08/17 mcg/actuation (8 g)] Fluticasone/Salmeterol 1 puff IH BID 03/08/17 [Fluticasone-Salmeterol 113-14] Metoprolol Tartrate [Lopressor] 25 mg PO DAILY 03/08/17 metFORMIN [glucOPHAGE] 500 mg PO BID 03/08/17 Valsartan/Hydrochlorothiazide 1 tab PO DAILY 03/27/17 [Valsartan-Hctz 160-25 mg Tab] traMADol [Ultram] 50 mg PO TID PRN #12 tab 05/13/17 Albuterol/Ipratropium [Duoneb 3 3 ml IH Q4H PRN 12/13/17 mg/0.5 mg (3 ml) UD] Budesonide/Formoterol Fumarate 1 aer IH DAILY 08/03/17 [Symbicort 160-4.5 Mcg Inhaler] predniSONE [Prednisone] 10 mg PO DAILY #10 tab 08/05/17 - Allergies Allergies/Adverse Reactions: Allergies Allergy/AdvReac Type Severity Reaction Status Date / Time Penicillins Allergy URTICARIA Verified 08/03/17 16:15 Review of Systems ROS Statement: Except As Marked, All Systems Reviewed And Found Negative Musculoskeletal: Positive for: Hand Pain (right wrist) Physical Exam - Reviewed Nursing Documentation Reviewed: Yes Vital Signs Reviewed: Yes - Physical Exam Appears: Positive for: Well, Non-toxic Head Exam: Positive for: ATRAUMATIC, NORMAL INSPECTION Skin: Positive for: Warm, Dry Eye Exam: Positive for: Normal appearance Neck: Positive for: Normal, Painless ROM, Supple Cardiovascular/Chest: Positive for: Regular Rate, Rhythm, Chest Non Tender Respiratory: Positive for: Normal Breath Sounds. Negative for: Decreased Breath Sounds Pulses-Radial (R): 2+ Gastrointestinal/Abdominal: Positive for: Soft. Negative for: Tenderness Back: Positive for: Normal Inspection Extremity: Positive for: Normal ROM, Tenderness (right wrist, radial aspect. no snuffbox tenderness), Capillary Refill (<2 sec), Other (motor 5/5. + Finklesteins right wrist). Negative for: Swelling Lymphatic: Negative for: Adenopathy Neurologic/Psych: Positive for: Alert, Oriented. Negative for: Motor/Sensory Deficits - ECG O2 Sat by Pulse Oximetry: 95 Medical Decision Making Medical Decision Makin DDx de querveins tenosynovitis, fx unlikely right wrist brace applied d/c home Disposition - Clinical Impression Clinical Impression: De Quervain's tenosynovitis, right - Disposition Referrals: Yuriy Joaquin MD [Family Provider] - Disposition Time: 11:08 Condition: STABLE Instructions: De Quervain's Tenosynovitis Forms: [employer] (Moroccan), [facility] ED School/Work Excuse Print Language: CAPE VERDEAN
== END 2017-08-27 11:03 | disposition home or self-care (01) ==
LOC: H.ER 10:29
DX: M65.4 Radial styloid tenosynovitis [de Quervain] (principal)

== ENCOUNTER 2017-10-24 05:59 | Day surgery (SDC) | payer MEDICAID ==
[2017-10-09 10:24] VITALS: BMI 36.2
--- NOTE | 2017-10-24 07:14 | CP.SDSHP ---
Same Day Surgery H & P - History Proposed Procedure: Right 4th digit arthroplasty Pre-Op Diagnosis: Right foot painful 4th digit hammertoe - Previous Medical/Surgical History Cardiac: Hypertension Pulmonary: Asthma, Emphysema/COPD Endocrine/Metabolic: Diabetes Pain: 6.Severe Pain Previous Surgical History: Multiple hammertoe corrections, hernia repair - Allergies Allergies: Allergies Penicillins Allergy (Verified 08/03/17 16:15) URTICARIA - Current Medications Current Medications: See chart - Physical Exam Vital Signs: Vital Signs 10/24/17 06:59 Temperature 98.5 F Pulse Rate 87 Respiratory 20 Rate Blood Pressure 113/82 O2 Sat by Pulse 93 L Oximetry Mental Status: Alert & Oriented x3 Neuro: WNL Heart: WNL Lungs: WNL GI: WNL - {Optional Preform as Required} Breast: WNL Abdomen: WNL Integument: WNL HEALTHCARE TECHNICIAN: WNL Ortho: Other (Pain on palpation lateral aspect of right 4th digit) Eyes: Best Corrected Vision Right, Best Corrected Vision Left - Impression Impression: Pt was seen and examined in SDS. Pt NPO status was confirmed. All Pre-op testing and clearance was in the chart. Pt has exhausted all conservative treatment at this time and is opting for surgical intervention. Pt was explained procedure and post-operative course. All pt's questions were answered to satisfaction. No guarantees were made. Pt understands all risks, benefits and complications of procedure. Pt will follow-up with Dr. Molina in office Pt. Evaluated Today:Candidate for Anesthesia & Procedure: Yes - Date & Time Date: 10/24/17 Time: 07:14 Short Stay Discharge - Short Stay Discharge Admitting Diagnosis/Reason for Visit: M20.41 Disposition: HOME/ ROUTINE Referrals: Yuriy Joaquin MD [Primary Care Provider] - Follow-up: Follow up with Dr. Molina within 1 week for post-op check Additional Instructions (Diet, Activity): -Patient in good/stable condition for discharge home -Pt to resume medications per medical reconciliation -Resume regular diet Please keep dressing clean, dry, & intact to surgical site -Use plastic bag over bandage for showering -Wear post op shoe at all times when ambulating -Call clinic if you see signs of infection (redness, swelling, malodor) -Please make an appointment to see Dr. Molina in office within 1 week for post- op check Progress Note/Discharge Note with Instructions: - Patient evaluated bedside in recovery s/p surgical procedure. - After surgical procedure patient in NAD - (+) Void, (+) Appetite - Capillary refill time <3s and NVSI intact. - Patient denies complaints at this time - Post operative instructions and plan of care explained to patient at length. - Pt. acknowledges understanding. - Patient stable for DC per podiatric surgery
--- NOTE | 2017-10-24 07:17 | CP.PCM.PN ---
Subjective - Date & Time of Evaluation Date of Evaluation: 10/24/17 Time of Evaluation: 07:14 - Subjective Subjective: Podiatry - Dr. Molina 57 year old female PMHx asthma, COPD, DM, HTN seen and evaluated in [facility] for pre- operative evaluation for right 4th digit arthroplasty by Dr. Molina today. Patient is complaining of pain on the lateral aspect of her right 4th digit ongoing for several weeks; at present rates the pain as 6/10 which worsens with ambulation. Patient has exhausted conservative treatment and now opts for surgical intervention. Patient states she has had several of her other hammertoes corrected by Dr. Molina and has been pleased with the results as she no longer complains of pain to her other digits. NPO confirmed. Patient states she was given prescriptions by Dr. Molina and will follow up with Dr. Molina in office. Denies N/V/F/D/C/SOB/BONILLA/dizziness. Objective - Vital Signs/Intake and Output Vital Signs (last 24 hours): Temp Pulse Resp BP Pulse Ox 98.5 F 87 20 113/82 93 L 10/24/17 06:59 10/24/17 06:59 10/24/17 06:59 10/24/17 06:59 10/24/17 06:59 - Constitutional Appears: Well, Non-toxic, No Acute Distress - Extremities Exam Additional comments: VASC: DP and PT pulses palpable 2/4 b/l. CFT <3 seconds to all digits x10. Temperature gradient cool to cool. No edema noted. NEURO: Gross sensation intact bilaterally. DERM: Well-healed cicatrices noted to dorsum of digits bilaterally from previous hammertoe corrections. No open lesions noted. Skin appears well hydrated. Nails normotrophic. ORTHO/Biomech: Patient presents with an antalgic gait and limp to the right lower extremity. Early heel off noted to right ankle. Patient has decreased ankle joint ROM with the knee extended but NWL with the knee flexed, right worse than left. Ankle joint dorsiflexion to bilateral ankles is >10 with the knee flexed and <10 with the knee extended without pain or crepitus. Muscle strength is 5/5 for all dorsiflexors, plantarfexors, inverters, and everters without pain. STJ ROM is full B/L with 20 degrees inversion and 10 degrees eversion. RCSP is 6 degrees everted with NCSP 0 degrees to RLE; RCSP 4 degrees everted with NCSP 0 degrees to LLE. ROM is MTJ is normal without pain or crepitus b/l. The forefoot is perpendicular to the rearfoot. First ray ROM is normal b/l. 1st MPJ ROM is normal 65 degrees with no pain or crepitus noted. Prominent lateral tubercle noted to right 4th digit with pain on palpation present. No pain upon ROM 4th digit DIPJ/PIPJ/MPJ. Reducible hammertoe present at 4th digit right foot. Previous HT correction noted bilaterally. - Neurological Exam Neurological Exam: Alert, Awake, Oriented x3 - Psychiatric Exam Psychiatric exam: Normal Affect, Normal Mood Assessment and Plan - Assessment and Plan (Free Text) Assessment: 57 year old female with painful right 4th digit hammertoe Plan: Pt was seen and examined in [facility] Pt NPO status was confirmed All Pre-op testing and clearance was in the chart Pt has exhausted all conservative treatment at this time and is opting for surgical intervention Pt was explained procedure and post-operative course All pt's questions were answered to satisfaction No guarantees were made Pt understands all risks, benefits and complications of procedure Pt will follow-up with in office
[2017-10-24] MEDS ORDERED: Clindamycin 600mg/50ml NS 600 MG/50 ML BAG IVPB ONE (07:19)
[2017-10-24] MEDS ORDERED: Lidocaine 2% Inj (20ml) ONE (07:20)
[2017-10-24] MEDS ORDERED: Bupivacaine HCl 0.5% PF (30 ml) Inj ONE (07:20)
[2017-10-24] MEDS ORDERED: Lidocaine 1% Inj (20ml) IJ ONE (07:23)
[2017-10-24] MEDS ORDERED: Dextrose 5%/0.9% NS 1,000 ML IV SCH (07:30)
[2017-10-24] MEDS ORDERED: Propofol 10 mg/ml Inj (20 ML) ONE (07:33)
[2017-10-24] MEDS ORDERED: Midazolam 2 MG/2 ML VIAL ONE (07:33)
[2017-10-24] MEDS ORDERED: Clindamycin 600mg/50ml D5W 600 MG/50 ML VIAL IVPB ONE (07:45)
[2017-10-24] MEDS ORDERED: Lactated Ringer's 1,000 ML IV ONE (08:00)
[2017-10-24] MEDS ORDERED: Dexamethasone 4 mg/1 ml ONE (08:16)
--- NOTE | 2017-10-24 08:59 | PCM.SURG1 ---
Surgeon's Initial Post Op Note - Surgeon's Notes Surgeon: Dr. Molina Studio Data Analyst: Kendra Avila PGY1 Type of Anesthesia: IV Sedation, Local (9cc 2% lidocaine plain) Anesthesia Administered By: Dr. Beasley Pre-Operative Diagnosis: Right foot 4th digit painful hammertoe Operative Findings: See dictation. Materials: 3-0 vicryl, 4-0 vicryl, 5-0 nylon. Injectables: 10cc 0.5% marcaine, 1cc dexamethasone Post-Operative Diagnosis: Same Operation Performed: Right foot 4th digit PIPJ arthroplasty and hemiphalangectomy Specimen/Specimens Removed: Right foot 4th digit bone Estimated Blood Loss: EBL {In ML}: 1 Blood Products Given: N/A Drains Used: No Drains Post-Op Condition: Good Date of Surgery/Procedure: 10/24/17 Time of Surgery/Procedure: 08:59
[2017-10-24] MEDS ORDERED: Oxycodone/Acetaminophen 5/325 mg Tab PO PRN ×2 (09:02)
[2017-10-24] MEDS ORDERED: HYDROmorphone 0.5 mg/0.5 ml ISec IVP PRN (09:08)
[2017-10-24] MEDS ORDERED: Lactated Ringer's 1,000 ML IV SCH (09:15)
[2017-10-24 10:28] VITALS: TEMP 98.1
--- NOTE | 2017-10-24 10:43 | RAD ---
PROCEDURE: Right Foot Radiographs. HISTORY: s/p right 4th digit hammertoe correction COMPARISON: None. FINDINGS: BONES: Interval distal aspect of 4th proximal phalanx osteotomy. No acute fracture. JOINTS: Unremarkable. SOFT TISSUES: Dorsal forefoot soft tissue swelling. OTHER FINDINGS: Trace Achilles enthesophyte. Small inferior plantar calcaneal spur. IMPRESSION: Interval 4th digit osteotomy as described above.
[2017-10-24 10:51] VITALS: BP 127/72; PULSE 82; RESP 16; O2SAT 97
--- NOTE | 2017-10-27 01:07 | OP ---
PROCEDURE DATE: 10/24/2017 PREOPERATIVE DIAGNOSIS: Right foot fourth digit painful hammertoe deformity. POSTOPERATIVE DIAGNOSIS: Right foot fourth digit painful hammertoe deformity. NAME OF PROCEDURE: Right foot fourth digit proximal interphalangeal joint arthroplasty and hemiphalangectomy. SURGEON: Modesto Molina DPM DRAWER IN PLAIN LOOM: Angelina Avila DPM TYPE OF ANESTHESIA: IV sedation plus local. ANESTHESIA ADMINISTERED BY: Dr. Beasley. INDICATIONS: The patient is a 57-year-old female with the above diagnoses. The patient has exhausted all conservative treatment at this time and now requires surgical intervention. The patient signed the consent after careful explanation of the risks, benefits, complications and alternatives for surgical procedure. No guarantees were given nor implied. PREPARATION: The patient was brought into the operating room and placed on the operating room table in a supine position. A well padded pneumatic ankle tourniquet was applied to the patient's right ankle in a supramalleolar position. A time-out was performed for identification of the correct patient and procedure. After induction of IV sedation, the patient received a total of 9 mL of 2% lidocaine plain in a V block fashion to the right foot fourth digit. Once the local anesthesia was achieved, the foot was then prepped and draped in a normal sterile manner. The patient's right foot was then exsanguinated and the pneumatic ankle tourniquet was inflated to 250 mmHg and the procedure began. Attention was directed at this time to the dorsal aspect of the fourth digit of the right foot at the level of the proximal interphalangeal joint. At this time a 2.5 cm linear longitudinal incision was made overlying a proximal interphalangeal joint of the right foot fourth digit. The incision was deepened to subcutaneous tissue with care being taken to identify and retract all vital neurovascular structures. All bleeders were cauterized and ligated as necessary. At this time, a transverse tenotomy and capsulotomy was performed to the PIPJ. The head of the proximal phalanx was then freed of its capsular and ligament attachments. Next using a sagittal saw, the head of the proximal phalanx was resected and passed from the operative site. At this time, a double action bone cutter was utilized to perform a hemiphalangectomy to the right foot fourth digit and middle phalanx where it was noted that there was access bone formation noted to the lateral aspect of the middle phalanx. This bone segment was resected and intact from the operative site. The surgical site was then irrigated with copious amounts of sterile normal saline. At this time, a 3-0 Vicryl sutures were utilized to repair the extensor tendon. A 4-0 Vicryl sutures were then utilize to reapproximate subcutaneous tissue and 5-0 nylon sutures were used to reapproximate skin. Next, 10 mL of 0.5% Marcaine and 1 mL of 4 mg/dL of dexamethasone phosphate were injected in a local block fashion to the surgical site. Wound site was then dressed with Xeroform 4 x 4 gauze, a dry sterile dressing and a Coban. POSTOPERATIVE CONDITION: The patient tolerated the anesthesia and procedure well and was escorted to the recovery room with vital signs stable and neurovascular status intact to the right foot. The patient will be full weightbearing in a surgical shoe and will follow up with Dr. Molina in his office within in one week of surgery. Angelina Avila DPM Modesto Molina DPM
== END 2017-10-24 11:50 | disposition home or self-care (01) ==
LOC: H.OPSURG 05:59
PROVIDERS: ATTEND Podiatrist Foot & Ankle Surgery
DX: M20.41 Other hammer toe(s) (acquired), right foot (principal); E11.9 Type 2 diabetes mellitus without complications; I10 Essential (primary) hypertension; J44.9 Chronic obstructive pulmonary disease, unspecified; Z88.0 Allergy status to penicillin; J45.909 Unspecified asthma, uncomplicated; E78.5 Hyperlipidemia, unspecified
CPT/HCPCS: 28160; 73630; 82948; 88304; J1100; J2001; J2250; J2704; J3010; J7030; J7120

== ENCOUNTER 2017-11-22 17:45 | Observation (INO) | payer MEDICAID ==
[2017-11-22 17:45] VITALS: BMI 36.2
[2017-11-22] MEDS ORDERED: Albuterol-Ipratrop 3 mg / 0.5 (3 ml) UD INH STA (18:05)
[2017-11-22 18:22] LABS: BASO # 0.1 K/uL (0.0-0.2); BASO % 0.7 % (0.0-2.0); EOS # 0.2 K/uL (0.0-0.7); EOS % 2.2 % (0.0-4.0); HEMOGLOBIN 14.3 g/dL (12.0-16.0); LYMPH # 3.2 K/uL (1.0-4.3); LYMPH % 39.4 % (20.0-40.0); MEAN CELL VOLUME 86.5 fl (81.0-99.0); MEAN CORPUSCULAR HEMOGLOBIN 29.3 pg (27.0-31.0); MEAN CORPUSCULAR HGB CONC 33.9 g/dL (33.0-37.0); MEAN PLATELET VOLUME 7.3 fl (7.2-11.7); MONO # 0.5 K/uL (0.0-0.8); MONO % 5.8 % (0.0-10.0); NEUT # 4.2 K/uL (1.8-7.0); NEUT % 51.9 % (50.0-75.0); RBC 4.88 Mil/uL (3.80-5.20); RED CELL DISTRIBUTION WIDTH 13.9 % (11.5-14.5)
[2017-11-22 18:28] LABS: ALB/GLOB RATIO 1.1 (1.0-2.1); ALBUMIN 4.3 g/dL (3.5-5.0); ALT/SGPT 67 U/L (9-52); AST/SGOT 40 U/L (14-36); BLOOD UREA NITROGEN 12 mg/dl (7-17); CALCIUM 9.4 mg/dL (8.4-10.2); GFR AFRICAN-AMERICAN > 60; GFR NON-AFRICAN AMERICAN > 60
--- NOTE | 2017-11-22 18:47 | ED PDOC ---
HPI: Chest Pain Time Seen by Provider: 11/22/17 18:15 Chief Complaint (Nursing): Chest Pain Chief Complaint (Provider): Chest pain History Per: Patient History/Exam Limitations: no limitations Onset/Duration Of Symptoms: Days (x2) Current Symptoms Are (Timing): Still Present Additional Complaint(s): 57 year old female presented to the ED complaining of left sided chest pain for 2 days associated with tingling in arm and hand and 2 days of asthma exacerbation. Patient is complaining of SOB, nonproductive cough, but denies leg swelling. Patient reports pain is similar to pain she had in June of this year. At that time, she was admitted over night and discharged the next day. During the visit, she was ruled out for an acute coronary event. PCP: Dr. Joaquin Past Medical History Reviewed: Historical Data, Nursing Documentation, Vital Signs Vital Signs: Last Vital Signs Temp 98.1 F 11/22/17 21:07 Pulse 114 H 11/22/17 21:07 Resp 16 11/22/17 21:07 BP 133/88 11/22/17 21:07 Pulse Ox 97 11/22/17 21:07 - Medical History PMH: Anxiety, Asthma, Bronchitis, COPD, Diabetes, HTN, Hypercholesterolemia Denies: Alzheimer's Disease, HIV, Chronic Kidney Disease - Surgical History Surgical History: Appendectomy, Cholecystectomy, Hernia Repair, Tonsillectomy - Family History Family History: States: Unknown Family Hx, CAD, Diabetes - Social History Current smoker - smoking cessation education provided: No Alcohol: None Drugs: Denies - Immunization History Hx Tetanus Toxoid Vaccination: Yes Hx Influenza Vaccination: Yes Hx Pneumococcal Vaccination: Yes - Home Medications Home Medications: Ambulatory Orders Medication Instructions Recorded Atorvastatin Calcium 10 mg PO HS 12/13/15 Montelukast Sodium 10 mg PO DAILY 12/13/15 Albuterol HFA [Ventolin HFA 90 1 puff INH BID PRN 03/08/17 mcg/actuation (8 g)] Metoprolol Tartrate [Lopressor] 25 mg PO DAILY 03/08/17 metFORMIN [glucOPHAGE] 500 mg PO BID 03/08/17 Nitroglycerin [Nitrostat] 0.4 mg PO DAILY PRN 10/09/17 Home Med [Home Med] 1 puff INH BID 11/22/17 - Allergies Allergies/Adverse Reactions: Allergies Allergy/AdvReac Type Severity Reaction Status Date / Time Penicillins Allergy URTICARIA Verified 11/22/17 17:47 Review of Systems ROS Statement: Except As Marked, All Systems Reviewed And Found Negative (as per HPI) Respiratory: Positive for: Cough (non productive), Shortness of Breath Musculoskeletal: Negative for: Other (leg swelling) Neurological: Positive for: Other (tingling in arm and hand) Physical Exam - Reviewed Nursing Documentation Reviewed: Yes Vital Signs Reviewed: Yes - Physical Exam Appears: Positive for: Non-toxic. Negative for: No Acute Distress (mild painful distress) Head Exam: Positive for: ATRAUMATIC, NORMOCEPHALIC Skin: Positive for: Warm, Dry Eye Exam: Positive for: EOMI, PERRL ENT: Negative for: Pharyngeal Erythema, Tonsillar Exudate Neck: Positive for: Painless ROM, Supple Cardiovascular/Chest: Positive for: Regular Rate, Rhythm, Chest Non Tender. Negative for: Murmur Respiratory: Positive for: Normal Breath Sounds. Negative for: Wheezing Gastrointestinal/Abdominal: Positive for: Soft. Negative for: Tenderness Back: Positive for: Normal Inspection. Negative for: Decreased ROM Extremity: Positive for: Normal ROM. Negative for: Deformity Lymphatic: Negative for: Adenopathy Neurologic/Psych: Positive for: Alert. Negative for: Motor/Sensory Deficits - Laboratory Results Result Diagrams: 11/22/17 18:12 11/22/17 18:12 - ECG ECG Rhythm: Positive for: Normal QRS, Normal ST Segment, Sinus Rhythm (normal) Rate: 92 O2 Sat by Pulse Oximetry: 96 (RA) Pulse Ox Interpretation: Normal Medical Decision Making Medical Decision Making: Initial Impression: Chest pain with cardiac risk factors Initial Plan: ECG Chest X-ray Albuterol 9mL INH Peak flow Labs Labs unremarkable. DW pt findings and plan of care. pt needs hospitalization for chest pain with cardiac risk factors needing serial troponin DW Dr Cristobal covering for PMD. Scribe Attestation: Documented by Delgado Wisdom acting as a scribe for Maria Guadalupe Montes MD. Provider Scribe Attestation: All medical record entries made by the Scribe were at my direction and personally dictated by me. I have reviewed the chart and agree that the record accurately reflects my personal performance of the history, physical exam, medical decision making, and the department course for this patient. I have also personally directed, reviewed, and agree with the discharge instructions and disposition. Disposition - Clinical Impression Clinical Impression: Chest pain - Disposition Disposition Time: 18:50 Condition: FAIR - Pt Status Changed To: Hospital Disposition Of: Observation - POA Present On Arrival: None
[2017-11-22] MEDS ORDERED: Nitroglycerin 2% Ointment Foilpak UD TOP STA (18:53)
[2017-11-22] MEDS ORDERED: Nitroglycerin 2% Ointment Foilpak UD TOP ONE (19:04)
[2017-11-22] MEDS ORDERED: Albuterol HFA 90 mcg/actuation (8 g) INH PRN (22:20)
[2017-11-22] MEDS: Albuterol-Ipratrop 3 mg / 0.5 (3 ml) UD INH SCH (22:20)
[2017-11-22] MEDS: guaiFENesin 100 mg/5 ml Syrup UD PO PRN (23:18)
[2017-11-23] MEDS ORDERED: Sodium Chloride 0.9% 500 ML IV ONE (06:40)
--- NOTE | 2017-11-23 06:43 | CP.PCM.PCO ---
Physician Communication Note - Physician Communication Note Physician Communication Note: Nurse reported difference in blood pressure
[2017-11-23] MEDS ORDERED: Sodium Chloride 0.9% 1,000 ML IV SCH ×2 (06:45→06:46)
[2017-11-23 07:21] LABS: HEMOGLOBIN 13.5 g/dL (12.0-16.0); MEAN CELL VOLUME 87.4 fl (81.0-99.0); MEAN CORPUSCULAR HEMOGLOBIN 29.5 pg (27.0-31.0); MEAN CORPUSCULAR HGB CONC 33.8 g/dL (33.0-37.0); RBC 4.56 Mil/uL (3.80-5.20); RED CELL DISTRIBUTION WIDTH 13.9 % (11.5-14.5); WHITE BLOOD COUNT 7.6 K/uL (4.8-10.8)
[2017-11-23] MEDS: Albuterol-Ipratrop 3 mg / 0.5 (3 ml) UD INH SCH ×4 (07:48→19:16)
[2017-11-23] MEDS: guaiFENesin 100 mg/5 ml Syrup UD PO PRN (08:36)
--- NOTE | 2017-11-23 08:46 | RAD ---
HISTORY: chest pain COMPARISON: Chest radiographs 10/09/2017. TECHNIQUE: Chest PA and lateral FINDINGS: LUNGS: No active pulmonary disease. PLEURA: No significant pleural effusion identified. No pneumothorax apparent. CARDIOVASCULAR: Normal. OSSEOUS STRUCTURES: No significant abnormalities. VISUALIZED UPPER ABDOMEN: Normal. OTHER FINDINGS: None. IMPRESSION: No interval acute cardiopulmonary disease appreciated.
[2017-11-23] MEDS ORDERED: Alum-Mag Hydrox-Simethicone Susp (30 mL) PO PRN (09:49)
[2017-11-23] MEDS: Lidocaine 5% Patch TD SCH (09:58)
[2017-11-23] MEDS: Pantoprazole 40 mg EC Tab PO SCH (09:58)
--- NOTE | 2017-11-23 11:19 | CARD ---
APPROVED REPORT EKG Measurement Heart [id number] <Conclusion> Normal sinus rhythm Normal ECG
--- NOTE | 2017-11-23 21:37 | CP.PCM.CON ---
History of Present Illness - History of Present Illness History of Present Illness: This is a 57 y/o female with hx of HTN asthma and anxiety was admitted last night for left sided chest pain with some LUQ pain associated with tingling of the arms left more than right yanet when she has asthma attack. She has been having on and off wheezing. She had similar episode last June where she was observed for a day and was sent home. She has no recent cardiac evaluation but had seen Dr Enrique in the past. She denies any SOB or palpitation but is very anxious about her condition. Review of Systems - Cardiovascular Cardiovascular: Chest Pain - Respiratory Respiratory: Wheezing Past Patient History - Infectious Disease Hx of Infectious Diseases: None - Tetanus Immunizations Tetanus Immunization: Unknown - Past Medical History & Family History Past Medical History?: Yes - Past Social History Smoking Status: Never Smoked - CARDIAC Hx Cardiac Disorders: Yes Hx Hypercholesterolemia: Yes Hx Hypertension: Yes - PULMONARY Hx Respiratory Disorders: Yes Hx Asthma: Yes Hx Bronchitis: Yes Hx Chronic Obstructive Pulmonary Disease (COPD): Yes - NEUROLOGICAL Hx Neurological Disorder: No Hx Alzheimer's Disease: No - HEENT Hx HEENT Problems: Yes Other/Comment: RT EYE DEVIATION CORRECTION. PT WEARS GLASSES - RENAL Hx Chronic Kidney Disease: No - ENDOCRINE/METABOLIC Hx Endocrine Disorders: Yes Hx Diabetes Mellitus Type 2: Yes - HEMATOLOGICAL/ONCOLOGICAL Hx Blood Disorders: No Hx Human Immunodeficiency Virus (HIV): No - INTEGUMENTARY Hx Dermatological Problems: No - MUSCULOSKELETAL/RHEUMATOLOGICAL Hx Musculoskeletal Disorders: Yes Hx Falls: No Other/Comment: HAMMER TOES - GASTROINTESTINAL Hx Gastrointestinal Disorders: No - GENITOURINARY/GYNECOLOGICAL Hx Genitourinary Disorders: No - PSYCHIATRIC Hx Psychophysiologic Disorder: Yes Hx Anxiety: Yes Hx Substance Use: No - SURGICAL HISTORY Hx Surgeries: Yes Hx Appendectomy: Yes Hx Cholecystectomy: Yes Hx Herniorrhaphy: Yes Hx Tonsillectomy: Yes - ANESTHESIA Hx Anesthesia: Yes Hx Anesthesia Reactions: No Hx Malignant Hyperthermia: No Meds Allergies/Adverse Reactions: Allergies Allergy/AdvReac Type Severity Reaction Status Date / Time Penicillins Allergy URTICARIA Verified 11/22/17 17:47 - Medications Medications: Current Medications Al Hydrox/Mg Hydrox/Simethicone (Maalox Plus 30 Ml) 30 ml PO Q6 PRN PRN Reason: Indigestion / Heartburn Last Admin: 11/23/17 10:25 Dose: 30 ml Albuterol (Ventolin Hfa 90 Mcg/Actuation (8 G)) 1 puff INH BID PRN PRN Reason: Shortness of Breath Last Admin: 11/22/17 23:19 Dose: 1 puff Albuterol/Ipratropium (Duoneb 3 Mg/0.5 Mg (3 Ml) Ud) 3 ml INH RQID [facility] Last Admin: 11/23/17 19:16 Dose: 3 ml Aspirin (Aspirin Chewable) 81 mg PO DAILY [facility] Last Admin: 11/23/17 08:34 Dose: 81 mg Atorvastatin Calcium (Lipitor) 10 mg PO HS [facility] Last Admin: 11/22/17 23:18 Dose: 10 mg Guaifenesin (Robitussin) 100 mg PO Q6 PRN PRN Reason: Cough Last Admin: 11/23/17 08:36 Dose: 100 mg Ibuprofen (Motrin Tab) 400 mg PO Q8H [facility] Last Admin: 11/23/17 13:40 Dose: Not Given Lidocaine (Lidoderm) 1 ea TD DAILY [facility] Last Admin: 11/23/17 09:58 Dose: 1 ea Metformin HCl (Glucophage) 500 mg PO BID [facility] Last Admin: 11/23/17 08:34 Dose: 500 mg Metoprolol Tartrate (Lopressor) 25 mg PO DAILY [facility] Last Admin: 11/23/17 08:33 Dose: Not Given Montelukast Sodium (Singulair) 10 mg PO DAILY [facility] Last Admin: 11/23/17 08:35 Dose: 10 mg Pantoprazole Sodium (Protonix Ec Tab) 40 mg PO DAILY [facility] Last Admin: 11/23/17 09:58 Dose: 40 mg Zolpidem Tartrate (Ambien) 5 mg PO HS PRN PRN Reason: Insomnia Last Admin: 11/22/17 23:18 Dose: 5 mg Physical Exam - Head Exam Head Exam: NORMAL INSPECTION - Eye Exam Eye Exam: Normal appearance - Respiratory Exam Respiratory Exam: NORMAL BREATHING PATTERN - Cardiovascular Exam Cardiovascular Exam: REGULAR RHYTHM - GI/Abdominal Exam GI & Abdominal Exam: Normal Bowel Sounds - Neurological Exam Neurological exam: CN II-XII Intact, Oriented x3 Results - Vital Signs Recent Vital Signs: Last Vital Signs Temp 98 F 11/23/17 20:03 Pulse 65 11/23/17 20:24 Resp 20 11/23/17 20:03 BP 113/78 11/23/17 20:03 Pulse Ox 95 11/23/17 20:03 - Labs Result Diagrams: 11/23/17 07:00 11/22/17 18:12 Labs: Laboratory Results - last 24 hr 11/22/17 11/23/17 11/23/17 21:45 02:12 05:07 WBC RBC Hgb Hct MCV MCH MCHC RDW Plt Count POC Glucose (mg/dL) 113 H 127 H Troponin I < 0.0120 Triglycerides Cholesterol LDL Cholesterol Direct HDL Cholesterol TSH 3rd Generation 11/23/17 11/23/17 11/23/17 07:00 09:07 09:07 WBC 7.6 RBC 4.56 Hgb 13.5 Hct 39.9 MCV 87.4 MCH 29.5 MCHC 33.8 RDW 13.9 Plt Count 328 POC Glucose (mg/dL) Troponin I < 0.0120 Triglycerides 214 H D Cholesterol 179 LDL Cholesterol Direct 110 HDL Cholesterol 26 L TSH 3rd Generation 5.12 H 11/23/17 11/23/17 11:26 16:57 WBC RBC Hgb Hct MCV MCH MCHC RDW Plt Count POC Glucose (mg/dL) 104 100 Troponin I Triglycerides Cholesterol LDL Cholesterol Direct HDL Cholesterol TSH 3rd Generation Assessment & Plan (1) Chest pain Status: Acute (2) Anxiety Status: Acute (3) Asthma Status: Acute (4) Bronchitis Status: Acute (5) HTN (hypertension) Status: Acute - Assessment and Plan (Free Text) Plan: Troponin q 8 x [address] Klaus Brooks tmeds ASA 81 antacid
[2017-11-24] MEDS: Albuterol-Ipratrop 3 mg / 0.5 (3 ml) UD INH SCH ×2 (07:39→11:10)
--- NOTE | 2017-11-24 08:08 | CP.PCM.CON ---
History of Present Illness - History of Present Illness History of Present Illness: Patient seen/examined. full consult to follow. Patient is currently chest pain free. Initial troponin is negative. recommend discharge to home today. recommend outpatient stress test Past Patient History - Infectious Disease Hx of Infectious Diseases: None - Tetanus Immunizations Tetanus Immunization: Unknown - Past Medical History & Family History Past Medical History?: Yes - Past Social History Smoking Status: Never Smoked - CARDIAC Hx Cardiac Disorders: Yes Hx Hypercholesterolemia: Yes Hx Hypertension: Yes - PULMONARY Hx Respiratory Disorders: Yes Hx Asthma: Yes Hx Bronchitis: Yes Hx Chronic Obstructive Pulmonary Disease (COPD): Yes - NEUROLOGICAL Hx Neurological Disorder: No Hx Alzheimer's Disease: No - HEENT Hx HEENT Problems: Yes Other/Comment: RT EYE DEVIATION CORRECTION. PT WEARS GLASSES - RENAL Hx Chronic Kidney Disease: No - ENDOCRINE/METABOLIC Hx Endocrine Disorders: Yes Hx Diabetes Mellitus Type 2: Yes - HEMATOLOGICAL/ONCOLOGICAL Hx Blood Disorders: No Hx Human Immunodeficiency Virus (HIV): No - INTEGUMENTARY Hx Dermatological Problems: No - MUSCULOSKELETAL/RHEUMATOLOGICAL Hx Musculoskeletal Disorders: Yes Hx Falls: No Other/Comment: HAMMER TOES - GASTROINTESTINAL Hx Gastrointestinal Disorders: No - GENITOURINARY/GYNECOLOGICAL Hx Genitourinary Disorders: No - PSYCHIATRIC Hx Psychophysiologic Disorder: Yes Hx Anxiety: Yes Hx Substance Use: No - SURGICAL HISTORY Hx Surgeries: Yes Hx Appendectomy: Yes Hx Cholecystectomy: Yes Hx Herniorrhaphy: Yes Hx Tonsillectomy: Yes - ANESTHESIA Hx Anesthesia: Yes Hx Anesthesia Reactions: No Hx Malignant Hyperthermia: No Meds Allergies/Adverse Reactions: Allergies Allergy/AdvReac Type Severity Reaction Status Date / Time Penicillins Allergy URTICARIA Verified 11/22/17 17:47 - Medications Medications: Current Medications Al Hydrox/Mg Hydrox/Simethicone (Maalox Plus 30 Ml) 30 ml PO Q6 PRN PRN Reason: Indigestion / Heartburn Last Admin: 11/23/17 10:25 Dose: 30 ml Albuterol (Ventolin Hfa 90 Mcg/Actuation (8 G)) 1 puff INH BID PRN PRN Reason: Shortness of Breath Last Admin: 11/22/17 23:19 Dose: 1 puff Albuterol/Ipratropium (Duoneb 3 Mg/0.5 Mg (3 Ml) Ud) 3 ml INH RQID [facility] Last Admin: 11/24/17 07:39 Dose: 3 ml Aspirin (Aspirin Chewable) 81 mg PO DAILY [facility] Last Admin: 11/23/17 08:34 Dose: 81 mg Atorvastatin Calcium (Lipitor) 10 mg PO HS [facility] Last Admin: 11/23/17 22:52 Dose: Not Given Guaifenesin (Robitussin) 100 mg PO Q6 PRN PRN Reason: Cough Last Admin: 11/23/17 08:36 Dose: 100 mg Ibuprofen (Motrin Tab) 400 mg PO Q8H [facility] Last Admin: 11/24/17 04:57 Dose: Not Given Lidocaine (Lidoderm) 1 ea TD DAILY [facility] Last Admin: 11/23/17 09:58 Dose: 1 ea Metformin HCl (Glucophage) 500 mg PO BID [facility] Last Admin: 11/23/17 21:56 Dose: 500 mg Metoprolol Tartrate (Lopressor) 25 mg PO DAILY [facility] Last Admin: 11/23/17 08:33 Dose: Not Given Montelukast Sodium (Singulair) 10 mg PO DAILY [facility] Last Admin: 11/23/17 08:35 Dose: 10 mg Pantoprazole Sodium (Protonix Ec Tab) 40 mg PO DAILY [facility] Last Admin: 11/23/17 09:58 Dose: 40 mg Zolpidem Tartrate (Ambien) 5 mg PO HS PRN PRN Reason: Insomnia Last Admin: 11/23/17 22:52 Dose: 5 mg Results - Vital Signs Recent Vital Signs: Last Vital Signs Temp 97.7 F 11/24/17 04:51 Pulse 73 11/24/17 04:51 Resp 16 11/24/17 04:51 BP 105/72 11/24/17 04:51 Pulse Ox 94 L 11/24/17 04:51 - Labs Result Diagrams: 11/23/17 07:00 11/22/17 18:12 Labs: Laboratory Results - last 24 hr 11/23/17 11/23/17 11/23/17 09:07 09:07 11:26 POC Glucose (mg/dL) 104 Troponin I < 0.0120 Triglycerides 214 H D Cholesterol 179 LDL Cholesterol Direct 110 HDL Cholesterol 26 L TSH 3rd Generation 5.12 H 11/23/17 11/23/17 11/24/17 16:57 21:29 05:18 POC Glucose (mg/dL) 100 93 108 Troponin I Triglycerides Cholesterol LDL Cholesterol Direct HDL Cholesterol TSH 3rd Generation
--- NOTE | 2017-11-24 08:08 | CP.PCM.CON ---
Past Patient History - Infectious Disease Hx of Infectious Diseases: None - Tetanus Immunizations Tetanus Immunization: Unknown - Past Medical History & Family History Past Medical History?: Yes - Past Social History Smoking Status: Never Smoked - CARDIAC Hx Cardiac Disorders: Yes Hx Hypercholesterolemia: Yes Hx Hypertension: Yes - PULMONARY Hx Respiratory Disorders: Yes Hx Asthma: Yes Hx Bronchitis: Yes Hx Chronic Obstructive Pulmonary Disease (COPD): Yes - NEUROLOGICAL Hx Neurological Disorder: No Hx Alzheimer's Disease: No - HEENT Hx HEENT Problems: Yes Other/Comment: RT EYE DEVIATION CORRECTION. PT WEARS GLASSES - RENAL Hx Chronic Kidney Disease: No - ENDOCRINE/METABOLIC Hx Endocrine Disorders: Yes Hx Diabetes Mellitus Type 2: Yes - HEMATOLOGICAL/ONCOLOGICAL Hx Blood Disorders: No Hx Human Immunodeficiency Virus (HIV): No - INTEGUMENTARY Hx Dermatological Problems: No - MUSCULOSKELETAL/RHEUMATOLOGICAL Hx Musculoskeletal Disorders: Yes Hx Falls: No Other/Comment: HAMMER TOES - GASTROINTESTINAL Hx Gastrointestinal Disorders: No - GENITOURINARY/GYNECOLOGICAL Hx Genitourinary Disorders: No - PSYCHIATRIC Hx Psychophysiologic Disorder: Yes Hx Anxiety: Yes Hx Substance Use: No - SURGICAL HISTORY Hx Surgeries: Yes Hx Appendectomy: Yes Hx Cholecystectomy: Yes Hx Herniorrhaphy: Yes Hx Tonsillectomy: Yes - ANESTHESIA Hx Anesthesia: Yes Hx Anesthesia Reactions: No Hx Malignant Hyperthermia: No Meds Allergies/Adverse Reactions: Allergies Allergy/AdvReac Type Severity Reaction Status Date / Time Penicillins Allergy URTICARIA Verified 11/22/17 17:47 - Medications Medications: Current Medications Al Hydrox/Mg Hydrox/Simethicone (Maalox Plus 30 Ml) 30 ml PO Q6 PRN PRN Reason: Indigestion / Heartburn Last Admin: 11/23/17 10:25 Dose: 30 ml Albuterol (Ventolin Hfa 90 Mcg/Actuation (8 G)) 1 puff INH BID PRN PRN Reason: Shortness of Breath Last Admin: 11/22/17 23:19 Dose: 1 puff Albuterol/Ipratropium (Duoneb 3 Mg/0.5 Mg (3 Ml) Ud) 3 ml INH RQID SARAH Last Admin: 11/24/17 07:39 Dose: 3 ml Aspirin (Aspirin Chewable) 81 mg PO DAILY SARAH Last Admin: 11/23/17 08:34 Dose: 81 mg Atorvastatin Calcium (Lipitor) 10 mg PO HS SARAH Last Admin: 11/23/17 22:52 Dose: Not Given Guaifenesin (Robitussin) 100 mg PO Q6 PRN PRN Reason: Cough Last Admin: 11/23/17 08:36 Dose: 100 mg Ibuprofen (Motrin Tab) 400 mg PO Q8H [facility] Last Admin: 11/24/17 04:57 Dose: Not Given Lidocaine (Lidoderm) 1 ea TD DAILY [facility] Last Admin: 11/23/17 09:58 Dose: 1 ea Metformin HCl (Glucophage) 500 mg PO BID [facility] Last Admin: 11/23/17 21:56 Dose: 500 mg Metoprolol Tartrate (Lopressor) 25 mg PO DAILY [facility] Last Admin: 11/23/17 08:33 Dose: Not Given Montelukast Sodium (Singulair) 10 mg PO DAILY [facility] Last Admin: 11/23/17 08:35 Dose: 10 mg Pantoprazole Sodium (Protonix Ec Tab) 40 mg PO DAILY [facility] Last Admin: 11/23/17 09:58 Dose: 40 mg Zolpidem Tartrate (Ambien) 5 mg PO HS PRN PRN Reason: Insomnia Last Admin: 11/23/17 22:52 Dose: 5 mg Results - Vital Signs Recent Vital Signs: Last Vital Signs Temp 97.7 F 11/24/17 04:51 Pulse 73 11/24/17 04:51 Resp 16 11/24/17 04:51 BP 105/72 11/24/17 04:51 Pulse Ox 94 L 11/24/17 04:51 - Labs Result Diagrams: 11/23/17 07:00 11/22/17 18:12 Labs: Laboratory Results - last 24 hr 11/23/17 11/23/17 11/23/17 09:07 09:07 11:26 POC Glucose (mg/dL) 104 Troponin I < 0.0120 Triglycerides 214 H D Cholesterol 179 LDL Cholesterol Direct 110 HDL Cholesterol 26 L TSH 3rd Generation 5.12 H 11/23/17 11/23/17 11/24/17 16:57 21:29 05:18 POC Glucose (mg/dL) 100 93 108 Troponin I Triglycerides Cholesterol LDL Cholesterol Direct HDL Cholesterol TSH 3rd Generation
[2017-11-24] MEDS: Pantoprazole 40 mg EC Tab PO SCH (08:28)
[2017-11-24] MEDS: Lidocaine 5% Patch TD SCH (08:29)
--- NOTE | 2017-11-24 10:25 | CP.PCM.DIS ---
Provider - Provider Date of Admission: 11/22/17 18:55 Attending physician: Luis E Erickson MD Primary care physician: Yuriy Joaquin MD Time Spent in preparation of Discharge (in minutes): 30 Diagnosis - Discharge Diagnosis (1) Chest pain Status: Acute (2) Anxiety Status: Acute (3) Asthma Status: Acute (4) Bronchitis Status: Acute (5) HTN (hypertension) Status: Acute Hospital Course - Lab Results Lab Results: Most Recent Lab Values WBC 7.6 K/uL (4.8-10.8) 11/23/17 07:00 RBC 4.56 Mil/uL (3.80-5.20) 11/23/17 07:00 Hgb 13.5 g/dL (12.0-16.0) 11/23/17 07:00 Hct 39.9 % (34.0-47.0) 11/23/17 07:00 MCV 87.4 fl (81.0-99.0) 11/23/17 07:00 MCH 29.5 pg (27.0-31.0) 11/23/17 07:00 MCHC 33.8 g/dL (33.0-37.0) 11/23/17 07:00 RDW 13.9 % (11.5-14.5) 11/23/17 07:00 Plt Count 328 K/uL (130-400) 11/23/17 07:00 MPV 7.3 fl (7.2-11.7) 11/22/17 18:12 Neut % (Auto) 51.9 % (50.0-75.0) 11/22/17 18:12 Lymph % (Auto) 39.4 % (20.0-40.0) 11/22/17 18:12 Becker % (Auto) 5.8 % (0.0-10.0) 11/22/17 18:12 Eos % (Auto) 2.2 % (0.0-4.0) 11/22/17 18:12 Baso % (Auto) 0.7 % (0.0-2.0) 11/22/17 18:12 Neut # (Auto) 4.2 K/uL (1.8-7.0) 11/22/17 18:12 Lymph # (Auto) 3.2 K/uL (1.0-4.3) 11/22/17 18:12 Becker # (Auto) 0.5 K/uL (0.0-0.8) 11/22/17 18:12 Eos # (Auto) 0.2 K/uL (0.0-0.7) 11/22/17 18:12 Baso # (Auto) 0.1 K/uL (0.0-0.2) 11/22/17 18:12 Sodium 142 mmol/l (132-148) 11/22/17 18:12 Potassium 3.9 MMOL/L (3.6-5.0) 11/22/17 18:12 Chloride 109 mmol/L (98-107) H 11/22/17 18:12 Carbon Dioxide 23 mmol/L (22-30) 11/22/17 18:12 Anion Gap 14 (10-20) 11/22/17 18:12 BUN 12 mg/dl (7-17) 11/22/17 18:12 Creatinine 0.7 mg/dl (0.7-1.2) 11/22/17 18:12 Est GFR ( Amer) > 60 11/22/17 18:12 Est GFR (Non-Af Amer) > 60 11/22/17 18:12 POC Glucose (mg/dL) 108 mg/dL (65-110) 11/24/17 05:18 Random Glucose 99 mg/dL (65-105) 11/22/17 18:12 Calcium 9.4 mg/dL (8.4-10.2) 11/22/17 18:12 Total Bilirubin 0.8 mg/dl (0.2-1.3) 11/22/17 18:12 AST 40 U/L (14-36) H D 11/22/17 18:12 ALT 67 U/L (9-52) H 11/22/17 18:12 Alkaline Phosphatase 86 U/L (38-126) 11/22/17 18:12 Troponin I < 0.0120 ng/mL (0.00-0.120) 11/23/17 09:07 Total Protein 8.0 G/DL (6.3-8.2) 11/22/17 18:12 Albumin 4.3 g/dL (3.5-5.0) 11/22/17 18:12 Globulin 3.8 gm/dL (2.2-3.9) 11/22/17 18:12 Albumin/Globulin Ratio 1.1 (1.0-2.1) 11/22/17 18:12 Triglycerides 214 mg/DL (0-149) H D 11/23/17 09:07 Cholesterol 179 mg/dL (0-199) 11/23/17 09:07 LDL Cholesterol Direct 110 mg/dL (0-129) 11/23/17 09:07 HDL Cholesterol 26 MG/DL (30-70) L 11/23/17 09:07 TSH 3rd Generation 5.12 mIU/ML (0.46-4.68) H 11/23/17 09:07 - Hospital Course Hospital Course: This is a 57 y/o female admitted for chest pain. She had paplpitation and chest pain for a day prior to Er visist, EKG and troponins were negative. She also complained of left lower anterior rib cage pain an epigastric pains. Dr Enrique was called for Cardiology eval. She was kept for 24 hrs due to persistent symptoms and was discrged in stable condition and advised follow up with Dr Enrique for further outpatient cardiac eval Discharge Exam - Head Exam Head Exam: NORMAL INSPECTION - Eye Exam Eye Exam: Normal appearance - Respiratory Exam Respiratory Exam: Clear to PA & Lateral - Cardiovascular Exam Cardiovascular Exam: REGULAR RHYTHM - GI/Abdominal Exam GI & Abdominal Exam: Normal Bowel Sounds - Neurological Exam Neurological exam: CN II-XII Intact, Oriented x3 - Skin Skin Exam: Normal Color Discharge Plan - Discharge Medications Prescriptions: Zolpidem [Ambien] 5 mg PO HS #14 tab Lidocaine 5% [Lidoderm] 1 ea TD DAILY #20 patch - Follow Up Plan Condition: FAIR Disposition: HOME/ ROUTINE Instructions: Chest Pain Additional Instructions: follow up with for outpatient stress test. Luis E erickson M.D. Referrals: Yuriy Joaquin MD [Primary Care Provider] - Renata Enrique MD [Staff Provider] -
[2017-11-24 11:55] VITALS: BP 132/83; PULSE 89; RESP 20; TEMP 98.4; O2SAT 97
== END 2017-11-24 13:15 | disposition home or self-care (01) ==
LOC: H.ER 17:45 → H.ERHOLD 18:55 → H.TEL 20:37
PROVIDERS: ADMIT Family Medicine; ATTEND Family Medicine
DX: R07.89 Other chest pain (principal); J44.9 Chronic obstructive pulmonary disease, unspecified; Z90.49 Acquired absence of other specified parts of digestive tract; F45.9 Somatoform disorder, unspecified; H51.8 Other specified disorders of binocular movement; J45.901 Unspecified asthma with (acute) exacerbation; Z79.84 Long term (current) use of oral hypoglycemic drugs; Z79.899 Other long term (current) drug therapy; E11.9 Type 2 diabetes mellitus without complications; E78.00 Pure hypercholesterolemia, unspecified; F41.9 Anxiety disorder, unspecified; I10 Essential (primary) hypertension; I95.1 Orthostatic hypotension
CPT/HCPCS: 36415; 71046; 80053; 80061; 82948; 84443; 84484; 85025; 85027; 93005; 94640; 99285; G0378; J7030; J7040

== ENCOUNTER 2018-03-07 14:36 | Emergency (ER) | payer MEDICAID ==
[2018-03-07 14:36] VITALS: BMI 36.2
[2018-03-07 14:43] VITALS: BP 128/68; PULSE 94; RESP 16; TEMP 97; O2SAT 98
--- NOTE | 2018-03-07 15:04 | ED PDOC ---
Upper Extremity Pain/Injury Time Seen by Provider: 03/07/18 14:44 Chief Complaint (Nursing): Upper Extremity Problem/Injury Chief Complaint (Provider): Right Wrist Pain History Per: Patient History/Exam Limitations: no limitations Onset/Duration Of Symptoms: Days Current Symptoms Are (Timing): Still Present Quality: "Pain" Additional Complaint(s): 57 year old female who is right-hand dominate with HTN and high cholesterol presents to the ER for an evaluation of right wrist pain onset today morning after waking up. Patient reports pain with movement of the thumb and she took Advil for relief. She denies any fall or injury prior to arrival. PMD: Yuriy Joaquin Past Medical History Reviewed: Historical Data, Nursing Documentation, Vital Signs Vital Signs: Last Vital Signs Temp 97 F L 03/07/18 14:39 Pulse 94 H 03/07/18 14:39 Resp 16 03/07/18 14:39 BP 128/68 03/07/18 14:39 Pulse Ox 98 03/07/18 14:39 - Medical History PMH: Anxiety, Asthma, Bronchitis, COPD, Diabetes, HTN, Hypercholesterolemia Denies: Alzheimer's Disease, HIV, Chronic Kidney Disease - Surgical History Surgical History: Appendectomy, Cholecystectomy, Hernia Repair, Tonsillectomy - Family History Family History: States: Unknown Family Hx, CAD, Diabetes - Social History Current smoker - smoking cessation education provided: No Alcohol: None Drugs: Denies - Immunization History Hx Tetanus Toxoid Vaccination: Yes Hx Influenza Vaccination: Yes Hx Pneumococcal Vaccination: Yes - Home Medications Home Medications: Ambulatory Orders Medication Instructions Recorded Atorvastatin Calcium 10 mg PO HS 12/13/15 Montelukast Sodium 10 mg PO DAILY 12/13/15 Albuterol HFA [Ventolin HFA 90 1 puff INH BID PRN 03/08/17 mcg/actuation (8 g)] Metoprolol Tartrate [Lopressor] 25 mg PO DAILY 03/08/17 metFORMIN [glucOPHAGE] 500 mg PO BID 03/08/17 Nitroglycerin [Nitrostat] 0.4 mg PO DAILY PRN 10/09/17 Home Med 1 puff INH BID 11/22/17 Lidocaine 5% [Lidoderm] 1 ea TD DAILY #20 patch 11/24/17 Zolpidem [Ambien] 5 mg PO HS #14 tab 11/24/17 Ibuprofen [Motrin] 600 mg PO Q8 PRN #21 tab 03/07/18 - Allergies Allergies/Adverse Reactions: Allergies Allergy/AdvReac Type Severity Reaction Status Date / Time Penicillins Allergy URTICARIA Verified 03/07/18 14:39 Review of Systems ROS Statement: Except As Marked, All Systems Reviewed And Found Negative Constitutional: Negative for: Fever Musculoskeletal: Positive for: Other (Right Wrist Pain) Neurological: Negative for: Weakness, Numbness, Other (tingling ) Psych: Negative for: Suicidal ideation (homicidal ideation ) Physical Exam - Reviewed Nursing Documentation Reviewed: Yes Vital Signs Reviewed: Yes - Physical Exam Appears: Positive for: Well, Non-toxic, No Acute Distress Head Exam: Positive for: ATRAUMATIC, NORMAL INSPECTION, NORMOCEPHALIC Skin: Positive for: Normal Color, Warm, Dry. Negative for: Rash Eye Exam: Positive for: Normal appearance Extremity: Positive for: Tenderness (by ulnar collateral ligament). Negative for: Normal ROM (limited ROM secondary to pain), Deformity Neurologic/Psych: Positive for: Alert, Oriented (x3). Negative for: Motor/Sensory Deficits - ECG O2 Sat by Pulse Oximetry: 98 (RA) Pulse Ox Interpretation: Normal Medical Decision Making Medical Decision Making: Time: 1449 --Wrist Right 3 Views [RAD] --Motrin 600mg --Reevaluation Time: 1531 PROCEDURE: Right Wrist Radiographs. HISTORY: WRIST PAIN COMPARISON: None. FINDINGS: BONES: Three views of the right wrist were performed. No fracture is seen. No periosteal reaction is noted. No lytic process is seen. Carpal bones are unremarkable. No chondrocalcinosis is seen. No significant soft tissue swelling is noted. JOINTS: Normal. No dislocation. SOFT TISSUES: Normal. OTHER FINDINGS: None. IMPRESSION: Normal right wrist radiographs. Scribe Attestation: Documented by Jennifer Copeland, acting as a scribe for Setu B Almeida, PA-C. Provider Scribe Attestation: All medical record entries made by the Scribe were at my direction and personally dictated by me. I have reviewed the chart and agree that the record accurately reflects my personal performance of the history, physical exam, medical decision making, and the department course for this patient. I have also personally directed, reviewed, and agree with the discharge instructions and disposition. Disposition - Clinical Impression Clinical Impression: Wrist pain, right - Patient ED Disposition Is Patient to be Admitted: No - Disposition Referrals: Dunia Whitaker MD [Staff Provider] - Disposition: Routine/Home Disposition Time: 15:26 Condition: FAIR Prescriptions: Ibuprofen [Motrin] 600 mg PO Q8 PRN #21 tab PRN Reason: Pain, Moderate (4-7) Instructions: Wrist Sprain (DC) Forms: [facility] ED School/Work Excuse
--- NOTE | 2018-03-07 15:34 | RAD ---
Date of service: 03/07/2018 PROCEDURE: Right Wrist Radiographs. HISTORY: WRIST PAIN COMPARISON: None. FINDINGS: BONES: Three views of the right wrist were performed. No fracture is seen. No periosteal reaction is noted. No lytic process is seen. Carpal bones are unremarkable. No chondrocalcinosis is seen. No significant soft tissue swelling is noted. JOINTS: Normal. No dislocation. SOFT TISSUES: Normal. OTHER FINDINGS: None. IMPRESSION: Normal right wrist radiographs.
== END 2018-03-07 15:25 | disposition home or self-care (01) ==
LOC: H.ER 14:36
DX: M25.531 Pain in right wrist (principal); E11.9 Type 2 diabetes mellitus without complications; E78.00 Pure hypercholesterolemia, unspecified; F41.9 Anxiety disorder, unspecified; I10 Essential (primary) hypertension; Z79.84 Long term (current) use of oral hypoglycemic drugs; Z88.0 Allergy status to penicillin

== ENCOUNTER 2018-03-30 15:00 | Emergency (ER) | payer MEDICAID ==
[2018-03-30 15:00] VITALS: BMI 36.2
[2018-03-30 15:28] VITALS: BP 111/77; PULSE 90; RESP 19; TEMP 98.7; O2SAT 96
== END 2018-03-30 16:56 | disposition left against medical advice (07) ==
LOC: H.ER 15:00
DX: Z02.89 Encounter for other administrative examinations (principal)

== ENCOUNTER 2018-04-11 20:07 | Emergency (ER) | payer MEDICAID ==
[2018-04-11 20:07] VITALS: BMI 36.2
[2018-04-11 20:16] VITALS: BP 133/80; PULSE 82; RESP 18; TEMP 97.3; O2SAT 98
--- NOTE | 2018-04-11 21:45 | ED PDOC ---
Upper Extremity Pain/Injury Time Seen by Provider: 04/11/18 20:56 Chief Complaint (Nursing): Finger,Hand,&Wrist Chief Complaint (Provider): right wrist pain History Per: Patient History/Exam Limitations: no limitations Onset/Duration Of Symptoms: Days (x2) Current Symptoms Are (Timing): Still Present Additional Complaint(s): Jeane Mann, a 57 year old with a past medical medical history of hypertension, hyperlipidemia, diabetes, and asthma, presents to the ED complaining of right wrist pain onset x2 days ago. She states the pain occasionally shoots up her arm to her shoulder, and she took Advil at 3pm and 7pm today. Patient reports waking up with pain in wrist and mild weakness to pain. She states she has been cooking a lot lately, but unable to do so now due to pain. She reports the pain is localized closest to thumb and denies trauma and numbness or tingling in hand. PCP: none provided Past Medical History Reviewed: Historical Data, Nursing Documentation, Vital Signs Vital Signs: Last Vital Signs Temp 97.3 F L 04/11/18 20:14 Pulse 82 04/11/18 20:14 Resp 18 04/11/18 20:14 BP 133/80 04/11/18 20:14 Pulse Ox 98 04/11/18 20:14 - Medical History PMH: Anxiety, Asthma, Bronchitis, COPD, Diabetes, HTN, Hypercholesterolemia Denies: Alzheimer's Disease, HIV, Chronic Kidney Disease - Surgical History Surgical History: Appendectomy, Cholecystectomy, Hernia Repair, Tonsillectomy - Family History Family History: States: Unknown Family Hx, CAD, Diabetes - Immunization History Hx Tetanus Toxoid Vaccination: Yes Hx Influenza Vaccination: Yes Hx Pneumococcal Vaccination: Yes - Home Medications Home Medications: Ambulatory Orders Medication Instructions Recorded RX: Atorvastatin Calcium 10 mg PO HS 12/13/15 RX: Montelukast Sodium 10 mg PO DAILY 12/13/15 RX: Albuterol HFA [Ventolin HFA 90 1 puff INH BID PRN 03/08/17 mcg/actuation (8 g)] RX: Metoprolol Tartrate [Lopressor] 25 mg PO DAILY 03/08/17 RX: metFORMIN [glucOPHAGE] 500 mg PO BID 03/08/17 RX: Nitroglycerin [Nitrostat] 0.4 mg PO DAILY PRN 10/09/17 RX: Home Med 1 puff INH BID 11/22/17 RX: Lidocaine 5% [Lidoderm] 1 ea TD DAILY #20 patch 11/24/17 Zolpidem [Ambien] 5 mg PO HS #14 tab 11/24/17 Ibuprofen [Motrin] 600 mg PO Q8 PRN #21 tab 03/07/18 Lidocaine 5% [Lidoderm] 1 patch TOP DAILY 7 Days patch 04/11/18 RX: Naproxen 500 mg PO BID PRN 7 Days tab 04/11/18 - Allergies Allergies/Adverse Reactions: Allergies Allergy/AdvReac Type Severity Reaction Status Date / Time Penicillins Allergy URTICARIA Verified 04/11/18 20:14 Review of Systems ROS Statement: Except As Marked, All Systems Reviewed And Found Negative Neurological: Positive for: Weakness (mild weakness to pain at wrist). Negative for: Numbness (numbness or tingling in hand) Physical Exam - Reviewed Nursing Documentation Reviewed: Yes Vital Signs Reviewed: Yes - Physical Exam Appears: Positive for: Uncomfortable Head Exam: Positive for: ATRAUMATIC Neck: Positive for: Painless ROM, Supple Extremity: Positive for: Normal ROM (at right elbow and right shoulder), Capillary Refill (less than 3 seconds), Swelling (right forearm at the lateral aspect closest to hand with tenderness upon palpation along right lateral forearm to thumb. ), Other (positive beulah test right upper extremity) Neurologic/Psych: Positive for: Other (light touch sensation intact to right arm, right hand, and right shoulder. ) - ECG O2 Sat by Pulse Oximetry: 98 (RA) Pulse Ox Interpretation: Normal Medical Decision Making Medical Decision Making: Time: 2124 Initial plan: --X-ray right forearm --X-ray right wrist --Tylenol 650 mg PO - Lidoderm patch to R wrist Re-evaluated at 22:05: X-ray R wrist and forearm reviewed with Dr. Montes: No fracture or acute abnormality noted Pt feeling some improvement after Lidoderm and Tylenol. Ready for D/C Scribe Attestation: Documented by Javi Denny, acting as a scribe for Kalee Perez PA-C Provider Scribe Attestation: All medical record entries made by the Scribe were at my direction and personally dictated by me. I have reviewed the chart and agree that the record accurately reflects my personal performance of the history, physical exam, medical decision making, and the department course for this patient. I have also personally directed, reviewed, and agree with the discharge instructions and disposition. Disposition - Clinical Impression Clinical Impression: Wrist pain, right - Patient ED Disposition Is Patient to be Admitted: No Counseled Patient/Family Regarding: Studies Performed, Diagnosis, Need For Followup, Rx Given - Disposition Referrals: Luis Angel Bush MD [Medical Doctor] - Disposition: Routine/Home Disposition Time: 22:26 Condition: IMPROVED Additional Instructions: F/u with orthopedist for possible tendonitis. Use thumb spica splint as needed. Naproxen for pain. Prescriptions: Lidocaine 5% [Lidoderm] 1 patch TOP DAILY 7 Days patch RX: Naproxen 500 mg PO BID PRN 7 Days tab PRN Reason: Pain, Moderate (4-7) Instructions: Tenosynovitis (DC) Forms: [employer] (Somali) Print Language: PRYDEINIG
[2018-04-11] MEDS ORDERED: Acetaminophen 160 mg/5 ml UD ONE (22:00)
[2018-04-11] MEDS ORDERED: Lidocaine 5% Patch TD ONE (22:17)
--- NOTE | 2018-04-12 08:36 | RAD ---
Date of service: 04/11/2018 PROCEDURE: Right Wrist Radiographs. HISTORY: acute Right wrist pain COMPARISON: 03/07/2018 FINDINGS: BONES: Three views of the right wrist were performed and compared to the prior examination. No new fracture is seen. No new malalignment of the carpal bones is noted. No new abnormal carpal bone widening is seen. No lytic process or periosteal reaction is seen. Radiocarpal joint is stable. No new erosions are noted. Metacarpals are intact. JOINTS: There is mild negative ulnar variance appreciated. No interval change from prior study. SOFT TISSUES: Normal. OTHER FINDINGS: None. IMPRESSION: No fracture. No interval change from prior study.
--- NOTE | 2018-04-12 08:38 | RAD ---
PROCEDURE: Radiographs of the Right Forearm HISTORY: acute Right forearm pain COMPARISON: None available. TECHNIQUE: Frontal and lateral views obtained. FINDINGS: BONES: No fracture or destructive lesion. JOINT SPACES: Visualized right elbow and right wrist show no evidence of fracture or dislocation. No periosteal reaction is identified in the forearm region. OTHER FINDINGS: None. IMPRESSION: Unremarkable radiographs of the right forearm.
[2018-04-12] MEDS ORDERED: Lidocaine 5% Patch TD SCH (09:00)
[2018-04-12] MEDS ORDERED: Lidocaine 5% Patch TD ONE (22:25)
== END 2018-04-11 22:26 | disposition home or self-care (01) ==
LOC: H.ER 20:07
DX: M25.531 Pain in right wrist (principal); E11.9 Type 2 diabetes mellitus without complications; I10 Essential (primary) hypertension; J44.9 Chronic obstructive pulmonary disease, unspecified; Z79.84 Long term (current) use of oral hypoglycemic drugs; Z82.49 Family history of ischemic heart disease and other diseases of the circulatory system; Z88.0 Allergy status to penicillin; E78.00 Pure hypercholesterolemia, unspecified

== ENCOUNTER 2018-06-07 17:59 | Emergency (ER) | payer MEDICAID ==
[2018-06-07 18:00] VITALS: BMI 36.2
[2018-06-07 18:18] VITALS: O2SAT 100
[2018-06-07] MEDS ORDERED: Albuterol-Ipratrop 3 mg / 0.5 (3 ml) UD IH STA ×3 (18:28→18:30)
--- NOTE | 2018-06-07 18:34 | ED PDOC ---
HPI: SOB/CHF/COPD Time Seen by Provider: 06/07/18 18:08 Chief Complaint (Nursing): Respiratory Distress Chief Complaint (Provider): shortness of breath History Per: Patient History/Exam Limitations: no limitations Onset/Duration Of Symptoms: Days (2 weeks) Current Symptoms Are (Timing): Still Present Additional Complaint(s): 57 y/o female presents for evaluation of shortness of breath x 2 weeks. Patient states symptoms consistent with previous asthma attacks. Associated cough, productive of yellow phlegm. Patient states she was evaluated by her primary doctor initially and given one steroid injection with some improvement, but symptoms returned shortly after. Denies fever, nasal congestion/discharge, chest pain, palpitations, leg pain/swelling Past Medical History Reviewed: Historical Data, Nursing Documentation, Vital Signs Vital Signs: Last Vital Signs Temp 97.7 F 06/07/18 18:01 Pulse 98 H 06/07/18 18:09 Resp 19 06/07/18 18:14 BP 130/72 06/07/18 18:01 Pulse Ox 100 06/07/18 18:14 - Medical History PMH: Anxiety, Asthma, Bronchitis, COPD, Diabetes, HTN, Hypercholesterolemia Denies: Alzheimer's Disease, HIV, Chronic Kidney Disease - Surgical History Surgical History: Appendectomy, Cholecystectomy, Hernia Repair, Tonsillectomy - Family History Family History: States: Unknown Family Hx, CAD, Diabetes - Immunization History Hx Tetanus Toxoid Vaccination: Yes Hx Influenza Vaccination: Yes Hx Pneumococcal Vaccination: Yes - Home Medications Home Medications: Ambulatory Orders Medication Instructions Recorded Atorvastatin Calcium 10 mg PO HS 12/13/15 Montelukast Sodium 10 mg PO DAILY 12/13/15 Albuterol HFA [Ventolin HFA 90 1 puff INH BID PRN 03/08/17 mcg/actuation (8 g)] Metoprolol Tartrate [Lopressor] 25 mg PO DAILY 03/08/17 metFORMIN [glucOPHAGE] 500 mg PO BID 03/08/17 Nitroglycerin [Nitrostat] 0.4 mg PO DAILY PRN 10/09/17 Home Med 1 puff INH BID 11/22/17 Lidocaine 5% [Lidoderm] 1 ea TD DAILY #20 patch 11/24/17 Zolpidem [Ambien] 5 mg PO HS #14 tab 11/24/17 Ibuprofen [Motrin] 600 mg PO Q8 PRN #21 tab 03/07/18 Lidocaine 5% [Lidoderm] 1 patch TOP DAILY 7 Days patch 04/11/18 Naproxen 500 mg PO BID PRN 7 Days tab 04/11/18 predniSONE [Prednisone] 60 mg PO DAILY #12 tab 06/07/18 - Allergies Allergies/Adverse Reactions: Allergies Allergy/AdvReac Type Severity Reaction Status Date / Time Penicillins Allergy URTICARIA Verified 04/11/18 20:14 Review of Systems ROS Statement: Except As Marked, All Systems Reviewed And Found Negative Respiratory: Positive for: Cough, Shortness of Breath, Sputum, Wheezing Physical Exam - Reviewed Nursing Documentation Reviewed: Yes Vital Signs Reviewed: Yes - Physical Exam Appears: Positive for: Well, Non-toxic, No Acute Distress Head Exam: Positive for: ATRAUMATIC, NORMAL INSPECTION, NORMOCEPHALIC Skin: Positive for: Normal Color Eye Exam: Positive for: Normal appearance ENT: Positive for: Normal ENT Inspection Cardiovascular/Chest: Positive for: Regular Rate, Rhythm Respiratory: Positive for: Decreased Breath Sounds Gastrointestinal/Abdominal: Positive for: Normal Exam Back: Positive for: Normal Inspection Extremity: Positive for: Normal ROM Neurologic/Psych: Positive for: Alert, Oriented (x3) - Laboratory Results Result Diagrams: 06/07/18 19:00 06/07/18 19:00 - ECG O2 Sat by Pulse Oximetry: 100 - Progress ED Course And Treament: -cbc -cmp -influenza -ekg -cxr -IV solumedrol -duoneb x3 Disposition - Clinical Impression Clinical Impression: Bronchitis - Disposition Disposition Time: 08:00 Condition: IMPROVED Prescriptions: predniSONE [Prednisone] 60 mg PO DAILY #12 tab Instructions: Acute Bronchitis Forms: [employer] (Kyrgyz) Patient Signed Over To: Donavan Almeida Handoff Comments: p'ing ekg, re-eval
[2018-06-07] MEDS ORDERED: Albuterol-Ipratrop 3 mg / 0.5 (3 ml) UD ONE ×2 (19:03→19:04)
[2018-06-07 19:11] LABS: BASO # 0.1 K/uL (0.0-0.2); EOS # 0.2 K/uL (0.0-0.7); EOS % 1.9 % (0.0-4.0); HEMOGLOBIN 14.6 g/dL (12.0-16.0); LYMPH # 4.5 K/uL (1.0-4.3); MEAN CORPUSCULAR HEMOGLOBIN 30.1 pg (27.0-31.0); MEAN CORPUSCULAR HGB CONC 34.6 g/dL (33.0-37.0); MEAN PLATELET VOLUME 7.1 fl (7.2-11.7); MONO # 0.6 K/uL (0.0-0.8); MONO % 6.2 % (0.0-10.0); NEUT # 4.6 K/uL (1.8-7.0); NEUT % 45.9 % (50.0-75.0); NRBC % 0.1 % (0.0-0.0); RBC 4.86 Mil/uL (3.80-5.20); RED CELL DISTRIBUTION WIDTH 13.2 % (11.5-14.5)
[2018-06-07 19:23] LABS: ALB/GLOB RATIO 1.2 (1.0-2.1); ALBUMIN 4.3 g/dL (3.5-5.0); ALT/SGPT 29 U/L (9-52); AST/SGOT 29 U/L (14-36); BLOOD UREA NITROGEN 17 mg/dl (7-17); CALCIUM 9.1 mg/dL (8.4-10.2); GFR NON-AFRICAN AMERICAN 57
[2018-06-07 20:41] VITALS: BP 124/68; PULSE 91; RESP 20; TEMP 98
--- NOTE | 2018-06-08 08:48 | RAD ---
Date of service: 06/07/2018 HISTORY: Cough and shortness of breath COMPARISON: 11/22/2017. TECHNIQUE: Chest PA and lateral FINDINGS: LINES AND TUBES: None. LUNG AND PLEURA: The lungs are well inflated. There is subsegmental atelectasis in the lower lobes. No focal consolidation. No pleural effusion or pneumothorax. HEART AND MEDIASTINUM: The heart is not enlarged. No aortic atherosclerotic calcification present. The hilar and mediastinal contours are within normal limits. SKELETAL STRUCTURES: The bony structures are within normal limits for the patient's age. VISUALIZED UPPER ABDOMEN: Normal. OTHER FINDINGS: None. IMPRESSION: No active pulmonary disease.
--- NOTE | 2018-06-08 16:39 | CARD ---
APPROVED REPORT Date of service: 06/07/2018 EKG Measurement Heart [id number] <Conclusion> Normal sinus rhythm Normal ECG
== END 2018-06-07 20:40 | disposition home or self-care (01) ==
LOC: H.ER 17:59
DX: J40 Bronchitis, not specified as acute or chronic (principal); E11.9 Type 2 diabetes mellitus without complications; E78.00 Pure hypercholesterolemia, unspecified; I10 Essential (primary) hypertension; Z79.84 Long term (current) use of oral hypoglycemic drugs; Z88.0 Allergy status to penicillin; J44.9 Chronic obstructive pulmonary disease, unspecified
CPT/HCPCS: 71046; 80053; 85025; 87804; 93005; 94640; 96374; 99284; J2930

== ENCOUNTER 2018-08-28 17:20 | Emergency (ER) | payer MEDICAID ==
[2018-08-28 17:20] VITALS: BMI 36.2
[2018-08-28 18:41] VITALS: BP 119/78; PULSE 98; RESP 18; TEMP 98.5; O2SAT 99
--- NOTE | 2018-08-28 21:10 | ED PDOC ---
HPI: General Adult Time Seen by Provider: 08/28/18 19:35 Chief Complaint (Nursing): ENT Problem Chief Complaint (Provider): Nasal Congestion, Cough, Sore Throat History Per: Patient History/Exam Limitations: no limitations Onset/Duration Of Symptoms: Days (x1) Current Symptoms Are (Timing): Still Present Additional Complaint(s): 57 year old female h/o asthma presents to the ED for evaluation of greenish nasal congestion, sore throat worse with swallowing, and occasional non- productive cough for the past day. Patient reports taking Tylenol and Ibuprofen with mild relief, last dose for the latter earlier this morning. She notes not using her inhaler as she is out. Otherwise, denies fever, shortness of breath, difficulty breathing, recent travel, and sick contact. PMD: Abdirahman Tan Past Medical History Reviewed: Historical Data, Nursing Documentation, Vital Signs Vital Signs: Last Vital Signs Temp 98.5 F 08/28/18 18:37 Pulse 98 H 08/28/18 18:37 Resp 18 08/28/18 18:37 BP 119/78 08/28/18 18:37 Pulse Ox 99 08/28/18 18:37 - Medical History PMH: Anxiety, Asthma, Bronchitis, COPD, Diabetes, HTN, Hypercholesterolemia Denies: Alzheimer's Disease, HIV, Chronic Kidney Disease - Surgical History Surgical History: Appendectomy, Cholecystectomy, Hernia Repair, Tonsillectomy - Family History Family History: States: Unknown Family Hx, CAD, Diabetes - Social History Current smoker - smoking cessation education provided: No Alcohol: None Drugs: Denies - Immunization History Hx Tetanus Toxoid Vaccination: Yes Hx Influenza Vaccination: Yes Hx Pneumococcal Vaccination: Yes - Home Medications Home Medications: Ambulatory Orders Medication Instructions Recorded Atorvastatin Calcium 10 mg PO HS 12/13/15 Montelukast Sodium 10 mg PO DAILY 12/13/15 Albuterol HFA [Ventolin HFA 90 1 puff INH BID PRN 03/08/17 mcg/actuation (8 g)] Metoprolol Tartrate [Lopressor] 25 mg PO DAILY 03/08/17 metFORMIN [glucOPHAGE] 500 mg PO BID 03/08/17 Nitroglycerin [Nitrostat] 0.4 mg PO DAILY PRN 10/09/17 Home Med 1 puff INH BID 11/22/17 Lidocaine 5% [Lidoderm] 1 ea TD DAILY #20 patch 11/24/17 Zolpidem [Ambien] 5 mg PO HS #14 tab 11/24/17 Ibuprofen [Motrin] 600 mg PO Q8 PRN #21 tab 03/07/18 Lidocaine 5% [Lidoderm] 1 patch TOP DAILY 7 Days patch 04/11/18 Naproxen 500 mg PO BID PRN 7 Days tab 04/11/18 predniSONE [Prednisone] 60 mg PO DAILY #12 tab 06/07/18 Albuterol Sulfate [Ventolin Hfa] 1 puff IH Q4 PRN #1 each 08/28/18 Lidocaine 2% Viscous 5 ml MM Q6 PRN #1 bottle 08/28/18 - Allergies Allergies/Adverse Reactions: Allergies Allergy/AdvReac Type Severity Reaction Status Date / Time Penicillins Allergy URTICARIA Verified 04/11/18 20:14 Review of Systems ROS Statement: Except As Marked, All Systems Reviewed And Found Negative Constitutional: Negative for: Fever ENT: Positive for: Nose Congestion (greenish), Throat Pain Respiratory: Positive for: Cough (dry). Negative for: Shortness of Breath Physical Exam - Reviewed Nursing Documentation Reviewed: Yes Vital Signs Reviewed: Yes - Physical Exam Comments: GENERAL APPEARANCE: Patient is awake, alert, oriented x 3, in no acute distress. SKIN: Warm, dry; (-) cyanosis, (-) rash. (-) Decubitus Ulcer EYES: (-) conjunctival pallor, (-) scleral icterus, (-) conjunctival hemorrhage. ENMT: Mucous membranes moist. Audible nasal congestion. TMs: (-) erythema. Airway patent: (-) stridor. Pharynx: (-) erythema, (-) exudate, (-) swelling. NECK: (-) tenderness, (-) stiffness, (-) meningismus, (-) lymphadenopathy. ABDOMEN AND GI: Soft; (-) tenderness, (-) guarding; (-) organomegaly; (-) mass; (-) CVA tenderness. EXTREMITIES: (-) deformity; (-) cellulitis, (-) lymphangitis; (-) subungual hemorrhage; (-) edema. CARDIOVASCULAR: regular rate and rhythm RESPIRATORY: lungs cleared to auscultation bilaterally. (-) wheezing, (-) rales, (-) rhonchi, respiration easy and non labored, speaking full sentences NEURO AND PSYCH: Mental status as above; (-) focal findings. - ECG O2 Sat by Pulse Oximetry: 99 (RA) Pulse Ox Interpretation: Normal Medical Decision Making Medical Decision Making: Time: 1941 Initial Impression: r/o flu, r/o strep Initial Plan: --Influenza A B swab --Strep swab --Throat culture 2104 Negative for flu a b and strep. Pt is ready to go home, asking for something for throat pain, will give viscous lidocaine to go home with Discussed results, diagnosis, treatment, return precautions and f/u with pt who is understanding, in agreement and stable for dc Scribe Attestation: Documented by Odalis Rick, acting as a scribe for William Tellez PA-C. Provider Scribe Attestation: All medical record entries made by the Scribe were at my direction and personally dictated by me. I have reviewed the chart and agree that the record accurately reflects my personal performance of the history, physical exam, medical decision making, and the department course for this patient. I have also personally directed, reviewed, and agree with the discharge instructions and disposition. Disposition - Clinical Impression Clinical Impression: URI (upper respiratory infection) - Patient ED Disposition Is Patient to be Admitted: No Counseled Patient/Family Regarding: Studies Performed, Diagnosis, Need For Followup, Rx Given - Disposition Referrals: Abdirahman Tan MD [Medical Doctor] - Disposition: Routine/Home Disposition Time: 21:20 Condition: STABLE Additional Instructions: Return to ED for new or worsening symptoms, fever >100.4, difficulty breathing, chest pain, unable to swallow or drooling. Follow up with your primary care dcotor in 3-5 days. Take medications as prescribed for symptoms Prescriptions: Albuterol Sulfate [Ventolin Hfa] 1 puff IH Q4 PRN #1 each PRN Reason: Wheezing Lidocaine 2% Viscous 5 ml MM Q6 PRN #1 bottle PRN Reason: Pain, Moderate (4-7) Instructions: Viral Upper Respiratory Infection, Adult (DC) Forms: [employer] (Welsh) Print Language: ISRAELI - POA Present On Arrival: None
== END 2018-08-28 21:21 | disposition home or self-care (01) ==
LOC: H.ER 17:20
DX: J06.9 Acute upper respiratory infection, unspecified (principal); E11.9 Type 2 diabetes mellitus without complications; E78.00 Pure hypercholesterolemia, unspecified; I10 Essential (primary) hypertension; Z79.84 Long term (current) use of oral hypoglycemic drugs; Z88.0 Allergy status to penicillin; Z79.899 Other long term (current) drug therapy; J44.9 Chronic obstructive pulmonary disease, unspecified

== ENCOUNTER 2018-09-05 19:10 | Emergency (ER) | payer MEDICAID ==
[2018-09-05 19:36] VITALS: BMI 36.3
[2018-09-05 19:38] VITALS: BP 123/76; PULSE 87; RESP 16; TEMP 98.6; O2SAT 95
--- NOTE | 2018-09-05 20:27 | ED PDOC ---
HPI: General Adult Time Seen by Provider: 09/05/18 20:25 Chief Complaint (Nursing): Trauma Chief Complaint (Provider): Trauma History Per: Patient History/Exam Limitations: no limitations Onset/Duration Of Symptoms: Sudden Onset Additional Complaint(s): 57 year old female presents to the ED for an evaluation of trauma to the nose onset today. Patient states she was taking a pot out of her cabinet that fell towards her head. There is an injury to her nose. Otherwise, she denies any blood thinners or loss of consciousness. Past Medical History Reviewed: Historical Data, Nursing Documentation, Vital Signs Vital Signs: Last Vital Signs Temp 98.6 F 09/05/18 19:36 Pulse 87 09/05/18 19:36 Resp 16 09/05/18 19:36 BP 123/76 09/05/18 19:36 Pulse Ox 95 09/05/18 19:36 - Medical History PMH: Anxiety, Asthma, Bronchitis, COPD, Diabetes, HTN, Hypercholesterolemia Denies: Alzheimer's Disease, HIV, Chronic Kidney Disease - Surgical History Surgical History: Appendectomy, Cholecystectomy, Hernia Repair, Tonsillectomy - Family History Family History: States: Unknown Family Hx, CAD, Diabetes - Immunization History Hx Tetanus Toxoid Vaccination: Yes Hx Influenza Vaccination: Yes Hx Pneumococcal Vaccination: Yes - Home Medications Home Medications: Ambulatory Orders Medication Instructions Recorded Atorvastatin Calcium 10 mg PO HS 12/13/15 Montelukast Sodium 10 mg PO DAILY 12/13/15 Albuterol HFA [Ventolin HFA 90 1 puff INH BID PRN 03/08/17 mcg/actuation (8 g)] Metoprolol Tartrate [Lopressor] 25 mg PO DAILY 03/08/17 metFORMIN [glucOPHAGE] 500 mg PO BID 03/08/17 Nitroglycerin [Nitrostat] 0.4 mg PO DAILY PRN 10/09/17 Home Med 1 puff INH BID 11/22/17 Lidocaine 5% [Lidoderm] 1 ea TD DAILY #20 patch 11/24/17 Zolpidem [Ambien] 5 mg PO HS #14 tab 11/24/17 Ibuprofen [Motrin] 600 mg PO Q8 PRN #21 tab 03/07/18 Lidocaine 5% [Lidoderm] 1 patch TOP DAILY 7 Days patch 04/11/18 Naproxen 500 mg PO BID PRN 7 Days tab 04/11/18 predniSONE [Prednisone] 60 mg PO DAILY #12 tab 06/07/18 Albuterol Sulfate [Ventolin Hfa] 1 puff IH Q4 PRN #1 each 08/28/18 Lidocaine 2% Viscous 5 ml MM Q6 PRN #1 bottle 08/28/18 Ibuprofen [Motrin] 600 mg PO Q8 PRN #21 tab 09/05/18 Pseudoephedrine [Sudafed Tab] 60 mg PO Q6 PRN #12 tab 09/05/18 - Allergies Allergies/Adverse Reactions: Allergies Allergy/AdvReac Type Severity Reaction Status Date / Time Penicillins Allergy URTICARIA Verified 09/05/18 19:36 Review of Systems ROS Statement: Except As Marked, All Systems Reviewed And Found Negative ENT: Positive for: Nose Pain Skin: Negative for: Rash Neurological: Negative for: Weakness, Numbness Physical Exam - Reviewed Nursing Documentation Reviewed: Yes Vital Signs Reviewed: Yes - Physical Exam Appears: Positive for: Well, Non-toxic, No Acute Distress Head Exam: Positive for: ATRAUMATIC, NORMAL INSPECTION, NORMOCEPHALIC Skin: Positive for: Normal Color, Warm, Dry. Negative for: Rash Eye Exam: Positive for: Normal appearance, EOMI, PERRL ENT: Positive for: Other (no epistaxis). Negative for: Normal ENT Inspection (on nasal bridge there is swelling and ecchymosis) Neck: Positive for: Normal, Painless ROM, Supple Cardiovascular/Chest: Positive for: Regular Rate, Rhythm. Negative for: Murmur Respiratory: Positive for: Normal Breath Sounds. Negative for: Respiratory Distress Gastrointestinal/Abdominal: Positive for: Normal Exam, Soft Extremity: Positive for: Normal ROM. Negative for: Deformity Neurological/Psych: Positive for: Awake, Alert, Normal Tone, Oriented (x3) - ECG O2 Sat by Pulse Oximetry: 95 (RA) Pulse Ox Interpretation: Normal Medical Decision Making Medical Decision Making: Upon provider evaluation patient is medically stable, and requires no further treatment in the ED at this time. Patient will be discharged. Counseling was provided and all questions were answered regarding diagnosis. There is agreement to discharge plan. Return if symptoms persist or worsen. Scribe Attestation: Documented by Jennifer Copeland, acting as a scribe for Donavan Almeida PA-C. Provider Scribe Attestation: All medical record entries made by the Scribe were at my direction and personally dictated by me. I have reviewed the chart and agree that the record accurately reflects my personal performance of the history, physical exam, medical decision making, and the department course for this patient. I have also personally directed, reviewed, and agree with the discharge instructions and disposition. Disposition - Clinical Impression Clinical Impression: Nasal fracture - Patient ED Disposition Is Patient to be Admitted: No - Disposition Referrals: Han Collins MD [Staff Provider] - Disposition: Routine/Home Disposition Time: 20:25 Condition: FAIR Prescriptions: Ibuprofen [Motrin] 600 mg PO Q8 PRN #21 tab PRN Reason: Pain, Moderate (4-7) Pseudoephedrine [Sudafed Tab] 60 mg PO Q6 PRN #12 tab PRN Reason: Nasal Congestion Instructions: Nose Fracture (DC)
== END 2018-09-05 20:41 | disposition home or self-care (01) ==
LOC: H.ER 19:10
DX: S02.2XXA Fracture of nasal bones, initial encounter for closed fracture (principal); W22.8XXA Striking against or struck by other objects, initial encounter; Y92.89 Other specified places as the place of occurrence of the external cause